=== PATIENT | female | born 1995 | race Caucasian/White ===

== ENCOUNTER 2022-09-04 07:11 | Emergency (ER) | payer BC ==
--- OUTSIDE RECORDS SUMMARY | 2022-09-04 07:53 | XMS REPORT | Continuity of Care Document ---
:1995 Author Organization [facility] t Address [address] [facility] [address] [place] [id number] Care Team Providers Name Role Phone Maurilio HANLEY, Buster Lenz Attending Clinician Payers Payer Name Policy Type Policy Number Effective Date Expiration Date S ource Problems Condition Condition Condition Status Onset Resolution Last Treating Co mments Source Name Details Category Date Date Treatment Clinician Date Previous Previous Disease Active Unive rs 717 ity of delivery delivery 00:00: [place] affecting affecting 00 Medi anival Bran ch Anemia of Anemia of Disease Active Uni vers mother in mother in 06 [place] , , [place] ante[place] antepartum 00 Me dical Branch Sterilizat Sterilizat Disease Active U nivers ion ion 5-11 ity of consult consult 00:00: [place] 00 Medical Branch Tobacco Tobacco Disease Active Univers smoking smoking 4-12 [place] of affecting affecting 00:[place] in second in second Bran ch trimester trimester Medication Medication Disease Active U nivers exposure exposure 4-12 ity of during during 00:00: [place] first first 00 Medical trimester trimester Bran ch of of Declines Declines Disease Active Unive rs 4-12 ity of (vaginal (vaginal 00:00: [place] 00 Medical after after Branch ) ) trial trial Previous Previous Disease Active Unive rs 4-12 ity of delivery delivery 00:00: [place] affecting affecting 00 Medi anival , , Br anch antepartum antepartum Status Status Disease Active Univers post post 7 [place] of induction induction 00:00[place] of labor of labor 00 Medica l Branch Disease Active Univers distress distress 08-20 ity of affecting affecting 00:00: Ruben llanos management management 00 Me dical of mother, of mother, Br anch delivered delivered Failed Failed Disease Active Univers induction induction 08-20 ity of of labor, of labor, 00:00: Ruben llanos delivered delivered 00 [facility] Branch Fetopelvic Fetopelvic Disease Active Overview : Univers disproport disproport 08-20 ICD10 it y of ion, ion, 00:00: Diagnosis [place] delivered delivered 00 Term [facility] [employer] Care Manager Branch Utility Threatened Threatened Disease Active U nivers premature premature 6-18 ity of labor, labor, 00:00: [place] antepartum antepartum 00 Me dical (644.03) (644.03) Branch Allergies, Adverse Reactions, Alerts Allergy Allergy Status Severity Reaction(s) Onset Inactive Treating Comm ents Source Name Type Date Date Clinician Tegaderm Propensi Active Itching Unive rs Dressing ty to 7 ity of adverse 00:00: [place] reaction 00 [facility] Penicill Propensi Active Anaphylaxis U nivers ins ty to 08-20 ity of adverse 00:00: [place] reaction 00 Medical [facility] Social History Social Habit Start Date Stop Date Quantity Comments Source History of tobacco Cigarette Smoker [facility] use [facility] Alcohol intake [facility] Sex Assigned At Universit y of [facility] [place] [facility] Cigarettes smoked 2018-08-27 2018-08-27 Univers ity of current (pack per 00:00:00 00:00:00 ) - Reported Branch Cigarette 2018-08-27 2018-08-27 University of pack-years 00:00:00 00:00:00 [facility] [place] [facility] Smoking Status Start Date Stop Date Source Current every day smoker 2018-08-27 00:00:00 Uni versity of [facility] [place] [facility] Medications Ordered Filled Start Stop Current Ordering Indication Dosage Frequency Signature Comments Components Source Medication Medication Date Date Medication? Clinician (SIG) Name Name topiramate Yes [id number] Take 100mg Univers 50 mg 09-27 two times ity of tablet 00:00: a day for [place] 00 5 days, Medical then take Branch 150 mg in the am and 100 mg in the evening for 5 days, then take 150 mg two times a day there after. ZOLMitripta Yes One tab at Univers n 5 mg 09-27 onset of ity of tablet 00:00: headache, [place] 00 may repeat Medical x one tab Branch in 4 hours if headache persist. No more than two tabs in a 24 hour period Butalbital- Yes [id number] Use one Univers Acetaminoph 8-09 every 6 ity o f en-Caff 00:00: hours as [place] (FIORICET) 00 needed for Med ical 50-300-40 head pain. Bran ch mg per capsule Butalbital- 2019- No [id number] Use one Univers Acetaminoph 6-18 08-09 every 6 ity of en-Caff 00:00: 00:00 hours as [place] (FIORICET) 00 :00 needed for Med ical 50-300-40 head pain. Bran ch mg per capsule topiramate 2019- No [id number] Use 2 in Univers 50 mg 5-03 08-09 am, 1 in ity of tablet 00:00: 00:00 the [place] 00 :00 evening Medical for the Branch headache. sumatriptan 2019- No [id number] 100mg Take 1 Univers 100 mg -04 26-09 tablet by ity of tablet 00:00: 00:00 mouth as [place] 00 :00 needed for Medical Migraine. Branch Within 24 hours, may repeat times one in 2 hours as needed. Yes 1{tbl} Take 1 Tab U nivers VIT 7-24 by mouth. ity of W-CA,FE,FA, 18:53: [place] <1 MG, 24 Medical ( Branch #2 ORAL) diphenhydrA Yes 25mg Take 25 mg Univers MINE 7-24 by mouth ity of (BENADRYL 18:53: every 4 [place] ALLERGY) 25 24 (four) Medica l mg tablet hours as Branch needed for Allergies. predniSONE 2017- Yes [id number] 10mg Take 1 Univers 10 mg 7-24 tablet by ity of tablet 00:00: mouth [place] 00 SEE-INSTRU Medical CTIONS. Branch naproxen Yes 500mg Take 1 Univer s 500 mg 7-18 tablet by ity of tablet 00:00: mouth 2 [place] 00 (two) Medical times Branch daily with meals as needed for Pain (scale 1-3) or Pain (scale 4-6). 2018- Yes 1{tbl} Take 1 Unive rs vitamin 7-18 tablet by ity of w/FA tablet 00:00: mouth [place] 00 daily. Medical Branch docusate Yes 240mg Take 1 Univer s calcium 240 7-18 capsule by it y of mg capsule 00:00: mouth once [place] 00 daily as Medical needed for Branch Constipati on. ferrous Yes 325mg Take 1 Univers sulfate 325 7-18 tablet by ity of mg (65 mg 00:00: mouth 2 [place] iron) 00 (two) Medical tablet times Branch daily. ferrous Yes [id number] 325mg Take 1 Un eusebio sulfate 7-06 tablet by ity of (IRON, 00:00: mouth 2 [place] FERROUS 00 (two) Medical SULFATE,) times Branch 325 mg (65 daily with mg iron) meals. tablet Immunizations Ordered Filled Immunization Date Status Comments [facility] e Immunization Name Name Tdap 2017-06-29 Completed [facility] 00:00:00 [facility] [place] [facility] Procedures This patient has no known procedures. Encounters Start End Encounter Admission Attending Care Care Encounter Source Date/Time Date/Time Type Type Clinicians Facility Department ID 2018-09-26 2018-09-26 Telephone MaurilioJEOVANNY [id number] [facility] 00:00:00 00:00:00 Buster Faulkner [id number] ity zoya Montoya [id number] dical nal 092 Branch Building Results This patient has no known results.
[2022-09-04] MEDS ORDERED: ONDANSETRON 4 MG/2 ML VIAL ONE (08:06)
[2022-09-04] MEDS ORDERED: NA CHLORIDE 0.9% 1,000 ML ONE (08:06)
--- NOTE | 2022-09-04 15:12 | RAD REPORT ---
EXAM DESCRIPTION: CT - Abdomen Pelvis Wo Contrast - 09/04/2022 1:41 pm CLINICAL HISTORY: Abdominal pain. ABD PAIN COMPARISON: No comparisons TECHNIQUE: CT imaging of the abdomen and pelvis was performed without contrast. Solid organ, bowel a nd vascular assessment is limited due to lack of IV and oral contrast. All CT scans are performed using dose optimization technique as appropriate and may include automated exposure control or mA/KV adjustment according to patient size. FINDINGS: The lower lung asif are clear. The liver, spleen, pancreas, adrenal glands and kidneys are within normal limits for a limited non-co ntrast examination. No bowel obstruction, free air, free fluid or abscess. The appendix is normal. The osseous structures are within normal limits. IMPRESSION: No acute intra-abdominal or pelvic findings. A limited non-contrast examination was performed as detailed.
[2022-09-04 15:29] LABS: Specific Gravity 1.009 (1.005-1.030); Urine Bacteria None Seen /HPF (<20); Urine Bilirubin NEGATIVE (Negative); Urine Blood Negative (Negative); Urine Clarity Turbid (Clear); Urine Color Light-Yellow (Yellow); Urine Glucose NEGATIVE (Negative); Urine Mucus 1+ /HPF (None Seen); Urine Protein NEGATIVE (Negative); Urine RBC <5 /HPF (None Seen); Urine Urobilinogen Normal (Normal); Urine pH 5.5 (5.0-7.0)
[2022-09-04 15:31] LABS: Specific Gravity 1.009 (1.005-1.030)
[2022-09-04 15:34] LABS: Absolute Lymphocytes (CBC) 2.3 K/uL (0.7-4.9); Hematocrit 40.2 % (36.0-45.0); MCV 93.5 fL (80-100); MPV 8.3 fL (7.6-11.3)
[2022-09-04 15:40] LABS: Albumin 4.2 g/dL (3.4-5.0); Bilirubin Total 0.7 mg/dL (0.2-1.0); Potassium 3.1 mEq/L (3.5-5.1); Protein, Total 7.5 g/dL (6.4-8.2)
--- NOTE | 2022-09-04 16:40 | ER ---
[facility] Age: 27 yrs Sex: Female : 1995 Arrival Date: 09/04/2022 Time: 07:11 Bed 14 Private MD: Diagnosis: Abdominal pain, unspecified;Nausea with vomiting, unspecified Presentation: 09/04 07:30 Chief complaint: Patient states: N/V, abdominal cramps for 7-10 days. No fever. ll1 Coronavirus screen: Vaccine status: Patient reports being unvaccinated. Client denies travel out of the [place] in the last 14 days. At this time, the client does not indicate any symptoms associated with coronavirus-19. Ebola Screen: Patient denies travel to an Ebola-affected area in the 21 days before illness onset. Initial Sepsis Screen: Does the patient meet any 2 criteria? No. Patient's initial sepsis screen is negative. Does the patient have a suspected source of infection? No. Patient's initial sepsis screen is negative. Risk Assessment: Do you want to hurt yourself or someone else? Patient reports no desire to harm self or others. Onset of symptoms was August 25, 2022. 07:30 Method Of Arrival: Ambulatory ll1 07:30 Acuity: GAURANG 3 ll1 Triage Assessment: 07:31 General: Appears uncomfortable, ill, Behavior is calm, cooperative, appropriate for ll1 age. Pain: Complains of pain in abdomen Quality of pain is described as aching, crampy. GI: Reports cramping, nausea, vomiting. 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 - Social history:: Smoking status: Patient reports the use of cigarette tobacco products, smokes one-half pack cigarettes per day. - Family history:: not pertinent. - Hospitalizations: : No recent hospitalization is reported. Screenin:25 [facility] ED Fall Risk Assessment (Adult) History of falling in the last 3 months, db including since admission No falls in past 3 months (0 pts) Score/Fall Risk Level 0 - 2 = Low Risk Oriented to surroundings. Abuse screen: Denies threats or abuse. Denies injuries from another. Nutritional screening: No deficits noted. Tuberculosis screening: No symptoms or risk factors identified. Assessment: 08:03 Reassessment: No changes from previously documented assessment. Patient and/or family ll1 updated on plan of care and expected duration. Pain level reassessed. Patient is alert, oriented x 3, equal unlabored respirations, skin warm/dry/pink. 10:00 Reassessment: Patient appears in no apparent distress at this time. No changes from db previously documented assessment. Patient is alert, oriented x 3, equal unlabored respirations, skin warm/dry/pink. 11:25 Reassessment: Patient appears in no apparent distress at this time. Patient and/or db family updated on plan of care and expected duration. Pain level reassessed. Patient is alert, oriented x 3, equal unlabored respirations, skin warm/dry/pink. Patient states feeling better. Patient states symptoms have improved. GI: Abdomen is flat. Vital Signs: 07:30 BP 125 / 95; Pulse 80; Resp 16; Temp 97.8; Pulse Ox 100% ; Pain 2/10; ll1 10:01 BP 117 / 72; Pulse 77; Resp 16; Pulse Ox 98% on R/A; db 11:34 BP 106 / 58; Pulse 61; Resp 16; Pulse Ox 97% on R/A; db 07:30 Pain Scale: Adult ll1 ED Course: 07:18 Patient arrived in ED. am2 07:21 Charanjit Merritt MD is Attending Physician. rn 07:27 Arm band placed on Patient placed in an exam room, on a stretcher. ll1 07:31 Triage completed. ll1 08:55 Lauren Cardoso, MALIHA is Primary Nurse. db 11:25 Bed in low position. Call light in reach. Side rails up X 1. Provided Education on: db DISCHARGE. 11:25 No provider procedures requiring assistance completed. IV discontinued, intact, db bleeding controlled, No redness/swelling at site. Administered Medications: 08:03 Drug: NS 0.9% IV 1000 ml Route: IV; Rate: 1 bolus; Site: right antecubital; 1 11:46 Follow up: Response: No adverse reaction; IV Status: Completed infusion; IV Intake: db 1000ml 08:03 Drug: Ondansetron IVP 4 mg Route: IVP; Site: right antecubital; ll1 11:20 Follow up: Response: No adverse reaction db Medication: 11:25 VIS not applicable for this client. db Intake: 11:46 IV: 1000ml; Total: 1000ml. db Outcome: 11:26 Discharge ordered by . rn 11:35 Discharged to home ambulatory. db 11:35 Condition: stable 11:35 Discharge instructions given to patient, Instructed on discharge instructions, follow up and referral plans. Prescriptions given X 1. 11:47 Patient left the ED. db Signatures: Charanjit Merritt MD MD rn Moreno, Amanda am2 Lewis, Lynsay RN RN 1 Lauren Cardoso RN RN db
--- NOTE | 2022-09-04 16:40 | EDPHYS ---
Physician Documentation [facility] Name: Alfred Steele Age: 27 yrs Sex: Female : 1995 Arrival Date: 09/04/2022 Time: 07:11 Bed 14 Private MD: ED Physician Charanjit Merritt HPI: 09/04 07:56 This 27 yrs old Female presents to ER via Ambulatory with complaints of rn Nausea/Vomiting. 07:56 The patient presents to the emergency department with nausea, vomiting. Onset: The rn symptoms/episode began/occurred 1 week(s) ago. Possible causes: unknown. The symptoms are aggravated by nothing. The symptoms are alleviated by nothing. Associated signs and symptoms: Pertinent positives: abdominal pain, nausea, vomiting, Pertinent negatives: diarrhea, GI bleeding, hematuria. Severity of symptoms: At their worst the symptoms were moderate in the emergency department the symptoms are unchanged. The patient has not experienced similar symptoms in the past. The patient has been recently seen by a physician:. Pt reports nausea/vomiting for 1 week. No fever. 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 + chronic abd pain, but no gross change. No congestion/sore throat/diarrhea. . 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 - Social history:: Smoking status: Patient reports the use of cigarette tobacco products, smokes one-half pack cigarettes per day. - Family history:: not pertinent. - Hospitalizations: : No recent hospitalization is reported. ROS: 07:56 Constitutional: Negative for fever, chills, and weight loss, Eyes: Negative for injury, rn pain, redness, and discharge, Neck: Negative for injury, pain, and swelling, Cardiovascular: Negative for chest pain, palpitations, and edema, Respiratory: Negative for shortness of breath, cough, wheezing, and pleuritic chest pain, Abdomen/GI: + abd pain and nausea/vomiting Back: Negative for injury and pain, MS/Extremity: Negative for injury and deformity, Skin: Negative for injury, rash, and discoloration, Neuro: + generalized weakness Exam: 07:56 Constitutional: This is a well developed, well nourished patient who is awake, alert, rn and in no acute distress. ENT: dry MM Cardiovascular: Regular rate and rhythm. No pulse deficits. Respiratory: No increased work of breathing, no retractions or nasal flaring. Abdomen/GI: soft, mild suprapubic and LLQ tenderness Skin: Warm, dry MS/ Extremity: Pulses equal, no cyanosis. Neuro: Awake and alert, GCS 15 Vital Signs: 07:30 BP 125 / 95; Pulse 80; Resp 16; Temp 97.8; Pulse Ox 100% ; Pain 2/10; ll1 10:01 BP 117 / 72; Pulse 77; Resp 16; Pulse Ox 98% on R/A; db 11:34 BP 106 / 58; Pulse 61; Resp 16; Pulse Ox 97% on R/A; db 07:30 Pain Scale: Adult ll1 MDM: 07:21 Patient medically screened. rn 11:24 Differential diagnosis: Nonspecific abd pain, gastritis, pancreatitis, appendicitis, rn diverticulitis, viral gastroenteritis, gastroenteritis. Differential diagnosis: endometriosis, UTI, flu, viral syndrome. Data reviewed: vital signs, nurses notes. Counseling: I had a detailed discussion with the patient and/or guardian regarding: the historical points, exam findings, and any diagnostic results supporting the discharge/admit diagnosis, lab results, radiology results, the need for outpatient follow up, to return to the emergency department if symptoms worsen or persist or if there are any questions or concerns that arise at home. Response to treatment: the patient's symptoms have markedly improved after treatment, and as a result, I will discharge patient. Special discussion: Based on the patient's Hx, exam, and Dx evaluation, there is no indication for emergent surgery or inpatient Tx. It is understood by the patient/guardian that if the Sx's persist or worsen they need to return immediately for re-evaluation. I discussed with the patient/guardian in detail that at this point there is no indication for admission to the hospital. It is understood, however, that if the symptoms persist or worsen the patient needs to return immediately for re-evaluation. Based on the history and exam findings, there is no indication for further emergent testing or inpatient evaluation. I discussed with the patient/guardian the need to see the primary care provider for further evaluation of the symptoms. ED course: No acute findings on blood/urine/CT abdomen. Contacted Dr. Glover, radiologist, for verbal result given computers still down, states no acute findings and no surgical findings. Will dc home with return precautions and prn nausea medication. . 09/04 07:43 Order name: IV Saline Lock; Complete Time: 07:44 rn 09/04 07:43 Order name: Labs collected and sent; Complete Time: :44 rn Administered Medications: 08:03 Drug: NS 0.9% IV 1000 ml Route: IV; Rate: 1 bolus; Site: right antecubital; ll1 11:46 Follow up: Response: No adverse reaction; IV Status: Completed infusion; IV Intake: db 1000ml 08:03 Drug: Ondansetron IVP 4 mg Route: IVP; Site: right antecubital; ll1 11:20 Follow up: Response: No adverse reaction db Disposition Summary: 09/04/22 11:26 Discharge Ordered Location: Home rn Problem: new rn Symptoms: have improved rn Condition: Stable rn Diagnosis - Abdominal pain, unspecified rn - Nausea with vomiting, unspecified rn Followup: rn - With: Private Physician - When: As needed - Reason: Recheck today's complaints, Re-evaluation by your physician Discharge Instructions: - Discharge Summary Sheet rn - Abdominal Pain, Adult rn - Nausea and Vomiting, Adult rn Forms: - Medication Reconciliation Form rn - Thank You Letter rn - 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
== END 2022-09-04 11:47 | disposition home or self-care (01) ==
LOC: ER 07:11
DX: R11.2 Nausea with vomiting, unspecified (principal); R10.9 Unspecified abdominal pain; F17.210 Nicotine dependence, cigarettes, uncomplicated; Z88.0 Allergy status to penicillin; Z91.013 Allergy to seafood; Z28.310 Unvaccinated for COVID-19
CPT/HCPCS: 96361; 85025; 36415; 81025; 81003; 83690; 80053; 87635; 87804 ×2; 74176; 96374; 99284; J2405; J7030

== ENCOUNTER 2023-06-26 16:00 | Emergency (ER) | payer BC ==
--- OUTSIDE RECORDS SUMMARY | 2023-06-26 16:03 | XMS REPORT | Continuity of Care Document ---
Author Name Unknown Address [address] [facility] [address] [place] [address] [facility] thconnect Address [address] [facility] [address] [place] [address] Care Team Providers Care Visitor Services Representative Name Role Phone Sung Garcia Attending Clinician Unavailable GC_GCBZW_Kaiona_S Attending Clinician Rosalva Prajapati Attending Clinician Buster Acuna MD Attending Clinician YULY_GCBZW_Suea_S Admitting Clinician Christine gautam KNOW, DOES_NOT Admitting Clinician Unavailable Payers Payer Name Policy Type Policy Number Effective Date Expirati on Date Source [place] [id number] 2022 00:00:00 2023 00:00:00 Problems Condition Name Condition Details Condition Category Status Onset Date Resolution Date Last Treatment Date Treating Clinician Comments Source Previous delivery affecting Previous delivery affecting Disease Active 09-04 00:00: 00 [facility] Anemia of mother in , antepartum Anemia of mother in , antepartum Disease Active -06 00:00: 00 [facility] Sterilizat ion consult Sterilizat ion consult Disease Active 5-11 00:00: 00 [facility] Tobacco smoking affecting in second trimester Tobacco smoking affecting in second trimester Disease Active 4-12 00:00: 00 [facility] Medication exposure during first trimester of Medication exposure during first trimester of Disease Active 05-31 00:00: 00 [facility] Declines (vaginal after ) trial Declines (vaginal after ) trial Disease Active 05-31 00:00: 00 [facility] Previous delivery affecting , antepartum Previous delivery affecting , antepartum Disease Active 05-31 00:00: 00 [facility] Status post induction of labor Status post induction of labor Disease Active 08-20 00:00: 00 [facility] distress affecting management of mother, delivered distress affecting management of mother, delivered Disease Active 08-20 00:00: 00 [facility] Failed induction of labor, delivered Failed induction of labor, delivered Disease Active 08-20 00:00: 00 [facility] Fetopelvic disproport ion, delivered Fetopelvic disproport ion, delivered Disease Active 08-20 00:00: 00 Overview: 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 [facility] Threatened premature labor, antepartum (644.03) Threatened premature labor, antepartum (644.03) Disease Active 08-06 00:00: 00 [facility] Allergies, Adverse Reactions, Alerts Allergy Name Allergy Type Status Severity Reaction(s) Onset Date Inactive Date Treating Clinician Comments Source shellfis h derived FA Active SV ANAPHYLAXIS 2022-02 00:00: 00 [facility] Penicill ins DA Active SV ANAPHYLAXIS 2022-02 00:00: 00 [facility] shellfis h derived FA Active SV ANAPHYLAXIS 2022-02 00:00: 00 [facility] Penicill ins DA Active SV ANAPHYLAXIS 2022-02 00:00: 00 [facility] Tegaderm Dressing Propensi ty to adverse reaction s Active Itching 09-11 00:00: 00 [facility] Penicill ins Propensi ty to adverse reaction s Active Anaphylaxis 08-20 00:00: 00 [facility] Social History Social Habit Start Date Stop Date Quantity Comments Source History of tobacco use Cigarette Smoker [facility] Alcohol intake [facility] Sex Assigned At [facility] Cigarettes smoked current (pack per day) - Reported 2018-08-27 00:00:00 2018-08-27 00:00:00 [facility] Cigarette pack-years 2018-08-27 00:00:00 2018-08-27 00:00:00 [facility] Smoking Status Start Date Stop Date Source Current every day smoker 2018-08-27 00:00:00 [facility] Medications Ordered Medication Name Filled Medication Name Start Date Stop Date Current Medication? Ordering Clinician Indication Dosage Frequency Signature (SIG) Comments Components Source topiramate 50 mg tablet 09-27 00:00: 00 Yes [id number] Take 100mg two times a day for 5 days, then take 150 mg in the am and 100 mg in the evening for 5 days, then take 150 mg two times a day there after. [facility] ZOLMitripta n 5 mg tablet 09-27 00:00: 00 Yes One tab at onset of headache, may repeat x one tab in 4 hours if headache persist. No more than two tabs in a 24 hour period [facility] Butalbital- Acetaminoph en-Caff (FIORICET) 50-300-40 mg per capsule 09-27 00:00: 00 Yes [id number] Use one every 6 hours as needed for head pain. [facility] Butalbital- Acetaminoph en-Caff (FIORICET) 50-300-40 mg per capsule 08-06 00:00: 00 09-27 00:00 :00 No [id number] Use one every 6 hours as needed for head pain. [facility] topiramate 50 mg tablet 06-21 00:00: 00 09-27 00:00 :00 No [id number] Use 2 in am, 1 in the evening for the headache. [facility] sumatriptan 100 mg tablet 06-21 00:00: 00 09-27 00:00 :00 No [id number] 100mg Take 1 tablet by mouth as needed for Migraine. Within 24 hours, may repeat times one in 2 hours as needed. [facility] VIT W-CA,FE,FA, <1 MG, ( #2 ORAL) 09-11 18:53: 24 Yes 1{tbl} Take 1 Tab by mouth. [facility] diphenhydrA MINE (BENADRYL ALLERGY) 25 mg tablet 09-11 18:53: 24 Yes 25mg Take 25 mg by mouth every 4 (four) hours as needed for Allergies. [facility] predniSONE 10 mg tablet 09-11 00:00: 00 Yes [id number] 10mg Take 1 tablet by mouth SEE-INSTRU CTIONS. [facility] naproxen 500 mg tablet 09-05 00:00: 00 Yes 500mg Take 1 tablet by mouth 2 (two) times daily with meals as needed for Pain (scale 1-3) or Pain (scale 4-6). [facility] vitamin w/FA tablet 09-05 00:00: 00 Yes 1{tbl} Take 1 tablet by mouth daily. [facility] docusate calcium 240 mg capsule 09-05 00:00: 00 Yes 240mg Take 1 capsule by mouth once daily as needed for Constipati on. [facility] ferrous sulfate 325 mg (65 mg iron) tablet 09-05 00:00: 00 Yes 325mg Take 1 tablet by mouth 2 (two) times daily. [facility] ferrous sulfate (IRON, FERROUS SULFATE,) 325 mg (65 mg iron) tablet 08-24 00:00: 00 Yes [id number] 325mg Take 1 tablet by mouth 2 (two) times daily with meals. [facility] Encounters Start Date/Time End Date/Time Encounter Type Admission Type Attending Clinicians Care Facility Care Department Encounter ID Source 2023-06-26 08:49:01 Outpatient Sung Garcia [facility] [id number] [facility] 2023-05-29 13:25:00 Outpatient Sung Garcia [facility] [id number] [facility] 2023-03-22 00:00:00 2023-03-22 00:00:00 Outpatient GC_GCBZW_Ka diyala_S PRIV PRIV [id number] [facility] 2023-02-22 00:00:00 2023-02-22 00:00:00 Outpatient GC_GCBZW_Ka diyala_S PRIV PRIV [id number] [facility] 2023-01-25 00:00:00 2023-01-25 00:00:00 Outpatient GC_GCBZW_Ka diyala_S PRIV PRIV [id number] [facility] 2023-01-04 00:00:00 2023-01-04 00:00:00 Outpatient GC_GCBZW_Ka diyala_S PRIV PRIV [id number] [facility] 2023-01-01 13:09:00 2023-01-01 13:09:00 Outpatient JOSE Estes Rosalva [facility] [id number] [address] [facility] 2022-12-28 00:00:00 2022-12-28 00:00:00 Outpatient GC_GCBZW_Ka diyala_S PRIV PRIV [id number] [facility] 2022-11-30 00:00:00 2022-11-30 00:00:00 Outpatient GC_GCBZW_Ka diyala_S PRIV PRIV [id number] [facility] 2022-11-30 00:00:00 2022-11-30 00:00:00 Outpatient GC_GCBZW_Ka diyala_S PRIV PRIV [id number] [facility] 2022-11-30 00:00:00 2022-11-30 00:00:00 Outpatient GC_GCBZW_Ka diyala_S PRIV PRIV [id number] [facility] 2022-11-30 00:00:00 2022-11-30 00:00:00 Outpatient GC_GCBZW_Ka diyala_S PRIV PRIV [id number] [facility] 2022-10-17 00:00:00 2022-10-17 00:00:00 Outpatient GC_GCBZW_Ka diyala_S PRIV PRIV [id number] [facility] 2022-10-17 00:00:00 2022-10-17 00:00:00 Outpatient GC_GCBZW_Ka diyala_S PRIV PRIV [id number] [facility] 2022-10-17 00:00:00 2022-10-17 00:00:00 Outpatient GC_GCBZW_Ka diyala_S PRIV PRIV [id number] [facility] 2022-10-17 00:00:00 2022-10-17 00:00:00 Outpatient GC_GCBZW_Ka diyala_S PRIV PRIV [id number] [facility] 2022-10-02 00:00:00 2022-10-02 00:00:00 Outpatient GC_GCBZW_Ka diyala_S PRIV PRIV [id number] [facility] 2022-10-02 00:00:00 2022-10-02 00:00:00 Outpatient GC_GCBZW_Ka diyala_S PRIV PRIV [id number] [facility] 2022-10-01 00:00:00 2022-10-01 00:00:00 Outpatient GC_GCBZW_Ka diyala_S PRIV PRIV [id number] [facility] 2018-09-26 00:00:00 2018-09-26 00:00:00 [facility]phone [facility] [id number] [facility] Results Test Description Test Time Test Comments Results Result Co mments Source HCG SERUM [id number] 15:51:00* Test Item Value Reference Range Interpretation Comme nts HCG SERUM QUAL (test code = HCGQL) SERUM NEGATIVE SCREEN NEGATIVE CBC W/AUTO [id number] 22:53:00* Test Item Value Reference Range Interpretation Comme nts WHITE BLOOD CELL (test code = WBC) 7.0 K/mm3 3.5-11.0 N RED BLOOD CELL (test code = RBC) 4.12 M/mm3 4.70-6.10 L HEMOGLOBIN (test code = HGB) 12.5 G/DL 10.4-14.9 N HEMATOCRIT (test code = HCT) 38.9 % 31.5-44.1 N MEAN CELL VOLUME (test code = MCV) 94.4 Fl 84.5-98.6 N MEAN CELL HGB (test code = MCH) 30.3 pg 27.0-34.2 N MEAN CELL HGB CONCETRATION (test code = MCHC) 32.1 G/DL 31.5-34.0 N RED CELL DISTRIBUTION WIDTH (test code = RDW) 15.3 SD 11.5-14.5 H PLATELET COUNT (test code = PLT) 218 K/mm3 150-450 N MEAN PLATELET VOLUME (test c ode = MPV) 9.70 fL 7.0-10.5 N NEUTROPHIL % (test code = NT%) 53.5 % 40-76 N IMMATURE GRANULOCYTE % (test code = IG%) 0.1 % 0.0-5.0 N LYMPHOCYTE % (test code = LY%) 36.1 % 20.5-51.1 N MONOCYTE % (test code = MO%) 8.6 % 1.7-9.3 N EOSINOPHIL % (test code = EO%) 1.3 % 0.0-6.0 N BASOPHIL % (test code = BA%) 0.4 % 0.0-2.0 N NUCLEATED RBC % (test code = NRBC%) 0.0 /100WBC% 0.0-1.0 N NEUTROPHIL # (test code = NT#) 3.7 K/mm3 1.8-7.6 N IMMATURE GRANULOCYTE # (test code = IG#) 0.01 x10 3/uL 0.00-0.03 N LYMPHOCYTE # (test code = LY#) 2.5 K/mm3 0.6-3.2 N MONOCYTE # (test code = MO#) 0.6 K/mm3 0.3-1.1 N EOSINOPHIL # (test code = EO#) 0.1 K/mm3 0.0-0.4 N BASOPHIL # (test code = BA#) 0.0 K/mm3 0.0-0.1 N NUCLEATED RBC # (test code = NRBC#) 0.0 K/mm3 0.0-0.1 N BASIC METABOLIC [id number] 14:09:00* Test Item Value Reference Range Interpretation Comme nts SODIUM (test code = NA) 140 mmol/L 134-147 N POTASSIUM (test code = K) 3.6 mmol/L 3.4-5.0 N CHLORIDE (test code = CL) 107 mmol/L 100-108 N CARBON DIOXIDE (test code = CO2) 27 mmol/L 21-32 N ANION GAP (test code = GAP) 6.0 GAP calc 4.0-15.0 N GLUCOSE (test code = GLU) 83 MG/DL 70-110 N BLOOD UREA NITROGEN (test code = BUN) 6 MG/DL 7-18 L GLOMERULAR FILTRATION RATE (test code = GFR) >=60 max estimate estGFR >60 The Glomerular Filtration Rate is a calculated parameterbased on serum Creatinine, patient age and sex. GFR valuesless than 60 mL/min/1.73 square meters are indicative ofChronic Kidney Disease. Values less than 15 mL/min/1.73square meters indicate Kidney failure. The calculation forGFR is based on the CKD-EPI (2020) calculation. This formulais race indifferent and is the recommended formula for GFRby the National Kidney Foundation for Adults.The GFR will not calculate if the sex is unknown or if thepatient's age is <18 years. CREATININE (test code = CREAT) 0.7 MG/DL 0.6-1.0 N CALCIUM (test code = CA) 8.9 MG/DL 8.5-10.1 N PROTHROMBIN [id number] 13:44:00* Test Item Value Reference Range Interpretation Comme nts PT PATIENT (test code = PTP) 11.1 SECONDS 9.3-12.9 N INTERNATIONAL NORMAL RATIO (test code = INR) 1.00 INR Unit 0.8-1.2 N TARGET INR BY INDICATION Indication INR1. Prophylaxis of venous thrombosis 2.0 - 3.0 (orthopedic surgery), Prophylaxis of venous thrombosis (other than high-risk surgery), Treatment of Deep Vein Thrombosis/Pulmonary Embolism, Prevention of systemic embolism - Tissue heart valves, Acute Myocardial Infarction (to prevent systemic embolism), Valvular heart disease, Acute Myocardial Infarction (to prevent systemic embolism), Valvular heart disease, Atrial Fibrillation, Bileaflet mechanical valve in aortic position.2. Mechanical prosthetic valves (high risk), 2.5 - 3.5 Presence of Lupus Anticoagulant or Antiphospholipid Antibodies, Prevention of systemic embolism - Acute Myocardial Infarction (to prevent recurrent infarct). Comment: PRE PROCEDURETHROMBOPLASTIN TIME [id number] 13:44:00* Test Item Value Reference Range Interpretation Comme nts THROMBOPLASTIN TIME PARTIAL (test code = PTT) 31.3 SECONDS 26-35 N Comment: PRE PROCEDUREURINALYSIS [id number] 13:24:00* Test Item Value Reference Range Interpretation Comme nts UA GLUCOSE DIPSTICK (test code = DGLUU) NEGATIVE mg/dL NEG UA BILIRUBIN DIPSTICK (test code = BILU) NEGATIVE mg/dL NEG UA KETONE DIPSTICK (test cod e = KETU) NEGATIVE mg/dL NEG UA SPECIFIC GRAVITY (test code = SGU) 1.010 SG 1.005-1.030 UA BLOOD DIPSTICK (test code = JENNIFER) NEGATIVE mg/DL NEG UA PH DIPSTICK (test code = JOSE CARLOS) 7.0 pH UNITS 5.0-7.0 UA PROTEIN DIPSTICK (test code = PROU) NEGATIVE mg/dL NEG UA UROBILINIOGEN DIPSTICK (test code = URO) 0.2 mg/dL <2.0 UA NITRITE DIPSTICK (test code = CISCO) NEGATIVE SCREEN NEG UA LEUKOCYTE ESTERASE DIPSTICK (test code = LEUU) TRACE Leuk/mcL NEGATIVE A Urine Specimen Type: Clean CatchUR HCG [id number] 13:24:00* Test Item Value Reference Range Interpretation Comme nts UR HCG QUAL (test code = HCGQLU) NEGATIVE NEGATIVE Urine Specimen Type: Clean Catch Notes Date/Time Note Provider Source 2023-01-01 21:42:00 [id number] 4-[address] [address] PATIENT NAME: ALCIDES TORRES ADMIT DATE: 01/01/23ACCOUNT NO: [id number] ROOM NO: AGE: 27 REPORT TYPE: OPERATIVE REPORT SEX: F ADMITTING PHYSICIAN: ATTENDING PHYSICIAN: Rosalva Estes MD OPERATION DATE: 01/01/2023 PREOPERATIVE DIAGNOSES: Menorrhagia, dysmenorrhea, deep dyspareunia. POSTOPERATIVE DIAGNOSES: Menorrhagia, dysmenorrhea, deep dyspareunia and bilateral tubo-ovarian adhesions, right distal hydrosalpinx and uterine adhesions to anterior abdominal wall. PROCEDURES PERFORMED:1. Diagnostic hysteroscopy.2. Diagnostic laparoscopy, bilateral tubal ovariolysis.3. Right distal partial salpingectomy.4. Removal of fundal uterine adhesions to the anterior abdominal wall on the right side. SURGEON: Rosalva Estes MD. AIRCRAFT FUELER: Tom. ANESTHESIA: General endotracheal. FINDINGS: Bilateral tubo-ovarian adhesions, right distal hydrosalpinx was notedand so it was excised. Bilateral ovaries were preserved. The left tubal adhesions were taken down; however, the left tube appeared to be densely puckered into the mesosalpinx. The right fundal uterine adhesions were removed from the anterior abdominal wall carefully without leaving any remnant of the myometrium on the abdominal wall. COMPLICATIONS: No complications. ESTIMATED BLOOD LOSS: 25 mL. SPECIMENS: Right distal tube that was hydrosalpinx. FLUIDS: 400 mL. URINE OUTPUT: 100 mL. APPROACH: Laparoscopic. WOUND CLASS: Clean. PATIENT NAME: ALCIDES TORRES DISPOSITION: Home. COUNTS: Correct. INDICATIONS: The patient is a 27-year-old patient with 2 prior C-sections, 2, para 2, status post tubal , presented with heavy periods, significant cramps and pain with intercourse. Discussed all the differential diagnoses including PID scar from any chronic inflammatory conditions like endometriosis or her prior scar adhesions and other pathology. Discussed about doing a diagnostic hysteroscopy, possible D and C if needed, butif the endometrium appeared to be unremarkable, just a diagnostic visualization,then laparoscopy with possible endometriosis excision. If any pathology was seen like adhesions, they would be taken down as they appeared to be contributing to her pain. The patient understood this. She was consented in the preoperative area. This was discussed again with the patient and her partner and she was taken to the OR. DESCRIPTION OF PROCEDURE: One gram of Ancef was given. SCDs were placed. She was placed in supine fashion on the operating table and general anesthesia was given. She was placed in dorsal lithotomy position using Howard stirrups. Abdomen, vulva, vagina, and perineum were prepped and draped in sterile fashion with ChloraPrep. One gram of Ancef was given preoperatively. Timeout was done. Arms were tucked by the side. Positioning was checked. Speculum was placed to expose the cervix. Anterior lip was grasped with 2 Allisclamps. Cervix dilated to 16-Swedish and diagnostic hysteroscope was passed through the cervical canal into the uterine cavity under direct visualization. The cavity appeared to be completely unremarkable without any intracavitary lesions or adhesions. Both tubal ostia were visualized. Scope was removed. There was no need for endometrial samplings. The diagnostic VCare was introduced into the uterus and fixed in place. A 1 cm infraumbilical curvilinear incision was made with a scalpel after injecting with local. Fascia was incised and peritoneum was entered bluntly. Sretractors were placed. Olvera was introduced and after adequate insufflation, site of entry was checked and was unremarkable. The patient was placed in Trendelenburg position and clearly the adhesions of the uterus to the anterior abdominal wall especially in the right lower quadrant were seen. Then, tubes were both pulled up to the anterior abdominal wall and lateral anterior abdominal wall and significant dense adhesions were present here. Then, ovarieswere also pulled up, adhesions to the posterior broad ligament and to the tube were seen. On the left side, the adhesions to the bowel. Then, on the right side, the tube and ovary were adhered to the anterior abdominal wall right next to the fundal adhesions of the uterus to the anterior abdominal wall likely at the scar site where there was a very thick adhesion. Two 5 ports were placed, one in the left lower quadrant, one in the left upper quadrant, both of these were 5 ports after direct injection with Marcaine at thefascia and skin ports were placed visually. Then, the pelvic cavity was surveyed and the anterior, posterior peritoneum and lateral interiano carefully noted with no evidence of any endometriosis was noted. Bilateral tubal ovariolysis, the tubal adhesions were taken down from the anterior abdominal wall, firstly on the left side systematically all the way PATIENT NAME: ALCIDES TORRES from the cornual end to the fimbriated end and released from the lateral wall aswell. Then, tubal adhesions on the right were taken down from the anterior abdominal wall to separate the tubes. The tube was divided and the distal tube appeared to have a hydrosalpinx and the proximal tube appeared to be adhered to the abdominal wall alongside the uterine adhesions, so this was all taken down. Then, uterine adhesion was taken down here by significantly cutting into the peritoneum between the posterior rectus sheath and the uterine wall. After creating this plane, the adhesions were taken down and these were taken down to the level of the bladder inferiorly. Once the entire uterus was , the proximal tube was as well. The ovarian adhesions from the right side to the anterior abdominal wall were also taken down systematically to release the ovary. Right salpingectomy distal partial: The distal right tube next to the ovary appeared to be significantly dilated, so this was taken down on the mesosalpinx and removed through the umbilical 10 port. The proximal tube appeared to be nondilated and was left in place. Thorough irrigation and suction were performed. No evidence of any bleeding. Pictures were taken. Trocars were removed after gas was desufflated. The umbilical trocar was removed. Instrument, needle and sponge counts were correctat the end of the case. Fascia at the umbilicus closed with 0 Vicryl sutures tagged and left at the beginning of the case tied to each other. Then, interrupted 4-0 Monocryl sutures for all incisions at the skin. The uterine manipulator and Bonner were removed. Instrument and sponge counts were correct at the end of case. The patient tolerated the procedure well, partner notified. She will see us back in 1 week and then in 3 months. In the future, if she haspain, definitely should consider bilateral salpingectomy as there were significant adhesions, but she can be controlled with hormones and bleeding managed either with . Dictated By: Rosalva Estes MD Date Dictated: 01/01/2023 21:42:30Date Transcribed: 01/01/2023 22:48:23YASMIN/SHAAN/Jasmyn #: [id number] ID: [id number] by Rosalva Estes MD On 01/25/2023 11:42:29 AM at 1142 PATIENT NAME: ALCIDES TORRES [id number]:48:00L.[id number] lable for patient [id number]:43:10 [facility] 2023-01-01 21:26:00 [id number]:26:00 [facility] NoteREPORT#:[id number] REPORT STATUS: SignedREPORT INITIALIZATION DATE:01/01/23 TIME:2125 PATIENT: ALCIDES TORRES UNIT #: [id number]#: [id number] ROOM/BED:: 94 AGE: 27 SEX: F ATTEND: Rosalva Estes MDADM AUTHOR: Rosalva Estes MDREPT SERVICE DT/TIME: 01/01/232125* ALL edits or amendments must be made on the electronic/computer document * Op/Inv Proc Note - BriefPre-procedure diagnosis:Menorhagia, Dysmenorrhea, Deep dyspareuniaPost-procedure diagnosis: same as pre procedure dx (same, bilaterla tubo-ovariana), bilateral tubo-ovarian adhesions, right distal hydrosalpinx, uterine adhesionsProcedures performed:Hysterscopy, Laparoscopy, bilateral tubo-ovariolysis, right distal salpingectomy(partial), removal of fundal uterine adhesions to anterior abdominal wall on therightPrimary Surgeon:Jhonssistant(s): mandyeAnesthesia: general anesthesiaFindings:bilateral dense tubo-ovarian adhesions, right distal hydrosalpinx, right fundal uterine adhesions to anterior abdominal wallComplications: noneEstimated blood loss in ml's: 25Specimens removed/altered: right distal tubeFluids:400Urine output:100Approach: laparoscopicWound class: cleanDisposition: plan to D/C homeCounts: Sponge count: correct Instrument count: correct Needle count: correct at 2130 RPT #: [id number] OF REPORT OPOperative [id number]:26:00L.[id number] ilable for patient [id number]:30:56 [facility]
[2023-06-26] MEDS ORDERED: DIPHENHYDRAMINE 50 MG/ML VIAL ONE (16:43)
[2023-06-26] MEDS ORDERED: NA CHLORIDE 0.9% 1,000 ML ONE (16:44)
[2023-06-26] MEDS ORDERED: FAMOTIDINE 20 MG/2 ML VIAL IV ONE (16:44)
[2023-06-26 17:21] LABS: Absolute Lymphocytes (CBC) 1.1 K/uL (0.7-4.9); Absolute Monocytes 0.6 K/uL (0.1-1.3); Absolute Neutrophil 6.3 K/uL (1.8-8.0); Basophils % 0.3 % (0-1.3); Eosinophils % 0.4 % (0-4.4); Hematocrit 38.1 % (36.0-45.0); Hemoglobin 12.7 g/dL (12.0-15.0); Lymphocytes % 13.6 % (15.3-44.8); MCH 30.2 pg (27.0-35.0); MCHC 33.5 g/dL (32.0-36.0); MCV 90.4 fL (80-100); MPV 8.5 fL (7.6-11.3); Monocytes % 7.1 % (3.3-12.3); Neutrophils % 78.6 % (41.7-73.7); Platelets 289 thou/uL (152-406); RBC Red Blood Cell Count 4.22 M/uL (3.86-4.86)
[2023-06-26 17:31] LABS: ALT/SGPT 17 U/L (13-56); Alkaline Phosphatase 75 U/L (45-117); Anion Gap 10.4 mEq/L (5.0-15.0); BUN Blood Urea Nitrogen 5 mg/dL (7-18); Bicarbonate 23 mEq/L (21-32); Bilirubin Total 0.6 mg/dL (0.2-1.0); Glomerular Filtration Rate 86 ml/min (=/>90); Glucose Level 124 mg/dL (74-106); Lipase 22 U/L (13-75); Potassium 3.4 mEq/L (3.5-5.1); Sodium Level 138 mEq/L (136-145)
[2023-06-26 17:49] LABS: AST/SGOT < 10 U/L (15-37)
--- NOTE | 2023-06-26 17:57 | RAD REPORT ---
[facility] 4[facility]41 pm CLINICAL HISTORY: CHEST PAIN COMPARISON: CHEST PA AND LAT 2 VIEW dated 11/20/2011; CHEST PA AND LAT 2 VIEW dated 06/26/2011; CHEST P A AND LAT 2 VIEW dated 11/26/2009; ABDOMEN ACUTE SERIES dated 11/15/2005 TECHNIQUE: Portable AP view of the chest. FINDINGS: The lungs are clear. No pneumothorax or effusion. The cardiomediastinal contours are unre markable. IMPRESSION: No acute cardiopulmonary process.
--- NOTE | 2023-06-26 18:39 | EDPHYS ---
Physician Documentation [facility] Name: Alfred Steele Age: 28 yrs Sex: Female : 1995 Arrival Date: 06/26/2023 Time: 16:00 Bed 12 Private MD: ED Physician Charanjit Merritt HPI: 06/25 16:14 This 28 yrs old Female presents to ER via Unassigned with complaints of ec2 Abdominal Pain, Vomiting, Fever. 16:14 Patient arrives today for evaluation of nausea vomiting as well as abdominal pain. ec2 Patient reports that she had an EGD yesterday because she has regular nausea and vomiting. Patient reports she been having increased vomiting since yesterday. Patient reports daily marijuana use. Patient reports no cough or cold symptoms, denies urinary complaints. Patient reports no fevers or chills. Patient reports previous laparoscopic evaluation for endometriosis as well. No abdominal surgeries otherwise.. 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 - Infectious Disease History:: Denies. - Social history:: Smoking status: Patient reports the use of cigarette tobacco products. ROS: 16:14 Constitutional: as per hpi ec2 Exam: 16:14 Constitutional: GEN: NAD Head: atraumatic Eyes: EOMI Ears: External ears are ec2 normal. CV: regular rate LUNGS: no respiratory distress ABD: non-distended SKIN: no evidence of rashes MSK: no evidence of trauma NEURO: moves all extremities equally Vital Signs: 16:20 BP 136 / 93; Pulse 84; Resp 16 S; Temp 97.5(TE); Pulse Ox 97% on R/A; Weight 49.9 kg as6 (R); Height 5 ft. 1 in. (R); Pain 10/10; 17:21 BP 134 / 93; Pulse 76; Resp 22; Pulse Ox 100% on R/A; Pain 10/10; iw 18:19 BP 114 / 79; Pulse 59; Resp 16; Pulse Ox 99% on R/A; tl4 16:20 Body Mass Index 20.78 (49.90 kg, 154.94 cm) as6 16:20 Pain Scale: Adult as6 17:21 Pain Scale: Adult iw MDM: 16:13 Patient medically screened. ec2 16:14 Data reviewed: vital signs. ED course: Patient arrives today for evaluation of nausea ec2 and vomiting. Examination remarkable for well-appearing nontoxic dividual is otherwise in no acute distress. Will obtain lab work, CT imaging, chest x-ray. Evaluating for post EGD complications including pneumomediastinum, evaluating for gastritis, intra-abdominal infection. Additionally considering cannabinoid hyperemesis.. 17:58 ED course: CBC reassuring, metabolic profile shows slight hypokalemia noted. Lipase ec2 within normal ranges. . 17:58 ED course: Chest x-ray shows no acute intrathoracic process. Will sign patient out ec2 pending CT imaging of the abdomen and pelvis and reassessment. . 18:37 ED course: Patient signed out to me by Dr. Campa, plan was to follow-up CT abdomen rn pelvis which has not been obtained yet. After signout patient told nurse that she needed to leave due to family reason and cannot stay. Patient understands risks of leaving prior to complete evaluation and testing. Patient states since given droperidol no longer nauseous or vomiting and feels much better. Patient states will return if anything changes. Refuses to stay for further testing or observation.. 18:38 Counseling: I had a detailed discussion with the patient and/or guardian regarding the rn historical points, exam findings, and any diagnostic results supporting the discharge/admit diagnosis, lab results, the need for outpatient follow up, to return to the emergency department if symptoms worsen or persist or if there are any questions or concerns that arise at home. Response to treatment: the patient's symptoms have resolved after treatment, the patient's condition has returned to base line, the patient is now symptom free, and as a result, I will discharge patient. 18:38 Refusal of service: The patient/guardian displays adequate decision making capability rn and despite a detailed discussion of alternatives, benefits, risks, and consequences refuses: CT Scan. 06/25 16:14 Order name: CBC with Diff; Complete Time: 17:58 ec2 06/25 16:14 Order name: CMP; Complete Time: 17:58 ec2 06/25 16:14 Order name: Lipase; Complete Time: 17:58 ec2 06/25 16:14 Order name: CXR XRAY; Complete Time: 17:58 ec2 06/25 16:14 Order name: IV Saline Lock; Complete Time: 17:13 ec2 06/25 16:14 Order name: Labs collected and sent; Complete Time: 17:13 ec2 Administered Medications: 17:13 Drug: NS 0.9% IV 1000 ml IV at 1 bolus Per protocol; 1000 mL bolus Route: IV; Rate: 1 iw bolus; Site: left antecubital; Delivery: Primary tubing; 18:37 Follow up: Response: No adverse reaction; IV Status: Completed infusion; IV Intake: tl4 1000ml 17:13 Drug: Droperidol IVP 2.5 mg IVP once Route: IVP; Infused Over: 2 mins; Site: left iw antecubital; 18:37 Follow up: Response: No adverse reaction; Nausea is decreased; Vomiting decreased tl4 17:13 Drug: diphenhydrAMINE IVP 25 mg IVP once Route: IVP; Site: left antecubital; iw 18:37 Follow up: Response: No adverse reaction tl4 17:14 Drug: Famotidine IVP 20 mg IVP once; dilute with 10 mL 0.9% NaCl; give over 2 minutes iw Route: IVP; Infused Over: 2 mins; Site: left antecubital; 18:37 Follow up: Response: No adverse reaction tl4 Disposition Summary: 06/26/23 18:38 Discharge Ordered Notes: Location: Home rn Condition: Stable rn Diagnosis - Cannabis abuse, uncomplicated rn - Nausea with vomiting, unspecified rn Followup: ec2 - With: Private Physician - When: - Reason: Re-evaluation by your physician Discharge Instructions: - Discharge Summary Sheet ec2 - Cannabinoid Hyperemesis Syndrome ec2 Forms: - Medication Reconciliation Form rn - Antibiotic rn community - Prescription Opioid Use rn - Patient Portal Instructions rn - Leadership Thank You Letter rn Signatures: Dispatcher [employer] Ruth Campbell RN RN iw Nieto, Roman, MD MD rn Slawson, Ashby, RN RN as6 Shahram Campa MD MD ec2 Logdahl, Grey JETT tl4 Corrections: (The following items were deleted from the chart) 16:15 16:15 CBC+H.LAB.BRZ ordered. EDMS EDMS 16:15 16:15 COMPREHENSIVE METABOLIC PANEL+C.LAB.BRZ ordered. EDMS EDMS 16:15 16:15 LIPASE+C.LAB.BRZ ordered. EDMS EDMS 16:15 16:15 Test, Urine+UC.LAB.BRZ ordered. EDMS EDMS 16:15 16:15 Urinalysis+U.LAB.BRZ ordered. EDMS EDMS 16:15 16:15 Abdomen Pelvis W Con+CT.RAD.BRZ ordered. EDMS EDMS 16:15 16:15 Chest Single View+RAD.RAD.BRZ ordered. EDMS EDMS
--- NOTE | 2023-06-26 18:39 | ER ---
Nurse's Notes [facility] Name: Alfred Steele Age: 28 yrs Sex: Female : 1995 Arrival Date: 06/26/2023 Time: 16:00 Bed 12 Private MD: Diagnosis: Cannabis abuse, uncomplicated;Nausea with vomiting, unspecified Presentation: 06/25 16:20 Chief complaint: Patient states: abdominal pain, n/v since last night after endoscope. as6 Coronavirus screen: At this time, the client does not indicate any symptoms associated with coronavirus-19. Ebola Screen: No symptoms or risks identified at this time. Initial Sepsis Screen: Does the patient meet any 2 criteria? No. Patient's initial sepsis screen is negative. Does the patient have a suspected source of infection? No. Patient's initial sepsis screen is negative. Risk Assessment: Do you want to hurt yourself or someone else? Patient reports no desire to harm self or others. Onset of symptoms was June 25, 2023. 16:20 Method Of Arrival: Ambulatory as6 16:20 Acuity: GAURANG 3 as6 Triage Assessment: 16:22 General: Appears uncomfortable, Behavior is cooperative, crying. Pain: Complains of as6 pain in abdomen. GI: Pt is actively vomiting bile. 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 - Infectious Disease History:: Denies. - Social history:: Smoking status: Patient reports the use of cigarette tobacco products. Screenin:11 [facility] ED Fall Risk Assessment (Adult) History of falling in the last 3 months, iw including since admission No falls in past 3 months (0 pts) Confusion or Disorientation No (0 pts) Intoxicated or Sedated No (0 pts) Impaired Gait No (0 pts) Mobility Assist Device Used No (0 pt) Altered Elimination No (0 pt) Score/Fall Risk Level 0 - 2 = Low Risk Oriented to surroundings, Maintained a safe environment, Educated pt \\T\\ family on fall prevention, incl call for assistance when getting out of bed, Assessed \\T\\ reinforced patient's understanding of fall precautions. Abuse screen: Denies threats or abuse. Denies injuries from another. Nutritional screening: No deficits noted. Tuberculosis screening: No symptoms or risk factors identified. Assessment: 17:09 General: Appears uncomfortable, Behavior is cooperative, restless. Pain: Complains of iw pain in abdomen. Neuro: Level of Consciousness is awake, alert, obeys commands, Oriented to person, place, time, situation, Server Service Assistant are equal bilaterally Moves all extremities. Full function Gait is steady, Speech is normal. Cardiovascular: Capillary refill < 3 seconds Patient's skin is warm and dry. Respiratory: Airway is patent Respiratory effort is even, unlabored, Respiratory pattern is regular, symmetrical, Breath sounds are clear bilaterally. GI: Bowel sounds present X 4 quads. Abd is soft X 4 quads Abdomen is tender to palpation X 4 quads. Reports upper abdominal pain, intolerance of fluids, intolerance of food, nausea, vomiting. : No signs and/or symptoms were reported regarding the genitourinary system. EENT: No signs and/or symptoms were reported regarding the EENT system. Derm: No signs and/or symptoms reported regarding the dermatologic system. Musculoskeletal: No signs and/or symptoms reported regarding the musculoskeletal system. 18:17 Reassessment: Patient and/or family updated on plan of care and expected duration. Pain tl4 level reassessed. Patient is alert, oriented x 3, equal unlabored respirations, skin warm/dry/pink. Pt resting comfortably, no active vomiting noted. Pt reminded of need for urine specimen. Pt denies any needs at this time. Will continue to monitor Patient states feeling better. 18:36 Reassessment: Pt states she is feeling better. Pt states "there's something going on at tl4 home with one of my kids". Pt wants to sign AMA. Dr. Merritt aware. He states he will discharge patient. Vital Signs: 16:20 BP 136 / 93; Pulse 84; Resp 16 S; Temp 97.5(TE); Pulse Ox 97% on R/A; Weight 49.9 kg as6 (R); Height 5 ft. 1 in. (R); Pain 10/10; 17:21 BP 134 / 93; Pulse 76; Resp 22; Pulse Ox 100% on R/A; Pain 10/10; iw 18:19 BP 114 / 79; Pulse 59; Resp 16; Pulse Ox 99% on R/A; tl4 16:20 Body Mass Index 20.78 (49.90 kg, 154.94 cm) as6 16:20 Pain Scale: Adult as6 17:21 Pain Scale: Adult iw ED Course: 16:02 Patient arrived in ED. mr 16:03 Shahram Campa MD is Attending Physician. ec2 16:17 Radiology exam delayed due to lab results not completed at this time. (BUN/Creatinine) nj IV insertion attempt and/or patient not having appropriate IV at this time. 16:17 Radiology exam delayed due to test not completed at this time. nj 16:22 Triage completed. as6 16:22 Arm band placed on. as6 16:42 Grey Duke, MALIHA is Primary Nurse. tl4 16:43 CXR XRAY In Process Unspecified. EDMS 17:12 Patient has correct armband on for positive identification. Placed in gown. Bed in low iw position. Call light in reach. Side rails up X 1. Provided Education on: ED process. Client placed on continuous cardiac and pulse oximetry monitoring. NIBP monitoring applied. Door closed. Noise minimized. Lights dimmed. Moved to private room. Warm blanket given. Pillow given. 17:12 No provider procedures requiring assistance completed. Initial lab(s) drawn, by me, iw sent to lab. Inserted saline lock: 22 gauge in left antecubital area, using aseptic technique. Blood collected. 17:13 CBC with Diff Sent. iw 17:13 CMP Sent. iw 17:13 Lipase Sent. iw 17:43 Radiology exam delayed due to lab results not completed at this time. (BUN/Creatinine) nj test not completed at this time. 18:16 Attending Physician role handed off by Shahram Campa MD rn 18:16 Charanjit Merritt MD is Attending Physician. rn 18:19 Warm blanket given. tl4 18:59 IV discontinued, intact, bleeding controlled, No redness/swelling at site. Pressure tl4 dressing applied. Administered Medications: 17:13 Drug: NS 0.9% IV 1000 ml IV at 1 bolus Per protocol; 1000 mL bolus Route: IV; Rate: 1 iw bolus; Site: left antecubital; Delivery: Primary tubing; 18:37 Follow up: Response: No adverse reaction; IV Status: Completed infusion; IV Intake: tl4 1000ml 17:13 Drug: Droperidol IVP 2.5 mg IVP once Route: IVP; Infused Over: 2 mins; Site: left iw antecubital; 18:37 Follow up: Response: No adverse reaction; Nausea is decreased; Vomiting decreased tl4 17:13 Drug: diphenhydrAMINE IVP 25 mg IVP once Route: IVP; Site: left antecubital; iw 18:37 Follow up: Response: No adverse reaction tl4 17:14 Drug: Famotidine IVP 20 mg IVP once; dilute with 10 mL 0.9% NaCl; give over 2 minutes iw Route: IVP; Infused Over: 2 mins; Site: left antecubital; 18:37 Follow up: Response: No adverse reaction tl4 Medication: 17:11 VIS not applicable for this client. iw Intake: 18:37 IV: 1000ml; Total: 1000ml. tl4 Outcome: 18:38 Discharge ordered by MD. rn 19:00 Discharged to home ambulatory, tl4 19:00 Condition: stable 19:00 Discharge instructions given to patient, Instructed on discharge instructions, follow up and referral plans. Demonstrated understanding of instructions, follow-up care, 19:00 Patient left the ED. tl4 Signatures: Dispatcher [employer] Mackenzie Jaramillo, Ruth Rojas, RN Charanjit Raya MD MD rn Jordan, Nathan nj Slawson, Ashby, RN RN as6 Shahram Campa MD MD ec2 Grey Duke RN RN tl4
[2023-06-26 19:21] VITALS: BP 114/79; TEMP 97.5; O2SAT 99
== END 2023-06-26 19:00 | disposition home or self-care (01) ==
LOC: ER 16:00
DX: F12.10 Cannabis abuse, uncomplicated (principal); Z72.0 Tobacco use; Z88.0 Allergy status to penicillin; Z91.013 Allergy to seafood
CPT/HCPCS: 85025; 36415; 83690; 80053; 71045; J1200; J7030

== ENCOUNTER 2023-06-28 01:49 | Emergency (ER) | payer BC ==
--- OUTSIDE RECORDS SUMMARY | 2023-06-28 01:51 | XMS REPORT | Continuity of Care Document ---
Author Name Unknown Address [address] [facility] [address] th[address] Address [address] [facility] [address] [place] [address] Care Team Providers Care Regional Office Coordinator Name Role Phone Sung Garcia Attending Clinician Unavailable GC_GCBZW_Kadiyala_S Attending Clinician Rosalva Prajapati Attending Clinician Buster Acuna MD Attending Clinician [phone] YULY_GCBZW_Suea_S Admitting Clinician Christine gautam KNOW, DOES_NOT Admitting Clinician Unavailable Payers Payer Name Policy Type Policy Number Effective Date Expirati on Date Source [place] [id number] 2022 00:00:00 2023 00:00:00 Problems Condition Name Condition Details Condition Category Status Onset Date Resolution Date Last Treatment Date Treating Clinician Comments Source Previous delivery affecting Previous delivery affecting Disease Active 09-04 00:00: 00 [facility] Anemia of mother in , antepartum Anemia of mother in , antepartum Disease Active 08-24 00:00: 00 [facility] Sterilizat ion consult Sterilizat ion consult Disease Active - 00:00: 00 [facility] Tobacco smoking affecting in second trimester Tobacco smoking affecting in second trimester Disease Active -12 00:00: 00 [facility] Medication exposure during first trimester of Medication exposure during first trimester of Disease Active 05-31 00:00: 00 [facility] Declines (vaginal after ) trial Declines (vaginal after ) trial Disease Active 05-31 00:00: 00 [facility] Previous delivery affecting , antepartum Previous delivery affecting , antepartum Disease Active 05-31 00:00: 00 [facility] Status post induction of labor Status post induction of labor Disease Active 08-20 00:00: 00 [facility] distress affecting management of mother, delivered distress affecting management of mother, delivered Disease Active 08-20 00:00: 00 [facility] Failed induction of labor, delivered Failed induction of labor, delivered Disease Active 08-20 00:00: 00 [facility] Fetopelvic disproport ion, delivered Fetopelvic disproport ion, delivered Disease Active 08-20 00:00: 00 Overview: ICD10 Diagnosis Term Special Education Coordinator Utility [facility] Threatened premature labor, antepartum (644.03) Threatened premature labor, antepartum (644.03) Disease Active 08-06 00:00: 00 [facility] Allergies, Adverse Reactions, Alerts Allergy Name Allergy Type Status Severity Reaction(s) Onset Date Inactive Date Treating Clinician Comments Source Penicill ins DA Active SV ANAPHYLAXIS 2022-02 00:00: 00 [facility] shellfis h derived FA Active SV ANAPHYLAXIS 2022-02 00:00: 00 [facility] shellfis h derived FA Active SV ANAPHYLAXIS 2022-02 00:00: 00 [facility] Penicill ins DA Active SV ANAPHYLAXIS 2022-02 00:00: 00 [facility] Tegaderm Dressing Propensi ty to adverse reaction s Active Itching 09-11 00:00: 00 [facility] Penicill ins Propensi ty to adverse reaction s Active Anaphylaxis 08-20 00:00: 00 [facility] Social History Social Habit Start Date Stop Date Quantity Comments Source History of tobacco use Cigarette Smoker [facility] Alcohol intake Unive [facility] Sex Assigned At [facility] Cigarettes smoked current (pack per day) - Reported 2018-08-27 00:00:00 2018-08-27 00:00:00 [facility] Cigarette pack-years 2018-08-27 00:00:00 2018-08-27 00:00:00 [facility] Smoking Status Start Date Stop Date Source Current every day smoker 2018-08-27 00:00:00 [facility] Medications Ordered Medication Name Filled Medication Name Start Date Stop Date Current Medication? Ordering Clinician Indication Dosage Frequency Signature (SIG) Comments Components Source topiramate 50 mg tablet 09-27 00:00: 00 Yes [id number] Take 100mg two times a day for 5 days, then take 150 mg in the am and 100 mg in the evening for 5 days, then take 150 mg two times a day there after. [facility] ZOLMitripta n 5 mg tablet 09-27 00:00: 00 Yes One tab at onset of headache, may repeat x one tab in 4 hours if headache persist. No more than two tabs in a 24 hour period [facility] Butalbital- Acetaminoph en-Caff (FIORICET) 50-300-40 mg per capsule 09-27 00:00: 00 Yes [id number] Use one every 6 hours as needed for head pain. [facility] Butalbital- Acetaminoph en-Caff (FIORICET) 50-300-40 mg per capsule 08-06 00:00: 00 09-27 00:00 :00 No [id number] Use one every 6 hours as needed for head pain. [facility] topiramate 50 mg tablet 06-21 00:00: 00 09-27 00:00 :00 No [id number] Use 2 in am, 1 in the evening for the headache. [facility] sumatriptan 100 mg tablet 03 00:00: 00 09-27 00:00 :00 No [id number] 100mg Take 1 tablet by mouth as needed for Migraine. Within 24 hours, may repeat times one in 2 hours as needed. [facility] VIT W-CA,FE,FA, <1 MG, ( #2 ORAL) 09-11 18:53: 24 Yes 1{tbl} Take 1 Tab by mouth. [facility] diphenhydrA MINE (BENADRYL ALLERGY) 25 mg tablet 09-11 18:53: 24 Yes 25mg Take 25 mg by mouth every 4 (four) hours as needed for Allergies. [facility] predniSONE 10 mg tablet 09-11 00:00: 00 Yes [id number] 10mg Take 1 tablet by mouth SEE-INSTRU CTIONS. [facility] naproxen 500 mg tablet 09-05 00:00: 00 Yes 500mg Take 1 tablet by mouth 2 (two) times daily with meals as needed for Pain (scale 1-3) or Pain (scale 4-6). [facility] vitamin w/FA tablet 09-05 00:00: 00 Yes 1{tbl} Take 1 tablet by mouth daily. [facility] docusate calcium 240 mg capsule 09-05 00:00: 00 Yes 240mg Take 1 capsule by mouth once daily as needed for Constipati on. [facility] ferrous sulfate 325 mg (65 mg iron) tablet 09-05 00:00: 00 Yes 325mg Take 1 tablet by mouth 2 (two) times daily. [facility] ferrous sulfate (IRON, FERROUS SULFATE,) 325 mg (65 mg iron) tablet 08-24 00:00: 00 Yes [id number] 325mg Take 1 tablet by mouth 2 (two) times daily with meals. [facility] Encounters Start Date/Time End Date/Time Encounter Type Admission Type Attending Clinicians Care Facility Care Department Encounter ID Source 2023-06-26 08:49:01 Outpatient Sung Garcia [facility] [id number] [facility] 2023-05-29 13:25:00 Outpatient Sung Garcia [facility] [id number] [facility] 2023-03-22 00:00:00 2023-03-22 00:00:00 Outpatient GC_GCBZW_Ka diyala_S PRIV PRIV [id number] [facility] 2023-02-22 00:00:00 2023-02-22 00:00:00 Outpatient GC_GCBZW_Ka diyala_S PRIV PRIV [id number] [facility] 2023-01-25 00:00:00 2023-01-25 00:00:00 Outpatient GC_GCBZW_Ka diyala_S PRIV PRIV [id number] [facility] 2023-01-04 00:00:00 2023-01-04 00:00:00 Outpatient GC_GCBZW_Ka diyala_S PRIV PRIV [id number] [facility] 2023-01-01 13:09:00 2023-01-01 13:09:00 Outpatient JOSE Krunalionghislaine Rosalva [facility] [id number] [facility] 2022-12-28 00:00:00 2022-12-28 00:00:00 Outpatient GC_GCBZW_Ka diyala_S PRIV PRIV [id number] [facility] 2022-11-30 00:00:00 2022-11-30 00:00:00 Outpatient GC_GCBZW_Ka diyala_S PRIV PRIV [id number] [facility] 2022-11-30 00:00:00 2022-11-30 00:00:00 Outpatient GC_GCBZW_Ka diyala_S PRIV PRIV [id number] [facility] 2022-11-30 00:00:00 2022-11-30 00:00:00 Outpatient GC_GCBZW_Ka diyala_S PRIV PRIV [id number] [facility] 2022-11-30 00:00:00 2022-11-30 00:00:00 Outpatient GC_GCBZW_Ka diyala_S PRIV PRIV [id number] [facility] 2022-10-17 00:00:00 2022-10-17 00:00:00 Outpatient GC_GCBZW_Ka diyala_S PRIV PRIV [id number] [facility] 2022-10-17 00:00:00 2022-10-17 00:00:00 Outpatient GC_GCBZW_Ka diyala_S PRIV PRIV [id number] [facility] 2022-10-17 00:00:00 2022-10-17 00:00:00 Outpatient GC_GCBZW_Ka diyala_S PRIV PRIV [id number] [facility] 2022-10-17 00:00:00 2022-10-17 00:00:00 Outpatient GC_GCBZW_Ka diyala_S PRIV PRIV [id number] [facility] 2022-10-02 00:00:00 2022-10-02 00:00:00 Outpatient GC_GCBZW_Ka diyala_S PRIV PRIV [id number] [facility] 2022-10-02 00:00:00 2022-10-02 00:00:00 Outpatient GC_GCBZW_Ka diyala_S PRIV PRIV [id number] [facility] 2022-10-01 00:00:00 2022-10-01 00:00:00 Outpatient GC_GCBZW_Ka diyala_S PRIV PRIV [id number] [facility] 2018-09-26 00:00:00 2018-09-26 00:00:00 Telephone Buster Thorpe [facility] [id number] [facility] Results Test Description Test Time Test Comments Results Result Co mments Source HCG SERUM [id number] 15:51:00* Test Item Value Reference Range Interpretation Comme nts HCG SERUM QUAL (test code = HCGQL) SERUM NEGATIVE SCREEN NEGATIVE CBC W/AUTO [id number] 22:53:00* Test Item Value Reference Range Interpretation [...] NRBC#) 0.0 K/mm3 0.0-0.1 N BASIC METABOLIC [id number] 14:09:00* Test Item Value Reference Range Interpretation [...] = CA) 8.9 MG/DL 8.5-10.1 N PROTHROMBIN [id number] 13:44:00* Test Item Value Reference Range Interpretation [...] prevent recurrent infarct). Comment: PRE PROCEDURETHROMBOPLASTIN TIME [id number] 13:44:00* Test Item Value Reference Range Interpretation Comme nts THROMBOPLASTIN TIME PARTIAL (test code = PTT) 31.3 SECONDS 26-35 N Comment: PRE PROCEDUREURINALYSIS [id number] 13:24:00* Test Item Value Reference Range Interpretation [...] A Urine Specimen Type: Clean CatchUR HCG [id number] 13:24:00* Test Item Value Reference Range Interpretation Comme nts UR HCG QUAL (test code = HCGQLU) NEGATIVE NEGATIVE Urine Specimen Type: Clean Catch Notes Date/Time Note Provider Source 2023-01-01 21:42:00 [id number]:95864 4-[address] [address] PATIENT NAME: ALCIDES TORRES ADMIT DATE: 01/01/23ACCOUNT NO: [id number] ROOM NO: AGE: 27 REPORT TYPE: OPERATIVE [...] the right side. SURGEON: Rosalva Estes MD. MULE DEVELOPER: Tom. ANESTHESIA: General endotracheal. FINDINGS: Bilateral tubo-ovarian [...] grasped with 2 Allisclamps. Cervix dilated to 16-Mozambican and diagnostic hysteroscope was passed through the [...] Dictated: 01/01/2023 21:42:30Date Transcribed: 01/01/2023 22:48:23YASMIN/SHAAN/Jasmyn #: [id number] ID: [id number] by Rosalva Estes MD On 01/25/2023 11:42:29 AM at 1142 PATIENT NAME: ALCIDES TORRES [id number]:48:[id number] lable for patient [id number]:43:10 [facility] 2023-01-01 21:26:00 [id number]:26:00 [facility] NoteREPORT#:[id number] REPORT STATUS: SignedREPORT INITIALIZATION DATE:01/01/23 TIME:2125 PATIENT: ALCIDES TORRES UNIT #: [id number]#: [id number] ROOM/BED:: 94 AGE: 27 SEX: F ATTEND: [...] adhesions to anterior abdominal wall on therightPrimary Surgeon:Junioristant(s): mikeAnesthesia: general anesthesiaFindings:bilateral dense tubo-ovarian adhesions, right distal hydrosalpinx, right fundal uterine adhesions to anterior abdominal wallComplications: noneEstimated blood loss in ml's: 25Specimens removed/altered: right distal tubeFluids:400Urine output:100Approach: laparoscopicWound class: cleanDisposition: plan to D/C homeCounts: Sponge count: correct Instrument count: correct Needle count: correct at 2130 RPT #: [id number] OF REPORT OPOperative [id number]:26:00L.[id number] ilable for patient [id number]:30:56 [facility]
[2023-06-28] MEDS ORDERED: ONDANSETRON 4 MG/2 ML VIAL ONE (02:05)
[2023-06-28] MEDS ORDERED: KETOROLAC 30 MG/ML INJ ONE (02:14)
[2023-06-28] MEDS ORDERED: METOCLOPRAMIDE 10 MG/2mL INJ ONE (02:14)
[2023-06-28] MEDS ORDERED: MORPHINE 4 MG/ML SYR ONE (02:14)
[2023-06-28] MEDS ORDERED: HALOPERIDOL LACT 5 MG/ML INJ ONE (02:14)
[2023-06-28] MEDS ORDERED: FAMOTIDINE 20 MG/2 ML VIAL IV ONE (02:14)
[2023-06-28] MEDS ORDERED: NA CHLORIDE 0.9% 1,000 ML ONE (02:15)
[2023-06-28 02:54] LABS: Absolute Lymphocytes (CBC) 3.2 K/uL (0.7-4.9); Absolute Monocytes 0.8 K/uL (0.1-1.3); Absolute Neutrophil 4.7 K/uL (1.8-8.0); Basophils % 0.3 % (0-1.3); Eosinophils % 0.1 % (0-4.4); Hematocrit 36.1 % (36.0-45.0); Hemoglobin 12.1 g/dL (12.0-15.0); Lymphocytes % 36.7 % (15.3-44.8); MCH 30.6 pg (27.0-35.0); MCHC 33.5 g/dL (32.0-36.0); MCV 91.2 fL (80-100); MPV 8.3 fL (7.6-11.3); Neutrophils % 53.9 % (41.7-73.7); Platelets 300 thou/uL (152-406); RBC Red Blood Cell Count 3.96 M/uL (3.86-4.86); Red Cell Distribution Width 18.5 % (12.1-15.2)
[2023-06-28 03:13] LABS: ALT/SGPT 16 U/L (13-56); Albumin 3.7 g/dL (3.4-5.0); Alkaline Phosphatase 66 U/L (45-117); Anion Gap 9.8 mEq/L (5.0-15.0); BUN Blood Urea Nitrogen 5 mg/dL (7-18); Bicarbonate 25 mEq/L (21-32); Bilirubin Total 0.6 mg/dL (0.2-1.0); C-Reactive Protein 3.66 mg/L (<3.00); Globulin 3.6 g/dL (2.3-3.5); Glomerular Filtration Rate 76 ml/min (=/>90); Glucose Level 84 mg/dL (74-106); Lipase 36 U/L (13-75); Potassium 2.8 mEq/L (3.5-5.1); Protein, Total 7.3 g/dL (6.4-8.2); Sodium Level 138 mEq/L (136-145)
[2023-06-28 03:14] LABS: AST/SGOT < 10 U/L (15-37)
[2023-06-28] MEDS ORDERED: POTASSIUM 25 MEQ EFFERV TAB ONE (04:28)
[2023-06-28] MEDS ORDERED: MAGNES/ALUMIN/SIMET 30ML UCUP ONE (04:30)
[2023-06-28] MEDS ORDERED: PANTOPRAZOLE 40MG TABLET PO ONE (04:31)
[2023-06-28] MEDS ORDERED: LIDOCAINE VISCOUS 2% 10ML ORAL SOLN ONE (04:31)
--- NOTE | 2023-06-28 06:12 | ER ---
Nurse's Notes [facility] [place] Name: Alfred Steele Age: 28 yrs Sex: Female : 1995 Arrival Date: 06/28/2023 Time: 01:49 Bed 6 Private MD: Diagnosis: Acute gastritis;Other specified noninfective gastroenteritis and colitis;Nausea with vomiting, unspecified Presentation: 06/27 02:00 Chief complaint: Patient states: I was seen yesterday. I think I have really bad jb4 gastritis. I had endoscopic surgery on Sunday to find out why I am vomiting so much. I have also been vomiting for the past 3 days. Coronavirus screen: At this time, the client does not indicate any symptoms associated with coronavirus-19. Ebola Screen: No symptoms or risks identified at this time. Initial Sepsis Screen: Does the patient meet any 2 criteria? No. Patient's initial sepsis screen is negative. Does the patient have a suspected source of infection? No. Patient's initial sepsis screen is negative. Risk Assessment: Do you want to hurt yourself or someone else? Patient reports no desire to harm self or others. Onset of symptoms was June 28, 2023. Transition of care: patient was not received from another setting of care. 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 - Infectious Disease History:: Denies. - Social history:: Smoking status: Patient denies any tobacco usage or history of. Patient/guardian denies using alcohol, street drugs. - Family history:: not pertinent. Screenin:56 [facility] ED Fall Risk Assessment (Adult) History of falling in the last 3 months, tm6 including since admission No falls in past 3 months (0 pts) Confusion or Disorientation No (0 pts) Intoxicated or Sedated No (0 pts) Impaired Gait No (0 pts) Mobility Assist Device Used No (0 pt) Altered Elimination No (0 pt) Score/Fall Risk Level 0 - 2 = Low Risk Oriented to surroundings, Maintained a safe environment. Abuse screen: Denies threats or abuse. Denies injuries from another. Nutritional screening: No deficits noted. Tuberculosis screening: No symptoms or risk factors identified. Assessment: 01:56 General: Appears distressed, Behavior is cooperative, crying. Pain: Complains of pain tm6 in epigastric area Pain does not radiate. Pain currently is 8 out of 10 on a pain scale. Quality of pain is described as stabbing, Pain began 2-3 days ago. Neuro: Level of Consciousness is awake, alert, obeys commands, Oriented to person, place, time, situation. Cardiovascular: No deficits noted. Patient's skin is warm and dry. Respiratory: Airway is patent Respiratory effort is even, unlabored, Respiratory pattern is regular, symmetrical. GI: Abdomen is flat, non-distended, Abdomen is tender to palpation in epigastric area Reports epigastric pain. : No signs and/or symptoms were reported regarding the genitourinary system. EENT: No signs and/or symptoms were reported regarding the EENT system. Derm: No signs and/or symptoms reported regarding the dermatologic system. Musculoskeletal: No signs and/or symptoms reported regarding the musculoskeletal system. 03:07 Reassessment: Patient appears in no apparent distress at this time. Patient and/or km8 family updated on plan of care and expected duration. Pain level reassessed. Patient is alert, oriented x 3, equal unlabored respirations, skin warm/dry/pink. Patient states feeling better. Patient states symptoms have improved. 04:00 Reassessment: pt at CT at this time. 8 Vital Signs: 02:00 BP 141 / 93; Pulse 67; Resp 18; Temp 98.2(O); Pulse Ox 99% on R/A; Weight 49.9 kg (R); jb4 Height 5 ft. 1 in. (R); Pain 10/10; 02:15 BP 138 / 90; Pulse 57; Resp 18; Pulse Ox 99% on R/A; km8 03:06 BP 133 / 84; Pulse 46; Resp 16; Pulse Ox 99% on 2 lpm NC; km8 03:30 BP 95 / 54; Pulse 47; Resp 16; Pulse Ox 98% on 2 lpm NC; km8 04:00 BP 101 / 70; Pulse 57; Resp 16; Pulse Ox 98% on R/A; km8 04:30 BP 102 / 64; Pulse 43; Resp 16; Pulse Ox 100% on R/A; km8 05:00 BP 108 / 63; Pulse 52; Resp 16; Pulse Ox 95% on R/A; km8 05:30 BP 99 / 72; Pulse 66; Resp 16; Pulse Ox 95% on R/A; km8 06:20 BP 102 / 74; Pulse 53; Resp 16; Temp 98.2; Pulse Ox 95% on R/A; km8 02:00 Body Mass Index 20.78 (49.90 kg, 154.94 cm) jb4 02:00 Pain Scale: Adult jb4 Liliana Coma Score: 05:02 Eye Response: spontaneous(4). Motor Response: obeys commands(6). Verbal Response: sp4 oriented(5). Total: 15. ED Course: 01:51 Patient arrived in ED. ra3 01:54 Nina Gómez, RN is Primary Nurse. tm6 01:56 Patient has correct armband on for positive identification. Placed in gown. Bed in low tm6 position. Call light in reach. Side rails up X 1. Provided Education on: use of call knapp. Client placed on continuous cardiac and pulse oximetry monitoring. NIBP monitoring applied. Pulse ox on. NIBP on. Door closed. Noise minimized. Warm blanket given. 01:56 O2 via room air. tm6 02:01 Irineo Patterson MD is Attending Physician. sp4 02:02 Triage completed. jb4 02:02 Arm band placed on right wrist. Patient placed in an exam room. jb4 02:10 CBC with Diff Sent. km8 02:10 CMP Sent. km8 02:10 Lipase Sent. km8 02:10 Inserted saline lock: 20 gauge in left antecubital area, using aseptic technique. Blood km8 collected. 02:28 No provider procedures requiring assistance completed. km8 04:00 CT Abd/Pelvis - IV Contrast Only In Process Unspecified. EDMS 04:[address] km8 04:[address]. km8 05:42 US Abdomen Limited In Process Unspecified. EDMS 06:11 Srinivas Herbert MD is Referral Physician. sp4 06:16 IV discontinued, intact, bleeding controlled, No redness/swelling at site. Pressure km8 dressing applied. Administered Medications: 02:10 Drug: Ondansetron IVP 4 mg IVP once; over 2 minutes Route: IVP; Site: left antecubital; km8 03:00 Follow up: Response: No adverse reaction; Nausea is decreased km8 02:10 Drug: morphine IVP or IV 4 mg IVP once over 4 mins Route: IVP; Infused Over: 4 mins; km8 Site: left antecubital; 03:00 Follow up: Response: No adverse reaction; Pain is decreased km8 02:10 Drug: Ketorolac IVP 30 mg IVP once Route: IVP; Site: left antecubital; km8 03:00 Follow up: Response: No adverse reaction; Pain is decreased km8 02:10 Drug: Famotidine IVP 20 mg IVP once; dilute with 10 mL 0.9% NaCl; give over 2 minutes km8 Route: IVP; Site: left antecubital; 03:00 Follow up: Response: No adverse reaction 8 02:15 Drug: NS 0.9% IV 1000 ml IV at 1 bolus Per protocol; 1000 mL bolus Route: IV; Rate: 1 km8 bolus; Site: left antecubital; 04:30 Follow up: IV Status: Completed infusion; IV Intake: 1000ml 8 02:15 Drug: metoCLOPramide IVP 10 mg IVP once; over 1 to 2 minutes Route: IVP; Site: left km8 antecubital; 03:00 Follow up: Response: No adverse reaction 8 02:20 Drug: Haloperidol IVP 2.5 mg/50 mL 2.5 mg IVP once; Place patient on a youth nutritional monitor km8 Route: IVP; Site: left antecubital; 03:00 Follow up: Response: No adverse reaction; Nausea is decreased 8 04:34 Drug: Potassium Chloride PO Liquid 40 mEq PO once Route: PO; km8 06:17 Follow up: Response: No adverse reaction 8 04:34 Drug: GI Cocktail without - (Maalox PO 30 ml, Lidocaine Mucous Membrane 2 % 15 km8 ml) PO once Route: PO; 06:17 Follow up: Response: No adverse reaction 8 04:34 Drug: Pantoprazole PO 40 mg PO once Route: PO; km8 06:17 Follow up: Response: No adverse reaction km8 Medication: 01:56 VIS not applicable for this client. tm6 Intake: 04:30 IV: 1000ml; Total: 1000ml. km8 Outcome: 06:12 Discharge ordered by . sp4 06:17 Discharged to home ambulatory, with significant other, km8 06:17 Condition: good 06:17 Discharge instructions given to patient, significant other, Instructed on discharge instructions, follow up and referral plans. medication usage, Demonstrated understanding of instructions, follow-up care, medications, Prescriptions given X 6 06:22 Patient left the ED. tm6 Signatures: Dispatcher [employer] EDMS Matoe Parry, RN RN jb4 Irineo Patterson MD MD sp4 Susan Terry RN RN km8 Nina Gómez RN RN tm6 Bárbara Rosen ra3 Corrections: (The following items were deleted from the chart) 04:29 04:25 Potassium Chloride PO Liquid 40 mEq PO km8 tm6 06:18 06:17 Discharge instructions given to patient, significant other, Instructed on km8 discharge instructions, follow up and referral plans. medication usage, Demonstrated understanding of instructions, follow-up care, medications, Prescriptions given X 4, km8 06:20 06:00 BP 102 / 74; Pulse 53bpm; Resp 16bpm; Pulse Ox 95% RA; km8 km8
--- NOTE | 2023-06-28 06:12 | EDPHYS ---
Physician Documentation [facility] Name: Alfred Steele Age: 28 yrs Sex: Female : 1995 Arrival Date: 06/28/2023 Time: 01:49 Bed 6 Private MD: ED Physician Irineo Patterson HPI: 06/27 02:01 This 28 yrs old Female presents to ER via Unassigned with complaints of Chest sp4 Pain, Nausea/Vomiting. 02:07 28-year-old female presents with acute onset abdominal pain nausea vomiting. Patient sp4 also reports chest pain, patient has had endoscopy on Sunday for evaluation of her persistent abdominal symptoms. Patient was also here on a 06/26/2023 for abdominal pain nausea. . 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 - Infectious Disease History:: Denies. - Social history:: Smoking status: Patient denies any tobacco usage or history of. Patient/guardian denies using alcohol, street drugs. - Family history:: not pertinent. ROS: 02:08 Constitutional: Negative for fever, chills, and weight loss, positive for abdominal sp4 pain positive for chest pain positive for nausea positive for vomiting Exam: 05:02 Constitutional: This is a well developed, well nourished patient who is awake, alert, sp4 and in no acute distress. Head/Face: Normocephalic, atraumatic. Eyes: Pupils equal round and reactive to light, extra-ocular motions intact. Lids and lashes normal. Conjunctiva and sclera are not injected. Cornea within normal limits. Periorbital areas with no swelling, redness, or edema. ENT: Nares patent. No nasal discharge, no septal abnormalities noted. Tympanic membranes are normal and external auditory canals are clear. Oropharynx with no redness, swelling, or masses, exudates, or evidence of obstruction, uvula midline. Mucous membranes moist. Neck: Trachea midline, no thyromegaly or masses palpated, and no cervical lymphadenopathy. Supple, full range of motion without nuchal rigidity, or vertebral point tenderness. Chest/axilla: Normal chest wall appearance and motion. Nontender with no deformity. No lesions are appreciated. Cardiovascular: Regular rate and rhythm with a normal S1 and S2. No gallops, murmurs, or rubs. Normal PMI, no JVD. No pulse deficits. Respiratory: Lungs have equal breath sounds bilaterally, clear to auscultation and percussion. No rales, rhonchi or wheezes noted. No increased work of breathing, no retractions or nasal flaring. Abdomen/GI: Soft, with normal bowel sounds. No distension or tympany. No guarding or rebound. No evidence of tenderness throughout. Back: No spinal tenderness. No costovertebral tenderness. Skin: Warm, dry with normal turgor. Normal color with no rashes, no lesions, and no evidence of cellulitis. MS/ Extremity: Pulses equal, no cyanosis. Neurovascular intact. Full, normal range of motion. Neuro: Awake and alert, GCS 15, oriented to person, place, time, and situation. Cranial nerves II-XII grossly intact. Motor strength 5/5 in all extremities. Sensory grossly intact. Psych: Awake, alert, with orientation to person, place and time. Behavior, mood, and affect are within normal limits 05:02 ECG was reviewed by the Attending Physician. There is EKG at 0 222 sinus bradycardia at the rate of 54 with short SC otherwise normal Vital Signs: 02:00 BP 141 / 93; Pulse 67; Resp 18; Temp 98.2(O); Pulse Ox 99% on R/A; Weight 49.9 kg (R); jb4 Height 5 ft. 1 in. (R); Pain 10/10; 02:15 BP 138 / 90; Pulse 57; Resp 18; Pulse Ox 99% on R/A; km8 03:06 BP 133 / 84; Pulse 46; Resp 16; Pulse Ox 99% on 2 lpm NC; km8 03:30 BP 95 / 54; Pulse 47; Resp 16; Pulse Ox 98% on 2 lpm NC; km8 04:00 BP 101 / 70; Pulse 57; Resp 16; Pulse Ox 98% on R/A; km8 04:30 BP 102 / 64; Pulse 43; Resp 16; Pulse Ox 100% on R/A; km8 05:00 BP 108 / 63; Pulse 52; Resp 16; Pulse Ox 95% on R/A; km8 05:30 BP 99 / 72; Pulse 66; Resp 16; Pulse Ox 95% on R/A; km8 06:20 BP 102 / 74; Pulse 53; Resp 16; Temp 98.2; Pulse Ox 95% on R/A; km8 02:00 Body Mass Index 20.78 (49.90 kg, 154.94 cm) jb4 02:00 Pain Scale: Adult jb4 Liliana Coma Score: 05:02 Eye Response: spontaneous(4). Motor Response: obeys commands(6). Verbal Response: sp4 oriented(5). Total: 15. MDM: 02:07 Patient medically screened. sp4 05:02 ED course: EXAM DESCRIPTION: Abdomen Pelvis W Contrast CLINICAL HISTORY: ABD PAIN sp4 COMPARISON: None Available. TECHNIQUE: CT of the abdomen and pelvis performed following IV administration of iodinated contrast. This exam was performed according to our departmental dose-optimization program, which includes automated exposure control, adjustment of the mA and/or kV according to patient size and/or use of iterative reconstruction technique. FINDINGS: Lung Bases: The visualized lung bases are clear. Bones: Mild endplate spondylosis. Abdomen: Liver: The liver has normal size and density. Gallbladder: Possible mild pericholecystic fluid. No calcified gallstones identified. Spleen, Pancreas, and Adrenal Glands: The spleen, pancreas, and adrenal glands are unremarkable. Kidneys: No hydronephrosis or obstructing calculus. Vasculature: The aorta and IVC have normal caliber and position. The portal vein is patent. The proximal visceral and renal arteries are patent. Stomach: The stomach and duodenum have normal course. Other: No free intraperitoneal air. Small amount of free fluid. Pelvis: Bladder: Urinary bladder is unremarkable. Bowel: No dilated loops of large or small bowel. Mild wall thickening of the proximal small bowel as well as the ascending, transverse, descending, and sigmoid colon. Appendix: Normal appendix. Pelvis:Uterus is not enlarged. 1.1 cm right ovarian corpus luteal cyst. No follow-up imaging for the structure recommended. IMPRESSION: 1. Mild wall thickening of the proximal small bowel as well as the ascending, transverse, descending, and sigmoid colon. These findings could be seen with nonspecific enterocolitis. 2. Possible mild pericholecystic fluid. No calcified gallstones identified. If there is concern for acute cholecystitis ultrasound could provide additional characterization. 3. Small amount of free fluid in the pelvis. Electronically signed by: Ulysses Botello DO 06/28/2023 04:36 AM. 06:10 ED course: EXAM DESCRIPTION: Abdomen Exam Limited CLINICAL HISTORY: pericholecystic sp4 fluid COMPARISON: 06/28/2023 TECHNIQUE: Real-time sonographic images of the gallbladder were obtained using a curved multihertz transducer. FINDINGS: Liver: The [place] liver has normal contour and echogenicity. The common bile duct measures 0.3 cm. Gallbladder: No gallstones identified. Gallbladder wall thickness of 0.2 cm. Sonographic Hernández's sign is negative. Trace pericholecystic fluid IMPRESSION: Trace pericholecystic fluid. No gallstones identified. This may be related to abnormality of adjacent structures. . 06:15 Differential diagnosis: acute pericarditis, anxiety, chest wall pain, cholecystitis, sp4 costochondritis, esophagitis, gastritis. HEART Score: History: Slightly Suspicious (0), ECG: Normal (0), Age: < or = 45 years (0), Risk Factors: No Risk Factors Known (0), Troponin: < or = 1 x Normal Limit (0), Total Score = 0. Data reviewed: vital signs, nurses notes, old medical records, lab test result(s), EKG, radiologic studies, CT scan, ultrasound. ED course: Patient has significantly improved after medications in ER. Stable for discharge home. Imaging today has revealed no sign of acute cholecystitis, there is also small bowel and colonic inflammation suggestive of enterocolitis. Patient was prescribed medications for symptomatic management and advised clear liquid diet for the next 24 hours.. 06/27 02:01 Order name: CBC with Diff; Complete Time: 04:24 sp4 06/27 02:01 Order name: CMP; Complete Time: 04:24 sp4 06/27 02:01 Order name: Lipase; Complete Time: 04:24 sp4 06/27 02:10 Order name: Test, Serum; Complete Time: 04:24 km8 06/27 02:58 Order name: C-Reactive Protein; Complete Time: 04:24 EDMS 06/27 02:07 Order name: CT Abd/Pelvis - IV Contrast Only sp4 06/27 05:01 Order name: US Abdomen Limited sp4 06/27 02:01 Order name: IV Saline Lock; Complete Time: 02:10 sp4 06/27 02:01 Order name: Labs collected and sent; Complete Time: 02:10 sp4 06/27 02:11 Order name: EKG - Nurse/Tech; Complete Time: 02:26 sp4 EC:02 Rate is 54 beats/min. Rhythm is regular, Sinus bradycardia. QRS [place] is Normal. SC sp4 interval is shortened. QRS interval is normal. QT interval is normal. No Q waves. T waves are Normal. No ST changes noted. Clinical impression: No evidence of ischemia. Interpreted by me. Reviewed by me. Administered Medications: 02:10 Drug: Ondansetron IVP 4 mg IVP once; over 2 minutes Route: IVP; Site: left antecubital; [facility] 03:00 Follow up: Response: No adverse reaction; Nausea is decreased 8 02:10 Drug: morphine IVP or IV 4 mg IVP once over 4 mins Route: IVP; Infused Over: 4 mins; 8 Site: left antecubital; 03:00 Follow up: Response: No adverse reaction; Pain is decreased 8 02:10 Drug: Ketorolac IVP 30 mg IVP once Route: IVP; Site: left antecubital; [facility] 03:00 Follow up: Response: No adverse reaction; Pain is decreased 8 02:10 Drug: Famotidine IVP 20 mg IVP once; dilute with 10 mL 0.9% NaCl; give over 2 minutes km8 Route: IVP; Site: left antecubital; 03:00 Follow up: Response: No adverse reaction [facility] 02:15 Drug: NS 0.9% IV 1000 ml IV at 1 bolus Per protocol; 1000 mL bolus Route: IV; Rate: 1 km8 bolus; Site: left antecubital; 04:30 Follow up: IV Status: Completed infusion; IV Intake: 1000ml 8 02:15 Drug: metoCLOPramide IVP 10 mg IVP once; over 1 to 2 minutes Route: IVP; Site: left 8 antecubital; 03:00 Follow up: Response: No adverse reaction 8 02:20 Drug: Haloperidol IVP 2.5 mg/50 mL 2.5 mg IVP once; Place patient on a panel monitor km8 Route: IVP; Site: left antecubital; 03:00 Follow up: Response: No adverse reaction; Nausea is decreased 04:34 Drug: Potassium Chloride PO Liquid 40 mEq PO once Route: PO; 06:17 Follow up: Response: No adverse reaction 04:34 Drug: GI Cocktail without - (Maalox PO 30 ml, Lidocaine Mucous Membrane 2 % 15 km8 ml) PO once Route: PO; 06:17 Follow up: Response: No adverse reaction 04:34 Drug: Pantoprazole PO 40 mg PO once Route: PO; 06:17 Follow up: Response: No adverse reaction km8 Disposition Summary: 06/28/23 06:12 Discharge Ordered Notes: Clear liquid diet only for 24 hours Location: Home sp4 Problem: new sp4 Symptoms: have improved sp4 Condition: Stable sp4 Diagnosis - Acute gastritis sp4 - Other specified noninfective gastroenteritis and colitis sp4 - Nausea with vomiting, unspecified sp4 Followup: sp4 - With: Srinivas Herbert MD - When: 7 - 10 days - Reason: Recheck today's complaints Discharge Instructions: - Discharge Summary Sheet sp4 - Gastritis, Adult, [id number] sp4 Forms: - Patient Portal Instructions sp4 Prescriptions: - Protonix 40 mg Oral tablet, delayed release (enteric coated) - take 1 tablet ORAL route once daily for 30 days; 30 tablet; Refills: 0, Product sp4 Selection Permitted - Carafate 1 gram Oral tablet - take 1 tablet ORAL route every 12 hours take on an empty stomach,; 100 tablet; sp4 Refills: 0, Product Selection Permitted - Tramadol 50 mg Oral tablet - take 1 tablet ORAL route every 8 hours PRN pain; 20 tablet; Refills: 0, Product sp4 Selection Permitted - Pepcid 20 mg Oral tablet - take 1 tablet ORAL route once daily for 30 days; 30 tablet; Refills: 0, Product sp4 Selection Permitted - dicyclomine 20 mg Oral tablet - take 1 tablet ORAL route every 8 hours PRN abdominal pain; 60 tablet; Refills: sp4 0, Product Selection Permitted - ondansetron 8 mg Oral Tablet,disintegrating - take 1 tablet ORAL route every 8 hours PRN nausea; 30 tablet; Refills: 0, sp4 Product Selection Permitted Signatures: Dispatcher MedHo Mateo Conrad RN RN jb4 Irineo Patterson MD MD sp4 Susan Terry, RN RN km8 Nina Gómez RN RN [id number] Corrections: (The following items were deleted from the chart) 02:58 02:02 Test, Urine+UC.LAB.BRZ ordered. EDMS EDMS :58 02:12 C-REACTIVE PROTEIN+C.LAB.BRZ ordered. EDMS EDMS
[2023-06-28 06:43] VITALS: BP 102/74; TEMP 98.2; O2SAT 95
--- NOTE | 2023-06-28 10:57 | RAD REPORT ---
EXAM DESCRIPTION: US - Abdomen Exam Limited - 06/28/2023 5:40 am CLINICAL HISTORY: Pericholecystic fluid COMPARISON: 06/28/2023 TECHNIQUE: Real-time sonographic images of the gallbladder were obtained using a curved multihertz t ransducer. FINDINGS: Liver: The [place] liver has normal contour and echogenicity. The common bile duct measures 0.3 cm. Gallbladder: No gallstones identified. Gallbladder wall thickness of 0.2 cm. Sonographic Hernández's sign is negative. Trace pericholecystic fluid IMPRESSION: Trace pericholecystic fluid. No gallstones identified. This may be related to abnormalit y of adjacent structures. Electronically signed by: Ulysses Botello DO 06/28/2023 05:55 AM CDT M Due to temporary technical issues with the PACS/Fluency reporting system, reports are being signed by the in house radiologist without review as a courtesy to ensure prompt reporting. The interpreting r adiologist is fully responsible for the content of the report.
--- NOTE | 2023-06-28 11:35 | RAD REPORT ---
EXAM DESCRIPTION: CT - Abdomen Pelvis W Contrast - 06/28/2023 6:35 am CLINICAL HISTORY: ABD PAIN COMPARISON: None Available. TECHNIQUE: CT of the abdomen and pelvis performed following IV administration of iodinated contras t. This exam was performed according to our departmental dose-optimization program, which includes au tomated exposure control, adjustment of the mA and/or kV according to patient size and/or use of iter ative reconstruction technique. FINDINGS: Lung Bases: The visualized lung bases are clear. Bones: Mild endplate spondylosis. Abdomen: Liver: The liver has normal size and density. Gallbladder: Possible mild pericholecystic fluid. No calcified gallstones identified. Spleen, Pancreas, and Adrenal Glands: The spleen, pancreas, and adrenal glands are unremarkable. Kidneys: No hydronephrosis or obstructing calculus. Vasculature: The aorta and IVC have normal caliber and position. The portal vein is patent. The pro ximal visceral and renal arteries are patent. Stomach: The stomach and duodenum have normal course. Other: No free intraperitoneal air. Small amount of free fluid. Pelvis: Bladder: Urinary bladder is unremarkable. Bowel: No dilated loops of large or small bowel. Mild wall thickening of the proximal small bowel a s well as the ascending, transverse, descending, and sigmoid colon. Appendix: Normal appendix. Pelvis: Uterus is not enlarged. 1.1 cm right ovarian corpus luteal cyst. No follow-up imaging for the structure recommended. IMPRESSION: 1. Mild wall thickening of the proximal small bowel as well as the ascending, transver se, descending, and sigmoid colon. These findings could be seen with nonspecific enterocolitis. 2. Possible mild pericholecystic fluid. No calcified gallstones identified. If there is concern for acute cholecystitis ultrasound could provide additional characterization. 3. Small amount of free fluid in the pelvis. Electronically signed by: Ulysses Botello DO 06/28/2023 04:36 AM CDT M Due to temporary technical issues with the PACS/Fluency reporting system, reports are being signed by the in house radiologist without review as a courtesy to ensure prompt reporting. The interpreting R adiologist is fully responsible for the content of the report.
--- NOTE | 2023-07-02 13:34 | EKG ---
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
== END 2023-06-28 06:22 | disposition home or self-care (01) ==
LOC: ER 01:49
DX: K29.00 Acute gastritis without bleeding (principal); K52.89 Other specified noninfective gastroenteritis and colitis; Z88.0 Allergy status to penicillin; Z91.013 Allergy to seafood
CPT/HCPCS: 96361; 85025; 36415; 84703; 83690; 80053; 86140; 74177; 76705; 96375; 96374; 99285; Q9967; J1630; J2765; J2405; J7030; 93005

== ENCOUNTER 2023-11-21 19:47 | Observation (INO) | payer BC ==
--- OUTSIDE RECORDS SUMMARY | 2023-11-21 19:50 | XMS REPORT | Continuity of Care Document ---
Author Name Unknown Address [address] [address] [place] [address] [facility] thconnect Address 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 Name Role Phone No , Pcp Primary Care Physician UnavailSung Torres Attending Clinician Unavailable CHON WATT Attending Clinician UnavailDOMINGA George Attending Clinician Unavailable CHRISTOPHER MART Attending Clinician Unavailable GC_GCBZW_uSea_S Attending Clinician UnavailRosalva Fortune Attending Clinician Unavaila Buster Mccloud MD Attending Clinician GC_GCBZW_Meera_S Admitting Clinician Unavailghislaine gautam KNOW, DOES_NOT Admitting Clinician Unavailable Payers Payer Name Policy Type Policy Number Effective Date Expirati on Date Source [place] OUT OF [place] [id number] 77 2022 00:00:00 [facility] 6 [id number] 2023 00:00:00 [facility] [place] [id number] 77 2022 00:00:00 2023 00:00:00 Problems Condition Name Condition Details Condition Category Status Onset Date Resolution Date Last Treatment Date Treating Clinician Comments Source Primary dysmenorrh ea Primary Dysmenorrh ea Problem Active 08-15 00:00: 00 [facility] Chronic pelvic pain of female Chronic Pelvic Pain of Female Problem Active 08-15 00:00: 00 [facility] Menorrhagi a Menorrhagi a Problem Active 08-15 00:00: 00 [facility] Previous delivery affecting Previous delivery affecting Disease Active 09-04 00:00: 00 [facility] Anemia of mother in , antepartum Anemia of mother in , antepartum Disease Active 08-24 00:00: 00 [facility] Sterilizat ion consult Sterilizat ion consult Disease Active 5 00:00: 00 [facility] Tobacco smoking affecting in second trimester Tobacco smoking affecting in second trimester Disease Active 05-31 00:00: 00 [facility] Medication exposure during first trimester of Medication exposure during first trimester of Disease Active 05-31 00:00: 00 [facility] Declines (vaginal after ) trial Declines (vaginal after ) trial Disease Active 05-31 00:00: 00 [facility] Previous delivery affecting , antepartum Previous delivery affecting , antepartum Disease Active 05-31 00:00: 00 [facility] Status post induction of labor Status post induction of labor Disease Active 08-20 00:00: 00 [facility] distress affecting management of mother, delivered distress affecting management of mother, delivered Disease Active 08-20 00:00: 00 [facility] Failed induction of labor, delivered Failed induction of labor, delivered Disease Active 08-20 00:00: 00 [facility] Fetopelvic disproport ion, delivered Fetopelvic disproport ion, delivered Disease Active 08-20 00:00: 00 Overview: ICD10 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 [facility] Threatened premature labor, antepartum (644.03) Threatened premature labor, antepartum (644.03) Disease Active 618 00:00: 00 [facility] [id number] PUD (peptic ulcer disease) Problem [facility] [id number] Mixed hyperlipid emia Problem [facility] [id number] Moderate episode of recurrent major depressive disorder Problem [facility] Allergies, Adverse Reactions, Alerts Allergy Name Allergy Type Status Severity Reaction(s) Onset Date Inactive Date Treating Clinician Comments Source Shellfis h-Derive d Products Allergy to substanc e Active Unknown 10-17 00:00: 00 [facility] Penicill ins DA Active SV ANAPHYLAXIS 2022-02 00:00: 00 [facility] shellfis h derived FA Active SV ANAPHYLAXIS 2022-02 00:00: 00 [facility] shellfis h derived FA Active SV ANAPHYLAXIS 2022-02 00:00: 00 [facility] Penicill ins DA Active SV ANAPHYLAXIS 2022-02 00:00: 00 [facility] Tegaderm Dressing Propensi ty to adverse reaction s Active Itching 09-11 00:00: 00 [facility] Penicill ins Propensi ty to adverse reaction s Active Anaphylaxis 08-20 00:00: 00 [facility] Penicill ins Allergy to substanc e Active Unknown 08-20 00:00: 00 [facility] PENICILL INS Allergy to substanc e Active Moderate severity Anaphylaxis [facility] SHELLFIS H DERIVED Allergy to substanc e Active Moderate severity Anaphylaxis [facility] Shellfis h (FN) Shellfis h (FN) Active Unknown [facility] [id number] Drug allergy Active Unknown [facility] Social History Social Habit Start Date Stop Date Quantity Comments Source Alcohol intake Unive [facility] History of tobacco use Cigarette Smoker [facility] Sexual orientation [facility] Alcoholic beverage intake 2023-10-19 00:00:00 2023-10-19 00:00:00 Ex-drinker (finding) [facility] History of Social function 2023-10-19 00:00:00 2023-10-19 00:00:00 [facility] Tobacco use and exposure 2023-10-18 00:00:00 2023-10-18 00:00:00 Smokeless tobacco non-user [facility] Cigarettes smoked current (pack per day) - Reported 2018-08-27 00:00:00 2018-08-27 00:00:00 [facility] Cigarette pack-years 2018-08-27 00:00:00 2018-08-27 00:00:00 [facility] Sex assigned at 1995 00:00:00 1995 00:00:00 [facility] Smoking Status Start Date Stop Date Source Heavy Tobacco Smoker [facility] Smokes tobacco daily 2023-10-18 00:00:00 [facility] Medications Ordered Medication Name Filled Medication Name Start Date Stop Date Current Medication? Ordering Clinician Indication Dosage Frequency Signature (SIG) Comments Components Source Rexulti 1 MG tablet 10-18 15:25: 42 Yes 1{tbl} QD Take 1 tablet by mouth 1 (one) time each day. [facility] sertraline (Zoloft) 100 MG tablet 10-18 15:25: 42 Yes 100mg QD Take 100 mg by mouth 1 (one) time each day. [facility] buPROPion XL (Wellbutrin XL) 150 MG 24 hr tablet 10-18 15:25: 42 Yes 150mg Take 150 mg by mouth every morning. [facility] gabapentin (Neurontin) 300 MG capsule 10-18 00:00: 00 11-18 04:59 :00 Yes [id number] 300mg Take 1 capsule (300 mg total) by mouth every night. [facility] Ondansetron HCl 4 MG Ondansetron HCl 4 MG 09-27 00:00: 00 No 1{table t} QD Ondansetro n HCl 4 MG topiramate 50 mg tablet 09-27 00:00: 00 Yes [id number] Take 100mg two times a day for 5 days, then take 150 mg in the am and 100 mg in the evening for 5 days, then take 150 mg two times a day there after. [facility] ZOLMitripta n 5 mg tablet 09-27 00:00: 00 Yes One tab at onset of headache, may repeat x one tab in 4 hours if headache persist. No more than two tabs in a 24 hour period [facility] Butalbital- Acetaminoph en-Caff (FIORICET) 50-300-40 mg per capsule 09-27 00:00: 00 Yes [id number] Use one every 6 hours as needed for head pain. [facility] Butalbital- Acetaminoph en-Caff (FIORICET) 50-300-40 mg per capsule 08-06 00:00: 00 09-27 00:00 :00 No [id number] Use one every 6 hours as needed for head pain. [facility] topiramate 50 mg tablet 06-21 00:00: 00 09-27 00:00 :00 No [id number] Use 2 in am, 1 in the evening for the headache. [facility] sumatriptan 100 mg tablet 06-21 00:00: 00 09-27 00:00 :00 No [id number] 100mg Take 1 tablet by mouth as needed for Migraine. Within 24 hours, may repeat times one in 2 hours as needed. [facility] VIT W-CA,FE,FA, <1 MG, ( #2 ORAL) 09-11 18:53: 24 Yes 1{tbl} Take 1 Tab by mouth. [facility] diphenhydrA MINE (BENADRYL ALLERGY) 25 mg tablet 09-11 18:53: 24 Yes 25mg Take 25 mg by mouth every 4 (four) hours as needed for Allergies. [facility] predniSONE 10 mg tablet 09-11 00:00: 00 Yes [id number] 10mg Take 1 tablet by mouth SEE-INSTRU CTIONS. [facility] naproxen 500 mg tablet 09-05 00:00: 00 Yes 500mg Take 1 tablet by mouth 2 (two) times daily with meals as needed for Pain (scale 1-3) or Pain (scale 4-6). [facility] vitamin w/FA tablet 09-05 00:00: 00 Yes 1{tbl} Take 1 tablet by mouth daily. [facility] docusate calcium 240 mg capsule 09-05 00:00: 00 Yes 240mg Take 1 capsule by mouth once daily as needed for Constipati on. [facility] ferrous sulfate 325 mg (65 mg iron) tablet 09-05 00:00: 00 Yes 325mg Take 1 tablet by mouth 2 (two) times daily. [facility] ferrous sulfate (IRON, FERROUS SULFATE,) 325 mg (65 mg iron) tablet 08-24 00:00: 00 Yes [id number] 325mg Take 1 tablet by mouth 2 (two) times daily with meals. [facility] Rexulti 0.5 MG Rexulti 0.5 MG No 1{table t} QD Rexulti 0.5 MG Pantoprazol e Sodium 40 MG Pantoprazol e Sodium 40 MG No 1{table t} QD Pantoprazo le Sodium 40 MG Wellbutrin Wellbutrin No Wellbutrin Sertraline HCl 50 MG Sertraline HCl 50 MG No 1{table t} QD Sertraline HCl 50 MG eszopiclone 3 mg tablet TAKE 1 TABLET BY MOUTH ONCE DAILY IMMEDIATLEY BEFORE BED eszopiclone 3 mg tablet TAKE 1 TABLET BY MOUTH ONCE DAILY IMMEDIATLEY BEFORE BED No eszopiclon e 3 mg tablet TAKE 1 TABLET BY MOUTH ONCE DAILY IMMEDIATLE Y BEFORE BED [facility] lorazepam 0.5 mg tablet TAKE 1 TABLET BY MOUTH ONCE DAILY NEEDED lorazepam 0.5 mg tablet TAKE 1 TABLET BY MOUTH ONCE DAILY NEEDED No lorazepam 0.5 mg tablet TAKE 1 TABLET BY MOUTH ONCE DAILY NEEDED [facility] Vital Signs Vital Name Observation Time Observation Value Comments S ource Systolic blood pressure 2023-10-19 20:26:00 96 mm[Hg] [facility] Diastolic blood pressure 2023-10-19 20:26:00 67 mm[Hg] [facility] Heart rate 2023-10-19 20:26:00 72 /min [facility] height 2023-10-19 20:26:00 154.9 cm [facility] weight 2023-10-19 20:26:00 [facility] 2023-10-19 20:26:00 21.35 kg/m2 [facility] height 2023-09-28 13:20:00 61 [in_i] Commo n [facility] weight 2023-09-28 13:20:00 109.8 [facility]av[facility] 2023-09-28 13:20:00 97.3 [degF] Com mon [facility] bmi 2023-09-28 13:20:00 20.74 kg/m2 Comm on [facility] oximetry 2023-09-28 13:20:00 97 % Commo n [facility] respiratory rate 2023-09-28 13:20:00 16 /min [facility] blood pressure systolic 2023-09-28 13:20:00 101 mm[Hg] [facility] blood pressure diastolic 2023-09-28 13:20:00 68 mm[Hg] [facility] BP Diastolic 2023-08-16 00:00:00 71 mm[Hg] [facility] BP Systolic 2023-08-16 00:00:00 102 mm[Hg] [facility] Height 2023-08-16 00:00:00 61 [in_i] [facility] Body Weight 2023-08-16 00:00:00 107 [lb_av] [facility] BMI (Body Mass Index) 2023-08-16 00:00:00 20.2 kg/m2 [facility] height 2023-06-28 14:40:00 61 [in_i] Commo n [facility] weight 2023-06-28 14:40:00 109.8 [lb_av] Co [facility] temperature 2023-06-28 14:40:00 97.3 [degF] Com [facility] bmi 2023-06-28 14:40:00 20.74 kg/m2 Comm on [facility] oximetry 2023-06-28 14:40:00 85 % [facility]mo [facility] blood pressure systolic 2023-06-28 14:40:00 99 mm[Hg] [facility] blood pressure diastolic 2023-06-28 14:40:00 62 mm[facility]Hg[facility] Procedures Procedure Date / Time Performed Performing Clinicia n Source Delivery 2017-09-04 00:00:00 [facility] Tubal Ligation 2017-09-04 00:00:00 [facility] Delivery 2014-08-20 00:00:00 [facility] Encounters Start Date/Time End Date/Time Encounter Type Admission Type Attending Clinicians Care Facility Care Department Encounter ID Source 2023-09-26 08:07:00 Outpatient Sung Garcia [facility] [id number] [facility] 2023-09-26 07:30:00 Inpatient [facility] [id number] [facility] 2023-09-17 11:40:00 Outpatient Sung Garcia [facility] [id number] [facility] 2023-06-26 08:49:01 Outpatient Sung Garcia [facility] [id number] [facility] 2023-05-29 13:25:00 Outpatient Sung Garcia [facility] [id number] [facility] 2023-12-07 15:45:00 2023-12-07 15:45:00 Outpatient DOMINGA STEVENS [facility] [id number] [facility] 2023-10-19 16:00:00 2023-10-19 16:00:00 Office Visit Dominga Stevens [facility] AND WOMENS [id number] [facility] 2023-10-18 14:00:00 2023-10-18 14:00:00 Outpatient CHRISTOPHER MART [facility] [id number] [facility] 2023-09-28 00:00:00 2023-09-28 00:00:00 (MAINE Davis d PT Women STLMLC STL[facility]C [id number] [facility] 2023-09-17 00:00:00 2023-09-17 00:00:00 OFFICE VISIT ESTAB PT LEVEL 3 STLMLC STLMLC [id number] [facility] 2023-08-16 00:00:00 2023-08-16 00:00:00 Chon Watt MD: [address], [address], [place] [address] , Ph. [phone] [facility] [id number] [facility] 2023-06-28 00:00:00 2023-06-28 00:00:00 OFFICE VISIT ESTAB PT LEVEL 4 [facility] [id number] [facility] 2023-03-22 00:00:00 2023-03-22 00:00:00 Outpatient GC_GCBZW_Ka diyala_S PRIV PRIV [id number] [facility] 2023-02-22 00:00:00 2023-02-22 00:00:00 Outpatient GC_GCBZW_Ka diyala_S PRIV PRIV [id number] [facility] 2023-01-25 00:00:00 2023-01-25 00:00:00 Outpatient GC_GCBZW_Ka diyala_S PRIV PRIV [id number] [facility] 2023-01-04 00:00:00 2023-01-04 00:00:00 Outpatient GC_GCBZW_Ka diyala_S PRIV PRIV [id number] [facility] 2023-01-01 13:09:00 2023-01-01 13:09:00 Outpatient Rosalva Christina [facility] [id number] [address] [place] [address] 2022-12-28 00:00:00 2022-12-28 00:00:00 Outpatient GC_GCBZW_Ka diyala_S PRIV PRIV [id number] [facility] 2022-11-30 00:00:00 2022-11-30 00:00:00 Outpatient GC_GCBZW_Ka diyala_S PRIV PRIV [id number] [facility] 2022-11-30 00:00:00 2022-11-30 00:00:00 Outpatient GC_GCBZW_Ka diyala_S PRIV PRIV [id number] [facility] 2022-11-30 00:00:00 2022-11-30 00:00:00 Outpatient GC_GCBZW_Ka diyala_S PRIV PRIV [id number] [facility] 2022-11-30 00:00:00 2022-11-30 00:00:00 Outpatient GC_GCBZW_Ka diyala_S PRIV PRIV [id number] [facility] 2022-10-17 00:00:00 2022-10-17 00:00:00 Outpatient GC_GCBZW_Ka diyala_S PRIV PRIV [id number] [facility] 2022-10-17 00:00:00 2022-10-17 00:00:00 Outpatient GC_GCBZW_Ka diyala_S PRIV PRIV [id number] [facility] 2022-10-17 00:00:00 2022-10-17 00:00:00 Outpatient GC_GCBZW_Ka diyala_S PRIV PRIV [id number] [facility] 2022-10-17 00:00:00 2022-10-17 00:00:00 Outpatient GC_GCBZW_Ka diyala_S PRIV PRIV [id number] [facility] 2022-10-02 00:00:00 2022-10-02 00:00:00 Outpatient GC_GCBZW_Ka diyala_S PRIV PRIV [id number] [facility] 2022-10-02 00:00:00 2022-10-02 00:00:00 Outpatient GC_GCBZW_Ka diyala_S [facility] [id number] [facility] 2022-10-01 00:00:00 2022-10-01 00:00:00 Outpatient GC_GCBZW_Ka diyala_S [facility] [id number] [facility] 2018-09-26 00:00:00 2018-09-26 00:00:00 Telephone Buster Thorpe [facility] [id number] [facility] Results Test Description Test Time Test Comments Results Result Co mments Source [facility] (dipstick) panel - [id number] 14:54:06* Test Item Value Reference Range Interpretation Comme [facility] Leukocytes (test code = Leukocytes) Negative Nitrite (test code = Nitrite) negative Urobilinogen (test code = Urobilinogen) .2 Protein (test code = Protein) Negative pH (test code = pH) 5.5 Blood (test code = Blood) Negative Specific [place] (test code = Specific [place]) 1.020 Ketone (test code = Ketone) Negative Bilirubin (test code = Bilirubin) Negative Glucose (test code = Glucose) Negative Appearance (test code = Appearance) Clear Color (test code = Color) Yellow [facility] 15:31:00* Test Item Value Reference Range Interpretation Comme nts SURGICAL (test code = SR) RUN DATE: 01/03/23 [facility] [place] [facility] PAGE 1 RUN TIME: 1532 Specimen Inquiry RUN USER: INTERFACE PATIENT: ALFRED TORRES LOC: TIA #: [id number] AGE/SX: 27/F ROOM: RE01/01/23REG DR: Rosalva Estes MD : 94 BED: DIS: STATUS: [facility] TLOC: SPEC #: [id number] RECD: 01/01/23 [facility] #: [id number] JOSSY: 01/01/[address] [facility] [address]: Rosalva Estes MD ENTERED: 01/01/23 SP TYPE: SURGICAL OT DR: ORDERED: [id number], ANATOMIC SPEC, SPECIMEN TRACK PROCEDURES: [id number] (01/03/23-1530) SPECIMEN TRACK (01/01/23) TISSUES: A. FALLOPIAN TUBE NOS - RIGHT FALLOPIAN TUBE FINAL DIAGNOSIS FALLOPIAN TUBE, RIGHT DISTAL PORTION, SALPINGECTOMY: - Fallopian tube with paratubal cysts. GROSS DESCRIPTION Right fallopian tube. Received is a fallopian tube segment with fimbriated end measuring3.5 x 1.2 x 1 cm. Cut sections reveal a hemorrhagic filled lumen. It is entirelysubmitted as A1-A3. Technical tissue processing and slide preparation performed at [facility] [address] , [place] [address] MICROSCOPIC DESCRIPTION Microscopic examination is performed and the findings are incorporated into the finaldiagnosis. Please see diagnosis for findings. - Signed SIGNATURE ON FILE Marj Stark 01/03/23 1531 END OF REPORT HCG SERUM [id number] 15:51:00* Test Item Value Reference Range Interpretation Comme nts HCG SERUM QUAL (test code = HCGQL) SERUM NEGATIVE SCREEN NEGATIVE CBC W/AUTO [id number] 22:53:00* Test Item Value Reference Range Interpretation [...] NRBC#) 0.0 K/mm3 0.0-0.1 N BASIC METABOLIC [id number] 14:09:00* Test Item Value Reference Range Interpretation [...] = CA) 8.9 MG/DL 8.5-10.1 N PROTHROMBIN [id number] 13:44:00* Test Item Value Reference Range Interpretation [...] prevent recurrent infarct). Comment: PRE PROCEDURETHROMBOPLASTIN TIME [id number] 13:44:00* Test Item Value Reference Range Interpretation Comme nts THROMBOPLASTIN TIME PARTIAL (test code = PTT) 31.3 SECONDS 26-35 N Comment: PRE PROCEDUREURINALYSIS [id number] 13:24:00* Test Item Value Reference Range Interpretation [...] A Urine Specimen Type: Clean CatchUR HCG [id number] 13:24:00* Test Item Value Reference Range Interpretation Comme nts UR HCG QUAL (test code = HCGQLU) NEGATIVE NEGATIVE Urine Specimen Type: Clean Catch Notes Date/Time Note Provider Source 2023-01-01 21:42:00 [id number] [facility] [address] [place] [address] PATIENT NAME: ALFRED TORRES ADMIT DATE: 01/01/23 ACCOUNT NO: [id number] ROOM NO: AGE: 27 REPORT TYPE: OPERATIVE REPORT SEX: F ADMITTING PHYSICIAN: ATTENDING PHYSICIAN: Rosalva Estes MD OPERATION DATE: 01/01/2023 PREOPERATIVE DIAGNOSES: Menorrhagia, dysmenorrhea, deep dyspareunia. POSTOPERATIVE DIAGNOSES: Menorrhagia, dysmenorrhea, deep dyspareunia and bilateral tubo-ovarian adhesions, right distal hydrosalpinx and uterine adhesions to anterior abdominal wall. PROCEDURES PERFORMED: 1. Diagnostic hysteroscopy. 2. Diagnostic laparoscopy, bilateral tubal ovariolysis. 3. Right distal partial salpingectomy. 4. Removal of fundal uterine adhesions to the anterior abdominal wall on the right side. SURGEON: Rosalva Estes MD. SHREDDING SPECIALIST: Becca. ANESTHESIA: General endotracheal. FINDINGS: Bilateral tubo-ovarian adhesions, right distal hydrosalpinx was noted and so it was excised. Bilateral ovaries were [...] APPROACH: Laparoscopic. WOUND CLASS: Clean. PATIENT NAME: ALFRED TORRES DISPOSITION: Home. COUNTS: Correct. INDICATIONS: The [...] hysteroscopy, possible D and C if needed, but if the endometrium appeared to be unremarkable, just a diagnostic visualization, then laparoscopy with possible endometriosis excision. If any [...] was placed in dorsal lithotomy position using Howadr stirrups. Abdomen, vulva, vagina, and perineum were prepped and draped in sterile fashion with ChloraPrep. One gram of Ancef was given preoperatively. Timeout was done. Arms were tucked by the side. Positioning was checked. Speculum was placed to expose the cervix. Anterior lip was grasped with 2 Allis clamps. Cervix dilated to 16-Yoruba and diagnostic hysteroscope was passed through the [...] was incised and peritoneum was entered bluntly. S retractors were placed. Olvera was introduced and after [...] significant dense adhesions were present here. Then, ovaries were also pulled up, adhesions to the posterior [...] ports after direct injection with Marcaine at the fascia and skin ports were placed visually. Then, the pelvic cavity was surveyed and the anterior, posterior peritoneum and lateral interiano carefully noted with no evidence of any endometriosis was noted. Bilateral tubal ovariolysis, the tubal adhesions were taken down from the anterior abdominal wall, firstly on the left side systematically all the way PATIENT NAME: ALFRED TORRES from the cornual end to the fimbriated end and released from the lateral wall as well. Then, tubal adhesions on the right were [...] removed. Instrument, needle and sponge counts were correct at the end of the case. Fascia at [...] 3 months. In the future, if she has pain, definitely should consider bilateral salpingectomy as there were significant adhesions, but she can be controlled with hormones and bleeding managed either with . Dictated By: Rosalva Estes MD Date Dictated: 01/01/2023 21:42:30 Date Transcribed: 01/01/2023 22:48:23 YASMIN/SHAAN/DARIA Receipt ID: [id number] Authenticated by Rosalva Estes MD On 01/25/2023 11:42:29 AM at 1142 PATIENT NAME: ALFRED TORRES [facility] 2023-01-01 21:26:00 [facility] ([facility] Brief Op Note REPORT#:[id number] REPORT STATUS: Signed REPORT INITIALIZATION DATE:01/01/23 TIME:2125 PATIENT: ALFRED TORRES UNIT #: [id number] ROOM/BED: : 94 AGE: 27 SEX: F ATTEND: Rosalva Estes MD ADM AUTHOR: Rosalva Estes MD REPT SERVICE DT/TIME: 01/01/232125 * ALL edits or amendments must be made on the electronic/computer document * Op/Inv Proc Note - Brief Pre-procedure diagnosis: Menorhagia, Dysmenorrhea, Deep dyspareunia Post-procedure diagnosis: same as pre procedure dx (same, bilaterla tubo-ovarian a), bilateral tubo-ovarian adhesions, right distal hydrosalpinx, uterine adhesions Procedures performed: Hysterscopy, Laparoscopy, bilateral tubo-ovariolysis, right distal salpingectomy (partial), removal of fundal uterine adhesions to anterior abdominal wall on the right Primary Surgeon: meera Spa Manager(s): becca Anesthesia: general anesthesia Findings: bilateral dense tubo-ovarian adhesions, right distal hydrosalpinx, right fundal uterine adhesions to anterior abdominal wall Complications: none Estimated blood loss in ml's: 25 Specimens removed/altered: right distal tube Fluids: 400 Urine output: 100 Approach: laparoscopic Wound class: clean Disposition: plan to D/C home Counts: Sponge count: correct Instrument count: correct Needle count: correct at 2130 RPT #: [id number] END OF REPORT [facility]
[2023-11-21] MEDS ORDERED: ONDANSETRON 4 MG/2 ML VIAL ONE (20:34)
[2023-11-21] MEDS ORDERED: NA CHLORIDE 0.9% 1,000 ML ONE ×2 (20:34→21:59)
[2023-11-21] MEDS ORDERED: FENTANYL CITR 100 MCG/2 ML ONE (20:49)
[2023-11-21 21:00] LABS: Absolute Basophils 0.1 K/uL (0-0.5); Absolute Lymphocytes (CBC) 0.5 K/uL (0.7-4.9); Absolute Monocytes 0.2 K/uL (0.1-1.3); Absolute Neutrophil 10.3 K/uL (1.8-8.0); Basophils % 0.5 % (0-1.3); Hemoglobin 12.1 g/dL (12.0-15.0); Lymphocytes % 4.2 % (15.3-44.8); MCH 30.9 pg (27.0-35.0); MCHC 33.6 g/dL (32.0-36.0); MCV 92.1 fL (80-100); MPV 8.5 fL (7.6-11.3); Neutrophils % 93.3 % (41.7-73.7); Platelets 225 thou/uL (152-406); RBC Red Blood Cell Count 3.91 M/uL (3.86-4.86); Red Cell Distribution Width 16.2 % (12.1-15.2)
[2023-11-21 21:03] LABS: Blood Morphology Comment NOT SEEN (NOT SEEN); Platelet Estimate ADEQ; White Blood Cell Scan OK (OK)
[2023-11-21 21:21] LABS: AST/SGOT 11 U/L (15-37); Albumin/Globulin Ratio 1.1 (1.1-1.8); Alkaline Phosphatase 67 U/L (45-117); Anion Gap 11.6 mEq/L (5.0-15.0); BUN Blood Urea Nitrogen 10 mg/dL (7-18); Bicarbonate 18 mEq/L (21-32); Bilirubin Total 0.6 mg/dL (0.2-1.0); Globulin 3.6 g/dL (2.3-3.5); Glomerular Filtration Rate 90 ml/min (=/>90); Glucose Level 146 mg/dL (74-106); Lipase 18 U/L (13-75); Potassium 3.6 mEq/L (3.5-5.1); Protein, Total 7.6 g/dL (6.4-8.2); Sodium Level 138 mEq/L (136-145)
[2023-11-21 21:22] LABS: ALT/SGPT < 14 U/L (13-56)
[2023-11-21 22:35] LABS: Barbiturates NEGATIVE (NEGATIVE); Benzodiazepines NEGATIVE (NEGATIVE); Cocaine NEGATIVE (NEGATIVE); METHAMPHETAM NEGATIVE (NEGATIVE); Methadone NEGATIVE (NEGATIVE); Opiates NEGATIVE (NEGATIVE); Phencyclidine NEGATIVE (NEGATIVE); THC Cannibis POSITIVE (NEGATIVE)
[2023-11-21 22:47] LABS: Specific Gravity 1.029 (1.005-1.030); Sqamous Epithelial <5 /HPF (None Seen); Urine Bacteria None Seen /HPF (<20); Urine Bilirubin NEGATIVE (Negative); Urine Blood Negative (Negative); Urine Clarity Clear (Clear); Urine Color Light-Yellow (Yellow); Urine Culture Reflex Order NOT NEEDED; Urine Glucose NEGATIVE (Negative); Urine Ketones 2+ (Negative); Urine Microscopic Reflex YN ORDER UMIC; Urine Nitrite NEGATIVE (Negative); Urine Protein 1+ (Negative); Urine RBC <5 /HPF (None Seen); Urine Urobilinogen Normal (Normal); Urine WBC <5 /HPF (<5)
[2023-11-21 22:53] LABS: Specific Gravity 1.029 (1.005-1.030)
[2023-11-21] MEDS ORDERED: droPERidol 5 MG/2 ML VIAL ONE (23:17)
--- NOTE | 2023-11-22 00:45 | EDPHYS ---
Physician Documentation [facility] Name: Alfred Steele Age: 28 yrs Sex: Female : 1995 Arrival Date: 11/21/2023 Time: 19:47 Bed 17 Private MD: ED Physician Landen Mejia HPI: 11/20 23:41 This 28 yrs old Female presents to ER via Ambulatory with complaints of Vomiting. sb4 23:41 The patient presents to the emergency department with nausea, vomiting, diarrhea, sb4 abdominal pain. Onset: The symptoms/episode began/occurred this morning. Possible causes: unknown, flare up of bowel problem, gastritis, peptic ulcer disease. The symptoms are aggravated by nothing. The symptoms are alleviated by nothing. Associated signs and symptoms: The patient has no apparent associated signs or symptoms. The patient has not recently seen a physician. 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 - Infectious Disease History:: Denies. - Social history:: Smoking status: Patient reports the use of cigarette tobacco products, smokes one pack cigarettes per day. Patient/guardian denies using alcohol. ROS: 23:41 Constitutional: Negative for fever, chills, and weight loss, sb4 23:41 Abdomen/GI: Positive for abdominal pain, nausea, vomiting, and diarrhea, 23:41 All other systems are negative, Exam: 23:41 Head/Face: Normocephalic, atraumatic. Eyes: Extra-ocular motions intact. Periorbital sb4 areas with no swelling, redness, or edema. Cardiovascular: Regular rate and rhythm with a normal S1 and S2. Respiratory: Lungs have equal breath sounds bilaterally, clear to auscultation and percussion. No rales, rhonchi or wheezes noted. No increased work of breathing, no retractions or nasal flaring. Skin: Warm, dry with normal turgor. Normal color with no rashes, no lesions, and no evidence of cellulitis. 23:41 Constitutional: The patient appears alert, awake, obviously ill, pale, vomiting 23:41 Abdomen/GI: Inspection: abdomen appears normal, Bowel sounds: normal, Palpation: soft, mild abdominal tenderness, in all quadrants, Vital Signs: 19:54 Weight 52.16 kg; Height 5 ft. 1 in. ; Pain 9/10; tm6 19:56 BP 133 / 92; Pulse 61; Resp 18; Temp 95.8(TE); Pulse Ox 100% on R/A; MAP 104 mmHg; tm6 20:46 BP 134 / 84; Pulse 58; Resp 19; Temp 96.9(TE); Pulse Ox 100% ; Pain 8/10; mt4 23:21 BP 128 / 55; Pulse 65; Resp 20; Pulse Ox 100% on R/A; mt4 11/21 01:12 BP 115 / 68; Pulse 59; Resp 16; Pulse Ox 99% ; mt4 01:12 BP 107 / 77; Pulse 69; Resp 19; Temp 97.1(TE); Pulse Ox 99% on R/A; mt4 02:44 BP 111 / 71; Pulse 66; Resp 16; Temp 97.5(TE); Pulse Ox 100% on R/A; mt4 03:59 BP 109 / 68; Pulse 56; Resp 14; Temp 97.6(TE); Pulse Ox 99% on R/A; mt4 11/20 19:54 Body Mass Index 21.73 (52.16 kg, 154.94 cm) tm6 11/20 19:54 Pain Scale: Adult tm6 20:46 Pain Scale: Adult mt4 [place] Coma Score: 11/20 20:46 Eye Response: spontaneous(4). Motor Response: obeys commands(6). Verbal Response: mt4 oriented(5). Total: 15. 11/21 02:48 Eye Response: spontaneous(4). Motor Response: obeys commands(6). Verbal Response: mt4 oriented(5). Total: 15. MDM: 11/20 20:00 Patient medically screened. sb4 11/21 00:43 Data reviewed: vital signs, nurses notes, lab test result(s), radiologic studies, and sb4 as a result, I will admit patient. Consideration of Admission/Observation Patient was admitted/placed on observation. Counseling: I had a detailed discussion with the patient and/or guardian regarding the historical points, exam findings, and any diagnostic results supporting the discharge/admit diagnosis, lab results, radiology results, the need for further work-up and treatment in the hospital. 00:45 Management of patient was discussed with the following: Radiologist at [facility] sb4 partners-states that the artificial intelligence system commented on a possible pulmonary embolism in the base of the lungs. Radiologist herself states that she did not appreciate this finding. I did confirm with patient that she is not experiencing any chest pain, shortness of breath, hemoptysis. 11/20 20:04 Order name: CBC with Diff; Complete Time: 21:04 sb4 11/20 20:04 Order name: CMP; Complete Time: 21:22 sb4 11/20 20:04 Order name: Lipase; Complete Time: 21:22 sb4 11/20 20:04 Order name: Test, Urine; Complete Time: 22:53 sb4 11/20 20:04 Order name: Urinalysis w/ reflexes; Complete Time: 22:49 sb4 11/20 21:04 Order name: CBC Smear Scan; Complete Time: 21:04 EDMS 11/20 21:23 Order name: UDS; Complete Time: 22:36 sb4 11/21 03:33 Order name: Urinalysis w/ reflexes EDMS 11/21 03:33 Order name: CBC with Automated Diff EDMS 11/21 03:33 Order name: CBC with Automated Diff EDMS 11/21 03:33 Order name: Comprehensive Metabolic Panel EDMS 11/21 03:33 Order name: Comprehensive Metabolic Panel EDWY 11/20 22:37 Order name: CT Abd/Pelvis - IV Contrast Only sb4 11/20 20:04 Order name: IV Saline Lock; Complete Time: 20:45 sb4 11/20 20:04 Order name: Labs collected and sent; Complete Time: 22:56 sb4 Administered Medications: 11/20 20:45 Drug: NS 0.9% IV 1000 ml IV at 1 bolus Per protocol; 1000 mL bolus Route: IV; Rate: 1 mt4 bolus; Site: left antecubital; 21:57 Follow up: IV Status: Completed infusion; IV Intake: 1000ml mt4 21:57 Follow up: Response: No adverse reaction mt4 20:45 Drug: Ondansetron IVP 4 mg IVP once; over 2 minutes Route: IVP; Site: left antecubital; mt4 21:58 Follow up: Response: No adverse reaction mt4 20:55 Drug: fentaNYL (PF) IVP 25 mcg IVP once Route: IVP; Site: left antecubital; mt4 11/21 00:59 Follow up: Response: No adverse reaction mt4 11/20 22:06 Drug: NS 0.9% IV 1000 ml IV at 1 bolus Per protocol; 1000 mL bolus Route: IV; Rate: 1 mt4 bolus; Site: left antecubital; 11/21 00:58 Follow up: Response: No adverse reaction; IV Status: Completed infusion; IV Intake: mt4 1000ml 11/20 23:18 Drug: Droperidol IVP 2.5 mg IVP once Route: IVP; Site: left antecubital; mt4 11/21 00:58 Follow up: Response: No adverse reaction mt4 01:16 Drug: Rocephin IV 1 grams IV at calculated rate once; Given slow IV push per pharmacy mt4 instructions Route: IV; Rate: calculated rate; Site: left antecubital; 02:03 Follow up: Response: No adverse reaction mt4 01:17 Drug: metroNIDAZOLE IVPB 500 mg 100 ml IVPB at 200 ml/hr once over 30 mins Volume: 100 mt4 ml; Route: IVPB; Rate: 200 ml/hr; Infused Over: 30 mins; Site: left antecubital; 02:04 Follow up: Response: No adverse reaction; IV Status: Completed infusion mt4 01:17 Drug: NS 0.9% IV 1000 ml IV at 125 ml/hr continuous Route: IV; Rate: 125 ml/hr; Site: [facility] left antecubital; 02:04 Follow up: Response: No adverse reaction; IV Status: Infusion continued mt4 Disposition Summary: 11/22/23 00:44 Hospitalization Ordered Notes: Hospitalization Status: Observation sb4 Provider: Manuel Hernández Location: Telemetry/[facility] (observation) sb4 Condition: Fair sb4 Problem: new sb4 Symptoms: are unchanged sb4 Bed/Room Type: Standard sb4 Room Assignment: 230(11/22/23 03:35) kl Diagnosis - Colitis sb4 - Dehydration sb4 - Nausea with vomiting, unspecified sb4 Forms: - Medication Reconciliation Form sb4 - SBAR form sb4 - Leadership Thank You Letter sb4 Signatures: Dispatcher [employer] EDLaura Lechuga RN RN Natali Lyn PA-C PA-C sb4 Masterson, Tawney RN RN tm6 Rodolfo Renee RN RN mt4 Corrections: (The following items were deleted from the chart) 11/20 21:23 21:23 URINE DRUG SCREEN+[id number].[email or web address].BRZ ordered. [facility] 11/21 03:35 00:44 sbDisha foy
--- NOTE | 2023-11-22 00:45 | ER ---
Nurse's Notes [facility] Name: Alfred Steele Age: 28 yrs Sex: Female : 1995 Arrival Date: 11/21/2023 Time: 19:47 Bed 17 Private MD: Diagnosis: Colitis;Dehydration;Nausea with vomiting, unspecified Presentation: 11/20 19:54 Chief complaint: Patient states: nausea and vomiting started this morning, with tm6 diarrhea, no fever. Coronavirus screen: Client denies travel out of the [place] in the last 14 days. Ebola Screen: Patient negative for fever greater than or equal to 101.5 degrees Fahrenheit, and additional compatible Ebola Virus Disease symptoms Patient denies exposure to infectious person. Patient denies travel to an Ebola-affected area in the 21 days before illness onset. No symptoms or risks identified at this time. Risk Assessment: Do you want to hurt yourself or someone else? Patient reports no desire to harm self or others. Onset of symptoms was November 21, 2023. 19:54 Method Of Arrival: Ambulatory 6 19:54 Acuity: GAURANG 3 tm6 19:58 Initial Sepsis Screen: Does the patient meet any 2 criteria? No. Patient's initial tm6 sepsis screen is negative. Does the patient have a suspected source of infection? No. Patient's initial sepsis screen is negative. Triage Assessment: 19:54 General: Appears distressed, Behavior is cooperative. Pain: Complains of pain in tm6 abdomen Pain currently is 9 out of 10 on a pain scale. Pain began this morning. EENT: No signs and/or symptoms were reported regarding the EENT system. Neuro: Level of Consciousness is awake, alert, obeys commands, Oriented to person, place, time, situation. Cardiovascular: Patient's skin is warm and dry. Respiratory: Airway is patent Respiratory effort is even, unlabored, Respiratory pattern is regular, symmetrical. GI: Abdomen is flat, non-distended, Reports lower abdominal pain, upper abdominal pain, diarrhea, nausea, Pain is 9 out of 10 on a pain scale. vomiting. : No signs and/or symptoms were reported regarding the genitourinary system. Derm: No signs and/or symptoms reported regarding the dermatologic system. Musculoskeletal: No signs and/or symptoms reported regarding the musculoskeletal system. 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 - Infectious Disease History:: Denies. - Social history:: Smoking status: Patient reports the use of cigarette tobacco products, smokes one pack cigarettes per day. Patient/guardian denies using alcohol. Screenin:46 [facility] ED Fall Risk Assessment (Adult) History of falling in the last 3 months, mt4 including since admission No falls in past 3 months (0 pts) Confusion or Disorientation No (0 pts) Intoxicated or Sedated No (0 pts) Impaired Gait No (0 pts) Mobility Assist Device Used Yes (1 pt) Altered Elimination No (0 pt) Score/Fall Risk Level 0 - 2 = Low Risk. Abuse screen: Denies injuries from another. Nutritional screening: No deficits noted. Tuberculosis screening: No symptoms or risk factors identified. Exposure risk/Travel Screening: None identified. Assessment: 20:46 General: Appears uncomfortable, Behavior is agitated, restless. Pain: Complains of pain mt4 in abdomen Quality of pain is described as aching, crampy. Neuro: Level of Consciousness is awake, alert, obeys commands, Oriented to Talent Scout are equal bilaterally Moves all extremities. Gait is steady, Speech is normal. Cardiovascular: Capillary refill < 3 seconds. Respiratory: Airway is patent Respiratory effort is even, unlabored, Respiratory pattern is regular. GI: Pt is actively vomiting clear fluid, Bowel sounds present X 4 quads. Abdomen is tender to palpation Reports lower abdominal pain, vomiting, since this morning. : No signs and/or symptoms were reported regarding the genitourinary system. Derm: Skin is intact, Skin is dry, Skin is pale, Skin temperature is warm. Musculoskeletal: Capillary refill < 3 seconds, Range of motion: intact in all extremities. 11/21 00:00 Reassessment: Patient is alert, oriented x 3, equal unlabored respirations, skin mt4 warm/dry/pink. 00:00 General: Appears in no apparent distress. Behavior is cooperative. Pain: Complains of mt4 pain in abdomen. Neuro: Level of Consciousness is awake, alert, obeys commands, Oriented to person, place, time, situation, Talent Scout are equal bilaterally Moves all extremities. Gait is steady, Speech is normal, Facial symmetry appears normal. 02:48 Neuro:. Cardiovascular: Capillary refill < 3 seconds. Respiratory: Airway is patent. mt4 GI: Pt is actively vomiting clear fluid, Bowel sounds present X 4 quads. Abdomen is tender to palpation Reports vomiting. : No signs and/or symptoms were reported regarding the genitourinary system. Vital Signs: 11/20 19:54 Weight 52.16 kg; Height 5 ft. 1 in. ; Pain 9/10; tm6 19:56 BP 133 / 92; Pulse 61; Resp 18; Temp 95.8(TE); Pulse Ox 100% on R/A; MAP 104 mmHg; tm6 20:46 BP 134 / 84; Pulse 58; Resp 19; Temp 96.9(TE); Pulse Ox 100% ; Pain 8/10; mt4 23:21 BP 128 / 55; Pulse 65; Resp 20; Pulse Ox 100% on R/A; mt4 11/21 01:12 BP 115 / 68; Pulse 59; Resp 16; Pulse Ox 99% ; mt4 01:12 BP 107 / 77; Pulse 69; Resp 19; Temp 97.1(TE); Pulse Ox 99% on R/A; mt4 02:44 BP 111 / 71; Pulse 66; Resp 16; Temp 97.5(TE); Pulse Ox 100% on R/A; mt4 03:59 BP 109 / 68; Pulse 56; Resp 14; Temp 97.6(TE); Pulse Ox 99% on R/A; mt4 11/20 19:54 Body Mass Index 21.73 (52.16 kg, 154.94 cm) tm6 11/20 19:54 Pain Scale: Adult tm6 20:46 Pain Scale: Adult mt4 [place] Coma Score: 11/20 20:46 Eye Response: spontaneous(4). Motor Response: obeys commands(6). Verbal Response: mt4 oriented(5). Total: 15. 11/21 02:48 Eye Response: spontaneous(4). Motor Response: obeys commands(6). Verbal Response: mt4 oriented(5). Total: 15. ED Course: 11/20 19:48 Patient arrived in ED. mr 19:54 Triage completed. tm6 19:54 Arm band placed on left wrist. tm6 20:00 Natali Carballo PA-C is PHCP. sb4 20:00 Landen Mejia MD is Attending Physician. sb4 20:31 Rodolfo Renee, RN is Primary Nurse. mt4 20:46 Appears restless. mt4 20:46 Patient has correct armband on for positive identification. Bed in low position. Call mt4 light in reach. Side rails up X 1. Adult w/ patient. Provided Education on: labs and medication . Client placed on continuous cardiac and pulse oximetry monitoring. NIBP monitoring applied. Pulse ox on. Door closed. Lights dimmed. Warm blanket given. Pillow given. Verbal reassurance given. Assisted to bathroom. 20:46 No provider procedures requiring assistance completed. Inserted saline lock:. Patient mt4 maintains SpO2 saturation greater than 95% on room air. 22:07 Inserted saline lock: 22 gauge in left antecubital area, using aseptic technique. Blood mt4 collected. Flushed with 10 mL NS. 23:10 CT Abd/Pelvis - IV Contrast Only In Process Unspecified. EDMS 11/21 00:43 Manuel Hernández MD is Hospitalizing Provider. sb4 02:48 Patient has correct armband on for positive identification. Bed in low position. Call mt4 light in reach. Side rails up X 1. Client placed on continuous cardiac and pulse oximetry monitoring. NIBP monitoring applied. Pulse ox on. Door closed. Noise minimized. Lights dimmed. Warm blanket given. Pillow given. Verbal reassurance given. 02:48 Patient maintains SpO2 saturation greater than 95% on room air. mt4 04:41 Patient admitted, IV remains in place. mt4 Administered Medications: 11/20 20:45 Drug: NS 0.9% IV 1000 ml IV at 1 bolus Per protocol; 1000 mL bolus Route: IV; Rate: 1 mt4 bolus; Site: left antecubital; 21:57 Follow up: IV Status: Completed infusion; IV Intake: 1000ml mt4 21:57 Follow up: Response: No adverse reaction mt4 20:45 Drug: Ondansetron IVP 4 mg IVP once; over 2 minutes Route: IVP; Site: left antecubital; mt4 21:58 Follow up: Response: No adverse reaction mt4 20:55 Drug: fentaNYL (PF) IVP 25 mcg IVP once Route: IVP; Site: left antecubital; mt4 11/21 00:59 Follow up: Response: No adverse reaction mt4 11/20 22:06 Drug: NS 0.9% IV 1000 ml IV at 1 bolus Per protocol; 1000 mL bolus Route: IV; Rate: 1 mt4 bolus; Site: left antecubital; 11/21 00:58 Follow up: Response: No adverse reaction; IV Status: Completed infusion; IV Intake: mt4 1000ml 11/20 23:18 Drug: Droperidol IVP 2.5 mg IVP once Route: IVP; Site: left antecubital; mt4 11/21 00:58 Follow up: Response: No adverse reaction mt4 01:16 Drug: Rocephin IV 1 grams IV at calculated rate once; Given slow IV push per pharmacy mt4 instructions Route: IV; Rate: calculated rate; Site: left antecubital; 02:03 Follow up: Response: No adverse reaction mt4 01:17 Drug: metroNIDAZOLE IVPB 500 mg 100 ml IVPB at 200 ml/hr once over 30 mins Volume: 100 mt4 ml; Route: IVPB; Rate: 200 ml/hr; Infused Over: 30 mins; Site: left antecubital; 02:04 Follow up: Response: No adverse reaction; IV Status: Completed infusion mt4 01:17 Drug: NS 0.9% IV 1000 ml IV at 125 ml/hr continuous Route: IV; Rate: 125 ml/hr; Site: al4 left antecubital; 02:04 Follow up: Response: No adverse reaction; IV Status: Infusion continued mt4 Medication: 11/20 20:46 VIS not applicable for this client. mt4 Intake: 21:57 IV: 1000ml; Total: 1000ml. mt4 11/21 00:58 IV: 1000ml; Total: 2000ml. mt4 Outcome: 00:44 Decision to Hospitalize by Provider. sb4 04:40 Admitted to Med/surg accompanied by nurse, via stretcher, room 230, mt4 04:40 Condition: stable 04:40 Instructed on the need for admit, Demonstrated understanding of 04:42 Patient left the ED. mt4 Signatures: Dispatcher [employer] EDMS Mackenzie Couch, Reg Reg Natali Sneed, PASpenser PASpenser pratt4 Nina Gómez RN RN tm6 Rodolfo Renee RN RN mt4 Corrections: (The following items were deleted from the chart) 02:48 11/20 20:46 Neuro: Level of Consciousness is awake, alert, obeys commands, Oriented to mt4 Talent Scout are equal bilaterally Moves all extremities. Gait is steady, Speech is normal, Facial droop on right, mt4
--- NOTE | 2023-11-22 00:51 | RAD REPORT ---
EXAM: CT abdomen and pelvis with IV contrast CLINICAL DATA: 28 years Female ABD PAIN, nausea and vomiting TECHNICAL DATA: Axial CT imaging of the abdomen and pelvis was performed following the administration of intravenous contrast.. Oral contrast was not administered. Sagittal and coronal reconstructed images were then performed. The CT study is performed according to ALARA (as low as reasonably achievable) or A RAJAN/IMAGE GENTLY, with automatic adjustment of mA and/or kV according to patient size. Performed on: 11/21/2023 at 11:16 PM. Comparison: CT abdomen and pelvis report from 06/28/2023. The images were not available for review. FINDINGS: Lung bases: The lung bases are clear. The heart is normal in size. Liver: The liver is normal in size and configuration. No focal hepatic abnormalities are identified. Liver attenuation is within normal limits. The portal veins are patent. Spleen: The spleen is normal in size, configuration and attenuation. Gallbladder and bile duct: The gallbladder is well distended and unremarkable. There is no biliary ductal dilatation. Pancreas: The pancreas is grossly normal in size and configuration. Adrenal Glands: The adrenal glands are normal in size and configuration. Kidneys: The kidneys are normal in size and configuration. There is no evidence of hydronephrosis. Th ere is no evidence of nephrolithiasis. No definite solid or cystic renal mass lesions are identified. Stomach: The stomach is grossly normal. There is no definite hiatal hernia. Bowel: The bowel gas pattern is non specific and non obstructive. There is mild colonic wall thickeni ng involving the transverse and descending portions of the colon which can be seen with colitis. Appendix: There is no CT evidence of acute appendicitis. Free air: There is no evidence of free air. Free fluid: There is no evidence of free fluid. Vasculature: The aorta is normal in caliber and contour. The inferior vena cava is grossly unremarkab le. Lymphadenopathy: No pathologic lymphadenopathy is identified. Bladder: The bladder is partially distended and smooth in contour. Reproductive: The uterus is grossly within normal limits. Bones: No acute osseous abnormalities are identified. There are small Schmorl's nodes present along t he anterior superior endplates of multiple thoracolumbar vertebrae. A limbus vertebra is present along the anterior superior endplate of L4. Soft tissues: No acute soft tissue abnormalities are identified. There is a small fat-containing vent ral umbilical hernia. IMPRESSION: 1. Mild colonic wall thickening involving the transverse and descending portions of the colon which can be seen with colitis. 2. Otherwise, unremarkable CT scan of the abdomen and pelvis. 3. Please note, the RadAi system detected the presence of pulmonary emboli on the lower images obtain ed through the chest. However, close review of these images fails to confirm definite pulmonary emboli in the lower lobe pulmonary arteries. These findings were discussed with LORI Dubose. The patient denies any chest related symptoms. These findings were discussed with LORI Dubose on 11/22/2023 at 12: 30 AM central time. Electronically signed by: Stephanie Bustos DO 11/22/2023 12:37 AM CDT RP Due to temporary technical issues with the PACS/[employer] reporting system, reports are being iliana d by the in-house radiologist without review as a courtesy to ensure prompt reporting the interpreting radiologist is fully responsible for the content of the report. Transcribed Date/Time: 11/22/2023 12:50 AM
[2023-11-22] MEDS ORDERED: CEFTRIAXONE 1000 MG/VIAL ONE (01:01)
[2023-11-22] MEDS ORDERED: NA CHLORIDE 0.9% 50 ML ONE (01:01)
[2023-11-22] MEDS ORDERED: NA CHLORIDE 0.9% 1,000 ML ONE (01:02)
[2023-11-22] MEDS ORDERED: METRONIDAZOLE 500mg IVPB 500 MG/100 ML BAG IV ONE (01:02)
[2023-11-22] MEDS ORDERED: ONDANSETRON 4 MG/2 ML VIAL IV PRN (03:28)
[2023-11-22] MEDS ORDERED: ACETAMINOPHEN 325 MG TABLET PO PRN (03:28)
--- NOTE | 2023-11-22 03:28 | P.HP ---
Certification for Inpatient Patient admitted to: Inpatient With expected LOS: >2 Midnights Practitioner: I am a practitioner with admitting privileges, knowledge of patient current condition, hospital course, and medical plan of care. Services: Services provided to patient in accordance with Admission requirements found in Title 42 Section 412.3 of the Code of Federal Regulations Patient History Date of Service: 11/22/23 Reason for admission: Colitis History of Present Illness: 28 yrs old Female with past medical history of gastric ulcers presents to ER with complaints of nausea and vomiting and diarrhea associated with abdominal pain which has been going on since this morning . She has a history of peptic ulcer disease . Started having abdominal pain diffuse cramping type intermittent, 4 out of 10 in severity at the time of interview. Associated with nausea and vomiting and diarrhea. Denies any blood in the stool. No fever or chills. No sick contacts. No similar previous history. Denies any history of ulcerative colitis or Crohn's disease. Denies any chest pain or shortness of breath. No recent travel. Patient was assessed in the ER and was admitted for colitis Allergies Penicillins Allergy (Unverified 02/08/17 04:52) Unknown Home medications list reviewed: Yes - Past Medical/Surgical History Past Medical History: Reviewed- Non-Contributory -: PUD Past Surgical History: Reviewed- Non-Contributory - Family History Family History: Reviewed- Non-Contributory - Social History Smoking Status: Former smoker Review of Systems 10-point ROS is otherwise unremarkable Physical Examination - Vital Signs Temperature: 97.2 F Blood Pressure: 122/70 Pulse: 82 Respirations: 18 Pulse Ox (%): 94 - Physical Exam General: Alert, Oriented x3, Mild distress HEENT: Atraumatic, Normocephalic Neck: Supple, 2+ carotid pulse no bruit Respiratory: Clear to auscultation bilaterally, Normal air movement Cardiovascular: Regular rate/rhythm, Normal S1 S2 Capillary refill: <2 Seconds Gastrointestinal: Soft and benign, Non-distended, W/out hepatosplenomegaly Musculoskeletal: No clubbing, No swelling Integumentary: No rashes, No breakdown Neurological: Normal speech, Normal strength at 5/5 x4 extr, Cranial nerves 3-12 intact Lymphatics: No axilla or inguinal lymphadenopathy - Studies Laboratory Data (last 24 hrs) 11/21/23 11/21/23 20:37 20:37 WBC 11.10 H Hgb 12.1 Hct 36.0 Plt Count 225 Sodium 138 Potassium 3.6 BUN 10 Creatinine 0.89 Glucose 146 H Total Bilirubin 0.6 AST 11 L ALT < 14 Alkaline Phosphatase 67 Lipase 18 Assessment and Plan - Plan Colitis Started on IV antibiotic Pain control Monitor closely on telemetry IV hydration Zofran as needed GI consult CT findings noted consistent with colitis Elevated D-dimer Electrolytes monitor and replace accordingly Started on PPI GI/DVT prophylaxis Advanced directive full code Discharge Plan: Home Plan to discharge in: 48 Hours - Advance Directives Does patient have a Living Will: No Does patient have a Durable POA for Healthcare: No - Code Status/Comfort Care Code Status: Full Code Time Spent Managing Pts Care (In Minutes): 48
[2023-11-22] MEDS ORDERED: HYDROCODONE/APAP 5/325 MG TAB PO PRN (03:31)
[2023-11-22] MEDS ORDERED: MORPHINE 2 MG/ML SYR IV PRN (03:31)
[2023-11-22] MEDS: NA CHLORIDE 0.9% 1,000 ML IV SCH (04:00)
[2023-11-22] MEDS ORDERED: Levofloxacin500mg IV 500 MG/100 ML BAG IV SCH (04:00)
[2023-11-22 05:11] VITALS: BMI 21.7
[2023-11-22] MEDS: Levofloxacin 750mg IV 750 MG/150 ML BAG IV SCH (09:06)
[2023-11-22] MEDS: ENOXAPARIN 40 MG/0.4 ML SQ SCH (09:06)
[2023-11-22] MEDS: PANTOPRAZOLE 40 MG INJ IVP SCH (09:06)
[2023-11-22] MEDS: SODIUM CHLORIDE 0.9% 10ML INJ IV PRN (09:06)
[2023-11-22] MEDS: METRONIDAZOLE 500mg IVPB 500 MG/100 ML BAG IV SCH (09:07)
[2023-11-22] MEDS: SUCRALFATE 1GM/10ML UCUP PO SCH (09:07)
--- NOTE | 2023-11-22 09:14 | P.DS ---
Admission Date: 11/22/23 Discharge Date: 11/22/23 Disposition: ROUTINE DISCHARGE Discharge Condition: GOOD Reason for Admission: Colitis Brief History of Present Illness: Diagnosis Colitis Elevated D-dimer 2/2 colitis Metabolic acidosis-resolved Substand abuse: marijuana HPI 11/22/2023 28 yrs old Female with past medical history of gastric ulcers presents to ER with complaints of nausea and vomiting and diarrhea associated with abdominal pain which has been going on since this morning . She has a history of peptic ulcer disease . Started having abdominal pain diffuse cramping type intermittent, 4 out of 10 in severity at the time of interview. Associated with nausea and vomiting and diarrhea. Denies any blood in the stool. No fever or chills. No sick contacts. No similar previous history. Denies any history of ulcerative colitis or Crohn's disease. Denies any chest pain or shortness of breath. No recent travel. Patient was assessed in the ER and was admitted for colitis. Hospital Course: Alfred Steele is a pleasant 28 year old female with a past medical history significant for gastric ulcers who was admitted to the [facility] on 11/22/23 for Colitis. Alfred presents with abdominal pain with nausea/vomiting/diarrhea. CT abd/pelvis "showing mild colonic wall thickening involving transverse and descending portions of the colon which can be seen with colitis." While in the ED she tolerated fentanyl, Zofran, inapsine, IV Rocephin, IV Flagyl. On examination by hospitalist service she was no longer symptomatic and resting comfortably. She has a history of gastric ulcers and toxicology showing THC. Education provided to stop marijuana use allowing healing to the digestive system. She was found to have metabolic acidosis with CO2 at 18, BMP rechecked which showed resolution. Potassium 3.3 on redraw was repleted. Elevated D dimer 2/2 colitis, she denies SOB and chest pain. She remained afebrile, tolerating PO diet, and is hemodynamically stable for discharge. On 11/22/23, Alfred was seen on morning rounds and deemed medically stable for discharge. Alfred was discharged with instructions to schedule follow-up appointments with PCP and Dr. Herbert. Alfred was provided prescriptions for Flagyl, Carafate, Levaquin, Protonix, Zofran, potassium. Physical Exam General: Sleeping, awakens easily, Alert, and Oriented x3 HEENT: Atraumatic, Normocephalic Neck: Supple, 2+ carotid pulse no bruit Respiratory: Clear to auscultation bilaterally, Normal air movement, on RA Cardiovascular: NSR, Normal S1 S2, no murmur noted Capillary refill: <2 Seconds Gastrointestinal: Soft and benign on palpation, ND/NT, active bowel sounds Musculoskeletal: No clubbing, No swelling Integumentary: No rashes, No breakdown Neurological: Normal speech, Normal strength at 5/5 x4 extr, Cranial nerves 3-12 intact Lymphatics: No axilla or inguinal lymphadenopathy Vital Signs/Physical Exam: Temp Pulse Resp BP Pulse Ox 99.3 F 62 16 108/60 98 11/22/23 08:00 11/22/23 08:00 11/22/23 08:00 11/22/23 08:00 11/22/23 08:00 Laboratory Data at Discharge: WBC 11.10 thou/uL (4.3-10.9) H 11/21/23 20:37 Hgb 12.1 g/dL (12.0-15.0) 11/21/23 20:37 Hct 36.0 % (36.0-45.0) 11/21/23 20:37 Plt Count 225 thou/uL (152-406) 11/21/23 20:37 Sodium 138 mEq/L (136-145) 11/21/23 20:37 Potassium 3.6 mEq/L (3.5-5.1) 11/21/23 20:37 BUN 10 mg/dL (7-18) 11/21/23 20:37 Creatinine 0.89 mg/dL (0.55-1.02) 11/21/23 20:37 Glucose 146 mg/dL (74-106) H 11/21/23 20:37 Total Bilirubin 0.6 mg/dL (0.2-1.0) 11/21/23 20:37 AST 11 U/L (15-37) L 11/21/23 20:37 ALT < 14 U/L (13-56) 11/21/23 20:37 Alkaline Phosphatase 67 U/L (45-117) 11/21/23 20:37 Lipase 18 U/L (13-75) 11/21/23 20:37 Home Medications: Gabapentin 300 mg PO 11/22/23 LORazepam [Lorazepam] 0.5 mg PO 11/22/23 Levofloxacin [Levaquin] 500 mg PO DAILY 7 Days #7 tab 11/22/23 Ondansetron [Zofran] 4 mg PO Q6H PRN 5 Days #20 tab 11/22/23 Pantoprazole Sodium [Protonix] 20 mg PO DAILY 30 Days #30 tab 11/22/23 Potassium Chloride [K-Dur] 10 meq PO DAILY 5 Days #5 tab 11/22/23 Sucralfate [Carafate*] 10 ml PO QID 7 Days #280 ml 11/22/23 buPROPion HCL [Wellbutrin Xl] 150 mg PO 11/22/23 metroNIDAZOLE [Flagyl] 375 mg PO BID 7 Days #14 cap 11/22/23 New Medications: Sucralfate [Carafate*] 10 ml PO QID 7 Days #280 ml metroNIDAZOLE [Flagyl] 375 mg PO BID 7 Days #14 cap Potassium Chloride [K-Dur] 10 meq PO DAILY 5 Days #5 tab Levofloxacin [Levaquin] 500 mg PO DAILY 7 Days #7 tab Pantoprazole Sodium [Protonix] 20 mg PO DAILY 30 Days #30 tab Ondansetron [Zofran] 4 mg PO Q6H PRN 5 Days #20 tab PRN Reason: Nausea / Vomiting Physician Discharge Instructions: 1. Please call and schedule a follow-up appointment with your PCP in 3-5 days - Please follow-up with your PCP for medication refills/adjustments 2. Please call and schedule a follow-up appointment with Dr. Herbert in 3-5 days 3. Continue Soft bland diet 4. No activity restrictions 5. Stop marijuana use, this causes gastric issues 6. Return to the ED if symptoms worsen New medications Protonix 40 mg p.o. daily Carafate 10 mL 4 times a day x 7 days Zofran 4 mg p.o. every 6 hours as needed for nausea x 5 days Levofloxacin 500 mg p.o. daily x 7 days Flagyl 375 mg p.o. twice daily x 7 days Diet: soft GI Followup: Srinivas Herbert MD [Primary Care Provider] -
[2023-11-22 10:23] LABS: Anion Gap 8.3 mEq/L (5.0-15.0); Potassium 3.3 mEq/L (3.5-5.1)
[2023-11-23 08:18] VITALS: BP 109/68; TEMP 97.6; O2SAT 99
== END 2023-11-22 12:32 | disposition home or self-care (01) ==
LOC: ER 19:47 → INTOOBSV 11-22 03:28 → 2ND 11-22 03:28
PROVIDERS: ADMIT Family Medicine; ATTEND Internal Medicine
DX: K52.9 Noninfective gastroenteritis and colitis, unspecified (principal); R79.1 Abnormal coagulation profile; F12.90 Cannabis use, unspecified, uncomplicated; Z88.0 Allergy status to penicillin; Z87.891 Personal history of nicotine dependence; Z71.89 Other specified counseling
CPT/HCPCS: 36415; 74177; 80048; 80053; 80307; 81001; 81025; 83690; 85025; 85379; 96361; 96365; 96375; 99285; A4216; G0378; J0696; J1650; J1790; J2405; J2470; J3010; J7030; Q9967

== ENCOUNTER 2023-11-22 23:05 | Emergency (ER) | payer BC ==
--- OUTSIDE RECORDS SUMMARY | 2023-11-22 23:08 | XMS REPORT | Continuity of Care Document ---
Author Name Unknown Address [address] [facility] [address] [place] [address] [facility] thconnect Address [address] [address] [place] [address] Care Team Providers Care Brazer Induction Name Role Phone No , Pcp Primary Care Physician UnavailSung Torres Attending Clinician Unavailable CHON WATT Attending Clinician UnavailDOMINGA George Attending Clinician Unavailable CHRISTOPHER MART Attending Clinician Unavailable GC_GCBZW_Suea_S Attending Clinician UnavailRosalva Fortune Attending Clinician Unavaila Buster Mccloud MD Attending Clinician GC_GCBZW_Meera_S Admitting Clinician Unavailghislaine gautam KNOW, DOES_NOT Admitting Clinician Unavailable Payers Payer Name Policy Type Policy Number Effective Date Expirati on Date Source [place] OUT OF [place] [id number] 2022 00:00:00 [facility] 6 [id number] 2023 00:00:00 [facility] [place] [id number] 2022 00:00:00 2023 00:00:00 Problems Condition Name Condition Details Condition Category Status Onset Date Resolution Date Last Treatment Date Treating Clinician Comments Source Primary dysmenorrh ea Primary Dysmenorrh ea Problem Active 08-15 00:00: 00 [facility] Chronic pelvic pain of female Chronic Pelvic Pain of Female Problem Active 08-15 00:00: 00 [facility] Menorrhagi a Menorrhagi a Problem Active 08-15 00:00: 00 [facility] Previous delivery affecting Previous delivery affecting Disease Active 09-04 00:00: 00 [facility] Anemia of mother in , antepartum Anemia of mother in , antepartum Disease Active 08-24 00:00: 00 [facility] Sterilizat ion consult Sterilizat ion consult Disease Active 5 00:00: 00 [facility] Tobacco smoking affecting in second trimester Tobacco smoking affecting in second trimester Disease Active 05-31 00:00: 00 [facility] Medication exposure during first trimester of Medication exposure during first trimester of Disease Active 05-31 00:00: 00 [facility] Declines (vaginal after ) trial Declines (vaginal after ) trial Disease Active 05-31 00:00: 00 [facility] Previous delivery affecting , antepartum Previous delivery affecting , antepartum Disease Active 05-31 00:00: 00 [facility] Status post induction of labor Status post induction of labor Disease Active 08-20 00:00: 00 [facility] distress affecting management of mother, delivered distress affecting management of mother, delivered Disease Active 08-20 00:00: 00 [facility] Failed induction of labor, delivered Failed induction of labor, delivered Disease Active 08-20 00:00: 00 [facility] Fetopelvic disproport ion, delivered Fetopelvic disproport ion, delivered Disease Active 08-20 00:00: 00 Overview: ICD10 Diagnosis 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 Utility [facility] Threatened premature labor, antepartum (644.03) Threatened premature labor, antepartum (644.03) Disease Active 618 00:00: 00 [facility] [id number] PUD (peptic ulcer disease) Problem [facility] [id number] Mixed hyperlipid emia Problem [facility] [id number] Moderate episode of recurrent major depressive disorder Problem [facility] Allergies, Adverse Reactions, Alerts Allergy Name Allergy Type Status Severity Reaction(s) Onset Date Inactive Date Treating Clinician Comments Source Shellfis h-Derive d Products Allergy to substanc e Active Unknown 10-17 00:00: 00 [facility] Penicill ins DA Active SV ANAPHYLAXIS [...] reaction s Active Itching 09-11 00:00: 00 [facility] Penicill ins Propensi ty to adverse reaction s Active Anaphylaxis 08-20 00:00: 00 [facility] Penicill ins Allergy to substanc e Active Unknown 08-20 00:00: 00 [facility] PENICILL INS Allergy to substanc e Active Moderate severity Anaphylaxis [facility] SHELLFIS H DERIVED Allergy to substanc e Active Moderate severity Anaphylaxis [facility] Shellfis h (FN) Shellfis h (FN) Active Unknown [facility] [id number] Drug allergy Active Unknown [facility] Social History Social Habit Start Date Stop Date Quantity Comments Source Alcohol intake [facility] History of tobacco use Cigarette Smoker [facility] Sexual orientation [facility] Alcoholic beverage intake 2023-10-19 00:00:00 2023-10-19 00:00:00 Ex-drinker (finding) [facility] History of Social function 2023-10-19 00:00:00 2023-10-19 00:00:00 [facility] Tobacco use and exposure 2023-10-18 00:00:00 2023-10-18 00:00:00 Smokeless tobacco non-user [facility] Cigarettes smoked current (pack per day) - Reported 2018-08-27 00:00:00 2018-08-27 00:00:00 [facility] Cigarette pack-years 2018-08-27 00:00:00 2018-08-27 00:00:00 [facility] Sex assigned at 1995 00:00:00 1995 00:00:00 [facility] Smoking Status Start Date Stop Date Source Heavy Tobacco Smoker [facility] Smokes tobacco daily 2023-10-18 00:00:00 [facility] Medications Ordered Medication Name Filled Medication Name Start Date Stop Date Current Medication? Ordering Clinician Indication Dosage Frequency Signature (SIG) Comments Components Source Rexulti 1 MG tablet 10-18 15:25: 42 Yes 1{tbl} QD Take 1 tablet by mouth 1 (one) time each day. [facility] sertraline (Zoloft) 100 MG tablet 10-18 15:25: 42 Yes 100mg QD Take 100 mg by mouth 1 (one) time each day. [facility] buPROPion XL (Wellbutrin XL) 150 MG 24 hr tablet 10-18 15:25: 42 Yes 150mg Take 150 mg by mouth every morning. [facility] gabapentin (Neurontin) 300 MG capsule 10-18 00:00: 00 11-18 04:59 :00 Yes [id number] 300mg Take 1 capsule (300 mg total) by mouth every night. [facility] Ondansetron HCl 4 MG Ondansetron HCl 4 MG 09-27 00:00: 00 No 1{table t} QD Ondansetro n HCl 4 MG topiramate 50 mg tablet 09-27 00:00: 00 Yes [id number] Take 100mg two times a day for 5 days, then take 150 mg in the am and 100 mg in the evening for 5 days, then take 150 mg two times a day there after. [facility] ZOLMitripta n 5 mg tablet 09-27 00:00: 00 Yes One tab at onset of headache, may repeat x one tab in 4 hours if headache persist. No more than two tabs in a 24 hour period [facility] Butalbital- Acetaminoph en-Caff (FIORICET) 50-300-40 mg per capsule 09-27 00:00: 00 Yes [id number] Use one every 6 hours as needed for head pain. [facility] Butalbital- Acetaminoph en-Caff (FIORICET) 50-300-40 mg per capsule 08-06 00:00: 00 09-27 00:00 :00 No [id number] Use one every 6 hours as needed for head pain. [facility] topiramate 50 mg tablet 06-21 00:00: 00 09-27 00:00 :00 No [id number] Use 2 in am, 1 in the evening for the headache. [facility] sumatriptan 100 mg tablet 06-21 00:00: 00 09-27 00:00 :00 No [id number] 100mg Take 1 tablet by mouth as needed for Migraine. Within 24 hours, may repeat times one in 2 hours as needed. [facility] VIT W-CA,FE,FA, <1 MG, ( #2 ORAL) 09-11 18:53: 24 Yes 1{tbl} Take 1 Tab by mouth. [facility] diphenhydrA MINE (BENADRYL ALLERGY) 25 mg tablet 09-11 18:53: 24 Yes 25mg Take 25 mg by mouth every 4 (four) hours as needed for Allergies. [facility] predniSONE 10 mg tablet 09-11 00:00: 00 Yes [id number] 10mg Take 1 tablet by mouth SEE-INSTRU CTIONS. [facility] naproxen 500 mg tablet 09-05 00:00: 00 Yes 500mg Take 1 tablet by mouth 2 (two) times daily with meals as needed for Pain (scale 1-3) or Pain (scale 4-6). [facility] vitamin w/FA tablet 09-05 00:00: 00 Yes 1{tbl} Take 1 tablet by mouth daily. [facility] docusate calcium 240 mg capsule 09-05 00:00: 00 Yes 240mg Take 1 capsule by mouth once daily as needed for Constipati on. [facility] ferrous sulfate 325 mg (65 mg iron) tablet 09-05 00:00: 00 Yes 325mg Take 1 tablet by mouth 2 (two) times daily. [facility] ferrous sulfate (IRON, FERROUS SULFATE,) 325 mg (65 mg iron) tablet 08-24 00:00: 00 Yes [id number] 325mg Take 1 tablet by mouth 2 (two) times daily with meals. [facility] eszopiclone 3 mg tablet TAKE 1 TABLET BY MOUTH ONCE DAILY IMMEDIATLEY BEFORE BED eszopiclone 3 mg tablet TAKE 1 TABLET BY MOUTH ONCE DAILY IMMEDIATLEY BEFORE BED No eszopiclon e 3 mg tablet TAKE 1 TABLET BY MOUTH ONCE DAILY IMMEDIATLE Y BEFORE BED [facility] lorazepam 0.5 mg tablet TAKE 1 TABLET BY MOUTH ONCE DAILY NEEDED lorazepam 0.5 mg tablet TAKE 1 TABLET BY MOUTH ONCE DAILY NEEDED No lorazepam 0.5 mg tablet TAKE 1 TABLET BY MOUTH ONCE DAILY NEEDED [facility] Rexulti 0.5 MG Rexulti 0.5 MG No 1{table t} QD Rexulti 0.5 MG Pantoprazol e Sodium 40 MG Pantoprazol e Sodium 40 MG No 1{table t} QD Pantoprazo le Sodium 40 MG Wellbutrin Wellbutrin No Wellbutrin Sertraline HCl 50 MG Sertraline HCl 50 MG No 1{table t} QD Sertraline HCl 50 MG Vital Signs Vital Name Observation Time Observation Value Comments S ource Systolic blood pressure 2023-10-19 20:26:00 96 mm[Hg] [facility] Diastolic blood pressure 2023-10-19 20:26:00 67 mm[Hg] [facility] Heart rate 2023-10-19 20:26:00 72 /min [facility] height 2023-10-19 20:26:00 154.9 cm [facility] weight 2023-10-19 20[facility]26:00 [facility] 2023-10-19 20:26:00 21.35 kg/m2 [facility] respiratory rate 2023-09-28 13:20:00 16 /min [facility] blood pressure systolic 2023-09-28 13:20:00 101 mm[Hg] [facility] blood pressure diastolic 2023-09-28 13:20:00 68 mm[Hg] [facility] height 2023-09-28 13:20:00 61 [in_i] Commo n [facility] weight 2023-09-28 13:20:00 109.8 [lb_av] Co mmon [facility] temperature 2023-09-28 13:20:00 97.3 [degF] Com [facility] bmi 2023-09-28 13:20:00 20.74 kg/m2 Comm on [facility] oximetry 2023-09-28 13:20:00 97 % Commo n [facility] BP Diastolic 2023-08-16 00:00:00 71 mm[Hg] [facility] BP Systolic 2023-08-16 00:00:00 102 mm[Hg] [facility] Height 2023-08-16 00:00:00 61 [in_i] [facility] Body Weight 2023-08-16 00:00:00 107 [lb_av] [facility] BMI (Body Mass Index) 2023-08-16 00:00:00 20.2 kg/m2 [facility] height 2023-06-28 14:40:00 61 [in_i] Commo n [facility] weight 2023-06-28 14:40:00 109.8 [lb_av] Co on [facility] temperature 2023-06-28 14:40:00 97.3 [degF] Com [facility] bmi 2023-06-28 14:40:00 20.74 kg/m2 Comm on [facility] oximetry 2023-06-28 14:40:00 85 % Com[facility] blood pressure systolic 2023-06-28 14:40:00 99 mm[Hg] [facility] blood pressure diastolic 2023-06-28 14:40:00 62 mm[Hg] [facility] Procedures Procedure Date / Time Performed Performing Clinicia n Source Delivery 2017-09-04 00:00:00 [facility] Tubal Ligation 2017-09-04 00:00:00 [facility] Delivery 2014-08-20 00:00:00 [facility] Encounters Start Date/Time End Date/Time Encounter Type Admission Type Attending Clinicians Care Facility Care Department Encounter ID Source 2023-09-26 08:07:00 Outpatient Sung Garcia [facility] [id number] [facility] 2023-09-26 07:30:00 Inpatient CHON MUHAMMAD [facility] [id number] [facility] 2023-09-17 11:40:00 Outpatient Sung Garcia [facility] [id number] [facility] 2023-06-26 08:49:01 Outpatient Sung Garcia [facility] [id number] [facility] 2023-05-29 13:25:00 Outpatient Sung Garcia [facility] [id number] [facility] 2023-12-07 15:45:00 2023-12-07 15:45:00 Outpatient [facility] [id number] [facility] 2023-10-19 16:00:00 2023-10-19 16:00:00 Office Visit Dominga Stevens [facility] [address] AND WOMENS [id number] [facility] 2023-10-18 14:00:00 2023-10-18 14:00:00 Outpatient MO[facility] [id number] [facility] 2023-09-28 00:00:00 2023-09-28 00:00:00 (MAINE yo PT Women STLMLC STLMLC [id number] [facility] 2023-09-17 00:00:00 2023-09-17 00:00:00 OFFICE VISIT ESTAB PT LEVEL 3 STLMLC STLMLC [id number] [facility] 2023-08-16 00:00:00 2023-08-16 00:00:00 Chon Watt MD: [address], [address], [place] [address] , Ph. [phone] G [facility] [id number] [facility] 2023-06-28 00:00:00 2023-06-28 00:00:00 OFFICE V[facility]IT [facility]AB [facility] [id number] 2023-03-22 00:00:00 2023-03-22 00:00:00 Outpatient GC_GCBZW_Ka diyala_S PRIV PRIV [id number] [facility] 2023-02-22 00:00:00 2023-02-22 00:00:00 Outpatient GC_GCBZW_Ka diyala_S PRIV PRIV [id number] [facility] 2023-01-25 00:00:00 2023-01-25 00:00:00 Outpatient GC_GCBZW_Ka diyala_S PRIV PRIV [id number] [facility] 2023-01-04 00:00:00 2023-01-04 00:00:00 Outpatient GC_GCBZW_Ka diyala_S PRIV PRIV [id number] [facility] 2023-01-01 13:09:00 2023-01-01 13:09:00 Outpatient Rosalva Christina [facility] [id number] [address] [place] [address] 2022-12-28 00:00:00 2022-12-28 00:00:00 Outpatient GC_GCBZW_Ka diyala_S PRIV PRIV [id number] [facility] 2022-11-30 00:00:00 2022-11-30 00:00:00 Outpatient GC_GCBZW_Ka diyala_S PRIV PRIV [id number] [facility] 2022-11-30 00:00:00 2022-11-30 00:00:00 Outpatient GC_GCBZW_Ka diyala_S PRIV PRIV [id number] [facility] 2022-11-30 00:00:00 2022-11-30 00:00:00 Outpatient GC_GCBZW_Ka diyala_S PRIV PRIV [id number] [facility] 2022-11-30 00:00:00 2022-11-30 00:00:00 Outpatient GC_GCBZW_Ka diyala_S PRIV PRIV [id number] [facility] 2022-10-17 00:00:00 2022-10-17 00:00:00 Outpatient GC_GCBZW_Ka diyala_S PRIV PRIV [id number] [facility] 2022-10-17 00:00:00 2022-10-17 00:00:00 Outpatient GC_GCBZW_Ka diyala_S PRIV PRIV [id number] [facility] 2022-10-17 00:00:00 2022-10-17 00:00:00 Outpatient GC_GCBZW_Ka diyala_S PRIV PRIV [id number] [facility] 2022-10-17 00:00:00 2022-10-17 00:00:00 Outpatient GC_GCBZW_Ka diyala_S PRIV PRIV [id number] [facility] 2022-10-02 00:00:00 2022-10-02 00:00:00 Outpatient GC_GCBZW_Ka diyala_S PRIV PRIV [id number] [facility] 2022-10-02 00:00:00 2022-10-02 00:00:00 Outpatient GC_GCBZW_Ka diyala_S [facility] [id number] [facility] 2022-10-01 00:00:00 2022-10-01 00:00:00 Outpatient GC_GCBZW_Ka diyala_S [facility] [id number] [facility] 2018-09-26 00:00:00 2018-09-26 00:00:00 Telephone Buster Thorpe [facility] [id number] [facility] Results Test Description Test Time Test Comments Results Result Co mments Source [facility] (dipstick) panel - [id number] 14:54:06* Test Item Value Reference Range Interpretation Comme [facility] Leukocytes (test code = Leukocytes) Negative Nitrite (test code = Nitrite) negative Urobilinogen (test code = Urobilinogen) .2 Protein (test code = Protein) Negative pH (test code = pH) 5.5 Blood (test code = Blood) Negative Specific [place] (test code = Specific [place]) 1.020 Ketone (test code = Ketone) Negative Bilirubin (test code = Bilirubin) Negative Glucose (test code = Glucose) Negative Appearance (test code = Appearance) Clear Color (test code = Color) Yellow [facility] 15:31:00* Test Item Value Reference Range Interpretation Comme nts SURGICAL (test code = SR) RUN DATE: 01/03/23 NATHAN Stephens [facility] PAGE 1 RUN TIME: 1532 Specimen Inquiry RUN USER: INTERFACE PATIENT: ALFRED TORRES LOC: TIA #: [id number] AGE/SX: 27/F ROOM: RE01/01/23REG DR: Rosalva Estes MD : 94 BED: DIS: STATUS: [facility] TLOC: SPEC #: [id number] RECD: 01/01/23 STATUS: [facility] #: [id number] JOSSY: 01/01/[address] [facility] [address]: Rosalva Estes MD ENTERED: 01/01/23 SP TYPE: SURGICAL OT DR: ORDERED: [id number], ANATOMIC SPEC, SPECIMEN TRACK PROCEDURES: [id number] (01/03/23-1530) SPECIMEN TRACK (01/01/23) TISSUES: A. FALLOPIAN [...] tissue processing and slide preparation performed at [facility] [address] [address] , [place] [address] MICROSCOPIC DESCRIPTION Microscopic examination is performed and the findings are incorporated into the finaldiagnosis. Please see diagnosis for findings. - Signed SIGNATURE ON FILE Marj Stark 01/03/23 1531 END OF REPORT HCG SERUM [id number] 15:51:00* Test Item Value Reference Range Interpretation Comme nts HCG SERUM QUAL (test code = HCGQL) SERUM NEGATIVE SCREEN NEGATIVE CBC W/AUTO [id number] 22:53:00* Test Item Value Reference Range Interpretation [...] NRBC#) 0.0 K/mm3 0.0-0.1 N BASIC METABOLIC [id number] 14:09:00* Test Item Value Reference Range Interpretation [...] = CA) 8.9 MG/DL 8.5-10.1 N PROTHROMBIN [id number] 13:44:00* Test Item Value Reference Range Interpretation [...] prevent recurrent infarct). Comment: PRE PROCEDURETHROMBOPLASTIN TIME [id number] 13:44:00* Test Item Value Reference Range Interpretation Comme nts THROMBOPLASTIN TIME PARTIAL (test code = PTT) 31.3 SECONDS 26-35 N Comment: PRE PROCEDUREURINALYSIS [id number] 13:24:00* Test Item Value Reference Range Interpretation [...] A Urine Specimen Type: Clean CatchUR HCG [id number] 13:24:00* Test Item Value Reference Range Interpretation Comme nts UR HCG QUAL (test code = HCGQLU) NEGATIVE NEGATIVE Urine Specimen Type: Clean Catch Notes Date/Time Note Provider Source 2023-01-01 21:42:00 [id number] [facility] [address] [place] [address] PATIENT NAME: ALFRED TORRES ADMIT DATE: 01/01/23 ACCOUNT NO: [id number] ROOM NO: AGE: 27 REPORT TYPE: OPERATIVE [...] the right side. SURGEON: Rosalva Estes MD. ESTATE PLANNING PARALEGAL: Becca. ANESTHESIA: General endotracheal. FINDINGS: Bilateral tubo-ovarian [...] with 2 Allis clamps. Cervix dilated to 16-Solomon Islander and diagnostic hysteroscope was passed through the [...] Date Transcribed: 01/01/2023 22:48:23 YASMIN/SHAAN/DARIA Receipt ID: [id number] Authenticated by Rosalva Estes MD On 01/25/2023 11:42:29 AM at 1142 PATIENT NAME: ALFRED TORRES [facility] 2023-01-01 21:26:00 [facility] ([facility]) Brief Op Note REPORT#:[id number] REPORT STATUS: Signed REPORT INITIALIZATION DATE:01/01/23 TIME:2125 PATIENT: ALFRED TORRES UNIT #: [id number] ROOM/BED: : 94 AGE: 27 SEX: F [...] wall on the right Primary Surgeon: meera Production Sanitizer(s): becca Anesthesia: general anesthesia Findings: bilateral dense tubo-ovarian adhesions, right distal hydrosalpinx, right fundal uterine adhesions to anterior abdominal wall Complications: none Estimated blood loss in ml's: 25 Specimens removed/altered: right distal tube Fluids: 400 Urine output: 100 Approach: laparoscopic Wound class: clean Disposition: plan to D/C home Counts: Sponge count: correct Instrument count: correct Needle count: correct at 2130 RPT #: [id number] [facility]
[2023-11-23] MEDS ORDERED: droPERidol 5 MG/2 ML VIAL ONE (00:10)
[2023-11-23] MEDS ORDERED: NA CHLORIDE 0.9% 2,000 ML ONE (00:11)
[2023-11-23] MEDS ORDERED: METOCLOPRAMIDE 10 MG/2mL INJ ONE (00:11)
[2023-11-23 00:29] LABS: Absolute Lymphocytes (CBC) 1.2 K/uL (0.7-4.9); Absolute Monocytes 0.7 K/uL (0.1-1.3); Absolute Neutrophil 6.2 K/uL (1.8-8.0); Basophils % 0.3 % (0-1.3); Hematocrit 35.6 % (36.0-45.0); Hemoglobin 12.1 g/dL (12.0-15.0); Lymphocytes % 15.2 % (15.3-44.8); MCH 31.1 pg (27.0-35.0); MCV 91.5 fL (80-100); MPV 8.5 fL (7.6-11.3); Monocytes % 8.4 % (3.3-12.3); Neutrophils % 76.1 % (41.7-73.7); Nucleated Red Blood Cells % 0.1 % (0-0); Platelets 217 thou/uL (152-406); RBC Red Blood Cell Count 3.89 M/uL (3.86-4.86); Red Cell Distribution Width 16.5 % (12.1-15.2)
[2023-11-23] MEDS ORDERED: KETOROLAC 30 MG/ML INJ ONE (00:30)
[2023-11-23] MEDS ORDERED: MORPHINE 4 MG/ML SYR ONE (00:30)
[2023-11-23] MEDS ORDERED: DICYCLOMINE HCL 20 MG/2 ML AMP IM ONE (00:30)
[2023-11-23] MEDS ORDERED: LORazepam 2 MG/ML VIAL ONE (00:30)
[2023-11-23] MEDS ORDERED: FAMOTIDINE 20 MG/2 ML VIAL IV ONE (00:31)
[2023-11-23 00:41] LABS: ALT/SGPT 15 U/L (13-56); AST/SGOT 11 U/L (15-37); Albumin 3.9 g/dL (3.4-5.0); Albumin/Globulin Ratio 1.1 (1.1-1.8); Alkaline Phosphatase 60 U/L (45-117); Anion Gap 9.1 mEq/L (5.0-15.0); BUN Blood Urea Nitrogen 5 mg/dL (7-18); Bicarbonate 23 mEq/L (21-32); Bilirubin Total 0.6 mg/dL (0.2-1.0); Globulin 3.4 g/dL (2.3-3.5); Glomerular Filtration Rate 86 ml/min (=/>90); Glucose Level 102 mg/dL (74-106); Lipase 34 U/L (13-75); Potassium 3.1 mEq/L (3.5-5.1); Protein, Total 7.3 g/dL (6.4-8.2); Sodium Level 139 mEq/L (136-145)
[2023-11-23 00:42] LABS: C-Reactive Protein < 2.90 mg/L (<3.00)
--- NOTE | 2023-11-23 03:50 | EDPHYS ---
Physician Documentation [facility] Name: Alfred Steele Age: 28 yrs Sex: Female : 1995 Arrival Date: 11/22/2023 Time: 23:05 Bed 15 Private MD: ED Physician Irineo Patterson HPI: 11/21 23:21 This 28 yrs old Female presents to ER via Ambulatory with complaints of sp4 Nausea/Vomiting. 11/22 02:57 28-year-old female with a history of recent admission for colitis on 11/22/2023 presents sp4 with worsening abdominal ache nausea, vomiting and persistent vomiting. Patient was discharged on 11/22/2023 with prescriptions for gabapentin, lorazepam, levofloxacin, ondansetron, Protonix, potassium, sucralfate, bupropion, metronidazole., With new medications being Protonix 40 p.o. daily, Carafate 10 mL 4 times a day, Zofran 4 mg every 6 hours, levofloxacin 500 daily Flagyl 375 p.o. twice daily. . 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 - Infectious Disease History:: Denies. - Social history:: Smoking status: Patient reports the use of cigarette tobacco products, smokes 0.25 packs per day. - Family history:: not pertinent. ROS: 11/22 02:57 Constitutional: Negative for fever, chills, and weight loss, positive nausea and sp4 vomiting. Positive abdominal pain All other systems are negative, Exam: 02:57 Constitutional: This is a well developed, well nourished patient who is awake, alert, sp4 and in no acute distress. Head/Face: Normocephalic, atraumatic. Eyes: Pupils equal round and reactive to light, extra-ocular motions intact. Lids and lashes normal. Conjunctiva and sclera are not injected. Cornea within normal limits. Periorbital areas with no swelling, redness, or edema. ENT: Nares patent. No nasal discharge, no septal abnormalities noted. Tympanic membranes are normal and external auditory canals are clear. Oropharynx with no redness, swelling, or masses, exudates, or evidence of obstruction, uvula midline. Mucous membranes moist. Neck: Trachea midline, no thyromegaly or masses palpated, and no cervical lymphadenopathy. Supple, full range of motion without nuchal rigidity, or vertebral point tenderness. Chest/axilla: Normal chest wall appearance and motion. Nontender with no deformity. No lesions are appreciated. Cardiovascular: Regular rate and rhythm with a normal S1 and S2. No gallops, murmurs, or rubs. Normal PMI, no JVD. No pulse deficits. Respiratory: Lungs have equal breath sounds bilaterally, clear to auscultation and percussion. No rales, rhonchi or wheezes noted. No increased work of breathing, no retractions or nasal flaring. Abdomen/GI: Soft, with normal bowel sounds. No distension or tympany. No guarding or rebound. No evidence of tenderness throughout. Back: No spinal tenderness. No costovertebral tenderness. Skin: Warm, dry with normal turgor. Normal color with no rashes, no lesions, and no evidence of cellulitis. MS/ Extremity: Pulses equal, no cyanosis. Neurovascular intact. Full, normal range of motion. Neuro: Awake and alert, GCS 15, oriented to person, place, time, and situation. Cranial nerves II-XII grossly intact. Motor strength 5/5 in all extremities. Sensory grossly intact. Psych: Awake, alert, with orientation to person, place and time. Behavior, mood, and affect are within normal limits Vital Signs: 11/21 23:19 BP 130 / 79; Pulse 65; Resp 18; Temp 97.3; Pulse Ox 99% on R/A; Weight 52.16 kg; Height cm10 5 ft. 1 in. ; Pain 10/29; 11/22 00:30 BP 116 / 89; Pulse 58; Resp 16; Pulse Ox 97% ; cp4 01:30 BP 109 / 64; Pulse 53; Resp 16; Pulse Ox 97% ; cp4 02:30 BP 95 / 57; Pulse 47; Resp 16; Pulse Ox 99% ; cp4 03:30 BP 94 / 51; Pulse 49; Resp 16; Pulse Ox 97% ; cp4 11/21 23:19 Body Mass Index 21.73 (52.16 kg, 154.94 cm) cm10 11/21 23:19 Pain Scale: Adult cm10 Liliana Coma Score: 02:57 Eye Response: spontaneous(4). Motor Response: obeys commands(6). Verbal Response: sp4 oriented(5). Total: 15. MDM: 11/21 23:23 Patient medically screened. sp4 11/22 00:10 ED course: CT yesterday - IMPRESSION: 1. Mild colonic wall thickening involving the sp4 transverse and descending portions of the colon which can be seen with colitis. 2. Otherwise, unremarkable CT scan of the abdomen and pelvis. 3. Please note, the RadAi system detected the presence of pulmonary emboli on the lower images obtained through the chest. However, close review of these images fails to confirm definite pulmonary emboli in the lower lobe pulmonary arteries. These findings were discussed with LORI Dubose. The patient denies any chest related symptoms. These findings were discussed with LORI Dubose on 11/22/2023 at 12: 30 AM central time. Electronically signed by: Stephanie Bustos DO 11/22/2023 12:37 AM CDT RP - [id number] Due to temporary technical issues with the PACS/FanLib reporting system, reports are being signed by the in-house radiologist without review as a courtesy to ensure prompt reporting the interpreting radiologist is fully responsible for the content of the report. Transcribed Date/Time: 11/22/2023 12:50 AM. 22:52 Differential diagnosis: Nonspecific abd pain, gastritis, pancreatitis, viral sp4 gastroenteritis, gastroenteritis. Data reviewed: vital signs, nurses notes, old medical records, lab test result(s), radiologic studies, CT scan. Consideration of Admission/Observation Escalation of care including admission/observation considered. ED course: Much improved after management in the emergency room. Stable for discharge home with clear liquid diet. 11/21 22:23 Order name: CBC with Diff; Complete Time: 00:41 sp4 11/21 23:23 Order name: CMP; Complete Time: 02:54 sp4 11/21 23:23 Order name: Lipase; Complete Time: 02:54 sp4 11/21 23:23 Order name: Test, Serum; Complete Time: 02:54 sp4 11/22 00:27 Order name: C-Reactive Protein; Complete Time: 02:54 EDMS 11/21 23:23 Order name: IV Saline Lock; Complete Time: 00:16 sp4 11/21 23:23 Order name: Labs collected and sent; Complete Time: 00:16 sp4 11/22 02:57 Order name: PO challenge; Complete Time: 03:11 sp4 Administered Medications: 00:15 Drug: metoCLOPramide IVP 10 mg IVP once; over 1 to 2 minutes Route: IVP; Site: right cp4 antecubital; 00:36 Follow up: Response: No adverse reaction cp4 00:16 Drug: Droperidol IVP 1.25 mg IVP once Route: IVP; Site: right antecubital; cp4 00:36 Follow up: Response: No adverse reaction cp4 00:16 Drug: NS 0.9% IV 1000 ml IV at 1 bolus Per protocol; 1000 mL bolus Route: IV; Rate: 1 cp4 bolus; Site: right antecubital; 01:25 Follow up: Response: No adverse reaction; IV Status: Infusion continued cp4 00:35 Drug: Ketorolac IVP 30 mg IVP once Route: IVP; Site: right antecubital; cp4 00:45 Follow up: Response: No adverse reaction cp4 00:35 Drug: Famotidine IVP 20 mg IVP once; dilute with 10 mL 0.9% NaCl; give over 2 minutes cp4 Route: IVP; Site: right antecubital; 00:45 Follow up: Response: No adverse reaction cp4 00:35 Drug: Ativan IVP 1 mg IVP once Route: IVP; Site: right antecubital; cp4 00:45 Follow up: Response: No adverse reaction cp4 00:36 Drug: morphine IVP or IV 4 mg IVP once over 4 mins Route: IVP; Infused Over: 4 mins; cp4 Site: right antecubital; 00:45 Follow up: Response: No adverse reaction; Pain is decreased cp4 01:25 Drug: NS 0.9% IV 1000 ml IV at 125 ml/hr continuous Route: IV; Rate: 125 ml/hr; Site: cp4 right antecubital; 04:07 Follow up: Response: No adverse reaction; IV Status: Completed infusion cp4 03:54 Not Given (Patient Refused): [id number] mg IM once cp4 Disposition Summary: 11/23/23 03:49 Discharge Ordered Notes: Bed rest for 2 days
Clear liquid diet for 24 hours Location: Home sp4 Problem: new sp4 Symptoms: have improved sp4 Condition: Stable sp4 Diagnosis - Acute gastroenteritis, nausea with vomiting, acute colitis sp4 Followup: sp4 - With: Private Physician - When: 7 - 10 days - Reason: Recheck today's complaints Discharge Instructions: - Discharge Summary Sheet sp4 - Clear Liquid Diet, Adult, [id number] sp4 Forms: - Patient Portal Instructions sp4 Prescriptions: - Reglan 10 mg Oral tablet - take 1 tablet ORAL route every 6 hours PRN intractable vomiting; 30 tablet; sp4 Refills: 0, Product Selection Permitted - promethazine 25 mg Oral tablet - take 1 tablet ORAL route every 6 hours As needed PRN nausea and vomiting; 30 sp4 tablet; Refills: 0, Product Selection Permitted - dicyclomine 20 mg Oral tablet - take 2 tablets ORAL route 3 times per day PRN abdominal cramps; 30 tablet; sp4 Refills: 0, Product Selection Permitted Signatures: Dispatcher [employer] EDMS Irineo Patterson MD MD sp4 Chitra West RN RN cm10 Dyan Alarcon cp4 Corrections: (The following items were deleted from the chart) 11/21 23:23 23:23 CBC+H.LAB.BRZ ordered. EDMS EDMS 23:23 23:23 COMPREHENSIVE METABOLIC PANEL+C.LAB.BRZ ordered. EDMS EDMS 23:23 23:23 LIPASE+C.LAB.BRZ ordered. EDMS EDMS 23:23 23:23 TEST, SERUM+SC.LAB.BRZ ordered. EDMS EDMS 11/22 00:27 00:19 C-REACTIVE PROTEIN+C.LAB.BRZ ordered. EDMS EDMS
--- NOTE | 2023-11-23 03:50 | ER ---
Nurse's Notes [facility] Name: Alfred Steele Age: 28 yrs Sex: Female : 1995 Arrival Date: 11/22/2023 Time: 23:05 Bed 15 Private MD: Diagnosis: Acute gastroenteritis, nausea with vomiting, acute colitis Presentation: 11/21 23:19 Chief complaint: Patient states: Discharged from the hospital today due to having cm10 colitis. Pt states that she has been vomiting since she drank something when she got home. Pt noted to be vomiting in triage. Coronavirus screen: Client denies travel out of the [place] in the last 14 days. Ebola Screen: Patient denies travel to an Ebola-affected area in the 21 days before illness onset. No symptoms or risks identified at this time. Initial Sepsis Screen: Does the patient meet any 2 criteria? No. Patient's initial sepsis screen is negative. Does the patient have a suspected source of infection? No. Patient's initial sepsis screen is negative. Risk Assessment: Do you want to hurt yourself or someone else? Patient reports no desire to harm self or others. Onset of symptoms was November 22, 2023. 23:19 Method Of Arrival: Ambulatory cm10 23:19 Acuity: GAURANG 3 cm10 Triage Assessment: 23:21 General: Appears in no apparent distress. uncomfortable, Behavior is calm, cooperative. cm10 Neuro: No deficits noted. Level of Consciousness is awake, alert, obeys commands, Oriented to person, place, time, situation, Appropriate for age. GI: Reports lower abdominal pain, upper abdominal pain, nausea, vomiting. 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 - Infectious Disease History:: Denies. - Social history:: Smoking status: Patient reports the use of cigarette tobacco products, smokes 0.25 packs per day. - Family history:: not pertinent. Screenin/04 00:00 [facility] ED Fall Risk Assessment (Adult) History of falling in the last 3 months, cp4 including since admission No falls in past 3 months (0 pts) Confusion or Disorientation No (0 pts) Intoxicated or Sedated No (0 pts) Impaired Gait No (0 pts) Mobility Assist Device Used No (0 pt) Altered Elimination No (0 pt) Score/Fall Risk Level 0 - 2 = Low Risk Oriented to surroundings, Maintained a safe environment, Assessed \T\ reinforced patient's understanding of fall precautions, Hourly rounding (assess needs \T\ fall precautionary measures) done. Abuse screen: Denies threats or abuse. Nutritional screening: No deficits noted. Tuberculosis screening: No symptoms or risk factors identified. Assessment: 00:00 General: Appears ill, Behavior is calm, cooperative, appropriate for age. Pain: cp4 Complains of pain in abdomen. Neuro: Level of Consciousness is awake, alert, obeys commands, Oriented to person, place, time, situation. 00:00 Cardiovascular: Patient's skin is warm and dry. Respiratory: Airway is patent cp4 Respiratory effort is even, unlabored. GI: Abdomen is flat, non-distended, Pt is actively vomiting clear fluid, Bowel sounds present X 4 quads. Abd is soft and non tender X 4 quads. Reports nausea, vomiting. : No signs and/or symptoms were reported regarding the genitourinary system. EENT: No signs and/or symptoms were reported regarding the EENT system. Derm: No signs and/or symptoms reported regarding the dermatologic system. Musculoskeletal: No signs and/or symptoms reported regarding the musculoskeletal system. Vital Signs: 11/21 23:19 BP 130 / 79; Pulse 65; Resp 18; Temp 97.3; Pulse Ox 99% on R/A; Weight 52.16 kg; Height cm10 5 ft. 1 in. ; Pain 10/29; 11/22 00:30 BP 116 / 89; Pulse 58; Resp 16; Pulse Ox 97% ; cp4 01:30 BP 109 / 64; Pulse 53; Resp 16; Pulse Ox 97% ; cp4 02:30 BP 95 / 57; Pulse 47; Resp 16; Pulse Ox 99% ; cp4 03:30 BP 94 / 51; Pulse 49; Resp 16; Pulse Ox 97% ; cp4 11/21 23:19 Body Mass Index 21.73 (52.16 kg, 154.94 cm) cm10 11/21 23:19 Pain Scale: Adult cm10 Liliana Coma Score: 02:57 Eye Response: spontaneous(4). Motor Response: obeys commands(6). Verbal Response: sp4 oriented(5). Total: 15. ED Course: 11/21 23:06 Patient arrived in ED. gm2 23:20 Triage completed. cm10 23:21 Irineo Patterson MD is Attending Physician. sp4 23:21 Arm band placed on right wrist. Patient placed in waiting room. cm10 23:57 Dyan Alarcon is Primary Nurse. cp4 11/22 00:00 Placed in gown. Bed in low position. Call light in reach. Side rails up X2. Provided cp4 Education on: vomiting. 00:00 No provider procedures requiring assistance completed. Initial lab(s) drawn, by me, cp4 sent to lab. Inserted saline lock: 22 gauge in right antecubital area, using aseptic technique. Blood collected. Flushed with 10 mL NS. 04:06 intact, bleeding controlled, No redness/swelling at site. Pressure dressing applied. cp4 Administered Medications: 00:15 Drug: metoCLOPramide IVP 10 mg IVP once; over 1 to 2 minutes Route: IVP; Site: right cp4 antecubital; 00:36 Follow up: Response: No adverse reaction cp4 00:16 Drug: Droperidol IVP 1.25 mg IVP once Route: IVP; Site: right antecubital; cp4 00:36 Follow up: Response: No adverse reaction cp4 00:16 Drug: NS 0.9% IV 1000 ml IV at 1 bolus Per protocol; 1000 mL bolus Route: IV; Rate: 1 cp4 bolus; Site: right antecubital; 01:25 Follow up: Response: No adverse reaction; IV Status: Infusion continued cp4 00:35 Drug: Ketorolac IVP 30 mg IVP once Route: IVP; Site: right antecubital; cp4 00:45 Follow up: Response: No adverse reaction cp4 00:35 Drug: Famotidine IVP 20 mg IVP once; dilute with 10 mL 0.9% NaCl; give over 2 minutes cp4 Route: IVP; Site: right antecubital; 00:45 Follow up: Response: No adverse reaction cp4 00:35 Drug: Ativan IVP 1 mg IVP once Route: IVP; Site: right antecubital; cp4 00:45 Follow up: Response: No adverse reaction cp4 00:36 Drug: morphine IVP or IV 4 mg IVP once over 4 mins Route: IVP; Infused Over: 4 mins; cp4 Site: right antecubital; 00:45 Follow up: Response: No adverse reaction; Pain is decreased cp4 01:25 Drug: NS 0.9% IV 1000 ml IV at 125 ml/hr continuous Route: IV; Rate: 125 ml/hr; Site: cp4 right antecubital; 04:07 Follow up: Response: No adverse reaction; IV Status: Completed infusion cp4 03:54 Not Given (Patient Refused): [id number] mg IM once cp4 Medication: 00:00 VIS not applicable for this client. cp4 Outcome: 03:49 Discharge ordered by . sp4 04:06 Discharged to home ambulatory, cp4 04:06 Condition: stable 04:06 Discharge instructions given to patient, Instructed on discharge instructions, follow up and referral plans. medication usage, Demonstrated understanding of instructions, follow-up care, medications, Prescriptions given X 3, 04:06 Patient left the ED. cp4 Signatures: Irineo Patterson MD MD sp4 Chitra West RN RN cm10 Dyan Alarcon cp4 April Hodge 2
[2023-11-23 12:18] VITALS: TEMP 97.3
[2023-11-23 12:23] VITALS: BP 94/51; O2SAT 97
== END 2023-11-23 04:06 | disposition home or self-care (01) ==
LOC: ER 23:05
DX: K52.9 Noninfective gastroenteritis and colitis, unspecified (principal); F17.210 Nicotine dependence, cigarettes, uncomplicated
CPT/HCPCS: 96361; 85025; 36415; 84703; 83690; 80053; 86140; 96375; 96374; 99284; J2765; J1790; J7030; J0500

== ENCOUNTER 2024-01-16 13:50 | Emergency (ER) | payer BC ==
--- OUTSIDE RECORDS SUMMARY | 2024-01-16 13:56 | XMS REPORT | Continuity of Care Document ---
Author Name Unknown Address [address] [facility] [address] [place] [address] [facility] thconnect Address [address] [facility] 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 Name Role Phone No , Pcp Primary Care Physician UnavailSung Torres Attending Clinician Unavailable LUZ WATT Attending Clinician UnavailDOMINGA George Attending Clinician Unavailable TEA MONZON Attending Clinician Unavailable Nigel HANLEY, Keisha Attending Clinicia n Halima Lizarraga DO Attending Clinician + Sheila Akbar MD Attending Clinician [phone] Krish Terrell MD Attending Clinician [phone] Tea Monzon MD Attending Clinician [phone] CHRISTOPHER MART Attending Clinician Unavailable [email or web address]_S Attending Clinician UnavailRosalva Fortune Attending Clinician UnavailBuster Doss MD Attending Clinician [phone] SHEILA AKBAR Admitting Clinician Unavailable Sheila Akbar MD Admitting Clinician [phone] [email or web address] Admitting Clinician Unavaila ble KNOW, DOES_NOT Admitting Clinician Unavailable Payers Payer Name Policy Type Policy Number Effective Date Expirati on Date Source Blue Cross Blue [employer] of [place] 6 [id number] 2023 00:00:00 [facility] [place] OUT OF [place] [id number] 2022 00:00:00 BCBS [place] [id number] 2022 00:00:00 [place] [id number] 2022 00:00:00 2023 00:00:00 Problems Condition Name Condition Details Condition Category Status Onset Date Resolution Date Last Treatment Date Treating Clinician Comments Source PUD (peptic ulcer disease) PUD (peptic ulcer disease) Disease Active 2023-02 0- 00:00: 00 Nehal Isabel History of peptic ulcer disease History of peptic ulcer disease Disease Recurre nce 2023-02 0 00:00: 00 Nehal Clarke Epic Intractabl e abdominal pain Intractabl e abdominal pain Disease Active 2023-02 0- 00:00: 00 Nehal Clarke Epic Intractabl e nausea and vomiting Intractabl e nausea and vomiting Disease Active 2023-02 0 00:00: 00 Nehal Isabel Colitis Colitis Disease Active 2023-02 0 00:00: 00 Nehal Isabel Hypokalemi a Hypokalemi a Disease Active 2023-02 0 00:00: 00 Neahl Isabel Primary dysmenorrh ea Primary Dysmenorrh ea Problem Active 08-15 00:00: 00 [facility] Chronic pelvic pain of female Chronic Pelvic Pain of Female Problem Active 08-15 00:00: 00 [facility] Menorrhagi a Menorrhagi a Problem Active 08-15 00:00: 00 [facility] Previous delivery affecting Previous delivery affecting Disease Active 09-04 00:00: [address] [facility] Anemia of mother in , antepartum Anemia of mother in , antepartum Disease Active 08-24 00:00: 00 [facility] Sterilizat ion consult Sterilizat ion consult Disease Active 5-11 00:00: 00 [facility] Tobacco smoking affecting in second trimester Tobacco smoking affecting in second trimester Disease Active 412 00:00: 00 [facility] Medication exposure during first trimester of Medication exposure during first trimester of Disease Active 05-31 00:00: 00 [facility] Declines (vaginal after ) trial Declines (vaginal after ) trial Disease Active 05-31 00:00: 00 [facility] Previous delivery affecting , antepartum Previous delivery affecting , antepartum Disease Active 05-31 00:00: 00 [facility] Status post induction of labor Status post induction of labor Disease Active 08-20 00:00: 00 [facility] distress affecting management of mother, delivered distress affecting management of mother, delivered Disease Active 08-20 00:00: 00 [facility] Failed induction of labor, delivered Failed induction of labor, delivered Disease Active 08-20 00:00: 00 [facility] Fetopelvic disproport ion, delivered Fetopelvic disproport ion, delivered Disease Active 08-20 00:00: 00 Overview: ICD10 Diagnosis Term Foster W[employer] Utility [facility] Threatened premature labor, antepartum (644.03) Threatened premature labor, antepartum (644.03) Disease Active 18 00:00: 00 [facility] [id number] Mixed hyperlipid emia Problem [facility] [id number] Moderate episode of recurrent major depressive disorder Problem [facility] Allergies, Adverse Reactions, Alerts Allergy Name Allergy Type Status Severity Reaction(s) Onset Date Inactive Date Treating Clinician Comments Source Shellfis h-Derive d Products Drug Allergy Active Anaphylaxis 2023-02 0- 00:00: 00 Nehal Clarke Epic Penicill ins Propensi ty to adverse reaction s Active Anaphylaxis 2023-02 0-05 00:00: 00 Nehal Clarke [facility] Shellfis h-Derive d Products Allergy to substanc e Active Unknown 8 00:00: 00 [facility] Penicill ins DA Active SV ANAPHYLAXIS 2022-02 00:00: 00 [facility] shellfis h derived FA Active SV ANAPHYLAXIS 2022-02 00:00: 00 [facility] shellfis h derived FA Active SV ANAPHYLAXIS 2022-02 00:00: 00 [facility] Penicill ins DA Active SV ANAPHYLAXIS 2022-02 00:00: 00 [facility] Tegaderm Dressing Propensi ty to adverse reaction s Active Itching 09-11 00:00: 00 [facility] Penicill ins Propensi ty to adverse reaction s Active Anaphylaxis 08-20 00:00: 00 [facility] Penicill ins Allergy to substanc e Active Unknown 08-20 00:00: 00 [facility] Shellfis h (FN) Shellfis h (FN) Active Unknown [facility] [id number] Drug allergy Active Unknown [facility] PENICILL INS Allergy to substanc e Active Moderate severity Anaphylaxis [facility] SHELLFIS H DERIVED Allergy to substanc e Active Moderate severity Anaphylaxis [facility] Social History Social Habit Start Date Stop Date Quantity Comments Source History of tobacco use Cigarette Smoker [facility] Alcohol intake [facility] Sexual orientation [facility] ASSERTION Not Nehal Clarke [facility] Gender identity Eric richar Vince [facility] History of Tobacco Use Current Smoker [facility] History of Social function 2023-11-26 00:00:00 2023-11-26 00:00:00 [facility] Tobacco use and exposure 2023-11-24 00:00:00 2023-11-24 00:00:00 Smokeless tobacco non-user [facility] Alcoholic beverage intake 2023-10-19 00:00:00 2023-10-19 00:00:00 Ex-drinker (finding) [facility] Cigarettes smoked current (pack per day) - Reported 2018-08-27 00:00:00 2018-08-27 00:00:00 [facility] Cigarette pack-years 2018-08-27 00:00:00 2018-08-27 00:00:00 [facility] Sex assigned at 1995 00:00:00 1995 00:00:00 [facility] Smoking Status Start Date Stop Date Source Heavy Tobacco Smoker [facility] Never smoked tobacco Nehal Isabel Smokes tobacco daily 2023-10-18 00:00:00 [facility] Medications Ordered Medication Name Filled Medication Name Start Date Stop Date Current Medication? Ordering Clinician Indication Dosage Frequency Signature (SIG) Comments Components Source LORazepam (Ativan) 0.5 MG tablet LORazepam (Ativan) 0.5 MG tablet 2023-02 14:43: 10 Yes .5mg Q8H Take 0.5 mg by mouth every 8 hours if needed. Nehal Isabel buPROPion HCl (WELLBUTRIN PO) buPROPion HCl (WELLBUTRIN PO) 2023-02 14:43: 10 Yes 50mg QD Take 50 mg by mouth 1 time each day. Nehal Isabel Rexulti 1 MG tablet tablet Rexulti 1 MG tablet tablet 2023-02 14:43: 10 Yes 1{tbl} QD Take 1 tablet by mouth 1 time each day. Nehal Isabel ondansetron (Zofran) tablet 4 mg ondansetron (Zofran) tablet 4 mg 2023-02 12:19: 24 12-01 12:18 :24 No [id number] 4mg Q.5D Deborah Isabel sucralfate (Carafate) suspension 1 g sucralfate (Carafate) suspension 1 g 2023-02 10:30: 00 Yes 1g Q.5D 1 g, Oral, 2 times daily, First dose on Sun11/27/23 at 1030 Nehal Isabel pantoprazol e (ProtoNix) 40 MG EC tablet pantoprazol e (ProtoNix) 40 MG EC tablet 2023-02 00:00: 00 12-26 23:59 :00 No 40mg Take 1 tablet by mouth in the morning. Take before meals. Do not crush, chew, or split. Nehal Isabel metroNIDAZO LE (Flagyl) 500 MG tablet metroNIDAZO LE (Flagyl) 500 MG tablet 2023-02 008 00:00: 00 11-30 23:59 :00 No 500mg [id number] 3D Take 1 tablet by mouth in the morning and 1 tablet at noon and 1 tablet in the evening. Do all this for 4 days. Nehal Isabel ciprofloxac in (Cipro) 500 MG tablet ciprofloxac in (Cipro) 500 MG tablet 2023-02 008 00:00: 00 11-30 23:59 :00 No 500mg Q.5D Take 1 tablet by mouth in the morning and 1 tablet in the evening. Do all this for 4 days. Nehal Isabel pantoprazol e (ProtoNix) EC tablet 40 mg pantoprazol e (ProtoNix) EC tablet 40 mg 2023-02 0 16:30: 00 Yes 40mg 40 mg, Oral, 2 times daily before meals, First dose (after last modificati on) on 11/26/23 at 1630, Do not crush, chew, or split. Nehal Isabel senna-docus ate (Lilliam-Colac e) 8.6-50 mg per tablet 1 tablet senna-docus ate (Lilliam-Colac e) 8.6-50 mg per tablet 1 tablet 2023-02 0 21:00: 00 Yes 1{tbl} Nehal Isabel enoxaparin (Lovenox) syringe 40 mg enoxaparin (Lovenox) syringe 40 mg 2023-02 0 16:30: 00 Yes 40mg QD 40 mg, Subcutaneo us, Daily, First dose on Sun11/25/23 at 1630 Nehal Isabel promethazin e (Phenergan) 12.5 mg in dextrose 5 % 50 mL IVPB promethazin e (Phenergan) 12.5 mg in dextrose 5 % 50 mL IVPB 2023-02 006 16:29: 33 11-29 16:28 :33 No 12.5mg Q6H 12.5 mg, Intravenou s, at 100 mL/hr, Administer over 30 Minutes, Every 6 hours PRN, nausea, vomiting, Starting on 11/25/23 at 1629, For 5 days Nehal Isabel ciprofloxac in (Cipro) IVPB 400 mg ciprofloxac in (Cipro) IVPB 400 mg 2023-02 0 15:00: 00 12-01 14:59 :00 No 400mg Q12H 400 mg, Intravenou s, Administer over 60 Minutes, Every 12 hours, First dose on Sun11/25/23 at 1500, For 7 days, premix bag, Suspected Indication (Select all that apply): Urinary Tract Infection, Intra-abdo antonio Infection Nehal Isabel potassium chloride CR (Klor-Con M20) ER tablet 40 mEq potassium chloride CR (Klor-Con M20) ER tablet 40 mEq 2023-02 0 12:45: 00 11-24 13:14 :00 No 40meq 40 mEq, Oral, Once, On Sun11/25/23 at 1245, For 1 dose, For patients able to take medication s orally or via feeding tube >/= 14 [place], may dissolve each 20 mEq tablet in 4 oz of water. Allow about 2 minutes for the tablets to disintegra te. Stir before giving to prepare slurry and administer . Please exclude patient's with feeding tube less than 14 [place]i (Dobhoff, J-tube, etc) and pediatric and patients Do not crush or chew. Nehal Isabel metroNIDAZO LE (Flagyl) IVPB 500 mg metroNIDAZO LE (Flagyl) IVPB 500 mg 2023-02 10:00: 00 12-01 09:59 :00 No 500mg Q8H 500 mg, Intravenou s, Administer over 30 Minutes, Every 8 hours, First dose on Sun11/25/23 at 1000, For 7 days, premix bag, Suspected Indication (Select all that apply): Intra-abdo antonio Infection Nehal Isabel polyethylen e glycol (PEG) 3350 (Miralax) packet 17 g polyethylen e glycol (PEG) 3350 (Miralax) packet 17 g 2023-02 0 09:00: 00 Yes 17g QD Nehal Isabel sodium chloride (PF) 0.9 % injection 10 mL sodium chloride (PF) 0.9 % injection 10 mL 2023-02 0-06 06:45: 00 Yes 10mL Q12H 10 mL, Intravenou s, Every 12 hours, First dose on 11/25/23 at 0645, Administer at least once every 12 hours Nehal Clarke Epic ondansetron (Zofran) injection 4 mg ondansetron (Zofran) injection 4 mg 2023-02 0-06 06:43: 07 Yes 4mg Q8H 4 mg, Intravenou s, Every 8 hours PRN, vomiting, nausea, Starting on 11/25/23 at 0643 Nehal Clarke Epic calcium gluconate in NaCl 100mL IVPB 2 g calcium gluconate in NaCl 100mL IVPB 2 g 2023-02 0-06 06:43: 07 Yes 2g Nehal Isabel magnesium oxide (Mag-Ox) tablet 800 mg magnesium oxide (Mag-Ox) tablet 800 mg 2023-02 0-06 06:43: 07 Yes 800mg Nehal Clarke Epic magnesium sulfate IVPB 4 g magnesium sulfate IVPB 4 g 2023-02 0-06 06:43: 07 Yes 4g Nehal Clarke Epic magnesium sulfate IVPB 2 g magnesium sulfate IVPB 2 g 2023-02 0-06 06:43: 07 Yes 2g Nehal Clarke Epic magnesium sulfate in D5W IVPB 1 g magnesium sulfate in D5W IVPB 1 g 2023-02 0-06 06:43: 07 Yes 1g Nehal Clarke Epic potassium chloride IVPB 10 mEq potassium chloride IVPB 10 mEq 2023-02 0-06 06:43: 07 Yes 10meq Nehal Clarke Epic Potassium chloride solution 20 mEq Potassium chloride solution 20 mEq 2023-02 0-06 06:43: 07 Yes 20meq Nehal Clarke Epic potassium chloride CR (Klor-Con M20) ER tablet 40 mEq potassium chloride CR (Klor-Con M20) ER tablet 40 mEq 2023-02 0-06 06:43: 07 Yes 40meq Nehal Clarke Epic potassium chloride CR (Klor-Con M20) ER tablet 20 mEq potassium chloride CR (Klor-Con M20) ER tablet 20 mEq 2023-02 0-06 06:43: 07 Yes 20meq Nehal Clarke Epic traZODone (Desyrel) tablet 50 mg traZODone (Desyrel) tablet 50 mg 2023-02 0-06 06:43: 07 Yes 50mg QD 50 mg, Oral, Nightly PRN, sleep, Starting on 11/25/23 at 0643 Nehal Isabel diphenhydrA MINE (BENADryl) tablet 12.5 mg diphenhydrA MINE (BENADryl) tablet 12.5 mg 2023-02 006 06:43: 07 Yes 12.5mg Q6H [place] pedro Clarke Epic bisacodyl (Dulcolax) suppository 10 mg bisacodyl (Dulcolax) suppository 10 mg 2023-02 006 06:43: 07 Yes 10mg Q24H Nehal Clarke Epic glucagon injection 1 mg glucagon injection 1 mg 2023-02 0-06 06:43: 07 Yes 1mg Nehal Clarke Epic dextrose 50 % solution 25 g dextrose 50 % solution 25 g 2023-02 006 06:43: 07 Yes 25g Nehal pedro Clarke Epic dextrose 50 % solution 12.5 g dextrose 50 % solution 12.5 g 2023-02 006 06:43: 07 Yes 12.5g Nehal Clarke Epic naloxone (Narcan) injection 0.04 mg naloxone (Narcan) injection 0.04 mg 2023-02 006 06:43: 07 Yes .04mg Nehal Isabel acetaminoph en (Tylenol) tablet 650 mg acetaminoph en (Tylenol) tablet 650 mg 2023-02 006 06:43: 07 Yes 650mg Q6H Nehal Clarke Epic sodium chloride (PF) 0.9 % injection 10 mL sodium chloride (PF) 0.9 % injection 10 mL 2023-02 006 06:43: 07 Yes 10mL Nehal Clarke Epic morphine injection 4 mg morphine injection 4 mg 2023-02 0-06 06:43: 07 11-29 06:42 :07 No 4mg Q4H 4 mg, Intravenou s, Every 4 hours PRN, severe pain (7-10), and NOT responding to oral therapy or unable to tolerate PO., Starting on Sun11/25/23 at 0643, For 5 days Nehal Isabel oxyCODONE (Roxicodone ) immediate release tablet 10 mg oxyCODONE (Roxicodone ) immediate release tablet 10 mg 2023-02 0-06 06:43: 07 11-29 06:42 :07 No 10mg Q4H 10 mg, Oral, Every 4 hours PRN, severe pain (7-10), Starting on Sun11/25/23 at 0643, For 5 days Nehal Isabel traMADol (Ultram) tablet 50 mg traMADol (Ultram) tablet 50 mg 2023-02 0-06 06:43: 07 11-29 06:42 :07 No 50mg Q6H Nehal Isabel pantoprazol e (ProtoNix) EC tablet 40 mg pantoprazol e (ProtoNix) EC tablet 40 mg 2023-02 0-06 04:00: 00 11-25 13:13 :06 No 40mg QD 40 mg, Oral, Daily, First dose on Sun11/25/23 at 0400, Do not crush, chew, or split. Nehal Isabel lactated Ringer's infusion lactated Ringer's infusion 2023-02 0-06 03:30: 00 11-26 07:32 :58 No 100mL/h 100 mL/hr, Intravenou s, Continuous , Starting on Sun11/25/23 at 0330 Nehal Isabel sodium chloride 0.9 % infusion 1,000 mL sodium chloride 0.9 % infusion 1,000 mL 2023-02 0-06 01:35: 00 11-24 02:09 :00 No 1000mL 1,000 mL, Intravenou s, at 75 mL/hr, Once, On Sun11/25/23 at 0135, For 1 dose Nehal Isabel ciprofloxac in (Cipro) IVPB 400 mg ciprofloxac in (Cipro) IVPB 400 mg 2023-02 0-06 01:35: 00 11-24 03:48 :00 No 400mg 400 mg, Intravenou s, Administer over 60 Minutes, Once, On Sun11/25/23 at 0135, For 1 dose, premix bag, Suspected Indication (Select all that apply): Intra-abdo antonio Infection Jess[place] pedro Clarke Epic metroNIDAZO LE (Flagyl) IVPB 500 mg metroNIDAZO LE (Flagyl) IVPB 500 mg 2023-02 0-06 01:35: 00 11-24 02:38 :00 No 500mg 500 mg, Intravenou s, Administer over 30 Minutes, Once, On 11/25/23 at 0135, For 1 dose, premix bag, Suspected Indication (Select all that apply): Intra-abdo antonio Infection Nehal Clarke Epic morphine injection 4 mg morphine injection 4 mg 2023-02 0 00:55: 00 11-24 01:19 :00 No 4mg 4 mg, Intravenou s, Once, On 11/25/23 at 0055, For 1 dose Nehal Clarke Epic metoclopram alfredo (Reglan) injection 10 mg metoclopram alfredo (Reglan) injection 10 mg 2023-02 0 00:55: 00 11-24 01:20 :00 No 10mg 10 mg, Intravenou s, Once, On 11/25/23 at 0055, For 1 dose Nehal Clarke Epic iohexol (OMNIPaque) 350 MG/ML injection 65 mL iohexol (OMNIPaque) 350 MG/ML injection 65 mL 2023-02 0 00:50: 03 11-24 00:50 :00 No 65mL 65 mL, Intravenou s, Once in imaging, Starting on 11/25/23 at 0050, For 1 dose Nehal Clarke Epic Potassium chloride solution 20 mEq Potassium chloride solution 20 mEq 2023-02 005 22:35: 00 11-23 23:48 :00 No 20meq 20 mEq, Oral, Once, On 11/24/23 at 2235, For 1 dose, Mix with 4 oz (120ml) of water prior to administra tion Nehal Clarke Epic famotidine (PF) (Pepcid) injection 40 mg famotidine (PF) (Pepcid) injection 40 mg 2023-02 0-05 20:50: 00 11-23 21:11 :00 No 40mg 40 mg, Intravenou s, Administer over 2 Minutes, Once, On 11/24/23 at 2049, For 1 dose, Administer over at least 2 minutes Nehal Clarke Epic morphine injection 4 mg morphine injection 4 mg 2023-02 20:50: 00 11-23 21:09 :00 No 4mg 4 mg, Intravenou s, Once, On 11/24/23 at 2049, For 1 dose Nehal Clarke Epic ondansetron (Zofran) injection 4 mg ondansetron (Zofran) injection 4 mg 2023-02 20:50: 00 11-23 21:08 :00 No 4mg 4 mg, Intravenou s, Once, On 11/24/23 at 2049, For 1 dose, Administer IVP. Nehal Clarke Epic sodium chloride 0.9 % bolus 1,000 mL sodium chloride 0.9 % bolus 1,000 mL 2023-02 20:50: 00 11-23 23:27 :01 No 1000mL 1,000 mL, Intravenou s, at 1,000 mL/hr, Administer over 1 Hours, Once, On 11/24/23 at 2049, For 1 dose Nehal Clarke Epic sodium chloride (PF) 0.9 % injection 10 mL sodium chloride (PF) 0.9 % injection 10 mL 2023-02 20:45: 40 Yes 10mL [Order 1 Start] Name: Insert peripheral IV Signed Summary: Once, On Sun11/24/23 at 2045, For 1 occurrence [Order 1 End] [Order 2 Start] Name: Saline lock IV Signed Summary: Once, On 11/24/23 at 2045, For 1 occurrence [Order 2 End] [Order 3 Start] Name: sodium chloride (PF) 0.9 % injection 10 mL Signed Summary: 10 mL, Intravenou s, As needed, line care, Starting on Sun11/24/23 at 2044 [Order 3 End] Nehal Clarke Epic Rexulti 1 MG tablet 10-18 15:25: 42 Yes 1{tbl} QD Take 1 tablet by mouth 1 (one) time each day. [facility] sertraline (Zoloft) 100 MG tablet 10-18 15:25: 42 Yes 100mg QD Take 100 mg by mouth 1 (one) time each day. [facility] buPROPion XL (Wellbutrin XL) 150 MG 24 hr tablet 10-18 15:25: 42 Yes 150mg Take 150 mg by mouth every morning. [facility] gabapentin (Neurontin) 300 MG capsule 10-18 00:00: 00 11-18 04:59 :00 Yes [id number] 300mg Take 1 capsule (300 mg total) by mouth every night. [facility] Ondansetron HCl 4 MG Ondansetron HCl 4 MG 09-27 00:00: 00 No 1{table t} QD Ondansetro n HCl 4 MG eszopiclone (Lunesta) 2 MG tablet eszopiclone (Lunesta) 2 MG tablet 04-17 00:00: 00 Yes 2mg Take 2 mg by mouth at bedtime. Nehal Clarke [facility] topiramate 50 mg tablet 09-27 00:00: 00 Yes [id number] Take 100mg two times a day for 5 days, then take 150 mg in the am and 100 mg in the evening for 5 days, then take 150 mg two times a day there after. [facility] ZOLMitripta n 5 mg tablet 09-27 00:00: 00 Yes One tab at onset of headache, may repeat x one tab in 4 hours if headache persist. No more than two tabs in a 24 hour period [facility] Butalbital- Acetaminoph en-Caff (FIORICET) 50-300-40 mg per capsule 09-27 00:00: 00 Yes [id number] Use one every 6 hours as needed for head pain. [facility] Butalbital- Acetaminoph en-Caff (FIORICET) 50-300-40 mg per capsule 18 00:00: 00 09-27 00:00 :00 No [id number] Use one every 6 hours as needed for head pain. [facility] topiramate 50 mg tablet 5-03 00:00: 00 09-27 00:00 :00 No [id number] Use 2 in am, 1 in the evening for the headache. [facility] sumatriptan 100 mg tablet 06-21 00:00: 00 09-27 00:00 :00 No [id number] 100mg Take 1 tablet by mouth as needed for Migraine. Within 24 hours, may repeat times one in 2 hours as needed. [facility] VIT W-CA,FE,FA, <1 MG, ( #2 ORAL) 09-11 18:53: 24 Yes 1{tbl} Take 1 Tab by mouth. [facility] diphenhydrA MINE (BENADRYL ALLERGY) 25 mg tablet 09-11 18:53: 24 Yes 25mg Take 25 mg by mouth every 4 (four) hours as needed for Allergies. [facility] predniSONE 10 mg tablet 09-11 00:00: 00 Yes [id number] 10mg Take 1 tablet by mouth SEE-INSTRU CTIONS. [facility] naproxen 500 mg tablet 09-05 00:00: 00 Yes 500mg Take 1 tablet by mouth 2 (two) times daily with meals as needed for Pain (scale 1-3) or Pain (scale 4-6). [facility] vitamin w/FA tablet 09-05 00:00: 00 Yes 1{tbl} Take 1 tablet by mouth daily. [facility] docusate calcium 240 mg capsule 09-05 00:00: 00 Yes 240mg Take 1 capsule by mouth once daily as needed for Constipati on. [facility] ferrous sulfate 325 mg (65 mg iron) tablet 09-05 00:00: 00 Yes 325mg Take 1 tablet by mouth 2 (two) times daily. [facility] ferrous sulfate (IRON, FERROUS SULFATE,) 325 mg (65 mg iron) tablet 08-24 00:00: 00 Yes [id number] 325mg Take 1 tablet by mouth 2 (two) times daily with meals. [facility] Rexulti 0.5 MG Rexulti 0.5 MG No [...] MOUTH ONCE DAILY IMMEDIATLE Y BEFORE BED [facility] Vital Signs Vital Name Observation Time Observation Value Comments S ailyn Heart rate 2023-11-27 12:20:42 55 /min [facility] Res[facility] rate 2023-11-27 12:20:42 18 /min [facility] Oxygen saturation in Arterial blood by Pulse oximetry 2023-11-27 12:20:42 98 /min [facility] Systolic blood pressure 2023-11-27 12:20:34 99 mm[Hg] [facility] Diastolic blood pressure 2023-11-27 12:20:34 60 mm[Hg] [facility] Body temperature 2023-11-27 12:19:33 36.72 [place] [facility] Body height 2023-11-26 13:35:00 154.9 cm [facility] Body weight 2023-11-26 13:35:00 50.803 kg [facility] BMI 2023-11-26 13:35:00 21.16 kg/m2 [facility] Heart rate 2023-11-27 12:20:42 55 /min [facility] Respiratory rate 2023-11-27 12:20:42 18 /min [facility] Oxygen saturation in Arterial blood by Pulse oximetry 2023-11-27 12:20:42 98 /min [facility] Systolic blood pressure 2023-11-27 12:20:34 99 mm[Hg] [facility] Diastolic blood pressure 2023-11-27 12:20:34 60 mm[Hg] [facility] Body temperature 2023-11-27 12:19:33 36.72 [place] [facility] Body height 2023-11-26 13:35:00 154.9 cm [facility] Body weight 2023-11-26 13:35:00 50.803 kg [facility] BMI 2023-11-26 13:35:00 21.16 kg/m2 [facility] Systolic blood pressure 2023-10-19 20:26:00 96 mm[Hg] [facility] Diastolic blood pressure 2023-10-19 20:26:00 67 mm[Hg] [facility] Heart rate 2023-10-19 20:26:00 72 /min [facility] Body height 2023-10-19 20:26:00 [facility]9 [facility] 2023-10-19 20:26:00 [facility]256 [facility] BMI 2023-10-19 20:26:00 21.35 kg/m2 [facility] height 2023-09-28 13:20:00 61 [in_i] [facility] weight 2023-09-28 13:20:00 109.8 [lb_av] [facility] temperature 2023-09-28 13:20:00 97.3 [degF] [facility] bmi 2023-09-28 13:20:00 20.74 kg/m2 [facility] oximetry 2023-09-28 13:20:00 97 % [facility] respiratory rate 2023-09-28 13:20:00 16 /min [facility] blood pressure systolic 2023-09-28 13:20:00 101 mm[Hg] [facility] blood pressure diastolic 2023-09-28 13:20:00 68 mm[Hg] [facility] BP Diastolic 2023-08-16 00:00:00 71 mm[Hg] [facility] BP Systolic 2023-08-16 00:00:00 102 mm[Hg] [facility] Height 2023-08-16 00:00:00 61 [in_i] [facility] Body Weight 2023-08-16 00:00:00 107 [lb_av] [facility] BMI (Body Mass Index) 2023-08-16 00:00:00 20.2 kg/m2 [facility] height 2023-06-28 14:40:00 61 [in_i] [facility] weight 2023-06-28 14:40:00 109.8 [lb_av] [facility] temperature 2023-06-28 14:40:00 97.3 [degF] [facility] bmi 2023-06-28 14:40:00 20.74 kg/m2 [facility] oximetry 2023-06-28 14:40:00 85 % [facility] blood pressure systolic 2023-06-28 14:40:00 99 mm[Hg] [facility] blood pressure diastolic 2023-06-28 14:40:00 62 mm[Hg] [facility] Procedures Procedure Date / Time Performed Performing Clinician Source POC GLUCOSE UNSOLICITED RESULTS 2023-11-27 06:09:00 Tea Monzon [facility] POC GLUCOSE UNSOLICITED RESULTS 2023-11-26 19:46:00 Tea Monzon [facility] C DIFFICILE DNA WITH REFLEX TO TOXIN IF INDICATED 2023-11-26 18:22:00 Joanne [facility] ENTERIC PATHOGENS WITH CULTURE IF INDICATED 2023-11-26 18:22:00 Tea Monzon [facility] POC GLUCOSE UNSOLICITED RESULTS 2023-11-26 17:12:00 Tea Monzon [facility] EGD 2023-11-26 16:42:00 Clara Barnett [facility] POC GLUCOSE UNSOLICITED RESULTS 2023-11-26 06:29:00 Joanne Tea [facility] BASIC METABOLIC PANEL 2023-11-26 03:22:00 Sotero Akbar ma [facility] MAGNESIUM LEVEL 2023-11-26 03:22:00 Tea Monzon rial [facility] PHOSPHORUS LEVEL 2023-11-26 03:22:00 Tea Monzon Mem orial [facility] COMPLETE BLOOD COUNT W/DIFF AND PLATELET 2023-11-26 03:22:00 Achebe, Sheila [facility] CALCIUM LEVEL IONIZED WHOLE BLOOD 2023-11-26 03:22:00 Joanne, Tea [facility] COMPLETE BLOOD COUNT 2023-11-26 03:22:00 Achebe, Ifeom a [facility] AUTOMATED DIFFERENTIAL 2023-11-26 03:22:00 Achebe, Luisa arabella [facility] Fecal Leukocytes 2023-11-26 00:00:00 Eric rial [facility] POC GLUCOSE UNSOLICITED RESULTS 2023-11-25 17:29:00 Joanne, Tea [facility] POC GLUCOSE UNSOLICITED RESULTS 2023-11-25 11:22:00 Joanne, [facility] POC GLUCOSE UNSOLICITED RESULTS 2023-11-25 07:26:00 Joanne Tea [facility] ECG 12-LEAD 2023-11-25 03:51:13 Achebe, Sheila Memori [facility] UA WITH CULTURE IF INDICATED 2023-11-25 00:47:00 Maryse Ashley [facility] CT ABDOMEN PELVIS W IV CONTRAST 2023-11-25 00:46:11 Maryse Ashley [facility] ECG 12 lead 2023-11-25 00:00:00 [facility] BASIC METABOLIC PANEL 2023-11-24 21:02:00 Elissa Ashley [facility] HEPATIC FUNCTION PANEL 2023-11-24 21:02:00 Haley Ashley [facility] LIPASE LEVEL 2023-11-24 21:02:00 Maryse Ashley [facility] HCG TOTAL (QUANTITATIVE) 2023-11-24 21:02:00 Maryse Ashley [facility] COMPLETE BLOOD COUNT W/DIFF AND PLATELET 2023-11-24 21:02:00 Maryse Ashley [facility] COMPLETE BLOOD COUNT 2023-11-24 21:02:00 James Ashley [facility] AUTOMATED DIFFERENTIAL 2023-11-24 21:02:00 Haley Ashley [facility] Delivery 2017-09-04 00:00:00 [facility] Tubal Ligation 2017-09-04 [facility] Delivery 2014-08-20 00:00:00 [facility] POCT Glucose [facility] Tissue Examination [facility] Encounters Start Date/Time End Date/Time Encounter Type Admission Type Attending [facility] Care Department Encounter ID Source 2024-01-04 10:37:01 Outpatient Sung Garcia [facility] [id number] [facility] 2023-09-26 08:07:00 Outpatient Sung Garcia [facility] [id number] [facility] 2023-09-26 07:30:00 Inpatient LUZ MUHAMMAD [facility] [id number] [facility] 2023-09-17 11:40:00 Outpatient Sung Garcia [facility] [id number] [facility] 2023-06-26 08:49:01 Outpatient Sung Garcia [facility] [id number] [facility] 2023-05-29 13:25:00 Outpatient Sung Garcia [facility] [id number] [facility] 2023-12-12 00:00:00 2023-12-12 00:00:00 (TEL) [facility] [id number] [facility] 2023-12-07 15:45:00 2023-12-07 15:45:00 Outpatient DOMINGA STEVENS [facility] [id number] [facility] 2023-11-24 20:26:00 2023-11-27 14:26:00 Emergency Urgent TEA MONZON [facility] General Medicine [id number] [facility] 2023-11-24 20:26:00 2023-11-27 14:26:00 Emergency Adam aguilera, Keisha Lizarraga, Halima Akbar, Sheila Terrell, Krish Srinivas Joanne, [facility] [id number] Nehal vasquez [facility] 2023-10-19 16:00:00 2023-10-19 16:00:00 Office Visit Dominga Stevens [facility] [id number] [facility] 2023-10-18 14:00:00 2023-10-18 14:00:00 Outpatient BRITTNY CHRISTOPHER [facility] [id number] [facility] 2023-09-28 00:00:00 2023-09-28 00:00:00 (ESTPT) Susan yo PT Women STLMLC STLMLC [id number] [facility] 2023-09-17 00:00:00 2023-09-17 00:00:00 OFFICE VISIT ESTAB PT LEVEL 3 STLMLC STLMLC [id number] [facility] 2023-08-16 00:00:00 2023-08-16 00:00:00 Luz Watt MD: [address] [place] [address], [address], [place] [address] , Ph. [phone] [facility] [id number] [facility] 2023-06-28 00:00:00 2023-06-28 00:00:00 OFFICE VISIT ESTAB PT LEVEL 4 STLMLC STLMLC [id number] [facility] 2023-03-22 00:00:00 2023-03-22 00:00:00 Outpatient GC_GCBZW_Ka diyala_S PRIV PRIV [id number] [facility] 2023-02-22 00:00:00 2023-02-22 00:00:00 Outpatient GC_GCBZW_Ka diyala_S PRIV PRIV [id number] [facility] 2023-01-25 00:00:00 2023-01-25 00:00:00 Outpatient GC_GCBZW_Ka diyala_S PRIV PRIV [id number] [facility] 2023-01-04 00:00:00 2023-01-04 00:00:00 Outpatient GC_GCBZW_Ka diyala_S PRIV PRIV [id number] [facility] 2023-01-01 13:09:00 2023-01-01 13:09:00 Outpatient Rosalva Christina [facility] [id number] [facility] 2022-12-28 00:00:00 2022-12-28 00:00:00 Outpatient GC_GCBZW_Ka diyala_S PRIV PRIV [id number] [facility] 2022-11-30 00:00:00 2022-11-30 00:00:00 Outpatient GC_GCBZW_Ka diyala_S PRIV PRIV [id number] [facility] 2022-11-30 00:00:00 2022-11-30 00:00:00 Outpatient GC_GCBZW_Ka diyala_S PRIV PRIV [id number] [facility] 2022-11-30 00:00:00 2022-11-30 00:00:00 Outpatient GC_GCBZW_Ka diyala_S PRIV PRIV [id number] [facility] 2022-11-30 00:00:00 2022-11-30 00:00:00 Outpatient GC_GCBZW_Ka diyala_S PRIV PRIV [id number] [facility] 2022-10-17 00:00:00 2022-10-17 00:00:00 Outpatient GC_GCBZW_Ka diyala_S PRIV PRIV [id number] [facility] 2022-10-17 00:00:00 2022-10-17 00:00:00 Outpatient GC_GCBZW_Ka diyala_S PRIV PRIV [id number] [facility] 2022-10-17 00:00:00 2022-10-17 00:00:00 Outpatient GC_GCBZW_Ka diyala_S PRIV PRIV [id number] [facility] 2022-10-17 00:00:00 2022-10-17 00:00:00 Outpatient GC_GCBZW_Ka diyala_S PRIV PRIV [id number] [facility] 2022-10-02 00:00:00 2022-10-02 00:00:00 Outpatient GC_GCBZW_Ka diyala_S PRIV PRIV [id number] [facility] 2022-10-02 00:00:00 2022-10-02 00:00:00 Outpatient GC_GCBZW_Ka diyala_S PRIV PRIV [id number] [facility] 2022-10-01 00:00:00 2022-10-01 00:00:00 Outpatient GC_GCBZW_Ka diyala_S PRIV PRIV [id number] [facility] 2018-09-26 00:00:00 2018-09-26 00:00:00 Telephone MaurilioBuster [facility] [id number] [facility] Results Test Description Test Time Test Comments Results Result Co mments Source [facility]2024-10-07 20:02:31* Test Item Value Reference Range Interpretation Comme nts POC Glu (test code = 7201394029) 81 mg/dL 70-99 POC Glu Comment 1 (test code = 2117073115) Notified RN/MD POC Performing Location (hood t code = 8153419461) [facility] [id number] 17:15:05* Test Item Value Reference Range Interpretation Comme nts POC Glu (test code = 8703858947) 79 mg/dL 70-99 POC Performing Location (hood t code = 0377764977) [facility]2024-10-07 06:40:28* Test Item Value Reference Range Interpretation Comme nts POC Glu (test code = 2034085179) 74 mg/dL 70-99 POC Performing Location (hood t code = 3131084126) [facility] [id number] 17:36:07* Test Item Value Reference Range Interpretation Comme nts POC Glu (test code = 7844849543) 93 mg/dL 70-99 POC Glu Comment 1 (test code = 7289285827) Notified RN/MD POC Performing Location (hood t code = 2116361415) [facility] [id number] 16:26:29* Test Item Value Reference Range Interpretation Comme nts Ventricular Rate (test code = 0192138902) BPM Atrial Rate (test code = 8697004998) BPM [place] Interval (test code = 9407088506) 108 ms QRS Duration (test code = 3644558847) 90 ms QT/QTc (test code = 2790510639) 498 ms QTc Calculation (test code = 4106451443) 454 ms P-Valatie (test code = 6347989139) degrees R-Valatie (test code = 9537688687) degrees T-Valatie (test code = 8391173426) degrees GEORGI (test code = GEORGI) PXN (test code = PXN) [facility] [id number] 11:38:14* Test Item Value Reference Range Interpretation Comme nts POC Glu (test code = 5509738152) 85 mg/dL 70-99 POC Performing Location (hood t code = 1117247300) [facility] [id number] 07:36:31* Test Item Value Reference Range Interpretation Comme nts POC Glu (test code = 1934682118) 86 mg/dL 70-99 POC Performing Location (hood t code = 0590853118) [facility], [id number] 14:54:19* Test Item Value Reference Range Interpretation Comme nts Test (test code = Test) negative [facility] GroupUrinalysis macro (dipstick) panel - [id number] 14:54:06* Test Item Value Reference Range Interpretation Comme nts Leukocytes (test code = Leukocytes) Negative Nitrite (test code = Nitrite) negative Urobilinogen (test code = Urobilinogen) .2 Protein (test code = Protein) Negative pH (test code = pH) 5.5 Blood (test code = Blood) Negative Specific Bruce (test code = Specific Bruce) 1.020 Ketone (test code = Ketone) Negative Bilirubin (test code = Bilirubin) Negative Glucose (test code = Glucose) Negative Appearance (test code = Appearance) Clear Color (test code = Color) [facility]* Test Item Value Reference Range Interpretation Comme nts SURGICAL (test code = SR) RUN DATE: 01/03/23 [facility] PAGE 1 RUN TIME: 1532 Specimen Inquiry RUN USER: INTERFACE PATIENT: VASILIYRAHALCIDES LOC: TIA U #: [id number] AGE/SX: 27/F ROOM: RE01/01/23REG DR: Rosalva Estes MD : 94 BED: DIS: STATUS: LOUISA DSOUZA TLOC: SPEC #: [id number] RECD: 01/01/23 STATUS: NICOLÁS LIZAMA #: [id number] JOSSY: 01/01/23 [facility] DR: Rosalva Estes MD ENTERED: 01/01/23 SP TYPE: SURGICAL OTHR DR: ORDERED: [id number], ANATOMIC SPEC, SPECIMEN TRACK PROCEDURES: [id number] (01/03/23) SPECIMEN TRACK (01/01/23) TISSUES: A. FALLOPIAN TUBE [...] tissue processing and slide preparation performed at [facility] [address] [place] [address] MICROSCOPIC DESCRIPTION Microscopic examination is performed and the findings are incorporated into the finaldiagnosis. Please see diagnosis for findings. - Signed SIGNATURE ON FILE Marj Stark 01/03/231530 END OF REPORT HCG SERUM [id number] 15:51:00* Test Item Value Reference Range Interpretation Comme nts HCG SERUM QUAL (test code = HCGQL) SERUM NEGATIVE SCREEN NEGATIVE CBC W/AUTO [id number] 22:53:00* Test Item Value Reference Range Interpretation [...] NRBC#) 0.0 K/mm3 0.0-0.1 N BASIC METABOLIC [id number] 14:09:00* Test Item Value Reference Range Interpretation [...] = CA) 8.9 MG/DL 8.5-10.1 N PROTHROMBIN [id number] 13:44:00* Test Item Value Reference Range Interpretation [...] prevent recurrent infarct). Comment: PRE PROCEDURETHROMBOPLASTIN TIME [id number] 13:44:00* Test Item Value Reference Range Interpretation Comme nts THROMBOPLASTIN TIME PARTIAL (test code = PTT) 31.3 SECONDS 26-35 N Comment: PRE PROCEDUREURINALYSIS [id number] 13:24:00* Test Item Value Reference Range Interpretation [...] A Urine Specimen Type: Clean CatchUR HCG [id number] 13:24:00* Test Item Value Reference Range Interpretation Comme nts UR HCG QUAL (test code = HCGQLU) NEGATIVE NEGATIVE Urine Specimen Type: Clean Catch Consult Notes Date/Time Note Provider Source 2023-11-26 12:52:38 Associated Order(s): IP CONSULT TO GASTROENTEROLOGY Gastroenterology Consult Chief Complaint: abdominal pain Referring Physician: Dr. Tea Monzon Reason for Consult: intractable nausea and vomiting ARIELLA Torres is 28 y.o. female who presents to the hospital with abdominal pain for the past several days. Patient also reports nausea/vomiting and diarrhea. Patient states she's been having diarrhea for the past 2 years. She denies any overt G bleeding. CT abdomen/pelvis was done upon arrival to the hospital and revealed slightly patulous colon with air-fluid level which could represent diarrheal illness and/or colonic ileus. Of note, patient was seen by Dr. Herbert in [place]. She reports having an upper endoscopy done earlier this year with findings of ulcers. She denies any prior colonoscopies. GI has been consulted for further evaluation and management. Review of Systems Review of Systems Gastrointestinal: Positive for abdominal pain, diarrhea, nausea and vomiting. All other systems reviewed and are negative. Past Medical History Past Medical History: Diagnosis Date Anxiety Depression Peptic ulceration Surgical History History reviewed. No pertinent surgical history. Social History reports that she has never smoked. She has never used smokeless tobacco. She reports that she does not use drugs. No history on file for alcohol use. Family History Family History: Family history unknown: Yes Allergies Allergies Allergen Reactions Penicillins Anaphylaxis Shellfish-Derived Products Anaphylaxis Medications ciprofloxacin, 400 mg, Intravenous, q12h enoxaparin, 40 mg, Subcutaneous, Daily metroNIDAZOLE, 500 mg, Intravenous, q8h pantoprazole, 40 mg, Oral, Daily polyethylene glycol (PEG) 3350, 17 g, Oral, Daily senna-docusate, 1 tablet, Oral, Nightly sodium chloride, 10 mL, Intravenous, q12h PRN medications: acetaminophen, bisacodyl, calcium gluconate, calcium gluconate, dextrose, dextrose, diphenhydrAMINE, glucagon, magnesium oxide, magnesium sulfate, magnesium sulfate, magnesium sulfate, morphine, naloxone, ondansetron, oxyCODONE, potassium & sodium phosphates, potassium chloride, potassium chloride, potassium chloride, Potassium chloride, potassium phosphate, potassium phosphate, promethazine, [COMPLETED] Insert peripheral IV AND [COMPLETED] Saline lock IV AND sodium chloride, sodium chloride, sodium phosphates 15 mmol in sodium chloride 0.9 % 250 mL IVPB, sodium phosphates 30 mmol in sodium chloride 0.9 % 250 mL IVPB, traMADol, traZODone Objective Physical Exam BP 119/72 | Pulse 50 | Temp 36.6 ?C (97.9 ?F) | Resp 18 | Ht 1.549 m (5' 1") | Wt 51 kg (112 lb 7 oz) | SpO2 99% | BMI 21.24 kg/m? Physical Exam: Vitals reviewed. Constitutional: General: She is not in acute distress. Appearance: Normal appearance. HENT: Head: Normocephalic and atraumatic. Right Ear: External ear normal. Left Ear: External ear normal. Nose: Nose normal. Mouth/Throat: Mouth: Mucous membranes are moist. Pharynx: Oropharynx is clear. Eyes: Extraocular Movements: Extraocular movements intact. Conjunctiva/sclera: Conjunctivae normal. Pupils: Pupils are equal, round, and reactive to light. Cardiovascular: Rate and Rhythm: Normal rate and regular rhythm. Pulmonary: Effort: Pulmonary effort is normal. Breath sounds: Normal breath sounds. Abdominal: General: Abdomen is flat. Bowel sounds are normal. Palpations: Abdomen is soft. Musculoskeletal: General: Normal range of motion. Cervical back: Normal range of motion and neck supple. Skin: General: Skin is warm and dry. Neurological: General: No focal deficit present. Mental Status: She is alert and oriented to person, place, and time. Mental status is at baseline. Psychiatric: Mood and Affect: Mood normal. Behavior: Behavior normal. Intake/Output Summary (Last 24 hours) at 11/26/2023 1256 Last data filed at 11/26/2023 0618 Gross per 24 hour Intake 2517.67 ml Output -- Net 2517.67 ml Labs/Radiology Pertinent Labs : Labs in chart were reviewed. Lab Results Component Value Date WBC 4.84 11/26/2023 Hgb 10.6 (L) 11/26/2023 Hct 32.3 (L) 11/26/2023 Plt Count 168 (L) 11/26/2023 Lab Results Component Value Date Sodium Lvl 143 11/26/2023 Potassium Lvl 3.9 11/26/2023 Chloride Lvl 110 (H) 11/26/2023 CO2 Lvl 25.3 11/26/2023 BUN <7 (L) 11/26/2023 Creatinine Lvl 0.77 11/26/2023 Glucose Lvl 77 11/26/2023 POC Glu 74 11/26/2023 CT abdomen pelvis w IV contrast 11/25/2023 Narrative PROCEDURE INFORMATION: Exam: CT Abdomen And Pelvis With Contrast Exam date and time: 11/25/2023 12:37 AM Age: 28 years old Clinical indication: Lower abdominal pain TECHNIQUE: Imaging protocol: Computed tomography of the abdomen and pelvis with contrast. Radiation optimization: All CT scans at this facility use at least one of these dose optimization techniques: automated exposure control; mA and/or kV adjustment per patient size (includes targeted exams where dose is matched to clinical indication); or iterative reconstruction. Contrast material: IOHEXOL 350 MG/ML IV SOLN; Contrast volume: 65 ml; Contrast route: IV; COMPARISON: No relevant prior studies available. FINDINGS: Liver: Contours appear normal. Gallbladder and biliary ducts: No radiodense gallstones. No pericholecystic fluid. No detected ductal dilatation. Pancreas: No surrounding inflammation. Spleen: Normal size and contour. Adrenal glands: No detected lesions. Kidneys and ureters: Kidneys normal in size and contour. No renal stones. Visualized portions of bilateral collecting systems demonstrate no hydronephrosis. No detected ureteral stones. Stomach and bowel: Stomach and small bowel demonstrate no obstructive or inflammatory pattern. Slightly patulous colon with air-fluid levels. Appendix: No inflammatory changes. Intraperitoneal space: Mild amount of free fluid in the pelvic cul-de-sac, nonspecific but within normal physiologic limits. No detected organized fluid collection. No free air. Vasculature: No detected aneurysmal dilatation of the aorta. Lymph nodes: No pathologically enlarged lymph nodes detected. Urinary bladder: Decompressed, limited in assessment. Reproductive: Uterus and bilateral ovaries appear grossly normal in size and contour. Tampon in the vagina. Bones/joints: No detected acute or aggressive bone abnormality. Soft tissues: No focal asymmetric soft tissue swelling. Impression 1. Slightly patulous colon with air-fluid levels which could represent diarrheal illness and/or colonic ileus. 2. Mild amount of free fluid in the pelvic cul-de-sac, nonspecific but within normal physiologic limits. ELECTRONICALLY SIGNED BY COLIN CHAN MD ON 11/25/2023 AT 01:24. Assessment and Plan Patient Active Problem List Diagnosis Intractable abdominal pain Intractable nausea and vomiting Colitis Hypokalemia History of peptic ulcer disease Assessment Intractable nausea and vomiting Chronic diarrhea Possible colitis History of PUD Plan EGD has been scheduled for today with Dr. Borden. Risks, benefits and complications have been discussed with patient. Patient understands and agrees to proceed with procedure. Continue NPO PPI BID Antiemetics, analgesia prn per primary team Avoid NSAIDS Continue abx Cdiff and stool panel pending Will continue to monitor patient closely and plan further care based on progress and results. Thank you for kindly for the consultation! It is our pleasure to participate in the care of Alcides Torres. GI ATTENDING NOTE: Patient seen and examined with the physician dyer assistant, and confirmed the essential components of history, physical examination, diagnosis and treatment plan. I agree with the patient's care and plan as documented by the physician dyer assistant. Gastroenterology Physician Lindsay Clarke History and Physical Notes Date/Time Note Provider Source 2023-11-24 19:32:00 History Of Present Illness 28-year-old female with history of peptic ulcer disease presenting with complaints of lower abdominal pain/cramps since 11/20. She reports associated nausea, vomiting and diarrhea. She was admitted at [facility] on 11/21, diagnosed with colitis and started on Levaquin/Flagyl. She continued to have pain and went back to [place] ER where she was given analgesics and antiemetics and sent home. Patient reports persistent pain, vomiting and inability to tolerate p.o. despite these medications prompting presentation today. She denies any fevers, chills, chest pain, shortness of breath, hematemesis, melena or hematochezia. Labs remarkable for hypokalemia of 2.6. CT today remarkable for slightly patulous colon with air-fluid level which could represent diarrheal illness and/or colonic ileus. Past Medical History She has a past medical history of Peptic ulceration. Surgical History She has no past surgical history on file. Family History Family History: Family history unknown: Yes Social History She reports that she has never smoked. She has never used smokeless tobacco. She reports that she does not use drugs. No history on file for alcohol use. Allergies Penicillins Medications (Not in a hospital admission) Review of Systems Complete 14 point review of systems obtained and negative other than what is mentioned in HPI. Physical Exam: General: Patient is no acute distress Head: Normocephalic and atraumatic Eyes: PERRLA, EOMI, no icterus Mouth: MMM, no erythema or exudate Neck: Supple, no JVD Heart: Normal rate and regular rhythm, no R/G/M Lungs: Clear to auscultation, no W/R/R Abdomen - soft / generalized ttp in lower abdomen/ND, + BS Ext - no C/C/E Neuro: Cranial nerves grossly intact. No focal deficit. Last Recorded Vitals Blood pressure 123/76, pulse 65, temperature 37.2 ?C (99 ?F), resp. rate 20, height 1.549 m (5' 1"), weight 51 kg (112 lb 7 oz), SpO2 96%. Relevant Results Labs: Labs Reviewed BASIC METABOLIC PANEL - Abnormal Result Value Glucose Lvl 88 BUN <7 (*) Creatinine Lvl 0.90 Sodium Lvl 141 Potassium Lvl 2.6 (*) Chloride Lvl 106 CO2 Lvl 23.7 Anion Gap 13.9 Calcium Lvl 9.4 eGFR 89 HEPATIC FUNCTION PANEL - Abnormal Protein 7.3 Albumin Lvl 4.6 Bilirubin Total 0.93 Bilirubin Direct 0.3 Bilirubin Indirect 0.6 Alkaline Phosphatase 66 AST 17 ALT 11 Globulin, Calc 2.7 Albumin/Globulin Ratio 1.70 (*) UA WITH CULTURE IF INDICATED - Abnormal UA Color Yellow UA Turbidity Clear UA Spec Grav 1.004 UA pH 7.0 UA Protein Negative UA Glucose Negative UA Ketones Trace (*) UA Bilirubin Negative UA Blood Moderate (*) UA Urobilinogen <=1.0 UA Nitrite Negative UA Leuk Esterase Trace (*) UA Ascorbic Acid Negative UA Sq Epi Few UA WBC 1 UA RBC (Num) 2 UA Bacteria Occasional UA Mucus Few AUTOMATED DIFFERENTIAL - Abnormal Segs % 59.3 Lymphs % 28.1 Monos % 11.6 (*) Eos % 0.3 Basos % 0.5 Immature Grans % 0.2 Segs # 3.92 Lymphs # 1.86 Monos # 0.77 Eos # 0.02 Basos # 0.03 Imm Grans # 0.01 LIPASE LEVEL - Normal Lipase Lvl 41 HCG TOTAL (QUANTITATIVE) - Normal hCG Total <4.0 COMPLETE BLOOD COUNT - Normal WBC 6.61 RBC 4.33 NRBC % 0.0 Hgb 13.0 Hct 39.0 MCV 90.1 MCH 30.0 MCHC 33.3 RDW - SD 47.5 Plt Count 221 MPV 10.1 COMPLETE BLOOD COUNT W/DIFF AND PLATELET Narrative: The following orders were created for panel order CBC and differential. Procedure Abnormality Status --------- ------ Complete Blood Count[[id number]] Normal Final result Automated Differential[[id number]] Abnormal Final result Please view results for these tests on the individual orders. Imaging: CT abdomen pelvis w IV contrast Final Result 1. Slightly patulous colon with air-fluid levels which could represent diarrheal illness and/or colonic ileus. 2. Mild amount of free fluid in the pelvic cul-de-sac, nonspecific but within normal physiologic limits. ELECTRONICALLY SIGNED BY COLIN CHAN MD ON 11/25/2023 AT 01:24. Assessment & Plan Intractable nausea and vomiting Antiemetics as needed IV fluids Colitis Continue IV Cipro/Flagyl IV fluids Analgesics and antiemetics as needed N.p.o., advance diet as tolerated Intractable abdominal pain Analgesics as needed Hypokalemia Likely due to nausea/vomiting Potassium replacement as needed History of peptic ulcer disease Pantoprazole Avoid NSAIDs Current Diet: NPO Diet NPO except: Sips with meds T [facility] Notes Date/Time Note Provider Source Referral ID Status Reason Start Date Expiration Date V isits Requested Visits Authorized [id number] Pending Review 11/27/2023 05/25/2024 1 1 [id number] 14:43:15* [id number] 14:43:15* Audit- C Score Answer Date of Assessment Author 0 11/25/2023 4:29 AM CDT Umm Wheeler RN * Intimate Partner Violence Question Answer Date of Assessment Author Within the last year, have y ou been humiliated or emotionally abused in other ways by your partner or ex-partner? No 11/25/2023 7:54 AM CDT Umm Wheeler RN Within the last year, have y ou been afraid of your partner or ex-partner? No 11/25/2023 7:54 AM CDT Umm Wheeler RN Within the last year, have y ou been raped or forced to have any kind of sexual activity by your partner or ex-partner? No 11/25/2023 7:54 AM CDT Umm Wheeler RN Within the last year, have y ou been kicked, hit, slapped, or otherwise physically hurt by your partner or ex-partner? No 11/25/2023 7:54 AM CDT Umm Wheeler RN * * Calculated C-SSRS Risk Score (Lifetime/Recent) Answer Date of Assessment Author No Risk Indicated 11/25/2023 4:30 AM CDT Umm Wheeler RN * Cobb Suicide Severity Rating Scale (Screener/Recent Self-Report) Question Answer Date of Assessment Author 1. Wish to be (Past 1 Month) No 11/24/2023 11:21 PM CDT Keanu Brizuela RN 2. Non-Specific Active Suicidal Thoughts (Past 1 Month) No 11/25/2023 4:30 AM BIGGT Umm Wheeler RN 6. Suicidal Behavior (Lifetime) No 11/25/2023 4:30 AM CDT Umm Wheeler RN [id number] 14:43:15* Tea Monzon MD - 11/26/2023 3:29 PM CDT Subjective Patient is still complaining of nausea, intolerance to p.o. Objective Last Recorded Vitals Blood pressure 119/72, pulse 50, temperature 36.6 ?C (97.9 ?F), resp. rate 18, height 1.549 m (5' 1"), weight 51 kg (112 lb 7 oz), SpO2 99%. Physical Exam:Gen: A&OX3, NAD Eyes: No Jaundice, EOMI CARD: RRR, No M/G/R Pulm: CTAB, no crackles or wheezing GI: ND/NT, +BS, no organomegaly Ext: No edema or redness Neuro: CN grossly intact, no focal signs MSK: No joint swelling Skin: No skin rash noted Assessment & PlanIntractable nausea and vomiting Patient has history of gastric ulcers, antiemetics not improving patient's nausea and p.o. intolerance, discussed with GI who is planning for EGD today. Colitis Continue IV Cipro/Flagyl IV fluids Analgesics and antiemetics as needed Intractable abdominal pain Analgesics as needed Hypokalemia Likely due to nausea/vomiting Potassium replacement as needed History of peptic ulcer disease Pantoprazole Avoid NSAIDs ProphylaxisLovenox DispositionObservation pending EGD today, further management, and overall clinical improvement * Tea Monzon MD - 11/25/2023 4:03 PM CDT Subjective Patient still complains of nausea and vomiting, unable to tolerate p.o. Patient was sleeping and information was provided by her at the bedside. Objective Last Recorded Vitals Blood pressure 109/64, pulse (!) 49, temperature 36.6 ?C (97.8 ?F), resp. rate 16, height 1.549 m (5' 1"), weight 51 kg (112 lb 7 oz), SpO2 96%. Physical Exam: Could not examine patient as patient was sleeping Relevant Results Assessment & Plan Intractable nausea and vomiting Antiemetics as needed IV fluids Colitis Continue IV Cipro/Flagyl IV fluids Analgesics and antiemetics as needed N.p.o., advance diet as tolerated Intractable abdominal pain Analgesics as needed Hypokalemia Likely due to nausea/vomiting Potassium replacement as needed History of peptic ulcer disease Pantoprazole Avoid NSAIDs VTE Prophylaxis Lovenox Disposition Observation Reason for continued hospitalization: Unable to tolerate p.o., still symptomatic * Caroline Jon LCSW - 11/25/2023 1:15 PM CDT DAYNA met with the Pt and her spouse bedside. The Pt currently is residing at [address] [place] [address]. No DME in the home and no barriers to discharge. Admit Location: [facility] Expected Discharge Date: 11/26/2023 Discharge Plan: * Emily Zambrano RN - 11/25/2023 12:39 PM CDT [employer] informed Dr. Tea Monzon of patient previous lab of potassium 2.6 and 20 Meq given. Requested recheck of lab, stated he would recheck with morning labs. [id number] 14:43:15Pending Results Scheduled Orders Name Type Priority Associated Diagnoses Order Schedule POCT Glucose Point of Care Testing - Docked Device Routine Every 15 minutes as needed until discontinued starting 11/25/2023, 1 completed ECG 12 lead ECG Routine Once for 1 Occurrences starting 11/25/2023 until 11/25/2023 ECG 12 lead ECG Routine Once for 1 Occurrences starting 11/25/2023 until 11/25/2023 Fecal Leukocytes Microbiology Routine Once ( Lab) for 1 Occurrences starting 11/26/2023 until 11/26/2023 Tissue Examination Pathology and Cytology Routine Intractable nausea and vomiting Intractable abdominal pain Ileus (CMS/HCC) (HCC) Hypokalemia Dehydration Abdominal pain, unspecified abdominal location Release Upon Ordering for 1 Occurrences starting 11/26/2023, 1 completed Health Maintenance Due Date Last Done Comments Varicella Vaccines (1 of 2 - 13+ 2-dose series) 2007 Hepatitis B Vaccines (1 of 3 - 19+ 3-dose series) 2013 Pap Smear 2015 Influenza Vaccine (#1) 2023 DTaP/Tdap/Td Vaccines (2 - T d or Tdap) 06/30/2027 06/29/2017 HIB Vaccines Aged Out No longer eligi ble based on patient's age to complete this topic HPV Vaccines Aged Out No longer eligi ble based on patient's age to complete this topic Hepatitis A Vaccines Aged Out No long er eligible based on patient's age to complete this topic IPV Vaccines Aged Out No longer eligi ble based on patient's age to complete this topic Meningococcal Vaccine Aged Out No minh elan eligible based on patient's age to complete this topic Pneumococcal Vaccine: Pediat rics (0 to 5 Years) and At-Risk Patients (6 to 64 Years) Aged Out No longer eligible b ased on patient's age to complete this topic Rotavirus Vaccines Aged Out No longer eligible based on patient's age to complete this topic [id number] 14:43:15 [facility] AustinDvbzalm0315-01-29 14:43:15 Diagnosis Intractable nausea and vomit ing - Primary Intractable nausea and vomit ing Intractable abdominal pain Ileus (CMS/HCC) (HCC) Paralytic ileus Hypokalemia Hypopotassemia Dehydration Abdominal pain, unspecified abdominal location Colitis Other and unspecified noninfectious gastroenteritis and colitis Intractable abdominal pain Colitis Other and unspecified noninfectious gastroenteritis and colitis Hypokalemia Hypopotassemia History of peptic ulcer disease Personal history of peptic ulcer disease PUD (peptic ulcer disease) Peptic ulcer, unspecified site, unspecified as acute or chronic, without mention of hemorrhage, perforation, or obstruction [place] [id number] 14:43:15 [facility] [id number] 14:16:17 Discharge instructions, new prescriptions / home medication review, regular soft diet, and follow up appointment with Dr Michi LORA within 2 weeks discussed and explained to patient, stated understanding. No other concerns voiced. [facility] [id number] 13:31:20 Images from the original note were not included. [id number] Ciprofloxacin Brand Name(s): Cipro? Oral Suspension, Cipro? Tablets, Cipro? XR Extended-release Tablets, Proquin? XR Extended-release Tablets; also available generically IMPORTANT WARNING: Taking ciprofloxacin increases the risk that you will develop tendinitis (swelling of a fibrous tissue that connects a bone to a muscle) or have a tendon rupture (tearing of a fibrous tissue that connects a bone to a muscle) during your treatment or for up to several months afterward. These problems may affect tendons in your shoulder, your hand, the back of your ankle, or in other parts of your body. Tendinitis or tendon rupture may happen to people of any age, but the risk is highest in people over 60 years of age. Tell your doctor if you have or have ever had a kidney, heart, or lung transplant; kidney disease; a joint or tendon disorder such as rheumatoid arthritis (a condition in which the body attacks its own joints, causing pain, swelling, and loss of function); or if you participate in regular physical activity. Tell your doctor and pharmacist if you are taking oral or injectable steroids such as dexamethasone, methylprednisolone (Medrol), or prednisone (Lucas). If you experience any of the following symptoms of tendinitis, stop taking ciprofloxacin, rest, and call your doctor immediately: pain, swelling, tenderness, stiffness, or difficulty in moving a muscle. If you experience any of the following symptoms of tendon rupture, stop taking ciprofloxacin and get emergency medical treatment: hearing or feeling a snap or pop in a tendon area, bruising after an injury to a tendon area, or inability to move or to bear weight on an affected area. Taking ciprofloxacin may cause changes in sensation and nerve damage that may not go away even after you stop taking ciprofloxacin. This damage may occur soon after you begin taking ciprofloxacin. Tell your doctor if you have ever had peripheral neuropathy (a type of nerve damage that causes tingling, numbness, and pain in the hands and feet). If you experience any of the following symptoms, stop taking ciprofloxacin and call your doctor immediately: numbness, tingling, pain, burning, or weakness in the arms or legs; or a change in your ability to feel light touch, vibrations, pain, heat, or cold. Taking ciprofloxacin may affect your brain or nervous system and cause serious side effects. This can occur after the first dose of ciprofloxacin. Tell your doctor if you have or have ever had seizures, epilepsy, cerebral arteriosclerosis (narrowing of blood vessels in or near the brain that can lead to stroke or ministroke), stroke, changed brain structure, or kidney disease. If you experience any of the following symptoms, stop taking ciprofloxacin and call your doctor immediately: seizures; tremors; dizziness; lightheadedness; headaches that won't go away (with or without blurred vision); difficulty falling asleep or staying asleep; nightmares; not trusting others or feeling that others want to hurt you; hallucinations (seeing things or hearing voices that do not exist); thoughts or actions towards hurting or killing yourself; feeling restless, anxious, nervous, depressed, memory changes, or confused, or other changes in your mood or behavior. Taking ciprofloxacin may worsen muscle weakness in people with myasthenia gravis (a disorder of the nervous system that causes muscle weakness) and cause severe difficulty breathing or . Tell your doctor if you have myasthenia gravis. Your doctor may tell you not to take ciprofloxacin. If you have myasthenia gravis and your doctor tells you that you should take ciprofloxacin, call your doctor immediately if you experience muscle weakness or difficulty breathing during your treatment. Talk to your doctor about the risks of taking ciprofloxacin. Your doctor or pharmacist will give you the photoengraving proofer's patient information sheet (Medication Guide) when you begin treatment with ciprofloxacin. Read the information carefully and ask your doctor or pharmacist if you have any questions. You can also visit the Food and Drug Administration (FDA) website (https://www.fda.gov/Drugs) or the photoengraving proofer's website to obtain the Medication Guide. WHY is this medicine prescribed? Ciprofloxacin is used to treat or prevent certain infections caused by bacteria such as pneumonia; gonorrhea (a sexually transmitted disease); typhoid fever (a serious infection that is common in developing countries); infectious diarrhea (infections that cause severe diarrhea); and infections of the skin, bone, joint, abdomen (stomach area), and prostate (male reproductive gland), Ciprofloxacin is also used to treat or prevent plague (a serious infection that may be spread on purpose as part of a bioterror attack) and inhalation anthrax (a serious infection that may be spread by anthrax germs in the air on purpose as part of a bioterror attack). Ciprofloxacin may also be used to treat bronchitis, sinus infections, or urinary tract infections but should not be used for bronchitis and sinus infections, or certain types of urinary tract infections if there are other treatment options. Ciprofloxacin extended-release (long-acting) tablets are used to treat kidney and urinary tract infections; however, some types of urinary tract infections should only be treated with ciprofloxacin extended release tablets if no other treatment options are available. Ciprofloxacin is in a class of antibiotics called fluoroquinolones. It works by killing bacteria that cause infections. Antibiotics such as ciprofloxacin will not work for colds, flu, or other viral infections. Using antibiotics when they are not needed increases your risk of getting an infection later that resists antibiotic treatment. HOW should this medicine be used? Ciprofloxacin comes as a tablet, a suspension (liquid), and an extended-release tablet to take by mouth with or without food. The tablets and suspension are usually taken twice a day, and the extended-release tablets are usually taken once a day. When used to treat gonorrhea, the tablets and suspension may be given as a single dose. Take ciprofloxacin at around the same time(s) every day. The length of your treatment depends on the type of infection you have. Your doctor will tell you how long to take ciprofloxacin. Follow the directions on your prescription label carefully, and ask your doctor or pharmacist to explain any part you do not understand. Take ciprofloxacin exactly as directed. Do not take more or less of it or take it more often than prescribed by your doctor. One type of ciprofloxacin cannot be substituted for another. Be sure that you receive only the type of ciprofloxacin that was prescribed by your doctor. Ask your pharmacist if you have any questions about the type of ciprofloxacin you were given. Do not take ciprofloxacin with dairy products or calcium-fortified juices alone. However, you may take ciprofloxacin with a meal that includes these foods or drinks. Swallow the tablets whole; do not crush, or chew them. If you doctor tells you to to split the 250-mg or 500-mg tablet, it may be broken in half along the scored line. Swallow the extended-release tablets whole; do not split, crush, or chew them. If you cannot swallow tablets or extended-release tablets whole, tell your doctor. If you are taking the suspension, shake the bottle very well for 15 seconds before each use to mix the medication evenly. Swallow the correct dose without chewing the granules in the suspension. Close the bottle completely after each use. Do not give the suspension to a patient through a feeding tube. You should begin feeling better during the first few days of your treatment with ciprofloxacin. If your symptoms do not improve or if they get worse, call your doctor. If you are being treated for a urinary tract infection, call your doctor if you develop fever or back pain during or after your treatment. These symptoms may be signs that your infection is worsening. Take ciprofloxacin until you finish the prescription, even if you feel better. Do not stop taking ciprofloxacin without talking to your doctor unless you experience certain serious side effects listed in the IMPORTANT WARNING and SIDE EFFECTS sections If you stop taking ciprofloxacin too soon or if you skip doses, your infection may not be completely treated and the bacteria may become resistant to antibiotics. Are there OTHER USES for this medicine? In the event of biological warfare, ciprofloxacin may be used to treat and prevent dangerous illnesses that are deliberately spread such as tularemia and anthrax of the skin or mouth. Ciprofloxacin is also sometimes used to treat cat scratch disease (an infection that may develop after a person is bitten or scratched by a cat), Legionnaires' disease (type of lung infection), chancroid (genital sores caused by bacteria), granuloma inguinale (donovanosis; a sexually transmitted disease), and infections of the outer ear that spread to the bones of the face. Ciprofloxacin may also be used to help treat tuberculosis and Crohn's disease (condition in which the immune system attacks the lining of the digestive tract causing pain, diarrhea, weight loss, and fever). Ciprofloxacin is also sometimes used to prevent traveler's diarrhea in certain patients and to prevent infections in patients who have fever and are at high risk for infection because they have very few white blood cells, people who are having certain types of surgery, and those people in close contact with someone who is sick with meningitis. Talk to your doctor about the risks of using this medication for your condition. This medication may be prescribed for other uses; ask your doctor or pharmacist for more information. What SPECIAL PRECAUTIONS should I follow? Before taking ciprofloxacin, ? tell your doctor and pharmacist if you are allergic or have had a severe reaction to ciprofloxacin. any other quinolone or fluoroquinolone antibiotic such as delafloxacin (Baxdela), gemifloxacin (Factive), levofloxacin (Levaquin), moxifloxacin (Avelox), and ofloxacin; any other medications, or if you are allergic to any of the ingredients in ciprofloxacin tablets or suspension. Ask your doctor or pharmacist for a list of the ingredients. ? tell your doctor if you are taking tizanidine (Zanaflex). Your doctor will probably tell you not to take ciprofloxacin while you are taking this medication. ? tell your doctor and pharmacist what other prescription and nonprescription medications, vitamins, nutritional supplements, and herbal products you are taking or plan to take. Be sure to mention the medications listed in the IMPORTANT WARNING section and any of the following: anticoagulants ('blood thinners') such as warfarin (Coumadin, Jantoven); certain antidepressants; antipsychotics (medications to treat mental illness) such as clozapine (Clozaril, Fazaclo, Versacloz) and olanzapine (Zyprexa, in Symbax); azithromycin (Zithromax, Zmax); caffeine or medications that contain caffeine (Excedrin, NoDoz, Vivarin, others); clarithromycin (Biaxin, in Prevpac); cyclosporine (Gengraf, Neoral, Sandimmune); diuretics ('water pills'); duloxetine (Cymbalta); erythromycin (E.E.S., Eryc, Eryped, others); insulin or other medications to treat diabetes such as chlorpropamide, glimepiride (Amaryl, in Duetact), glipizide (Glucotrol), glyburide (DiaBeta), tolazamide, and tolbutamide; certain medications for irregular heartbeat such as amiodarone (Nexterone, Pacerone), disopyramide (Norpace), procainamide, quinidine (in Nuedexta), and sotalol (Betapace, Betapace AF, Sorine, Sotylize); methotrexate (Otrexup, Rasuvo, Trexall); certain nonsteroidal anti-inflammatory drugs (NSAIDs) such as ibuprofen (Advil, Motrin, others) and naproxen (Aleve, Naprosyn, others); pentoxifylline (Pentoxil); phenytoin (Dilantin, Phenytek); probenecid (Probalan, in Col-Probenecid); ropinirole (Requip); sildenafil (Revatio, Viagra); theophylline (Elixophyllin, Chris-24, Uniphyl, others); tizanidine (Zanaflex); or zolpidem (Ambien, Edluar, Intermezzo, Zolpimist). Your doctor may need to change the doses of your medications or monitor you carefully for side effects. Many other medications may also interact with ciprofloxacin, so be sure to tell your doctor about all the medications you are taking, even those that do not appear on this list. ? if you are taking antacids containing calcium, aluminum hydroxide or magnesium hydroxide (Maalox, Mylanta, Tums, others); or certain medications such as didanosine (Videx) solution; calcium, iron, or zinc supplements; phosphate binders such as sevelamer (Renagel, Renvela) or lanthanum carbonate (Fosrenol); or sucralfate (Carafate), take ciprofloxacin at least 2 hours before or 6 hours after you take these medications. ? tell your doctor if you or anyone in your family has or has ever had a prolonged QT interval (a rare heart problem that may cause irregular heartbeat, fainting, or sudden ). Also, tell your doctor if you have or have ever had an irregular or slow heartbeat, heart failure (condition in which the heart is unable to pump enough blood to the other parts of the body), a heart attack, an aortic aneurysm (swelling of the large artery that carries blood from the heart to the body), high blood pressure, peripheral vascular disease (poor circulation in the blood vessels), Marfan syndrome (a genetic condition that can affect the heart, eyes, blood vessels and bones), Letty-Danlos syndrome (a genetic condition that can affect skin, joints, or blood vessels), or have a low level of potassium or magnesium in your blood. Also tell your doctor if you have or have ever had diabetes or problems with low blood sugar or liver disease. ? tell your doctor if you are or plan to become . If you become while taking ciprofloxacin, call your doctor. ? tell your doctor if you are . You should not breastfeed while you are taking ciprofloxacin and for at least 2 days after your final dose. ? do not drive a car, operate machinery or participate in activities requiring alertness or coordination until you know how this medication affects you. ? plan to avoid unnecessary or prolonged exposure to sunlight or ultraviolet light (tanning beds and sunlamps) and to wear protective clothing, sunglasses, and sunscreen. Ciprofloxacin may make your skin sensitive to sunlight or ultraviolet light. If your skin becomes reddened, swollen, or blistered, like a bad sunburn, call your doctor. What SPECIAL DIETARY instructions should I follow? Do not drink or eat a lot of caffeine-containing products such as coffee, tea, energy drinks, cola, or chocolate. Ciprofloxacin may increase nervousness, sleeplessness, heart pounding, and anxiety caused by caffeine. Make sure you drink plenty of water or other fluids every day while you are taking ciprofloxacin. What should I do IF I FORGET to take a dose? If you miss a dose of ciprofloxacin tablets or suspension and it is 6 hours or more before the next dose, take the missed dose as soon as you remember it and then take the next dose at the scheduled time. However, if you miss a dose of ciprofloxacin tablets or suspension and it is less than 6 hours before the next dose, skip the missed dose and continue your regular dosing schedule. If you miss a dose of the extended-release tablet and it is 8 hours or more before the next dose, take the dose as soon as you remember it and then take the next dose at the scheduled time. However, if you miss a dose of ciprofloxacin extended-release tablets and it is less than 8 hours before the next dose, skip the missed dose and continue your regular dosing schedule. Do not take a double dose to make up for a missed one. Do not take more than two doses of the tablets or suspension or more than one dose of the extended-release tablets in one day. What SIDE EFFECTS can this medicine cause? Ciprofloxacin may cause side effects. Tell your doctor if any of these symptoms are severe or do not go away: ? nausea ? vomiting ? stomach pain ? heartburn ? diarrhea ? vaginal itching and/or discharge ? pale skin ? unusual tiredness ? sleepiness ? If you experience any of the following symptoms, or those listed in the IMPORTANT WARNING section, stop taking ciprofloxacin and call your doctor immediately or get emergency medical help: ? severe diarrhea (watery or bloody stools) that may occur with or without fever and stomach cramps (may occur up to 2 months or more after your treatment) ? rash ? hives ? itching ? peeling or blistering of the skin ? fever ? swelling of the eyes, face, mouth, lips, tongue, throat, hands, feet, ankles or lower legs ? hoarseness or throat tightness ? difficulty breathing or swallowing ? ongoing or worsening cough ? yellowing of the skin or eyes; pale skin; dark urine; or light colored stool ? extreme thirst or hunger; pale skin; feeling shaky or trembling; fast or fluttering heartbeat; sweating; frequent urination; trembling; blurred vision; or unusual anxiety ? fainting or loss of consciousness ? decreased urination ? sudden pain in the chest, stomach, or back Ciprofloxacin may cause problems with bones, joints, and tissues around joints in children. Ciprofloxacin should not normally be given to children younger than 18 years of age unless they have certain serious infections that cannot be treated with other antibiotics or they have been exposed to plague or anthrax in the air. If your doctor prescribes ciprofloxacin for your child, be sure to tell the doctor if your child has or has ever had joint-related problems. Call your doctor if your child develops joint problems such as pain or swelling while taking ciprofloxacin or after treatment with ciprofloxacin. Talk to your doctor about the risks of taking ciprofloxacin or giving ciprofloxacin to your child. Ciprofloxacin may cause other side effects. Call your doctor if you have any unusual problems while taking this medication. If you experience a serious side effect, you or your doctor may send a report to the Food and Drug Administration's (FDA) MedWatch Adverse Event Reporting program online (https://www.fda.gov/Safety/MedWatch) or by phone ( ). What should I know about STORAGE and DISPOSAL of this medication? Keep this medication in the container it came in, tightly closed, and out of reach of children. Store the tablets and extended-release tablets at room temperature and away from excess heat and moisture (not in the bathroom). Store the suspension in the refrigerator or at room temperature, closed tightly, for up to 14 days. Do not freeze ciprofloxacin suspension. Discard any suspension that is left over after 14 days. It is important to keep all medication out of sight and reach of children as many containers (such as weekly pill minders and those for eye drops, creams, patches, and inhalers) are not child-resistant and young children can open them easily. To protect young children from poisoning, always lock safety caps and immediately place the medication in a safe location - one that is up and away and out of their sight and reach. https://www.[employer].org Unneeded medications should be disposed of in special ways to ensure that pets, children, and other people cannot consume them. However, you should not flush this medication down the toilet. Instead, the best way to dispose of your medication is through a medicine take-back program. Talk to your pharmacist or contact your local garbage/recycling department to learn about take-back programs in your community. See the FDA's Safe Disposal of Medicines website (https://goo.gl/c4Rm4p) for more information if you do not have access to a take-back program. What should I do in case of OVERDOSE? In case of overdose, call the poison control helpline at . Information is also available online at https://www.poisonhelp.org/help. If the victim has collapsed, had a seizure, has trouble breathing, or can't be awakened, immediately call emergency services at 911. What OTHER INFORMATION should I know? Keep all appointments with your doctor and the laboratory. Your doctor may order certain lab tests to check your body's response to ciprofloxacin. If you have diabetes, your doctor may ask you to check your blood sugar more often while taking ciprofloxacin. Do not let anyone else take your medication. Your prescription is probably not refillable. If you still have symptoms of infection after you finish taking ciprofloxacin, call your doctor. It is important for you to keep a written list of all of the prescription and nonprescription (wlxg-iqg-gzswmcn) medicines you are taking, as well as any products such as vitamins, minerals, or other dietary supplements. You should bring this list with you each time you visit a doctor or if you are admitted to a hospital. It is also important information to carry with you in case of emergencies. This report on medications is for your information only, and is not considered individual patient advice. Because of the changing nature of drug information, please consult your physician or pharmacist about specific clinical use. The [employer] represents that the information provided hereunder was formulated with a reasonable standard of care, and in conformity with professional standards in the field. [employer] makes no representations or warranties, express or implied, including, but not limited to, any implied warranty of merchantability and/or fitness for a particular purpose, with respect to such information and specifically disclaims all such warranties. Users are advised that decisions regarding drug therapy are complex medical decisions requiring the independent, informed decision of an appropriate health farm or ranch animal caretaker, and the information is provided for informational purposes only. The entire monograph for a drug should be reviewed for a thorough understanding of the drug's actions, uses and side effects. The [employer] does not endorse or recommend the use of any drug. The information is not a substitute for medical care. AHFS? Patient Medication Information?. ? Copyright, 2023. [employer]?, [address], [address], [place], [place]. All Rights Reserved. Duplication for commercial use must be authorized by [facility]. Selected Revisions: February 02, 2021. AHFS? Patient Medication Information?. ? Copyright, 2023 Lindsay [id number] 13:30:41 Images from the original note were not included. [id number] Pantoprazole Brand Name(s): Protonix?; also available generically WHY is this medicine prescribed? Pantoprazole is used to treat damage from gastroesophageal reflux disease (GERD), a condition in which backward flow of acid from the stomach causes heartburn and possible injury of the esophagus (the tube between the throat and stomach) in adults and children 5 years of age and older. Pantoprazole is used to allow the esophagus to heal and prevent further damage to the esophagus in adults with GERD. It is also used to treat conditions where the stomach produces too much acid, such as Traci-Devlin syndrome in adults. Pantoprazole is in a class of medications called proton-pump inhibitors. It works by decreasing the amount of acid made in the stomach. HOW should this medicine be used? Pantoprazole comes as a delayed-release (releases the medication in the intestine to prevent break-down of the medication by stomach acids) tablet and as delayed-release granules to take by mouth. The packets of delayed-release granules must be mixed with applesauce or apple juice and taken by mouth or given through a feeding tube. For the treatment and maintenance of GERD, pantoprazole is usually taken once a day. For the treatment of conditions where the stomach produces too much acid, pantoprazole is usually taken twice a day. The delayed-release tablets are usually taken with or without food, and the granules are usually taken 30 minutes before a meal. Take pantoprazole at around the same time(s) every day. Follow the directions on your prescription label carefully, and ask your doctor or pharmacist to explain any part you do not understand. Take pantoprazole exactly as directed. Do not take more or less of it or take it more often or for a longer period of time than prescribed by your doctor. Swallow the tablets whole; do not split, chew, or crush them. If your doctor has prescribed the 40 mg tablet and it is too big for you to swallow, ask your doctor to prescribe two of the 20 mg tablets instead. To take the granules, open the packet and either sprinkle the granules onto one teaspoonful of applesauce or into a cup containing one teaspoonful of apple juice. Do not mix the granules with water, other liquids, or other foods. Use all of the granules in the packet; do not divide the granules into smaller doses. If you sprinkle the granules into apple juice, stir the mixture for 5 seconds. Swallow the mixture of applesauce or apple juice and medication right away (within 10 minutes) without chewing or crushing the granules. If you sprinkled the granules on applesauce, take several sips of water to wash the granules down to your stomach. If you sprinkled the granules into apple juice, rinse the cup once or twice with apple juice and drink the apple juice right away to be sure you swallow any leftover granules. Pantoprazole granules mixed with apple juice may be given through a feeding tube. If you have a feeding tube, ask your doctor how you should take pantoprazole. Continue to take pantoprazole even if you feel well. Do not stop taking pantoprazole without talking to your doctor. If your condition does not improve or gets worse, call your doctor. Ask your pharmacist or doctor for a copy of the photoengraving proofer's information for the patient. Are there OTHER USES for this medicine? This medication may be prescribed for other uses; ask your doctor or pharmacist for more information. What SPECIAL PRECAUTIONS should I follow? Before taking pantoprazole, ? tell your doctor and pharmacist if you are allergic to pantoprazole, dexlansoprazole (Dexilant), esomeprazole (Nexium, in Vimovo), lansoprazole (Prevacid), omeprazole (Prilosec, in Talicia, in Zegerid), rabeprazole (AcipHex), any other medications, or any of the ingredients in pantoprazole tablets or granules. Ask your pharmacist for a list of the ingredients. ? Some medications should not be taken with pantoprazole. Other medications may cause dosing changes or extra monitoring when taken with pantoprazole. Make sure you have discussed any medications you are currently taking or plan to take before starting pantoprazole with your doctor and pharmacist. Before starting, stopping, or changing any medications while taking pantoprazole, please get the advice of your doctor or pharmacist. ? The following nonprescription or herbal products may interact with pantoprazole: iron supplements. Be sure to let your doctor and pharmacist know that you are taking these medications before you start taking pantoprazole. Do not start any of these medications while taking pantoprazole without discussing with your healthcare provider. ? tell your doctor if you have or have ever had a low level of magnesium, calcium, or potassium in your blood; hypoparathyroidism (condition in which the body does not produce enough parathyroid hormone [PTH; a natural substance needed to control the amount of calcium in the blood]); low levels of vitamin B12 in your body; osteoporosis (a condition in which the bones become thin and weak and break easily); or an autoimmune disease (condition in which the body attacks its own organs causing swelling and loss of function) such as systemic lupus erythematosus. ? tell your doctor if you are , plan to become , or are . If you become while taking pantoprazole, call your doctor. ? talk to your doctor about the risks and benefits of taking pantoprazole if you are 70 years of age or older. Do not take this medication for a longer period of time than recommended by your doctor. What SPECIAL DIETARY instructions should I follow? Unless your doctor tells you otherwise, continue your normal diet. What should I do IF I FORGET to take a dose? Take the missed dose as soon as you remember it. However, if it is almost time for your next dose, skip the missed dose and continue your regular dosing schedule. Do not take a double dose to make up for a missed dose. What SIDE EFFECTS can this medicine cause? ? Pantoprazole may cause side effects. Tell your doctor if any of these symptoms are severe or do not go away: ? headache ? nausea ? vomiting ? gas ? joint pain ? diarrhea ? dizziness ? in men, difficulty achieving or maintaining an erection ? Some side effects may be serious. If you experience any of the following symptoms, call your doctor immediately, or get emergency medical help: ? blistering, peeling, or bleeding skin; sores on the lips, nose, mouth, or genitals; swollen glands; shortness of breath; fever; or flu-like symptoms ? rash hives; itching; swelling of the eyes, face, lips, mouth, throat, or tongue; difficulty breathing or swallowing; or hoarseness ? irregular, fast, or pounding heartbeat muscle spasms; uncontrollable shaking of a part of the body; excessive tiredness; lightheadedness; dizziness; or seizures ? severe diarrhea with watery stools, stomach pain, or fever that does not go away ? new or worsening joint pain; rash on cheeks or arms that is sensitive to sunlight ? increased or decreased urination, blood in urine, fatigue, nausea, loss of appetite, fever, rash, or joint pain Pantoprazole may cause other side effects. Call your doctor if you have any unusual problems while taking this medication. People who take proton pump inhibitors such as pantoprazole may be more likely to fracture their wrists, hips, or spine than people who do not take one of these medications. People who take proton pump inhibitors may also develop fundic gland polyps (a type of growth on the stomach lining). These risks are highest in people who take high doses of one of these medications or take them for one year or longer. Talk to your doctor about the risks of taking pantoprazole. If you experience a serious side effect, you or your doctor may send a report to the Food and Drug Administration's (FDA) MedWatch Adverse Event Reporting program online (https://www.fda.gov/Safety/MedWatch) or by phone ( ). What should I know about STORAGE and DISPOSAL of this medication? Keep this medication in the container it came in, tightly closed, and out of reach of children. Store it at room temperature and away from excess heat and moisture (not in the bathroom). It is important to keep all medication out of sight and reach of children as many containers (such as weekly pill minders and those for eye drops, creams, patches, and inhalers) are not child-resistant and young children can open them easily. To protect young children from poisoning, always lock safety caps and immediately place the medication in a safe location - one that is up and away and out of their sight and reach. https://www.[employer].org Unneeded medications should be disposed of in special ways to ensure that pets, children, and other people cannot consume them. However, you should not flush this medication down the toilet. Instead, the best way to dispose of your medication is through a medicine take-back program. Talk to your pharmacist or contact your local garbage/recycling department to learn about take-back programs in your community. See the FDA's Safe Disposal of Medicines website (https://goo.gl/c4Rm4p) for more information if you do not have access to a take-back program. What should I do in case of OVERDOSE? In case of overdose, call the poison control helpline at . Information is also available online at https://www.poisonhelp.org/help. If the victim has collapsed, had a seizure, has trouble breathing, or can't be awakened, immediately call emergency services at 187. What OTHER INFORMATION should I know? Keep all appointments with your doctor and the laboratory. Your doctor may order certain laboratory tests before and during your treatmen. Before having any laboratory test, tell your doctor and the laboratory personnel that you are taking pantoprazole. Do not let anyone else take your medication. Ask your pharmacist any questions you have about refilling your prescription. It is important for you to keep a written list of all of the prescription and nonprescription (vlsy-jqg-auvecgr) medicines you are taking, as well as any products such as vitamins, minerals, or other dietary supplements. You should bring this list with you each time you visit a doctor or if you are admitted to a hospital. It is also important information to carry with you in case of emergencies. This report on medications is for your information only, and is not considered individual patient advice. Because of the changing nature of drug information, please consult your physician or pharmacist about specific clinical use. The [employer] represents that the information provided hereunder was formulated with a reasonable standard of care, and in conformity with professional standards in the field. [employer] makes no representations or warranties, express or implied, including, but not limited to, any implied warranty of merchantability and/or fitness for a particular purpose, with respect to such information and specifically disclaims all such warranties. Users are advised that decisions regarding drug therapy are complex medical decisions requiring the independent, informed decision of an appropriate health farm or ranch animal caretaker, and the information is provided for informational purposes only. The entire monograph for a drug should be reviewed for a thorough understanding of the drug's actions, uses and side effects. The [employer] does not endorse or recommend the use of any drug. The information is not a substitute for medical care. AHFS? Patient Medication Information?. ? Copyright, 2023. [employer]?, [address], [address], [place], [place]. All Rights Reserved. Duplication for commercial use must be authorized by [facility]. Selected Revisions: January 03, 2023. AHFS? Patient Medication Information?. ? Copyright, 2023 Lindsay [id number] 13:26:34 Images from the original note were not included. [id number] Metronidazole Brand Name(s): Flagyl?, Flagyl? 375, Likmez; also available generically IMPORTANT WARNING: Metronidazole can cause cancer in laboratory animals. Talk to your doctor about the risks and benefits of taking this medication. WHY is this medicine prescribed? Metronidazole is used to treat infections of the reproductive system, gastrointestinal (GI) tract, skin, heart, bone, joint, lung, blood, nervous system, and other areas of the body. It is also used to treat certain sexually transmitted diseases (STDs). Metronidazole is also used to treat bacterial vaginosis (an infection caused by too much of certain types of harmful bacteria in the vagina) in women. Metronidazole is in a class of medications called nitroimidazole antimicrobials. It works by stopping the growth of bacteria. Antibiotics will not work for colds, flu, or other viral infections. Using antibiotics when they are not needed increases your risk of getting an infection later that resists antibiotic treatment. HOW should this medicine be used? Metronidazole comes as a tablet, a capsule, and suspension (liquid) to take by mouth. Metronidazole tablets and suspension are usually taken as a one-time dose (or divided into two doses on 1 day) or two to four times daily for up to 10 days or longer. Metronidazole capsules are usually taken two to four times daily for up to 10 days or longer. Follow the directions on your prescription label carefully, and ask your doctor or pharmacist to explain any part you do not understand. Take metronidazole exactly as directed. Do not take more or less of it or take it more often than prescribed by your doctor. Shake the oral suspension well before each use to mix the medication evenly. Use a dosing spoon, oral syringe, or measuring cup to measure the correct amount of medication. You may not receive the correct amount of medication if you use a household spoon to measure your dose. Swallow the extended-release tablets whole; do not split, chew, or crush them. Continue to take this medication even if you feel well. Do not stop taking it without talking to your doctor. If you stop taking this medication too soon or skip doses, your infection may not be completely treated and the bacteria may become resistant to antibiotics. Ask your pharmacist or doctor for a copy of the photoengraving proofer's information for the patient. Are there OTHER USES for this medicine? This medication may be prescribed for other uses; ask your doctor or pharmacist for more information. What SPECIAL PRECAUTIONS should I follow? Before taking metronidazole, tell your doctor if you or your child has Cockayne syndrome (an inherited condition that causes sensitivity to light, premature aging, failure to gain weight and grow, and delayed development). Your doctor will probably tell you that you or your child should not take metronidazole. ? tell your doctor and pharmacist if you are allergic to metronidazole, benznidazole, fexinidazole, secnidazole (Solosec), tinidazole (Tindamax), any other medications, or any of the ingredients in metronidazole preparations. Ask your pharmacist for a list of the ingredients. ? tell your doctor or pharmacist if you are taking the following medication or have stopped taking it within the past two weeks: disulfiram. ? tell your doctor and pharmacist what prescription, nonprescription medications, vitamins, nutritional supplements, and herbal products you are taking or plan to take. Your doctor may need to change the doses of your medications or monitor you carefully for side effects. ? The following nonprescription or herbal products may interact with metronidazole: cimetidine (Tagamet HB). Be sure to let your doctor and pharmacist know that you are taking this medication before you start taking metronidazole. Do not start this medication while taking metronidazole without discussing with your healthcare provider. ? tell your doctor if you have or have ever had Crohn's disease, blood problems, or kidney or liver disease. Also, tell your doctor if you have a yeast infection or a medical condition that affects your brain. ? tell your doctor if you are or plan to become . If you become while taking metronidazole, call your doctor. Women who are generally should not take metronidazole during the first trimester (first 3 months) of . ? tell your doctor if you are or plan to breastfeed. If you take metronidazole while you are , your baby may receive some metronidazole in breast milk. If you are , your doctor may tell you to pump and discard your milk while you are taking metronidazole and for 48 hours after your final dose. Talk to your doctor about the best way to feed your baby while you are taking metronidazole. ? do not drink alcoholic beverages or take products with alcohol or propylene glycol while taking this medication and for at least 3 days after your final dose. Alcohol and propylene glycol may cause nausea, vomiting, stomach cramps, headache, sweating, and flushing (redness of the face) when taken with metronidazole. What should I do IF I FORGET to take a dose? Take the missed dose as soon as you remember it. However, if it is almost time for the next dose, skip the missed dose and continue your regular dosing schedule. Do not take a double dose to make up for a missed one. What SIDE EFFECTS can this medicine cause? Metronidazole may cause side effects. Tell your doctor if any of these symptoms are severe or do not go away: ? vomiting ? nausea ? diarrhea ? constipation ? upset stomach ? stomach cramps ? loss of appetite ? headache ? dry mouth ? sharp, unpleasant metallic taste ? furry tongue; mouth or tongue irritation ? Some side effects can be serious. If you experience any of the following symptoms, call your doctor immediately: ? numbness, pain, burning, or tingling in your hands or feet ? seizures ? rash ? itching ? hives ? peeling or blistering skin ? flushing ? stuffy nose, fever, sore throat, or other signs of infection ? dizziness ? difficulty speaking ? problems with coordination ? confusion Metronidazole may cause other side effects. Call your doctor if you have any unusual problems while taking this medication. If you experience a serious side effect, you or your doctor may send a report to the Food and Drug Administration's (FDA) MedWatch Adverse Event Reporting program online (https://www.fda.gov/Safety/MedWatch) or by phone ( ). What should I know about STORAGE and DISPOSAL of this medication? Keep this medication in the container it came in, tightly closed, and out of reach of children. Store it at room temperature and away from light, excess heat and moisture (not in the bathroom). It is important to keep all medication out of sight and reach of children as many containers (such as weekly pill minders and those for eye drops, creams, patches, and inhalers) are not child-resistant and young children can open them easily. To protect young children from poisoning, always lock safety caps and immediately place the medication in a safe location - one that is up and away and out of their sight and reach. https://www.[employer].org Unneeded medications should be disposed of in special ways to ensure that pets, children, and other people cannot consume them. However, you should not flush this medication down the toilet. Instead, the best way to dispose of your medication is through a medicine take-back program. Talk to your pharmacist or contact your local garbage/recycling department to learn about take-back programs in your community. See the FDA's Safe Disposal of Medicines website (https://goo.gl/c4Rm4p) for more information if you do not have access to a take-back program. What should I do in case of OVERDOSE? In case of overdose, call the poison control helpline at . Information is also available online at https://www.poisonhelp.org/help. If the victim has collapsed, had a seizure, has trouble breathing, or can't be awakened, immediately call emergency services at 911. Symptoms of overdose may include the following: ? nausea ? vomiting ? loss of muscle coordination ? numbness, pain, burning, or tingling in your hands or feet ? seizures What OTHER INFORMATION should I know? Keep all appointments with your doctor and the laboratory. Your doctor will order certain lab tests to check your response to metronidazole. Before having any laboratory test, tell your doctor and the laboratory personnel that you are taking metronidazole. Do not let anyone else take your medication. Your prescription is probably not refillable. If you still have symptoms of infection after you finish the metronidazole, call your doctor. It is important for you to keep a written list of all of the prescription and nonprescription (xpwz-euq-bacuifz) medicines you are taking, as well as any products such as vitamins, minerals, or other dietary supplements. You should bring this list with you each time you visit a doctor or if you are admitted to a hospital. It is also important information to carry with you in case of emergencies. This report on medications is for your information only, and is not considered individual patient advice. Because of the changing nature of drug information, please consult your physician or pharmacist about specific clinical use. The [employer] represents that the information provided hereunder was formulated with a reasonable standard of care, and in conformity with professional standards in the field. [employer] makes no representations or warranties, express or implied, including, but not limited to, any implied warranty of merchantability and/or fitness for a particular purpose, with respect to such information and specifically disclaims all such warranties. Users are advised that decisions regarding drug therapy are complex medical decisions requiring the independent, informed decision of an appropriate health farm or ranch animal caretaker, and the information is provided for informational purposes only. The entire monograph for a drug should be reviewed for a thorough understanding of the drug's actions, uses and side effects. The [employer] does not endorse or recommend the use of any drug. The information is not a substitute for medical care. AHFS? Patient Medication Information?. ? Copyright, 2023. [employer]?, [address], [address], [place], [place]. All Rights Reserved. Duplication for commercial use must be authorized by [facility]. Selected Revisions: February 02, 2023. AHFS? Patient Medication Information?. ? Copyright, 2023 [facility] [id number] 13:26:07 Images from the original note were not included. [id number] Ciprofloxacin Ophthalmic Brand Name(s): Ciloxan?; also available generically WHY is this medicine prescribed? Ciprofloxacin ophthalmic solution is used to treat bacterial infections of the eye including conjunctivitis (pinkeye; infection of the membrane that covers the outside of the eyeball and the inside of the eyelid) and corneal ulcers (infection and loss of tissue in the clear front part of the eye). Ciprofloxacin ophthalmic ointment is used to treat conjunctivitis. Ciprofloxacin is in a class of antibiotics called fluoroquinolones. It works by killing the bacteria that cause infection. HOW should this medicine be used? Ophthalmic ciprofloxacin comes as a solution (liquid) and an ointment to apply to the eyes. Ciprofloxacin ophthalmic solution is usually used often, between once every 15 minutes to once every 4 hours while awake for 7 to 14 days or longer. Ciprofloxacin ophthalmic ointment is usually applied 3 times a day for 2 days and then twice a day for 5 days. Use ophthalmic ciprofloxacin at around the same times every day. Follow the directions on your prescription label carefully, and ask your doctor or pharmacist to explain any part you do not understand. Use ophthalmic ciprofloxacin exactly as directed. Do not use more or less of it or use it more often than prescribed by your doctor. You should expect your symptoms to improve during your treatment. Call your doctor if your symptoms do not go away or get worse, or if you develop other problems with your eyes during your treatment. Use ophthalmic ciprofloxacin until you finish the prescription, even if you feel better. If you stop using ophthalmic ciprofloxacin too soon, your infection may not be completely cured and the bacteria may become resistant to antibiotics. To instill the eye drops, follow these steps: ? Wash your hands thoroughly with soap and water. ? Check the dropper tip to make sure that it is not chipped or cracked. ? Avoid touching the dropper tip against your eye or anything else; eye drops and droppers must be kept clean. ? While tilting your head back, pull down the lower lid of your eye with your index finger to form a pocket. ? Hold the dropper (tip down) with the other hand, as close to the eye as possible without touching it. ? Brace the remaining fingers of that hand against your face. ? While looking up, gently squeeze the dropper so that a single drop falls into the pocket made by the lower eyelid. Remove your index finger from the lower eyelid. ? Close your eye for 2 to 3 minutes and tip your head down as though looking at the floor. Try not to blink or squeeze your eyelids. ? Place a finger on the tear duct and apply gentle pressure. ? Wipe any excess liquid from your face with a tissue. ? If you are to use more than one drop in the same eye, wait at least 5 minutes before instilling the next drop. ? Replace and tighten the cap on the dropper bottle. Do not wipe or rinse the dropper tip. ? Wash your hands to remove any medication. To apply the eye ointment, follow these instructions: ? Wash your hands thoroughly with soap and water. ? Avoid touching the tip of the tube against your eye or anything else; the tube tip must be kept clean. ? Holding the tube between your thumb and forefinger, place it as near to your eyelid as possible without touching it. ? Brace the remaining fingers of that hand against your face. ? Tilt your head backward slightly. ? With your index finger, pull the lower eyelid down to form a pocket. ? Squeeze a 1/2-inch (1.25-centimeter) ribbon of ointment into the pocket made by the lower eyelid. Remove your index finger from the lower eyelid. ? Blink your eye slowly; then gently close your eye for 1 to 2 minutes. ? With a tissue, wipe any excess ointment from the eyelids and lashes. With another clean tissue, wipe the tip of the tube clean. ? Replace and tighten the cap right away. ? Wash your hands to remove any medication. Are there OTHER USES for this medicine? This medication may be prescribed for other uses; ask your doctor or pharmacist for more information. What SPECIAL PRECAUTIONS should I follow? Before using ophthalmic ciprofloxacin, ? tell your doctor and pharmacist if you are allergic to ciprofloxacin (Cipro, Ciloxan), other quinolone antibiotics such as cinoxacin (Cinobac) (not available in the [place]), enoxacin (Penetrex) (not available in the [place]), gatifloxacin (Tequin, Zymar), levofloxacin (Levaquin, Quixin, Iquix), lomefloxacin (Maxaquin), moxifloxacin (Avelox, Vigamox), nalidixic acid (NegGram) (not available in the [place]), norfloxacin (Noroxin), ofloxacin (Floxin, Ocuflox), and sparfloxacin (Zagam), any other medications, or benzalkonium chloride. ? tell your doctor and pharmacist what prescription and nonprescription medications, vitamins, nutritional supplements, and herbal products you are taking. Be sure to mention any of the following: anticoagulants ('blood thinners') such as warfarin (Coumadin), cyclosporine (Neoral, Sandimmune), and theophylline (Chris-Dur). Your doctor may need to change the doses of your medications or monitor you carefully for side effects. ? tell your doctor if you have or have ever had any medical condition. ? tell your doctor if you are , plan to become , or are breast-feeding. If you become while using ophthalmic ciprofloxacin, call your doctor. ? you should know that your vision may be blurred during your treatment with ciprofloxacin ophthalmic ointment. Avoid rubbing your eyes even if your vision is blurred. Do not drive a car or operate machinery if you are unable to see clearly. ? tell your doctor if you wear contact lenses. You should not wear contact lenses while you have symptoms of bacterial conjunctivitis or while you are applying eye drops or ointment. ? you should know that bacterial conjunctivitis spreads easily. Wash your hands often, especially after you touch your eyes. When your infection goes away, you should wash or replace any eye makeup, contact lenses, or other objects that touched your infected eye(s). What SPECIAL DIETARY instructions should I follow? Talk to your doctor about drinking coffee or other beverages containing caffeine while you are taking this medication. What should I do IF I FORGET to take a dose? Place the missed dose in your eye(s) as soon as you remember it. However, if it is almost time for the next dose, skip the missed dose and continue your regular dosing schedule. Do not use a double dose to make up for a missed one. What SIDE EFFECTS can this medicine cause? Ophthalmic ciprofloxacin may cause side effects. Tell your doctor if any of these symptoms are severe or do not go away: ? burning, red, itchy, crusty, or irritated eyes ? eye pain ? feeling that something is in your eye ? unpleasant taste ? Some side effects can be serious. If you experience any of the following symptoms, call your doctor immediately: ? rash ? hives ? itching ? tingling ? swelling of the face, throat, tongue, lips, eyes, hands, feet, ankles, or lower legs ? difficulty breathing or swallowing ? hoarseness Ophthalmic ciprofloxacin may cause other side effects. Call your doctor if you have any unusual problems while taking this medication. If you experience a serious side effect, you or your doctor may send a report to the Food and Drug Administration's (FDA) MedWatch Adverse Event Reporting program online (https://www.fda.gov/Safety/MedWatch) or by phone ( ). What should I know about STORAGE and DISPOSAL of this medication? Keep this medication in the container it came in, tightly closed, and out of reach of children. Store it at room temperature and away from excess heat and moisture (not in the bathroom). It is important to keep all medication out of sight and reach of children as many containers (such as weekly pill minders and those for eye drops, creams, patches, and inhalers) are not child-resistant and young children can open them easily. To protect young children from poisoning, always lock safety caps and immediately place the medication in a safe location - one that is up and away and out of their sight and reach. https://www.[employer].org Unneeded medications should be disposed of in special ways to ensure that pets, children, and other people cannot consume them. However, you should not flush this medication down the toilet. Instead, the best way to dispose of your medication is through a medicine take-back program. Talk to your pharmacist or contact your local garbage/recycling department to learn about take-back programs in your community. See the FDA's Safe Disposal of Medicines website (https://goo.gl/c4Rm4p) for more information if you do not have access to a take-back program. What should I do in case of OVERDOSE? If you instill too many drops of the ophthalmic solution in your eye, wash your eye with plenty of warm tap water. What OTHER INFORMATION should I know? Keep all appointments with your doctor Do not let anyone else use your medication. Your prescription is probably not refillable. If you still have symptoms of infection after you finish the ciprofloxacin ophthalmic solution or ointment, call your doctor. It is important for you to keep a written list of all of the prescription and nonprescription (toqe-qkb-ycbjxem) medicines you are taking, as well as any products such as vitamins, minerals, or other dietary supplements. You should bring this list with you each time you visit a doctor or if you are admitted to a hospital. It is also important information to carry with you in case of emergencies. This report on medications is for your information only, and is not considered individual patient advice. Because of the changing nature of drug information, please consult your physician or pharmacist about specific clinical use. The [employer] represents that the information provided hereunder was formulated with a reasonable standard of care, and in conformity with professional standards in the field. [employer] makes no representations or warranties, express or implied, including, but not limited to, any implied warranty of merchantability and/or fitness for a particular purpose, with respect to such information and specifically disclaims all such warranties. Users are advised that decisions regarding drug therapy are complex medical decisions requiring the independent, informed decision of an appropriate health farm or ranch animal caretaker, and the information is provided for informational purposes only. The entire monograph for a drug should be reviewed for a thorough understanding of the drug's actions, uses and side effects. The [employer] does not endorse or recommend the use of any drug. The information is not a substitute for medical care. AHFS? Patient Medication Information?. ? Copyright, 2023. [employer]?, [address], [address], [place], [place]. All Rights Reserved. Duplication for commercial use must be authorized by [facility]. Selected Revisions: April 05, 2017. AHFS? Patient Medication Information?. ? Copyright, 2023 [facility]2024-10-08 13:25:00 Images from the original note were not included. Hydrocodone and Acetaminophen - Video Understand how Hydrocodone and Acetaminophen work to help you manage pain. Also, understand the possible side effects to be aware of and how to properly use and store these medications. To view the video go to this web address: https://bit.ly/8KQy8Mr Or, scan this QR code with your smart phone ? [facility] Lindsay [id number] 13:24:52 Images from the original note were not included. 74155 Upper GI Endoscopy with Biopsy Upper GI endoscopy is a test that looks inside your upper GI (gastrointestinal) tract. This includes your food pipe (esophagus) and stomach. And it includes the first part of your small intestine (duodenum). The test is also known as EGD (esophagogastroduodenoscopy). It's done using a tool called an endoscope. This is a long, thin, flexible tube. It has a tiny camera at one end. The test helps find problems such as ulcers, infection, or growths. It can check for celiac disease, gastritis, and esophagitis. During the test, tissue samples (biopsies) may be taken. These are studied for problems. With the aid of an endoscope, the doctor can view the inside of the upper GI tract and also take small tissue samples. Getting ready for your procedure Follow any instructions from your healthcare provider. Tell your provider about any medicines you are taking. This includes prescription and txag-xnq-tfszpdf medicines, vitamins, herbs, and other supplements. You may need to stop taking some or all of these before the test. Follow any directions you?re given for not eating or drinking before the test. The day of the procedure The procedure takes about 20 minutes. You'll go home the same day. Before the procedure begins: You may be given medicine to help you relax or sleep (sedation). This is given through an IV (intravenous) line placed in a vein in your arm or hand. Your throat may be numbed with a spray or liquid. You'll be given a small plastic guard to protect your teeth. You'll be given oxygen to breathe through small prongs (cannula) that fit just inside your nose. You'll be connected to a machine to watch your heartbeat. During the procedure: ? You lie on your left side. The endoscope is placed in your mouth, and it moves down your throat. ? Air is used to expand your GI tract. This helps the lining be seen more clearly. You may feel pressure or mild pain from the air. ? The scope sends pictures of your GI tract to a computer screen. The esophagus, stomach, and duodenum are viewed. ? Problems may be seen and treated. These include bleeding, redness or swelling (inflammation), or growths. Using tools passed through the endoscope, small samples of tissue (biopsy) can be taken. In some cases, small growths can be removed. Other treatments may be done such as stretching (dilating) a narrowed area. ? The endoscope is then removed. After the procedure: The healthcare provider will talk with you later about the results. You?ll rest and be monitored until you can go home. Have an adult family member or friend drive you. Relax for the rest of the day. If you had a biopsy, the results will be ready in about 7 days. Recovering at home You?ll likely feel drowsy after the test. A mild sore throat, mild gas, and bloating are normal. Once you're home, follow any instructions you've been given. If you had sedation, don't drive, run machinery, or make major decisions until the next day. When to call your healthcare provider Call your healthcare provider if you have any of these: ? Fever of 100.4?F (38?C) or higher, or as advised by your provider ? Shaking chills ? Chest pain ? Dark-colored stools ? Severe belly (abdominal) pain that doesn't go away when passing gas ? Sore throat that doesn?t go away ? Trouble swallowing ? Vomiting, especially with blood ? Any other signs or symptoms indicated by your healthcare provider Follow-up care If you had a biopsy, the results will be ready in about 7 days. Your healthcare provider will talk with you about any more testing or treatment that may be needed. Risks and possible complications ? Sore throat or hoarseness ? Bloating ? Nausea ? Allergic reaction to the sedative or numbing medicine ? Bleeding during or after the procedure ? Too much bleeding from the biopsy site (if a biopsy is done) ? A hole or tear (perforation) in the lining of the digestive tract ? Inhaling food or fluid into the lungs (aspiration) ? Irregular heartbeat or cardiac arrest in someone with heart or lung disease Last Reviewed Date: 2021 00:00:00 ? [id number] [employer]. All rights reserved. This information is not intended as a substitute for professional medical care. Always follow your healthcare professional's instructions. Lindsay [id number] 13:24:32 Images from the original note were not included. 93190 Dehydration The human body is comprised largely of water. If you lose more fluids than you take in, you can become dehydrated. This means there is not enough fluid in your body for it to function right. Mild dehydration can cause thirst, fatigue, weakness, confusion, and muscle cramps. In severe cases, it can lead to kidney damage, brain damage, and even . That's why getting treatment right away is crucial. Risk factors Anyone can become dehydrated. But babies, children, and older adults are at the greatest risk. Older adults who must stay in one place are at especially high risk. They are unable to get up to get something to drink. It can be a bigger problem if they can't communicate. You are most likely to lose fluids with severe vomiting, diarrhea, or a fever. Exercising or working hard?especially in hot weather?can also cause extra fluid loss. Using certain medicines such as water pills (diuretics) that make you pee more can also raise your risk. The risk can be higher in the hot summer months. What to do Drinking liquids is the best way to prevent dehydration. Water is best. But juice or frozen pops can also help. For adults, don't drink liquids that contain caffeine or alcohol to rehydrate. These drinks will cause you to pee more. This raises your risk for more fluid loss. Your healthcare provider may suggest drinking electrolyte solutions. These put back electrolytes that may be lost along with the fluid. When to go to the emergency room (ER) Go to an ER right away for these symptoms: Adults ? Very dark urine and little or no urine output ? Dizziness, weakness, confusion, or fainting Children ? Sunken eyes ? For babies, sunken soft spot (fontanelle) on the head ? Little or no urine output. For babies, no wet diaper in 8 hours. ? Very dark urine ? Skin that doesn't bounce back quickly when pinched ? Crying without tears ? Lethargy, decreased activity, or increased sleepiness What to expect in the ER Your blood pressure, temperature, and heart rate will be checked. You may have blood or urine tests done. The main treatment for dehydration is fluids. You may be given these to drink. Or you may get them through a vein in your arm. You also may be treated for diarrhea, vomiting, or a high fever. Last Reviewed Date: 2021 00:00:00 ? [id number] [employer]. All rights reserved. This information is not intended as a substitute for professional medical care. Always follow your healthcare professional's instructions. [id number] 13:24:24 Images from the original note were not included. [id number] Duodenitis The duodenum is the first part of the small intestine. It's just past the stomach. Duodenitis is inflammation of the lining of the duodenum. The information below explains more about this health problem. Causes of duodenitis The most common cause of duodenitis is infection by H. pylori (Helicobacter pylori) bacteria. You can also get this health problem if you: ? Take nonsteroidal anti-inflammatory drugs (NSAIDs), such as aspirin and ibuprofen, for a long time ? Have celiac disease, an allergy to gluten ? Have Crohn's disease ? Drink alcohol ? Smoke Symptoms of duodenitis The condition may cause no symptoms. If symptoms do happen, you may have: ? Burning, cramping, or hunger-like pain in your stomach ? Gas or a bloated feeling ? Lack of appetite ? Upset stomach (nausea) and vomiting ? A full feeling soon after starting a meal ? Tar-colored or dark stools ? Fatigue and a low blood count if ulcers are bleeding Diagnosing duodenitis If your healthcare provider thinks you have duodenitis, you may have these tests to make sure: ? Upper endoscopy with biopsy. During this test, a thin, flexible tube with a light and camera on the end (endoscope) is used. Your healthcare provider moves the scope down your throat to the stomach and into the duodenum. The scope sends images of the duodenum to a video screen. Small samples (biopsy) of the lining of the duodenum may be taken. These samples will be sent to a lab for testing for H. pylori. ? Blood, stool, gastric biopsy, or breath test. These tests can check for H. pylori or other germs. Samples of blood or stool are taken and tested in a lab. Blood tests can also check for celiac disease. For a breath test, you swallow a harmless compound. If H. pylori bacteria are in your body, extra carbon dioxide gas can then be found in your breath. ? Upper gastrointestinal (GI) series (in rare cases). This test can give more information about the digestive tract. It takes X-rays of the upper GI tract from the mouth to the small intestine. Treating duodenitis If you have duodenitis, one or more of these treatments may help: ? Taking antibiotic medicines to kill H. pylori ? Taking medicines to reduce the amount of acid the stomach makes ? Not taking NSAIDs such as aspirin and ibuprofen. But if you take aspirin for a health problem, such as heart disease or stroke, don't stop until you check with your healthcare provider. If you take NSAIDs for arthritis or pain, check with your provider about other pain medicine options. ? Adopting a gluten-free diet if celiac disease is the cause ? Not drinking alcohol ? Stopping smoking Your healthcare provider can tell you more about what treatments are needed. Recovery and follow-up With treatment, most cases of duodenitis go away. In rare cases, it can be an ongoing (chronic) problem or progress into a duodenal ulcer. If your symptoms don't get better or they go away and come back, tell your healthcare provider. In such cases, checkups and treatments are needed to handle the health problem. When to call the healthcare provider Call your healthcare provider or seek medical care right away if you have any of these: ? Fever of 100.4? F ( 38.0?C) or higher, or as advised by your healthcare provider ? Chills ? Nausea or vomiting (vomit may be bloody or look like coffee grounds) ? Dark, tarry, or bloody stools ? Sudden or severe stomach pain ? Pain that doesn't get better with treatment ? Rapid weight loss Last Reviewed Date: 2023 00:00:00 ? [id number] [employer]. All rights reserved. This information is not intended as a substitute for professional medical care. Always follow your healthcare professional's instructions. [facility]2024-10-08 10:36:05 The patient is Moderately Stable - Low risk of patient condition declining or worsening The patient's goals for the shift include pain and nausea control and able to sleep The clinical goals for the shift include pain and nausea control Over the shift, the patient did not make progress toward the following goals. Barriers to progression include none. Recommendations to address these barriers include none. [facility]2024-10-08 05:40:36 The patient is alert and oriented x4, resting quietly on bed with ongoing IV fluids of LR at 100 ml/hr via piv on left AC. The patient's goals for the shift include pain and nausea control and able to sleep. The clinical goals for the shift include pain and nausea control. Plan of care ongoing. Patient was able to sleep well at night after taking trazodone. Patient received x1 of Oxycodone and x1 of IV Zofran overnight. [facility] [id number] 13:49:58 The patient is Moderately Unstable - Medium risk of patient condition declining or worsening The patient's goals for the shift include pain control; Patient's currently in procedure for EGD - Pending final re-evaluation post-EGD. The clinical goals for the shift include nausea and pain control. Over the shift, the patient did not make progress toward the following goals. Barriers to progression include ineffective pain control. Recommendations to address these barriers include frequent re-evaluation of pain medication effectiveness. [facility] Internal [facility]2024-10-07 05:04:57 The patient is alert and oriented x4, on bed with visitor at bedside. Plan of care discussed with patient and verbalized understanding. Call knapp within patient's reach and instructed to call for assistance when needed. The patient's goals for the shift include pain control The clinical goals for the shift include nauea and pain control Plan of care ongoing. Patient received x1 of Morphine and x1 of oxycodone, x1 of phenergan overnight for nausea and pain control. [facility]2024-10-06 17:08:54 [employer] informed MD patient has not voimited today and request upgraded diet from NPO. New order received for Clear Liquid Diet. Patient spouse at bedside instructed how to order for patient. [facility]2024-10-06 16:54:14 Patient c/o nausea, zofran not due at this time. [employer] requested breakthrough nausea medication, orders received. [facility]2024-10-06 12:01:35 The patient is Moderately Stable - Low risk of patient condition declining or worsening The patient's goals for the shift include pain control The clinical goals for the shift include Pain control [facility]2023-11-13 21:42:[id number] [address] PATIENT NAME: ALCIDES TORRES ADMIT DATE: 01/01/23 ACCOUNT NO: [id number] ROOM NO: AGE: 27 REPORT TYPE: OPERATIVE [...] the right side. SURGEON: Rosalva Estes MD. HEMATOLOGY SPECIALIST: Becca. ANESTHESIA: General endotracheal. FINDINGS: Bilateral [...] with 2 Allis clamps. Cervix dilated to 16-Ku[place]i and diagnostic hysteroscope was passed through the [...] Date Transcribed: 01/01/2023 22:48:23 YASMIN/SHAAN/DARIA Receipt ID: [id number] Authenticated by Rosalva Estes MD On 01/25/2023 11:42:29 AM at 1142 PATIENT NAME: ALCIDES TORRES 21:26:00 [facility] ([facility]) Brief Op Note REPORT#:[id number] REPORT STATUS: Signed REPORT INITIALIZATION DATE:01/01/23 TIME:2125 PATIENT: ALCIDES TORRES UNIT #: [id number] ROOM/BED: : 94 AGE: 27 SEX: F [...] wall on the right Primary Surgeon: meera Video Conference Specialist(s): becca Anesthesia: general anesthesia Findings: bilateral dense tubo-ovarian adhesions, right distal hydrosalpinx, right fundal uterine adhesions to anterior abdominal wall Complications: none Estimated blood loss in ml's: 25 Specimens removed/altered: right distal tube Fluids: 400 Urine output: 100 Approach: laparoscopic Wound class: clean Disposition: plan to D/C home Counts: Sponge count: correct Instrument count: correct Needle count: correct at [address] [facility] #: [id number] END OF REPORT [facility]
[2024-01-16] MEDS ORDERED: ONDANSETRON 4 MG/2 ML VIAL ONE (14:12)
[2024-01-16] MEDS ORDERED: FAMOTIDINE 20 MG/2 ML VIAL IV ONE (14:12)
[2024-01-16] MEDS ORDERED: NA CHLORIDE 0.9% 1,000 ML ONE (14:13)
[2024-01-16 14:22] LABS: Absolute Lymphocytes (CBC) 0.8 K/uL (0.7-4.9); Absolute Monocytes 1.3 K/uL (0.1-1.3); Absolute Neutrophil 14.4 K/uL (1.8-8.0); Basophils % 0.1 % (0-1.3); Hematocrit 38.5 % (36.0-45.0); Hemoglobin 12.6 g/dL (12.0-15.0); Lymphocytes % 4.8 % (15.3-44.8); MCH 29.5 pg (27.0-35.0); MCHC 32.8 g/dL (32.0-36.0); MPV 8.2 fL (7.6-11.3); Neutrophils % 87.1 % (41.7-73.7); Platelets 333 thou/uL (152-406); RBC Red Blood Cell Count 4.28 M/uL (3.86-4.86); Red Cell Distribution Width 16.6 % (12.1-15.2)
[2024-01-16 14:39] LABS: Albumin 4.2 g/dL (3.4-5.0); Albumin/Globulin Ratio 1.1 (1.1-1.8); Bilirubin Total 0.9 mg/dL (0.2-1.0); Globulin 3.7 g/dL (2.3-3.5); Protein, Total 7.9 g/dL (6.4-8.2)
[2024-01-16] MEDS ORDERED: KETOROLAC 30 MG/ML INJ ONE (14:39)
[2024-01-16] MEDS ORDERED: PROMETHAZINE INJ 25 MG/ML AMP ONE (14:39)
[2024-01-16] MEDS ORDERED: POTASSIUM CL SA 10 MEQ TAB PO ONE (14:52)
--- NOTE | 2024-01-16 15:12 | RAD REPORT ---
EXAMINATION: CT ABDOMEN AND PELVIS WITH CONTRAST CLINICAL INDICATION: ABD PAIN TECHNIQUE: CT abdomen and pelvis was performed, after the administration of IV contrast, as per [facility] protocol. Axial, sagittal and coronal reconstructions were obtained. One or more of the following dose reduction techniques were used: Automated exposure control, adjustment of the mA and k V according to patient size, and iterative reconstruction. Unless otherwise specified, incidental findings do not require dedicated imaging follow-up. COMPARISON: 11/21/2023 FINDINGS: LOWER CHEST: The visualized lung bases are clear. LIVER: Normal in size and contour. No focal lesion. Grossly unremarkable gallbladder. SPLEEN: Normal size. No focal lesion. PANCREAS: No mass, ductal dilation, or hood-pancreatic fluid. ADRENALS: Normal; no mass. KIDNEYS: Normal size and contour. No hydronephrosis. GASTROINTESTINAL TRACT: No evidence of free air, significant intra-abdominal free fluid, bowel obstru ction or abscess. Colonic wall thickening is equivocal and similar to prior study. Lack of distention of the colon limits assessment. APPENDIX: Normal appendix. LYMPH NODES: No lymphadenopathy. MUSCULOSKELETAL: No acute or suspicious osseous abnormality. ADDITIONAL FINDINGS: None. IMPRESSION: Equivocal colonic wall thickening is seen, similar to prior study. A nonspecific colitis is possible however the colon is not distended and not fully assessed. Follow-up colonoscopy would be suggested.
[2024-01-16] MEDS ORDERED: METOCLOPRAMIDE 10 MG/2mL INJ ONE (15:44)
[2024-01-16] MEDS ORDERED: DIPHENHYDRAMINE 50 MG/ML VIAL ONE (15:44)
--- NOTE | 2024-01-16 16:34 | EDPHYS ---
Physician Documentation [facility] Name: Alfred Steele Age: 28 yrs Sex: Female : 1995 Arrival Date: 01/16/2024 Time: 13:50 Bed 13 Private MD: ED Physician Landen Mejia HPI: 01/15 14:03 This 28 yrs old Female presents to ER via Ambulatory with complaints of Chest Pain, kb Vomiting. 14:03 Pt is a 28 year old female who presents for nausea, vomiting, diarrhea and abd pain kb that started this morning. States she has had similar symptoms in the past but a cause was not found. Denies fever. Reports she smokes marijuana daily. Historical: - Allergies: 13:59 PENICILLINS; ll1 13:59 SHELLFISH; ll1 13:59 PENICILLINS; hb 13:59 SHELLFISH; hb - PMHx: 13:59 Anxiety; gastric ulcers; ll1 13:59 Anxiety; gastric ulcers; hb - PSHx: 13:59 breast; abdominal surgery; section; ll1 13:59 abdominal surgery; breast; section; hb - Immunization history:: Adult Immunizations up to date. - Infectious Disease History:: Denies. - Social history:: Smoking status: Patient denies any tobacco usage or history of. ROS: 14:03 Constitutional: As per HPI kb Exam: 14:03 Constitutional: This is a well developed, well nourished patient who is awake, alert, kb and in no acute distress. Head/Face: Normocephalic, atraumatic. ENT: Moist Mucous membranes Cardiovascular: Regular rate Respiratory: Respirations even and unlabored. No increased work of breathing. Talking in full sentences Skin: Warm, dry with normal turgor. Normal color. MS/ Extremity: Pulses equal, no cyanosis. Neurovascular intact. Full, normal range of motion. Neuro: Awake and alert, GCS 15, oriented to person, place, time, and situation. 14:03 Abdomen/GI: Inspection: abdomen appears normal, Bowel sounds: normal, Palpation: soft, in all quadrants, moderate abdominal tenderness, in the right upper quadrant and right lower quadrant, Vital Signs: 13:59 BP 143 / 90; Pulse 69; Resp 16; Temp 97.8; Pulse Ox 100% on R/A; Weight 68.04 kg; hb Height 5 ft. 1 in. ; Pain 8/10; 15:01 BP 132 / 74; Pulse 77; Resp 17; Pulse Ox 98% on R/A; rs5 16:33 BP 137 / 80; Pulse 74; Resp 17; Pulse Ox 99% on R/A; rs5 13:59 Body Mass Index 28.34 (68.04 kg, 154.94 cm) hb 13:59 Pain Scale: Adult hb MDM: 13:52 Medical Screening Exam initiated kb 14:03 Data reviewed: vital signs, nurses notes. kb 16:32 Differential diagnosis: dehydration, appendicitis, pancreatitis, abnormal electrolytes, kb cannabinoid hyperemesis. Historians other than the Patient: Spouse/Significant Other: . Counseling: I had a detailed discussion with the patient and/or guardian regarding the historical points, exam findings, and any diagnostic results supporting the discharge/admit diagnosis, lab results, radiology results, the need for outpatient follow up, a family practitioner, to return to the emergency department if symptoms worsen or persist or if there are any questions or concerns that arise at home. ED course: Symptoms improved after treatment. 01/15 14:00 Order name: CBC with Diff; Complete Time: 14:25 kb 01/15 14:00 Order name: CMP; Complete Time: 14:45 kb 01/15 14:00 Order name: Lipase; Complete Time: 14:45 kb 01/15 14:03 Order name: CT Abd/Pelvis - IV Contrast Only; Complete Time: 15:14 kb 01/15 14:00 Order name: IV Saline Lock; Complete Time: 14:29 kb 01/15 14:00 Order name: Labs collected and sent; Complete Time: 14:29 kb Administered Medications: 14:10 Drug: Famotidine IVP 20 mg IVP once; dilute with 10 mL 0.9% NaCl; give over 2 minutes rs5 Route: IVP; Site: right antecubital; 14:10 Drug: Ondansetron IVP 4 mg IVP once; over 2 minutes Route: IVP; Site: right antecubital;rs5 14:10 Drug: NS 0.9% IV 1000 ml IV at 1 bolus Per protocol; to be given as a bolus over 60 rs5 minutes Route: IV; Rate: 1 bolus; Site: right antecubital; 14:38 Not Given (on backorderr): droperidol1.25 mg IVP once kb 14:43 Drug: Promethazine IVP 12.5 mg IVP once Route: IVP; Site: right antecubital; rs5 15:01 Follow up: Response: No adverse reaction rs5 14:43 Drug: Ketorolac IVP 15 mg IVP once Route: IVP; Site: right antecubital; rs5 15:01 Follow up: Response: No adverse reaction; Pain is decreased rs5 15:00 Drug: Potassium Chloride PO 40 mEq PO once Route: PO; rs5 16:01 Follow up: Response: No adverse reaction rs5 15:20 Drug: diphenhydrAMINE IVP 12.5 mg IVP once Route: IVP; Site: right antecubital; rs5 16:20 Follow up: Response: No adverse reaction rs5 15:20 Drug: metoCLOPramide IVP 10 mg IVP once; over 1 to 2 minutes Route: IVP; Site: right rs5 antecubital; 15:40 Follow up: Response: No adverse reaction; Nausea is decreased rs5 Disposition Summary: 01/16/24 16:33 Discharge Ordered Notes: Location: Home kb Condition: Stable kb Diagnosis - Nausea with vomiting, unspecified kb - Diarrhea, unspecified kb Followup: kb - With: Emergency Department - When: As needed - Reason: Worsening of condition Followup: kb - With: Private Physician - When: 2 - 3 days - Reason: Recheck today's complaints, Continuance of care, Re-evaluation by your physician Discharge Instructions: - Discharge Summary Sheet kb - Nausea and Vomiting, Adult, [id number] kb - Diarrhea, Adult, [id number] kb Forms: - Medication Reconciliation Form kb - Antibiotic Education kb - Prescription Opioid Use kb - Patient Portal Instructions kb - Leadership Thank You Letter kb Prescriptions: - Zofran 4 mg Oral tablet - take 1 tablet ORAL route every 6 hours As needed; 12 tablet; Refills: 0, kb Product Selection Permitted - dicyclomine 20 mg Oral tablet - take 1 tablet ORAL route 4 times per day As needed; 20 tablet; Refills: 0, kb Product Selection Permitted Signatures: Dispatcher [employer] Danielle Chavez FNP-C FNP-Any Larkin RN RN My Tovar RN RN ll1 Underwood, Edgardo, RN RN rs5
--- NOTE | 2024-01-16 16:34 | ER ---
Nurse's Notes [facility] Name: Alfred Steele Age: 28 yrs Sex: Female : 1995 Arrival Date: 01/16/2024 Time: 13:50 Bed 13 Private MD: Diagnosis: Nausea with vomiting, unspecified;Diarrhea, unspecified Presentation: 01/15 13:59 Chief complaint: Abdominal pain and N/V since this morning. Coronavirus screen: At this hb time, the client does not indicate any symptoms associated with coronavirus-19. Ebola Screen: No symptoms or risks identified at this time. Initial Sepsis Screen: Does the patient meet any 2 criteria? No. Patient's initial sepsis screen is negative. Does the patient have a suspected source of infection? No. Patient's initial sepsis screen is negative. Risk Assessment: Do you want to hurt yourself or someone else? Patient reports no desire to harm self or others. Onset of symptoms was January 16, 2024. 13:59 Method Of Arrival: Ambulatory hb 13:59 Acuity: GAURANG 3 hb Historical: - Allergies: 13:59 PENICILLINS; ll1 13:59 SHELLFISH; ll1 13:59 PENICILLINS; hb 13:59 SHELLFISH; hb - PMHx: 13:59 Anxiety; gastric ulcers; ll1 13:59 Anxiety; gastric ulcers; hb - PSHx: 13:59 breast; abdominal surgery; section; ll1 13:59 abdominal surgery; breast; section; hb - Immunization history:: Adult Immunizations up to date. - Infectious Disease History:: Denies. - Social history:: Smoking status: Patient denies any tobacco usage or history of. Screenin:05 [facility] ED Fall Risk Assessment (Adult) History of falling in the last 3 months, rs5 including since admission No falls in past 3 months (0 pts) Confusion or Disorientation No (0 pts) Intoxicated or Sedated No (0 pts) Impaired Gait No (0 pts) Mobility Assist Device Used No (0 pt) Altered Elimination No (0 pt) Score/Fall Risk Level 0 - 2 = Low Risk Oriented to surroundings, Maintained a safe environment. Abuse screen: Denies threats or abuse. Nutritional screening: No deficits noted. Tuberculosis screening: No symptoms or risk factors identified. Assessment: 14:00 General: Appears distressed, uncomfortable, Behavior is cooperative, anxious. Pain: rs5 Complains of pain in abdomen Pain does not radiate. Pain currently is 8 out of 10 on a pain scale. Quality of pain is described as aching, Pain began 1 day ago. 14:00 Neuro: Level of Consciousness is awake, alert, obeys commands, Oriented to person, rs5 place, time, situation. Cardiovascular: Patient's skin is warm and dry. Respiratory: Airway is patent Respiratory effort is even, unlabored, Respiratory pattern is regular, symmetrical. 14:01 GI: Abdomen is round non-distended, Abd is soft and non tender X 4 quads. Reports rs5 nausea. : No signs and/or symptoms were reported regarding the genitourinary system. EENT: No signs and/or symptoms were reported regarding the EENT system. Derm: Skin is intact, Skin is pink, warm \T\ dry. 14:01 Musculoskeletal: Range of motion: intact in all extremities. rs5 14:32 Reassessment: Patient and/or family updated on plan of care and expected duration. Pain rs5 level reassessed. Patient is alert, oriented x 3, equal unlabored respirations, skin warm/dry/pink. 15:41 Reassessment: Patient and/or family updated on plan of care and expected duration. Pain rs5 level reassessed. Patient is alert, oriented x 3, equal unlabored respirations, skin warm/dry/pink. 16:50 Reassessment: Patient and/or family updated on plan of care and expected duration. Pain rs5 level reassessed. Patient is alert, oriented x 3, equal unlabored respirations, skin warm/dry/pink. Vital Signs: 13:59 BP 143 / 90; Pulse 69; Resp 16; Temp 97.8; Pulse Ox 100% on R/A; Weight 68.04 kg; hb Height 5 ft. 1 in. ; Pain 8/10; 15:01 BP 132 / 74; Pulse 77; Resp 17; Pulse Ox 98% on R/A; rs5 16:33 BP 137 / 80; Pulse 74; Resp 17; Pulse Ox 99% on R/A; rs5 13:59 Body Mass Index 28.34 (68.04 kg, 154.94 cm) hb 13:59 Pain Scale: Adult hb ED Course: 13:52 Patient arrived in ED. mg5 13:52 Danielle Matamoros FNP-C [facility]. kb 13:52 Landen Mejia MD is Attending Physician. kb 13:59 Triage completed. hb 13:59 Arm band placed on Patient placed in an exam room, on a stretcher. ll1 14:01 Edgardo Underwood, RN is Primary Nurse. rs5 14:04 Radiology exam delayed due to IV insertion attempt and/or patient not having nj appropriate IV at this time. 14:04 Radiology exam delayed due to lab results not completed at this time. (BUN/Creatinine) nj test not completed at this time. 14:10 Patient has correct armband on for positive identification. Placed in gown. Bed in low rs5 position. Call light in reach. Side rails up X2. 14:10 No provider procedures requiring assistance completed. rs5 14:10 Inserted saline lock: 20 gauge in right antecubital area, using aseptic technique. rs5 Patient maintains SpO2 saturation greater than 95% on room air. 15:06 CT Abd/Pelvis - IV Contrast Only In Process Unspecified. EDMS 16:55 IV discontinued, intact, bleeding controlled, No redness/swelling at site. Pressure rs5 dressing applied. Administered Medications: 14:10 Drug: Famotidine IVP 20 mg IVP once; dilute with 10 mL 0.9% NaCl; give over 2 minutes rs5 Route: IVP; Site: right antecubital; 14:10 Drug: Ondansetron IVP 4 mg IVP once; over 2 minutes Route: IVP; Site: right antecubital;rs5 14:10 Drug: NS 0.9% IV 1000 ml IV at 1 bolus Per protocol; to be given as a bolus over 60 rs5 minutes Route: IV; Rate: 1 bolus; Site: right antecubital; 14:38 Not Given (on backorderr): droperidol1.25 mg IVP once kb 14:43 Drug: Promethazine IVP 12.5 mg IVP once Route: IVP; Site: right antecubital; rs5 15:01 Follow up: Response: No adverse reaction rs5 14:43 Drug: Ketorolac IVP 15 mg IVP once Route: IVP; Site: right antecubital; rs5 15:01 Follow up: Response: No adverse reaction; Pain is decreased rs5 15:00 Drug: Potassium Chloride PO 40 mEq PO once Route: PO; rs5 16:01 Follow up: Response: No adverse reaction rs5 15:20 Drug: diphenhydrAMINE IVP 12.5 mg IVP once Route: IVP; Site: right antecubital; rs5 16:20 Follow up: Response: No adverse reaction rs5 15:20 Drug: metoCLOPramide IVP 10 mg IVP once; over 1 to 2 minutes Route: IVP; Site: right rs5 antecubital; 15:40 Follow up: Response: No adverse reaction; Nausea is decreased rs5 Medication: 14:10 VIS not applicable for this client. rs5 Outcome: 16:33 Discharge ordered by MD. echeverria 16:55 Discharged to home ambulatory, rs5 16:55 Condition: stable rs5 16:55 Discharge instructions given to patient, family, Instructed on discharge instructions, follow up and referral plans. medication usage, Demonstrated understanding of instructions, follow-up care, medications, Prescriptions given X 2, 16:59 Patient left the ED. rs5 Signatures: Dispatcher [employer] EDMS Danielle Matamoros, PAINTING DEPARTMENT SUPERVISOR-C PAINTING DEPARTMENT SUPERVISOR-Ckb Any Garza RN RN Jaren Hirsch Lynsay, RN RN ll1 Edgardo Underwood RN RN rs5 Katerina Crisostomo mg5 Corrections: (The following items were deleted from the chart) 14:31 14:00 Pain: Complains of pain in abdomen rs5 rs5 19:34 16:10 BP 137 / 80; Pulse 74bpm; Resp 17bpm; Pulse Ox 99% RA; rs5 rs5 19:36 15:20 Response: No adverse reaction rs5 rs5
[2024-01-16 19:24] VITALS: BP 143/90; TEMP 97.8; O2SAT 100
--- NOTE | 2024-01-21 10:23 | EKG ---
Test Date: 2024-01-16 Test Time: 14:15:53 Paint Stockman: AM MEASUREMENT RESULTS: Intervals: Rate: 67 NC: 120 QRSD: 86 QT: 482 QTc: 509 Jal: P: 61 NC: 120 QRS: 83 T: 65 INTERPRETIVE STATEMENTS: Sinus rhythm with marked sinus arrhythmia Prolonged QT Abnormal ECG Compared to ECG 06/28/2023 02:22:37 Prolonged QT interval now present Sinus bradycardia no longer present Short NC interval no longer present Electronically Signed On 01-21-24 10:22:17 [employer]LL[employer] SEW[employer] by Gregg Hanks
== END 2024-01-16 16:59 | disposition home or self-care (01) ==
LOC: ER 13:50
DX: R11.2 Nausea with vomiting, unspecified (principal); R19.7 Diarrhea, unspecified
CPT/HCPCS: 85025; 36415; 83690; 80053; 74177; 96375; 96374; 99284; Q9967; J2550; J2765; J1200; J2405; J7030; 93005

== ENCOUNTER 2024-02-11 19:07 | Emergency (ER) | payer BC ==
--- OUTSIDE RECORDS SUMMARY | 2024-02-11 19:10 | XMS REPORT | Continuity of Care Document ---
Author Name Unknown Address [address] [facility] [address] [place] [address] [facility] thconnect Address [address] [facility] [address] [place] [address] Care Team Providers Care Event Representative Name Role Phone No , Pcp Primary Care Physician UnavailSung Torres Attending Clinician Unavailable CHON WATT Attending Clinician UnavailDOMINGA George Attending Clinician Unavailable Keisha Manning MD Attending Clinicia n Halima Lizarraga DO Attending Clinician + Danita Akbar MD Attending Clinician [phone] Krish Terrell MD Attending Clinician [phone] Eldon Monzon MD Attending Clinician ELDON MONZON Attending Clinician Unavailable CHRISTOPHER MART Attending Clinician Unavailable [email or web address]_Nolan Attending Clinician UnavailRosalva Fortune Attending Clinician UnavailBuster Doss MD Attending Clinician [phone] Achebe MD, Danita Admitting Clinician DANITA AKBAR Admitting Clinician Unavailable [email or web address]_S Admitting Clinician Unavaila ble KNOW, DOES_NOT Admitting Clinician Unavailable Payers Payer Name Policy Type Policy Number Effective Date Expirati on Date Source Blue Cross Blue Shield of [place] 6 [id number] 2023 00:00:00 [facility] [place] OUT OF [place] [id number] 2022 00:00:00 BCBS COMM [id number] 2022 00:00:00 [place] [id number] 2022 00:00:00 2023 00:00:00 Problems Condition Name Condition Details Condition Category Status Onset Date Resolution Date Last Treatment Date Treating Clinician Comments Source PUD (peptic ulcer disease) PUD (peptic ulcer disease) Disease Active 2023-02 0 00:00: 00 Nehal Isabel History of peptic ulcer disease History of peptic ulcer disease Disease Recurre nce 2023-02 0- 00:00: 00 Nehal Isabel Intractabl e abdominal pain Intractabl e abdominal pain Disease Active 2023-02 0- 00:00: 00 Nehal Isabel Intractabl e nausea and vomiting Intractabl e nausea and vomiting Disease Active 2023-02 0 00:00: 00 Nehal Isabel Colitis Colitis Disease Active 2023-02 0 00:00: 00 Nehal Isabel Hypokalemi a Hypokalemi a Disease Active 2023-02 0- 00:00: 00 Nehal Isabel Primary dysmenorrh ea Primary Dysmenorrh ea Problem Active 08-15 00:00: 00 [facility] Chronic pelvic pain of female Chronic Pelvic Pain of Female Problem Active 08-15 00:00: 00 [facility] Menorrhagi a Menorrhagi a Problem Active 08-15 00:00: 00 [facility] Previous delivery affecting Previous delivery affecting Disease Active 2018-0 7-17 00:00: 00 [facility] Anemia of mother in , antepartum Anemia of mother in , antepartum Disease Active 706 00:00: 00 [facility] Sterilizat ion consult Sterilizat ion consult Disease Active 5-11 00:00: 00 [facility] Tobacco smoking affecting in second trimester Tobacco smoking affecting in second trimester Disease Active 05-31 00:00: 00 [facility] Medication exposure during first trimester of Medication exposure during first trimester of Disease Active 12 00:00: 00 [facility] Declines (vaginal after ) trial Declines (vaginal after ) trial Disease Active 05-31 00:00: 00 [facility] Previous delivery affecting , antepartum Previous delivery affecting , antepartum Disease Active 05-31 00:00: 00 [facility] Status post induction of labor Status post induction of labor Disease Active 08-20 00:00: 00 [facility] distress affecting management of mother, delivered distress affecting management of mother, delivered Disease Active 08-20 00:00: 00 [facility] Failed induction of labor, delivered Failed induction of labor, delivered Disease Active 08-20 00:00: 00 [facility] Fetopelvic disproport ion, delivered Fetopelvic disproport ion, delivered Disease Active 08-20 00:00: 00 Overview: ICD10 Diagnosis 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 [facility] Threatened premature labor, antepartum (644.03) Threatened premature labor, antepartum (644.03) Disease Active 18 00:00: 00 [facility] [id number] Mixed hyperlipid emia Problem [facility] [id number] Moderate episode of recurrent major depressive disorder Problem [facility] Allergies, Adverse Reactions, Alerts Allergy Name Allergy Type Status Severity Reaction(s) Onset Date Inactive Date Treating Clinician Comments Source Shellfis h-Derive d Products Drug Allergy Active Anaphylaxis 2023-02 0-06 00:00: 00 Nehal Clarke Epic Penicill ins Propensi ty to adverse reaction s Active Anaphylaxis 2023-02 0-05 00:00: 00 Jessicaoria pedro Ethel Epic Shellfis h-Derive d Products Allergy to substanc e Active Unknown 8 00:00: 00 [facility] Penicill ins DA Active SV ANAPHYLAXIS 2022-02 00:00: 00 [facility] shellfis h derived FA Active SV ANAPHYLAXIS 2022-02 00:00: 00 [facility] shellfis h derived FA Active SV ANAPHYLAXIS 2022-02 00:00: 00 [facility] Penicill ins DA Active SV ANAPHYLAXIS 2022-02 00:00: 00 [facility] Tegaderm Dressing Propensi ty to adverse reaction s Active Itching 09-11 00:00: 00 [facility] Penicill ins Propensi ty to adverse reaction s Active Anaphylaxis 08-20 00:00: 00 [facility] Penicill ins Allergy to substanc e Active Unknown 08-20 00:00: 00 [facility] PENICILL INS Allergy to substanc e Active Moderate severity Anaphylaxis [facility] Shellfis h (FN) Shellfis h (FN) Active Unknown [facility] SHELLFIS H DERIVED Allergy to substanc e Active Moderate severity Anaphylaxis [facility] [id number] Drug allergy Active Unknown [facility] Social History Social Habit Start Date Stop Date Quantity Comments Source Alcohol intake [facility] Sexual orientation M emorial Vince Epic ASSERTION Not Nehal Clarke [facility] Gender identity Eric richar Clarke [facility] History of tobacco use Cigarette Smoker [facility] History of Social function 2023-11-26 00:00:00 2023-11-26 00:00:00 [facility] Tobacco use and exposure 2023-11-24 00:00:00 2023-11-24 00:00:00 Smokeless tobacco non-user [facility] Alcoholic beverage intake 2023-10-19 00:00:00 2023-10-19 00:00:00 Ex-drinker (finding) [facility] Cigarettes smoked current (pack per day) - Reported 2018-08-27 00:00:00 2018-08-27 00:00:00 [facility] Cigarette pack-years 2018-08-27 00:00:00 2018-08-27 00:00:00 [facility] Sex assigned at 1995 00:00:00 1995 00:00:00 [facility] Smoking Status Start Date Stop Date Source Heavy Tobacco Smoker [facility] Never smoked tobacco Nehal Isabel Smokes tobacco daily 2023-10-18 00:00:00 [facility] Medications Ordered Medication Name Filled [...] 2023-02 12:19: 24 12-01 12:18 :24 No [id number] 4mg Q.5D Deborah Isabel sucralfate (Carafate) suspension [...] 00:00: 00 11-30 23:59 :00 No 500mg [id number] 3D Take 1 tablet by mouth in [...] e (ProtoNix) EC tablet 40 mg 2023-02 007 16:30: 00 Yes 40mg 40 mg, Oral, [...] dextrose 5 % 50 mL IVPB 2023-02 0 16:29: 33 11-29 16:28 :33 No 12.5mg Q6H 12.5 mg, Intravenou s, at 100 mL/hr, Administer over 30 Minutes, Every 6 hours PRN, nausea, vomiting, Starting on Sun11/25/23 at 1629, For 5 days Nehal Isabel ciprofloxac in (Cipro) IVPB 400 mg ciprofloxac in (Cipro) IVPB 400 mg 2023-02 0- 15:00: 00 12-01 14:59 :00 No 400mg [...] orally or via feeding tube >/= 14 Mosoth[place], may dissolve each 20 mEq tablet in 4 oz of water. Allow about 2 minutes for the tablets to disintegra te. Stir before giving to prepare slurry and administer . Please exclude patient's with feeding tube less than 14 [place]otho (Dobhoff, J-tube, etc) and pediatric and patients Do not crush or chew. Nehal Isabel metroNIDAZO LE (Flagyl) IVPB 500 mg metroNIDAZO LE (Flagyl) IVPB 500 mg 2023-02 0 10:00: 00 12-01 09:59 :00 No 500mg [...] 2023-02 0-06 06:43: 07 Yes 800mg Nehal Isabel magnesium sulfate IVPB 4 g magnesium sulfate IVPB 4 g 2023-02 0-06 06:43: 07 Yes 4g Nehal Clarke Epic magnesium sulfate IVPB 2 g magnesium sulfate IVPB 2 g 2023-02 0-06 06:43: 07 Yes 2g Nehal Isabel magnesium sulfate in D5W IVPB 1 g [...] mEq 2023-02 0-06 06:43: 07 Yes 20meq Memshaunna pedro Clarke Epic traZODone (Desyrel) tablet 50 mg traZODone (Desyrel) tablet 50 mg 2023-02 0-06 06:43: 07 Yes 50mg QD 50 mg, Oral, Nightly PRN, sleep, Starting on 11/25/23 at 0643 Memshaunna pedro Clarke Epic diphenhydrA MINE (BENADryl) tablet 12.5 mg diphenhydrA MINE (BENADryl) tablet 12.5 mg 2023-02 0-06 06:43: 07 Yes 12.5mg Q6H Memshaunna pedro Clarke Epic bisacodyl (Dulcolax) suppository 10 mg bisacodyl (Dulcolax) suppository 10 mg 2023-02 0-06 06:43: 07 Yes 10mg Q24H Memshaunna Clarke Epic glucagon injection 1 mg glucagon injection 1 mg 2023-02 0-06 06:43: 07 Yes 1mg Nehal Clarke Epic dextrose 50 % solution 25 g dextrose 50 % solution 25 g 2023-02 0-06 06:43: 07 Yes 25g Memshaunna pedro Clarke Epic dextrose 50 % solution 12.5 g dextrose 50 % solution 12.5 g 2023-02 0-06 06:43: 07 Yes 12.5g Nehal Clarke Epic naloxone (Narcan) injection 0.04 mg naloxone (Narcan) injection 0.04 mg 2023-02 0-06 06:43: 07 Yes .04mg Nehal Clarke Epic acetaminoph en (Tylenol) tablet 650 mg acetaminoph en (Tylenol) tablet 650 mg 2023-02 0-06 06:43: 07 Yes 650mg Q6H Memshaunna pedro Clarke Epic sodium chloride (PF) 0.9 % [...] apply): Intra-abdo antonio Infection Nehal Clarke Epic metroNIDAZO LE (Flagyl) IVPB 500 [...] (OMNIPaque) 350 MG/ML injection 65 mL 2023-02 006 00:50: 03 11-24 00:50 :00 No 65mL [...] famotidine (PF) (Pepcid) injection 40 mg 2023-02 005 20:50: 00 11-23 21:11 :00 No 40mg 40 mg, Intravenou s, Administer over 2 Minutes, Once, On 11/24/23 at 2049, For 1 dose, Administer over at least 2 minutes Nehal Clarke Epic morphine injection 4 mg morphine injection 4 mg 2023-02 20:50: 00 11-23 21:09 :00 No 4mg 4 mg, Intravenou s, Once, On Sun11/24/23 at 2049, For 1 dose Nehal Clarke [...] Saline lock IV Signed Summary: Once, On Sun11/24/23 at 2045, For 1 occurrence [Order 2 End] [Order 3 Start] Name: sodium chloride (PF) 0.9 % injection 10 mL Signed Summary: 10 mL, Intravenou s, As needed, line care, Starting on 11/24/23 at 2044 [Order 3 End] Nehal Clarke Epic Rexulti 1 MG tablet 10-18 15:25: 42 Yes 1{tbl} QD Take 1 tablet by mouth 1 (one) time each day. [facility] sertraline (Zoloft) 100 MG tablet 10-18 15:25: 42 Yes 100mg QD Take 100 mg by mouth 1 (one) time each day. [facility] buPROPion XL (Wellbutrin XL) 150 MG 24 hr tablet 10-18 15:25: 42 Yes 150mg Take 150 mg by mouth every morning. [facility] gabapentin (Neurontin) 300 MG capsule 10-18 00:00: 00 11-18 04:59 :00 No [id number] 300mg Take 1 capsule (300 mg total) by mouth every night. [facility] Ondansetron HCl 4 MG Ondansetron HCl 4 MG 09-27 00:00: 00 No 1{table t} QD Ondansetro n HCl 4 MG eszopiclone (Lunesta) 2 MG tablet eszopiclone (Lunesta) 2 MG tablet 04-17 00:00: 00 Yes 2mg Take 2 mg by mouth at bedtime. Nehal Clarke [facility] topiramate 50 mg tablet 09-27 00:00: 00 Yes [id number] Take 100mg two times a day for 5 days, then take 150 mg in the am and 100 mg in the evening for 5 days, then take 150 mg two times a day there after. [facility] ZOLMitripta n 5 mg tablet 09-27 00:00: 00 Yes One tab at onset of headache, may repeat x one tab in 4 hours if headache persist. No more than two tabs in a 24 hour period [facility] Butalbital- Acetaminoph en-Caff (FIORICET) 50-300-40 mg per capsule 09-27 00:00: 00 Yes [id number] Use one every 6 hours as needed for head pain. [facility] Butalbital- Acetaminoph en-Caff (FIORICET) 50-300-40 mg per capsule 18 00:00: 00 09-27 00:00 :00 No [id number] Use one every 6 hours as needed for head pain. [facility] topiramate 50 mg tablet 03 00:00: 09-27 00:00 :00 No [id number] Use 2 in am, 1 in the evening for the headache. [facility] sumatriptan 100 mg tablet 06-21 00:00: 00 09-27 00:00 :00 No [id number] 100mg Take 1 tablet by mouth as needed for Migraine. Within 24 hours, may repeat times one in 2 hours as needed. [facility] VIT W-CA,FE,FA, <1 MG, ( #2 ORAL) 09-11 18:53: 24 Yes 1{tbl} Take 1 Tab by mouth. [facility] diphenhydrA MINE (BENADRYL ALLERGY) 25 mg tablet 09-11 18:53: 24 Yes 25mg Take 25 mg by mouth every 4 (four) hours as needed for Allergies. [facility] predniSONE 10 mg tablet 09-11 00:00: 00 Yes [id number] 10mg Take 1 tablet by mouth SEE-INSTRU CTIONS. [facility] naproxen 500 mg tablet 09-05 00:00: 00 Yes 500mg Take 1 tablet by mouth 2 (two) times daily with meals as needed for Pain (scale 1-3) or Pain (scale 4-6). [facility] vitamin w/FA tablet 09-05 00:00: 00 Yes 1{tbl} Take 1 tablet by mouth daily. [facility] docusate calcium 240 mg capsule 09-05 00:00: 00 Yes 240mg Take 1 capsule by mouth once daily as needed for Constipati on. [facility] ferrous sulfate 325 mg (65 mg iron) tablet 09-05 00:00: 00 Yes 325mg Take 1 tablet by mouth 2 (two) times daily. [facility] ferrous sulfate (IRON, FERROUS SULFATE,) 325 mg (65 mg iron) tablet 08-24 00:00: 00 Yes [id number] 325mg Take 1 tablet by mouth 2 (two) times daily with meals. [facility] eszopiclone 3 mg tablet TAKE 1 TABLET BY MOUTH ONCE DAILY IMMEDIATLEY BEFORE BED eszopiclone 3 mg tablet TAKE 1 TABLET BY MOUTH ONCE DAILY IMMEDIATLEY BEFORE BED No eszopiclon e 3 mg tablet TAKE 1 TABLET BY MOUTH ONCE DAILY IMMEDIATLE Y BEFORE BED [facility] Rexulti 0.5 MG Rexulti 0.5 MG No 1{table t} QD Rexulti 0.5 MG Pantoprazol e Sodium 40 MG Pantoprazol e Sodium 40 MG No 1{table t} QD Pantoprazo le Sodium 40 MG Wellbutrin Wellbutrin No Wellbutrin Sertraline HCl 50 MG Sertraline HCl 50 MG No 1{table t} QD Sertraline HCl 50 MG Vital Signs Vital Name Observation Time Observation Value Comments S ource Heart rate 2023-11-27 12:20:42 [facility] 2023-11-27 12:20:42 18 /min [facility] Oxygen saturation in Arterial blood by Pulse oximetry 2023-11-27 12:20:42 98 /min [facility] Systolic blood pressure 2023-11-27 12:20:34 99 mm[Hg] [facility] Diastolic blood pressure 2023-11-27 12:20:34 60 mm[Hg] [facility] Body temperature 2023-11-27 12:19:33 36.72 Nuvia [facility] Body height 2023-11-26 13:35:00 154.9 cm [facility] Body weight 2023-11-26 13:35:00 50.803 kg [facility] BMI 2023-11-26 13:35:00 21.16 kg/m2 [facility] Heart rate 2023-11-27 12:20:42 55 /min [facility] Respiratory rate 2023-11-27 12:20:42 18 /min [facility] Oxygen saturation in Arterial blood by Pulse oximetry 2023-11-27 12:20:42 98 /min [facility] Systolic blood pressure 2023-11-27 12:20:34 99 mm[Hg] [facility] Diastolic blood pressure 2023-11-27 12:20:34 60 mm[Hg] [facility] Body temperature 2023-11-27 12:19:33 36.72 Nuvai [facility] Body height 2023-11-26 13:35:00 154.9 cm [facility] Body weight 2023-11-26 13:35:00 50.803 kg [facility] BMI 2023-11-26 13:35:00 21.16 kg/m2 [facility] Systolic blood pressure 2023-10-19 20:26:00 96 mm[Hg] [facility] Diastolic blood pressure 2023-10-19 20:26:00 67 mm[Hg] [facility] Heart rate 2023-10-19 20:26:00 72 /min [facility] height 2023-10-19 20:26:00 154.9 [facility] Body weight 2023-10-19 20:26:00 [facility].256 [facility] BMI 2023-10-19 20:26:00 21.35 kg[facility]m2 [facility] temperature 2023-09-28 13:20:00 97.3 [degF] [facility] bmi 2023-09-28 13:20:00 20.74 kg/m2 [facility] oximetry 2023-09-28 13:20:00 97 % [facility] respiratory rate 2023-09-28 13:20:00 16 /min [facility] blood pressure systolic 2023-09-28 13:20:00 101 mm[Hg] [facility] blood pressure diastolic 2023-09-28 13:20:00 68 mm[Hg] [facility] height 2023-09-28 13:20:00 61 [in_i] [facility] weight 2023-09-28 13:20:00 109.8 [lb_av] [facility] BP Diastolic 2023-08-16 00:00:00 71 mm[Hg] [facility] BP Systolic 2023-08-16 00:00:00 102 mm[Hg] [facility] Height 2023-08-16 00:00:00 61 [in_i] [facility] Body Weight 2023-08-16 00:00:00 107 [lb_av] [facility] BMI (Body Mass Index) 2023-08-16 00:00:00 20.2 kg/m2 [facility] height 2023-06-28 14:40:00 61 [in_i] [facility] weight 2023-06-28 14:40:00 109.8 [lb_av] [facility] temperature 2023-06-28 14:40:00 97.3 [degF] [facility] bmi 2023-06-28 14:40:00 20.74 kg/m2 [facility] oximetry 2023-06-28 14:40:00 85 % [facility] blood pressure systolic 2023-06-28 14:40:00 99 mm[Hg] [facility] blood pressure diastolic 2023-06-28 14:40:00 62 mm[Hg] [facility] Procedures Procedure Date / Time Performed Performing Clinician Source POC GLUCOSE UNSOLICITED RESULTS 2023-11-27 06:09:00 Eldon Monzon [facility] POC GLUCOSE UNSOLICITED RESULTS 2023-11-26 19:46:00 Eldon Monzon [facility] C DIFFICILE DNA WITH REFLEX TO TOXIN IF INDICATED 2023-11-26 18:22:00 Eldon Monzon [facility] ENTERIC PATHOGENS WITH CULTURE IF INDICATED 2023-11-26 18:22:00 Eldon Monzon [facility] POC GLUCOSE UNSOLICITED RESULTS 2023-11-26 17:12:00 Eldon Monzon [facility] EGD 2023-11-26 16:42:00 Clara Barnett [facility] POC GLUCOSE UNSOLICITED RESULTS 2023-11-26 06:29:00 Elodn Monzon [facility] BASIC METABOLIC PANEL 2023-11-26 03:22:00 Sotero Akbar ma [facility] MAGNESIUM LEVEL 2023-11-26 03:22:00 Eldon Monzon [facility] PHOSPHORUS LEVEL 2023-11-26 03:22:00 Joanne, Eldon [facility] orial [facility] COMPLETE BLOOD COUNT W/DIFF AND PLATELET 2023-11-26 03:22:00 Achebe, Danita [facility] CALCIUM LEVEL IONIZED WHOLE BLOOD 2023-11-26 03:22:00 Joanne, Eldon [facility] COMPLETE BLOOD COUNT 2023-11-26 03:22:00 Achebe, Ifeom a [facility] AUTOMATED DIFFERENTIAL 2023-11-26 03:22:00 Achebe, Luisa arabella [facility] Fecal Leukocytes 2023-11-26 00:00:00 Eric rial [facility] POC GLUCOSE UNSOLICITED RESULTS 2023-11-25 17:29:00 Joanne, Eldon [facility] POC GLUCOSE UNSOLICITED RESULTS 2023-11-25 11:22:00 Joanne, Eldon [facility] POC GLUCOSE UNSOLICITED RESULTS 2023-11-25 07:26:00 Joanne Eldon [facility] ECG 12-LEAD 2023-11-25 03:51:13 Achebe, Danita Memori al [facility] UA WITH CULTURE IF INDICATED 2023-11-25 [...] [facility] Delivery 2017-09-04 00:00:00 [facility] Tubal Ligation 2017-09-04 00:00:00 [facility] Delivery 2014-08-20 00:00:00 [facility] POCT Glucose [facility] Tissue Examination [facility] Encounters Start Date/Time End Date/Time Encounter Type Admission Type Attending [facility] Care Facility Care Department Encounter ID Source 2024-01-04 10:37:01 [facility] [id number] [facility] 2023-09-26 08:07:00 Outpatient Sung Garcia [facility] [id number] [facility] 2023-09-26 07:30:00 Inpatient CHON MUHAMMAD [facility] [id number] [facility] 2023-09-17 11:40:00 Outpatient Sung Garcia [facility] [id number] [facility] 2023-06-26 08:49:01 Outpatient Sung Garcia [facility] [id number] [facility] 2023-05-29 13:25:00 Outpatient Sung Garcia [facility] [id number] [facility] 2024-01-22 00:00:00 2024-01-22 00:00:00 (TEL) [facility] [id number] [facility] 2023-12-12 00:00:00 2023-12-12 00:00:00 (TEL) [facility] [id number] [facility] 2023-12-07 15:45:00 2023-12-07 15:45:00 Outpatient DOMINGA STEVENS [facility] [id number] [facility] 2023-11-24 20:26:00 2023-11-27 14:26:00 Emergency Adam aguilera, Keisha Lizarraga, Halima Akbar, Krish Ca, [facility] [id number] Nehal vasquez [facility] 2023-11-24 20:26:00 2023-11-27 14:26:00 Emergency Urgent ELDON MONZON [facility] General Medicine [id number] [facility] 2023-10-19 16:00:00 2023-10-19 16:00:00 Office Visit Dominga Stevens [facility] AND WOMENS [id number] [facility] 2023-10-18 14:00:00 2023-10-18 14:00:00 Outpatient CHRISTOPHER MART [facility] [id number] [facility] 2023-09-28 00:00:00 2023-09-28 00:00:00 (ESTPTWM) Jessicae d PT Women [facility] [id number] [facility] 2023-09-17 00:00:00 2023-09-17 00:00:00 OFFICE VISIT ESTAB PT LEVEL 3 [facility] [id number] [facility] 2023-08-16 00:00:00 2023-08-16 00:00:00 Chon Watt MD: [address] [place] [address], [address], [place] [address] , Ph. [phone] [facility] [id number] 2023-06-28 00:00:00 2023-06-28 00:00:00 OFFICE VISIT ESTAB PT LEVEL 4 [facility] [id number] [facility] 2023-03-22 00:00:00 2023-03-22 00:00:00 Outpatient GC_GCBZW_Ka aakash_S PRIV PRIV [id number] [facility] 2023-02-22 00:00:00 2023-02-22 00:00:00 Outpatient GC_GCBZW_Ka diyala_S PRIV PRIV [id number] [facility] 2023-01-25 00:00:00 2023-01-25 00:00:00 Outpatient GC_GCBZW_Ka diyala_S PRIV PRIV [id number] [facility] 2023-01-04 00:00:00 2023-01-04 00:00:00 Outpatient GC_GCBZW_Ka diyala_S PRIV PRIV [id number] [facility] 2023-01-01 13:09:00 2023-01-01 13:09:00 Outpatient JOSE KrunalskylerRosalva amos [facility] [id number] [facility] 2022-12-28 00:00:00 2022-12-28 00:00:00 Outpatient GC_GCBZW_Ka diyala_S PRIV PRIV [id number] [facility] 2022-11-30 00:00:00 2022-11-30 00:00:00 Outpatient GC_GCBZW_Ka diyala_S PRIV PRIV [id number] [facility] 2022-11-30 00:00:00 2022-11-30 00:00:00 Outpatient GC_GCBZW_Ka diyala_S PRIV PRIV [id number] [facility] 2022-11-30 00:00:00 2022-11-30 00:00:00 Outpatient GC_GCBZW_Ka diyala_S PRIV PRIV [id number] [facility] 2022-11-30 00:00:00 2022-11-30 00:00:00 Outpatient GC_GCBZW_Ka diyala_S PRIV PRIV [id number] [facility] 2022-10-17 00:00:00 2022-10-17 00:00:00 Outpatient GC_GCBZW_Ka diyala_S PRIV PRIV [id number] [facility] 2022-10-17 00:00:00 2022-10-17 00:00:00 Outpatient GC_GCBZW_Ka diyala_S PRIV PRIV [id number] [facility] 2022-10-17 00:00:00 2022-10-17 00:00:00 Outpatient GC_GCBZW_Ka diyala_S PRIV PRIV [id number] [facility] 2022-10-17 00:00:00 2022-10-17 00:00:00 Outpatient GC_GCBZW_Ka diyala_S PRIV PRIV [id number] [facility] 2022-10-02 00:00:00 2022-10-02 00:00:00 Outpatient GC_GCBZW_Ka diyala_S PRIV PRIV [id number] [facility] 2022-10-02 00:00:00 2022-10-02 00:00:00 Outpatient GC_GCBZW_Ka diyala_S PRIV PRIV [id number] [facility] 2022-10-01 00:00:00 2022-10-01 00:00:00 Outpatient GC_GCBZW_Ka diyala_S PRIV PRIV [id number] [facility] 2018-09-26 00:00:00 2018-09-26 00:00:00 Telephone Buster Thorep [facility] [id number] [facility] Results Test Description Test Time Test Comments Results Result Co mments Source [facility] [id number] 20:02:31* Test Item Value Reference Range Interpretation Comme nts POC Glu (test code = 8234348134) 81 mg/dL 70-99 POC Glu Comment 1 (test code = 7084579486) Notified RN/MD POC Performing Location (hood t code = 6351734538) CDU [facility] [id number] 17:15:05* Test Item Value Reference Range Interpretation Comme nts POC Glu (test code = 8172568074) 79 mg/dL 70-99 POC Performing Location (hood t code = 2227727816) [facility] [id number] 06:40:28* Test Item Value Reference Range Interpretation Comme nts POC Glu (test code = 4705090662) 74 mg/dL 70-99 POC Performing Location (hood t code = 7120768699) [facility] [id number] 17:36:07* Test Item Value Reference Range Interpretation Comme nts POC Glu (test code = 0390858157) 93 mg/dL 70-99 POC Glu Comment 1 (test code = 6940811444) Notified RN/MD POC Performing Location (hood t code = 6243620163) [facility] 12 [id number] 16:26:29* Test Item Value Reference Range Interpretation Comme nts Ventricular Rate (test code = 4009110203) BPM Atrial Rate (test code = 6636357980) BPM [place] Interval (test code = 5011280772) 108 ms QRS Duration (test code = 0991102759) 90 ms QT/QTc (test code = 5177051179) 498 ms QTc Calculation (test code = 8609651138) 454 ms P-Mil[place] (test code = 6605936319) degrees R-[place] (test code = 9543756164) degrees T-[place] (test code = 6127448181) degrees GEORGI (test code = GEORGI) PXN (test code = PXN) [facility] [id number] 11:38:14* Test Item Value Reference Range Interpretation Comme nts POC Glu (test code = 6529433525) 85 mg/dL 70-99 POC Performing Location (hood t code = 5060747187) [facility] [id number] 07:36:31* Test Item Value Reference Range Interpretation Comme nts POC Glu (test code = 6411683606) 86 mg/dL 70-99 POC Performing Location (hood t code = 8623323726) [facility] [id number] 14:54:19* Test Item Value Reference Range Interpretation Comme nts Test (test code = Test) negative [facility]dipstick) panel - [id number] 14:54:06* Test Item Value Reference Range Interpretation Comme nts Leukocytes (test code = Leukocytes) Negative Nitrite (test code = Nitrite) negative Urobilinogen (test code = Urobilinogen) .2 Protein (test code = Protein) Negative pH (test code = pH) 5.5 Blood (test code = Blood) Negative Specific [place] (test code = Specific [place]) 1.020 Ketone (test code = Ketone) Negative Bilirubin (test code = Bilirubin) Negative Glucose (test code = Glucose) Negative Appearance (test code = Appearance) Clear Color (test code = Color) [facility]* Test Item Value Reference Range Interpretation Comme nts SURGICAL (test code = SR) RUN DATE: 01/03/23 [facility] PAGE 1 RUN TIME: 1532 Specimen Inquiry RUN USER: INTERFACE PATIENT: ALFRED TORRES LOC: TIA U #: [id number] AGE/SX: 27/F ROOM: RE01/01/23REG DR: Rosalva Estes MD : 94 BED: DIS: STATUS: DEP SD TLOC: SPEC #: [id number] RECD: 01/01/23 STATUS: NICOLÁS LIZAMA #: [id number] JOSSY: 01/01/[address]: Rosalva Estes MD ENTERED: 01/01/23 SP TYPE: SURGICAL OTHR DR: ORDERED: [id number], ANATOMIC SPEC, SPECIMEN TRACK PROCEDURES: [id number] (01/03/23) SPECIMEN TRACK (01/01/23) TISSUES: A. FALLOPIAN [...] tissue processing and slide [facility] [address] , [place] [address] MICROSCOPIC DESCRIPTION Microscopic examination is performed and the findings are incorporated into the finaldiagnosis. Please see diagnosis for findings. - Signed SIGNATURE ON FILE Jose Starkusha 01/03/23 160 END OF REPORT HCG SERUM [id number] 15:51:00* Test Item Value Reference Range Interpretation Comme nts HCG SERUM QUAL (test code = HCGQL) SERUM NEGATIVE SCREEN NEGATIVE CBC W/AUTO [id number] 22:53:00* Test Item Value Reference Range Interpretation [...] NRBC#) 0.0 K/mm3 0.0-0.1 N BASIC METABOLIC [id number] 14:09:00* Test Item Value Reference Range Interpretation [...] = CA) 8.9 MG/DL 8.5-10.1 N PROTHROMBIN [id number] 13:44:00* Test Item Value Reference Range Interpretation [...] prevent recurrent infarct). Comment: PRE PROCEDURETHROMBOPLASTIN TIME [id number] 13:44:00* Test Item Value Reference Range Interpretation Comme nts THROMBOPLASTIN TIME PARTIAL (test code = PTT) 31.3 SECONDS 26-35 N Comment: PRE PROCEDUREURINALYSIS [id number] 13:24:00* Test Item Value Reference Range Interpretation [...] A Urine Specimen Type: Clean CatchUR HCG [id number] 13:24:00* Test Item Value Reference Range Interpretation Comme nts UR HCG QUAL (test code = HCGQLU) NEGATIVE NEGATIVE Urine Specimen Type: Clean Catch Consult Notes Date/Time Note Provider Source 2023-11-26 12:52:38 Associated Order(s): IP CONSULT TO GASTROENTEROLOGY Gastroenterology Consult Chief Complaint: abdominal pain Referring Physician: Dr. Eldno Monzon Reason for Consult: intractable nausea and [...] patient was seen by Dr. Herbert in [place]. She reports having an upper endoscopy done [...] pleasure to participate in the care of Alfred Torres. GI ATTENDING NOTE: Patient seen and examined with the physician server service assistant, and confirmed the essential components of history, physical examination, diagnosis and treatment plan. I agree with the patient's care and plan as documented by the physician server service assistant. Gastroenterology Physician [facility] History and Physical Notes Date/Time Note Provider Source 2023-11-24 19:32:00 History Of Present Illness 28-year-old female with history of peptic ulcer disease presenting with complaints of lower abdominal pain/cramps since 11/20. She reports associated nausea, vomiting and diarrhea. She was admitted at [facility] on 11/21, diagnosed with colitis and started on Levaquin/Flagyl. She continued to have pain and went back to [place] [facility] where she was given analgesics and [...] Procedure Abnormality Status --------- ------ Complete Blood Count[[id number]] Normal Final result Automated Differential[[id number]] Abnormal Final result Please view results for [...] NPO Diet NPO except: Sips with meds [facility]
[2024-02-11] MEDS ORDERED: ONDANSETRON 4 MG/2 ML VIAL ONE (20:36)
[2024-02-11] MEDS ORDERED: KETOROLAC 30 MG/ML INJ ONE (20:36)
[2024-02-11] MEDS ORDERED: FAMOTIDINE 20 MG/2 ML VIAL IV ONE (20:37)
[2024-02-11] MEDS ORDERED: NA CHLORIDE 0.9% 2,000 ML ONE (20:37)
[2024-02-11 20:44] LABS: Absolute Eosinophils 0.1 K/uL (0-0.5); Absolute Lymphocytes (CBC) 1.6 K/uL (0.7-4.9); Absolute Monocytes 0.8 K/uL (0.1-1.3); Absolute Neutrophil 6.6 K/uL (1.8-8.0); Basophils % 0.4 % (0-1.3); Eosinophils % 0.7 % (0-4.4); Lymphocytes % 17.5 % (15.3-44.8); MCH 30.6 pg (27.0-35.0); MCHC 33.2 g/dL (32.0-36.0); Monocytes % 9.2 % (3.3-12.3); Neutrophils % 72.2 % (41.7-73.7); Platelets 283 thou/uL (152-406); RBC Red Blood Cell Count 4.56 M/uL (3.86-4.86); Red Cell Distribution Width 17.7 % (12.1-15.2)
[2024-02-11 20:48] LABS: PT Prothrombin Time 11.4 SECONDS (9.4-12.5); PTT, Activated Partial Thromb 30.3 SECONDS (24.3-36.9); Protime INR 1.02
[2024-02-11 21:09] LABS: Albumin 4.4 g/dL (3.4-5.0); Albumin/Globulin Ratio 1.3 (1.1-1.8); Anion Gap 9.9 mEq/L (5.0-15.0); Bilirubin Total 0.5 mg/dL (0.2-1.0); Globulin 3.3 g/dL (2.3-3.5); Potassium 2.9 mEq/L (3.5-5.1); Protein, Total 7.7 g/dL (6.4-8.2)
[2024-02-11 23:49] LABS: Sqamous Epithelial <5 /HPF (None Seen); Urine Bacteria None Seen /HPF (<20); Urine Bilirubin NEGATIVE (Negative); Urine Blood 1+ (Negative); Urine Clarity Turbid (Clear); Urine Color Light-Yellow (Yellow); Urine Culture Reflex Order NOT NEEDED; Urine Glucose NEGATIVE (Negative); Urine Ketones TRACE (Negative); Urine Microscopic Reflex YN ORDER UMIC; Urine Nitrite NEGATIVE (Negative); Urine Protein NEGATIVE (Negative); Urine RBC <5 /HPF (None Seen); Urine Urobilinogen Normal (Normal); Urine WBC <5 /HPF (<5)
[2024-02-12] MEDS ORDERED: POTASSIUM 25 MEQ EFFERV TAB ONE (00:21)
[2024-02-12] MEDS ORDERED: ONDANSETRON 4 MG/2 ML VIAL ONE (00:21)
[2024-02-12] MEDS ORDERED: DICYCLOMINE HCL 20 MG/2 ML AMP IM ONE (00:48)
--- NOTE | 2024-02-12 01:30 | EDPHYS ---
Physician Documentation [facility] Name: Aflred Steele Age: 29 yrs Sex: Female : 1995 Arrival Date: 02/11/2024 Time: 19:07 Bed 19 Private MD: ED Physician Landen Mejia HPI: 02/10 20:03 This 29 yrs old Female presents to ER via Ambulatory with complaints of kb Nausea/Vomiting, Abdominal Pain, Constipation. 20:03 Pt is a 29 year old female who presents for nausea, vomiting and upper abdominal pain kb that started 9 days ago. States she has been unable to tolerate anything by mouth since onset. Reports decreased urination. States she hasn't had a BM in a week. . 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 - Infectious Disease History:: Denies. - Social history:: Smoking status: Patient reports the use of cigarette tobacco products, smokes one pack cigarettes per day. ROS: 20:02 Constitutional: As per HPI kb Exam: 20:02 Constitutional: This is a well developed, well nourished patient who is awake, alert, kb and in no acute distress. Head/Face: Normocephalic, atraumatic. ENT: Moist Mucous membranes Respiratory: Respirations even and unlabored. No increased work of breathing. Talking in full sentences Skin: Warm, dry with normal turgor. Normal color. MS/ Extremity: Pulses equal, no cyanosis. Neurovascular intact. Full, normal range of motion. Neuro: Awake and alert, GCS 15, oriented to person, place, time, and situation. 20:02 Cardiovascular: Rate: tachycardic, Rhythm: regular, 20:02 ECG was reviewed by the Attending Physician. Vital Signs: 19:21 BP 126 / 109; Pulse 133; Resp 18; Temp 99.9(TE); Pulse Ox 100% ; Pain 8/10; hb 19:57 Weight 52.16 kg; me1 20:00 BP 129 / 101; Pulse 78; Resp 12; Pulse Ox 98% ; me1 21:00 BP 143 / 92; Pulse 74; Resp 16; Pulse Ox 96% ; me1 21:30 BP 126 / 82; Pulse 67; Resp 20; Pulse Ox 99% on R/A; mt4 21:31 Pain 6/10; me1 22:00 BP 123 / 109; Pulse 73; Temp 9; Pulse Ox 98% on R/A; mt4 02/11 00:05 BP 115 / 90; Pulse 72; Resp 20; Pulse Ox 98% on R/A; mt4 01:30 BP 137 / 106; Pulse 64; Resp 22; Pulse Ox 96% on R/A; mt4 02/10 19:21 Pain Scale: Adult hb 21:31 Pain Scale: Adult me1 Morrison Coma Score: 02/10 22:00 Eye Response: spontaneous(4). Motor Response: obeys commands(6). Verbal Response: mt4 oriented(5). Total: 15. MDM: 19:11 Medical Screening Exam initiated 02/11 01:28 Differential diagnosis: Nonspecific abd pain, viral gastroenteritis, constipation, kb bowel obstruction, colitis. Data reviewed: vital signs, nurses notes. Counseling: I had a detailed discussion with the patient and/or guardian regarding the historical points, exam findings, and any diagnostic results supporting the discharge/admit diagnosis, lab results, radiology results, the need for outpatient follow up, a family practitioner, to return to the emergency department if symptoms worsen or persist or if there are any questions or concerns that arise at home. ED course: Pt tolerating po intake after treatment. 02/10 19:19 Order name: CBC with Diff; Complete Time: 20:52 kb 02/10 19:19 Order name: CMP; Complete Time: 21:12 kb 02/10 19:19 Order name: Lipase; Complete Time: 21:12 kb 02/10 19:19 Order name: Test, Urine; Complete Time: 23:56 kb 02/10 19:19 Order name: Urinalysis w/ reflexes; Complete Time: 23:56 kb 02/10 19:24 Order name: Blood Culture Adult (2) 02/10 19:24 Order name: Lactate w/ 2H reflex if indic.; Complete Time: 21:05 kb 02/10 19:24 Order name: Protime (+inr); Complete Time: 20:52 kb 02/10 19:24 Order name: Ptt, Activated; Complete Time: 20:52 kb 02/10 23:33 Order name: Abdomen EDMS 02/10 19:19 Order name: IV Saline Lock; Complete Time: 20:34 kb 02/10 19:19 Order name: Labs collected and sent; Complete Time: 20:34 kb 02/10 19:24 Order name: Accucheck; Complete Time: 20:47 kb 02/10 19:24 Order name: Cardiac monitoring; Complete Time: 20:17 kb 02/10 19:24 Order name: EKG - Nurse/Tech; Complete Time: 20:17 kb 02/10 19:24 Order name: IV Saline Lock - Large Bore; Complete Time: 20:34 kb 02/10 19:24 Order name: O2 Per Protocol; Complete Time: 20:34 kb 02/10 19:24 Order name: O2 Sat Monitoring; Complete Time: 20:34 kb 02/10 19:24 Order name: Vital Signs; Complete Time: 20:17 kb EC/23 20:02 Rate is 82 beats/min. Rhythm is regular. QRS [place] is Normal. [place] interval is normal at kb 112 msec. QRS interval is normal at 84 msec. QT interval is normal at 439 msec. Administered Medications: 19:24 CANCELLED (Physician Discretion): ns 0.9% 1000 ml IV at 1 bolus Per protocol; to be kb given as a bolus over 60 minutes 20:46 Drug: NS 0.9% IV (30 ml/kg) 30 ml/kg IV at bolus once; Sepsis Protocol; to be given as me1 a bolus over 90 minutes Route: IV; Rate: bolus; Site: right antecubital; 02/11 00:26 Follow up: Response: No adverse reaction; IV Status: Completed infusion; IV Intake: mt4 1564ml 02/10 20:47 Drug: Famotidine IVP 20 mg IVP once; dilute with 10 mL 0.9% NaCl; give over 2 minutes me1 Route: IVP; Site: right antecubital; 21:31 Follow up: Response: No adverse reaction me1 20:47 Drug: Ondansetron IVP 4 mg IVP once; over 2 minutes Route: IVP; Site: right antecubital;me1 21:31 Follow up: Response: No adverse reaction; Nausea is decreased me1 20:47 Drug: Ketorolac IVP 15 mg IVP once Route: IVP; Site: right antecubital; me1 21:31 Follow up: Pain 6/10 Adult; Response: No adverse reaction; Pain is decreased me1 02/11 00:25 Drug: Ondansetron IVP 4 mg IVP once; over 2 minutes Route: IVP; Site: right antecubital;mt4 01:53 Follow up: Response: No adverse reaction mt4 00:45 Drug: Potassium PO Effervescent Tablet 50 mEq PO once; dissolve in 4 ounces of water or mt4 juice Route: PO; 01:53 Follow up: Response: No adverse reaction mt4 00:50 Drug: Dicyclomine IM 20 mg IM once Route: IM; Site: right deltoid; mt4 01:52 Follow up: Response: No adverse reaction mt4 01:40 Drug: Dulcolax WV Suppository 10 mg WV once Route: WV; mt4 01:52 Follow up: Response: No adverse reaction mt4 Disposition Summary: 02/12/24 01:29 Discharge Ordered Notes: Location: Home kb Condition: Stable kb Diagnosis - Constipation kb - Nausea with vomiting, unspecified kb - Hypokalemia kb Followup: kb - With: Emergency Department - When: As needed - Reason: Worsening of condition Followup: kb - With: Private Physician - When: 2 - 3 days - Reason: Recheck today's complaints, Continuance of care, Re-evaluation by your physician Discharge Instructions: - Discharge Summary Sheet kb - Constipation, Adult, [id number]-wf-[id number] kb - Nausea and Vomiting, Adult, [id number]-dk-[id number] kb - Hypokalemia kb Forms: - Medication Reconciliation Form kb - Antibiotic Education kb - Prescription Opioid Use kb - Patient Portal Instructions kb - Leadership Thank You Letter kb Prescriptions: - Zofran 4 mg Oral tablet - take 1 tablet ORAL route every 6 hours As needed; 20 tablet; Refills: 0, kb Product Selection Permitted - dicyclomine 20 mg Oral tablet - take 1 tablet ORAL route 4 times per day As needed; 20 tablet; Refills: 0, kb Product Selection Permitted Addendum: 02/14/2024 12:40 Co-signature as Attending Physician, Landen Mejia MD I agree with the assessment and c vasquez plan of care. Signatures: Dispatcher [employer] EDDanielle Aceves FNP-C CAR PUSHER-Ckb Landen Mejia MD MD cha Baxter, Heather, RN RN Dary Lyons, RN RN me1 Rodolfo Renee, RN RN mt4 Corrections: (The following items were deleted from the chart) 02/10 19:19 19:19 CBC+H.LAB.BRZ ordered. EDMS EDMS 19:19 19:19 COMPREHENSIVE METABOLIC PANEL+C.LAB.BRZ ordered. EDMS EDMS 19:19 19:19 LIPASE+C.LAB.BRZ ordered. EDMS EDMS 19:19 19:19 Test, Urine+UC.LAB.BRZ ordered. EDMS EDMS 19:19 19:19 Urinalysis+U.LAB.BRZ ordered. EDMS EDMS 19:24 19:19 NS 0.9% IV 1000 ml IV at 1 bolus Per protocol; to be given as a bolus over 60 kb minutes ordered. kb 19:24 19:24 BLOOD CULTURE*+BA.LAB.BRZ ordered. EDMS EDMS 19:24 19:24 LACTATE+C.LAB.BRZ ordered. EDMS EDMS 19:24 19:24 PROTIME (+INR)+COAG.LAB.BRZ ordered. EDMS EDMS 19:24 19:24 PTT, ACTIVATED+COAG.LAB.BRZ ordered. EDMS EDMS 23:33 19:24 Abdomen Pelvis W Con+CT.RAD.BRZ ordered. EDMS EDMS
--- NOTE | 2024-02-12 01:30 | ER ---
Nurse's Notes [facility] Name: Alfred Steele Age: 29 yrs Sex: Female : 1995 Arrival Date: 02/11/2024 Time: 19:07 Bed 19 Private MD: Diagnosis: Constipation;Nausea with vomiting, unspecified;Hypokalemia Presentation: 02/10 19:21 Chief complaint: N/V and upper abdominal pain x 9 days. Coronavirus screen: At this hb time, the client does not indicate any symptoms associated with coronavirus-19. Ebola Screen: No symptoms or risks identified at this time. Initial Sepsis Screen: Does the patient meet any 2 criteria? No. Patient's initial sepsis screen is negative. Does the patient have a suspected source of infection? No. Patient's initial sepsis screen is negative. Risk Assessment: Do you want to hurt yourself or someone else? Patient reports no desire to harm self or others. Onset of symptoms was February 02, 2024. 19:21 Method Of Arrival: Ambulatory hb 19:21 Acuity: GAURANG 2 hb CONFIGURATION ANALYST: 02/11 01:51 Verified mt4 Historical: - Allergies: 02/10 19:22 PENICILLINS; hb 19:22 SHELLFISH; hb - PMHx: 19:22 Anxiety; gastric ulcers; hb - PSHx: 19:22 abdominal surgery; breast; section; hb - Immunization history:: Adult Immunizations up to date. - Infectious Disease History:: Denies. - Social history:: Smoking status: Patient reports the use of cigarette tobacco products, smokes one pack cigarettes per day. Screenin:45 [facility] ED Fall Risk Assessment (Adult) History of falling in the last 3 months, me1 including since admission No falls in past 3 months (0 pts) Confusion or Disorientation No (0 pts) Intoxicated or Sedated No (0 pts) Impaired Gait No (0 pts) Mobility Assist Device Used No (0 pt) Altered Elimination No (0 pt) Score/Fall Risk Level 0 - 2 = Low Risk Maintained a safe environment, Provided non-skid footwear, Hourly rounding (assess needs \T\ fall precautionary measures) done. Abuse screen: Denies threats or abuse. Nutritional screening: No deficits noted. Tuberculosis screening: No symptoms or risk factors identified. Assessment: 19:45 General: Appears uncomfortable, ill, well groomed, well developed, well nourished, me1 Behavior is calm, cooperative, appropriate for age, Reports upper abdominal pain with n/v x 9 days. Pain: Complains of pain in epigastric area Pain does not radiate. Pain currently is 8 out of 10 on a pain scale. Quality of pain is described as stabbing, Pain began 9 days ago Is continuous. Neuro: Level of Consciousness is awake, alert, obeys commands, Oriented to person, place, time, situation, Appropriate for age. Cardiovascular: Patient's skin is warm and dry. Respiratory: Airway is patent Trachea midline Respiratory effort is even, unlabored, Respiratory pattern is regular, symmetrical. GI: Abdomen is flat, Reports upper abdominal pain, nausea, vomiting, since 9 days ago. : No signs and/or symptoms were reported regarding the genitourinary system. EENT: No signs and/or symptoms were reported regarding the EENT system. Derm: Skin is intact, is healthy with good turgor, Skin is pink, warm \T\ dry. Musculoskeletal: No signs and/or symptoms reported regarding the musculoskeletal system. 22:00 General: Appears uncomfortable, unkempt. Pain: Complains of pain in abdomen Pain mt4 radiates to abdomen Pain currently is 8 out of 10 on a pain scale. Quality of pain is described as sharp, stabbing, Is continuous. Neuro: Level of Consciousness is awake, alert, obeys commands, Oriented to person, place, time, situation, Die Try Out Worker Stamping are equal bilaterally Moves all extremities. Gait is steady, Speech is normal, Facial symmetry appears normal. Cardiovascular: Capillary refill < 3 seconds. Respiratory: Airway is patent Respiratory effort is even, unlabored, Respiratory pattern is regular, symmetrical. GI: Abdomen is flat, Reports upper abdominal pain, nausea, vomiting. : No signs and/or symptoms were reported regarding the genitourinary system. Musculoskeletal: Range of motion: intact in all extremities. Vital Signs: 19:21 BP 126 / 109; Pulse 133; Resp 18; Temp 99.9(TE); Pulse Ox 100% ; Pain 8/10; hb 19:57 Weight 52.16 kg; me1 20:00 BP 129 / 101; Pulse 78; Resp 12; Pulse Ox 98% ; me1 21:00 BP 143 / 92; Pulse 74; Resp 16; Pulse Ox 96% ; me1 21:30 BP 126 / 82; Pulse 67; Resp 20; Pulse Ox 99% on R/A; mt4 21:31 Pain 6/10; me1 22:00 BP 123 / 109; Pulse 73; Temp 9; Pulse Ox 98% on R/A; mt4 02/11 00:05 BP 115 / 90; Pulse 72; Resp 20; Pulse Ox 98% on R/A; mt4 01:30 BP 137 / 106; Pulse 64; Resp 22; Pulse Ox 96% on R/A; mt4 02/10 19:21 Pain Scale: Adult hb 21:31 Pain Scale: Adult me1 [place] Coma Score: 02/10 22:00 Eye Response: spontaneous(4). Motor Response: obeys commands(6). Verbal Response: mt4 oriented(5). Total: 15. ED Course: 19:09 Patient arrived in ED. [email or web address] 19:11 Daniel[facility]amor[facility]C [facility] kb 19:11 Landen Mejia MD is Attending Physician. kb 19:22 Triage completed. hb 19:22 Arm band placed on. hb 19:36 Dary Lyons, RN is Primary Nurse. me1 19:45 Patient has correct armband on for positive identification. Bed in low position. Call me1 light in reach. Side rails up X2. Provided Education on: POC. Verbalized understanding.. Client placed on continuous cardiac and pulse oximetry monitoring. NIBP monitoring applied. Pulse ox on. NIBP on. 19:45 No provider procedures requiring assistance completed. me1 20:31 Initial lab(s) drawn, by me, sent to lab. First set of blood cultures drawn by me. me1 20:33 Inserted saline lock: 22 gauge in right antecubital area, using aseptic technique. me1 20:34 Blood Culture Adult (2) Sent. me1 20:34 Lactate w/ 2H reflex if indic. Sent. me1 20:34 Protime (+inr) Sent. me1 20:34 Ptt, Activated Sent. me1 20:34 CBC with Diff Sent. me1 20:34 CMP Sent. me1 20:34 Lipase Sent. me1 20:44 EKG done, by clinical support tech. reviewed by Danielle Saturnino INTERIOR DESIGN FACULTY MEMBER-C. oh1 21:41 Radiology exam delayed due to test not completed at this time. az 22:00 Bed in low position. Call light in reach. Side rails up X 1. Client placed on mt4 continuous cardiac and pulse oximetry monitoring. NIBP monitoring applied. Door closed. Lights dimmed. Warm blanket given. Pillow given. Verbal reassurance given. Assisted to bathroom. 02/11 00:02 Abdomen In Process Unspecified. EDMS 01:50 IV discontinued, intact, bleeding controlled, No redness/swelling at site. Pressure mt4 dressing applied. Administered Medications: 02/10 19:24 CANCELLED (Physician Discretion): ns 0.9% 1000 ml IV at 1 bolus Per protocol; to be kb given as a bolus over 60 minutes 20:46 Drug: NS 0.9% IV (30 ml/kg) 30 ml/kg IV at bolus once; Sepsis Protocol; to be given as me1 a bolus over 90 minutes Route: IV; Rate: bolus; Site: right antecubital; 02/11 00:26 Follow up: Response: No adverse reaction; IV Status: Completed infusion; IV Intake: mt4 1564ml 02/10 20:47 Drug: Famotidine IVP 20 mg IVP once; dilute with 10 mL 0.9% NaCl; give over 2 minutes me1 Route: IVP; Site: right antecubital; 21:31 Follow up: Response: No adverse reaction me1 20:47 Drug: Ondansetron IVP 4 mg IVP once; over 2 minutes Route: IVP; Site: right antecubital;me1 21:31 Follow up: Response: No adverse reaction; Nausea is decreased me1 20:47 Drug: Ketorolac IVP 15 mg IVP once Route: IVP; Site: right antecubital; me1 21:31 Follow up: Pain 6/10 Adult; Response: No adverse reaction; Pain is decreased va1 02/11 00:25 Drug: Ondansetron IVP 4 mg IVP once; over 2 minutes Route: IVP; Site: right antecubital;mt4 01:53 Follow up: Response: No adverse reaction nh4 00:45 Drug: Potassium PO Effervescent Tablet 50 mEq PO once; dissolve in 4 ounces of water or mt4 juice Route: PO; 01:53 Follow up: Response: No adverse reaction mt4 00:50 Drug: Dicyclomine IM 20 mg IM once Route: IM; Site: right deltoid; mt4 01:52 Follow up: Response: No adverse reaction mt4 01:40 Drug: Dulcolax CT Suppository [address] once Route: CT; mt4 01:52 Follow up: Response: No adverse reaction mt4 Medication: 02/10 19:45 VIS not applicable for this client. me1 Intake: 02/11 00:26 IV: 1564ml; Total: 1564ml. mt4 Outcome: 01:29 Discharge ordered by . jacki 01:50 Discharged to home ambulatory, mt4 01:50 Condition: stable 01:50 Discharge instructions given to patient, significant other, Instructed on discharge instructions, follow up and referral plans. medication usage, Demonstrated understanding of instructions, follow-up care, medications, 01:50 Prescriptions given X 2, 01:52 Patient left the ED. mt4 Signatures: Dispatcher [employer] EDMS Dainelle Matamoros, XAVIER-C INTERIOR DESIGN FACULTY MEMBER-CkAny Cintron, MALIHA RN Jaren Hirsch Jennifer j6 Dary Lyons RN RN me1 Rodolfo Renee RN RN mt4 Xenia Avilez oh1 Corrections: (The following items were deleted from the chart) 02/10 19:23 19:21 BP 141 / 112; Pulse 133bpm; Resp 18bpm; Pulse Ox 100%; Temp 99.9F Temporal; Pain hb 8/10, Adult; hb 02/11 01:52 01:51 Verified mt4 mt4
--- NOTE | 2024-02-12 01:34 | RAD REPORT ---
PROCEDURE: CT Abdomen and Pelvis Without Intravenous Contrast CLINICAL INDICATION: The patient is 29 years old and is Female; ABD PAIN TECHNIQUE: Axial computed tomography images of the abdomen and pelvis without intravenous contrast. Sagittal a nd coronal reformatted images were created and reviewed. This CT exam was performed using one or more of the following dose reduction techniques: automated exposure control, adjustment of the mA a nd/or kV according to patient size, and/or use of iterative reconstruction technique. DLP: 354 mGy*cm COMPARISON: CT abdomen and pelvis dated 01/16/2024. FINDINGS: LUNG BASES: Unremarkable. No mass. No consolidation. ABDOMEN: LIVER: Unremarkable. GALLBLADDER AND BILE DUCTS: Unremarkable. No calcified stones. No ductal dilation. PANCREAS: Unremarkable. No ductal dilation. SPLEEN: Unremarkable. No splenomegaly. ADRENALS: Unremarkable. No mass. KIDNEYS AND URETERS: Unremarkable. No obstructing stones. No hydronephrosis. STOMACH AND BOWEL: Moderate to severe stool burden throughout the large bowel concerning for consti pation. No mucosal thickening. PELVIS: APPENDIX: The appendix is seen and is within normal limits. BLADDER: Bladder is decompressed. No stones. REPRODUCTIVE: Unremarkable as visualized. ABDOMEN and PELVIS: INTRAPERITONEAL SPACE: Unremarkable. No free air. No significant fluid collection. BONES/JOINTS: No acute fracture. No dislocation. SOFT TISSUES: Unremarkable. VASCULATURE: Unremarkable. No abdominal aortic aneurysm. LYMPH NODES: Unremarkable. No enlarged lymph nodes. IMPRESSION: Moderate to severe stool burden throughout the large bowel concerning for constipation. Electronically signed by: Michael Blanco DO 02/12/2024 01:20 AM [facility] 9 Due to temporary technical issues with the [employer] reporting system, reports are being iliana d by the in-house radiologist without review as a courtesy to ensure prompt reporting the interpreting radiologist is fully responsible for the content of the report. Transcribed Date/Time: 02/12/2024 1:34 AM
[2024-02-12] MEDS ORDERED: BISACODYL 10 MG RECTAL SUPP ONE (01:38)
[2024-02-12 02:05] VITALS: TEMP 9
[2024-02-12 02:08] VITALS: BP 137/106; O2SAT 96
--- NOTE | 2024-02-12 14:39 | EKG ---
Test Date: 2024-02-11 Test Time: 19:44:23 Web Coordinator: RYAN MEASUREMENT RESULTS: Intervals: Rate: 82 IA: 112 QRSD: 84 QT: 376 QTc: 439 [place]: P: 53 IA: 112 QRS: 81 T: 64 INTERPRETIVE STATEMENTS: Normal sinus rhythm Normal ECG Compared to ECG 01/16/2024 14:15:53 Sinus arrhythmia no longer present Prolonged QT interval no longer present Electronically Signed On 02-12-24 14:38:29 MEDICAID SERVICE COORDINATOR by Alberto Saenz
== END 2024-02-12 01:52 | disposition home or self-care (01) ==
LOC: ER 19:07
DX: R11.2 Nausea with vomiting, unspecified (principal); E87.6 Hypokalemia; K59.00 Constipation, unspecified; F17.210 Nicotine dependence, cigarettes, uncomplicated; Z88.0 Allergy status to penicillin; Z91.013 Allergy to seafood
CPT/HCPCS: 96365; 93005; 87040 ×2; 85025; 81001; 36415; 81025; 85610; 83605; 85730; 83690; 80053; 74176; 96375; 96372; 99285; 96366; J0500; J2405 ×2; J7030

== ENCOUNTER 2024-03-26 16:19 | Emergency (ER) | payer BC ==
--- OUTSIDE RECORDS SUMMARY | 2024-03-26 16:22 | XMS REPORT | Continuity of Care Document ---
Author Name Unknown Address [address] [facility] [address] [place] [address] [facility] thconnect Address [address] [facility] [address] [place] [address] Care Team Providers Care Marketing Communications Coordinator Name Role Phone No , Pcp Primary Care Physician UnavailSung Torres Attending Clinician Unavailable CHON WATT Attending Clinician UnavailDOMINGA George Attending Clinician Unavailable Keisha Manning MD Attending Clinicia n Halima Lizarraga DO Attending Clinician + Danita Akbar MD Attending Clinician [phone] Krish Terrell MD Attending Clinician [phone] Eldon Monzon MD Attending Clinician [phone] ELDON MNOZON Attending Clinician Unavailable CHRISTOPHER MART Attending Clinician Unavailable [email or web address]_Nolan Attending Clinician UnavailRosalva Fortune Attending Clinician UnavailBuster Doss MD Attending Clinician [phone] Achebe MD, Danita Admitting Clinician DANITA AKBAR Admitting Clinician Unavailable [email or web address]_S Admitting Clinician Unavaila ble KNOW, DOES_NOT Admitting Clinician Unavailable Payers Payer Name Policy Type Policy Number Effective Date Expirati on Date Source Blue Cross Blue Shield of [place] 6 [id number] 77 2023 00:00:00 [facility] [place] [id number] 2022 00:00:00 BCBS COMM [id number] 2022 00:00:00 [place] [id number] 77 2022 00:00:00 2023 00:00:00 Problems Condition [...] affecting Disease Active 2018-0 7-17 00:00: 00 [facility] Anemia of mother in , antepartum Anemia of mother in , antepartum Disease Active 7-06 00:00: 00 [facility] Sterilizat ion consult Sterilizat ion consult Disease Active 5-11 00:00: 00 [facility] Tobacco smoking affecting in second trimester Tobacco smoking affecting in second trimester Disease Active 05-31 00:00: 00 [facility] Medication exposure during first trimester of Medication exposure during first trimester of Disease Active 12 00:00: 00 [facility] Declines (vaginal after ) trial Declines (vaginal after ) trial Disease Active 05-31 00:00: 00 [facility] Previous delivery affecting , antepartum Previous delivery affecting , antepartum Disease Active 05-31 00:00: 00 [facility] Status post induction of labor Status post induction of labor Disease Active 08-20 00:00: 00 [facility] distress affecting management of mother, delivered distress affecting management of mother, delivered Disease Active 08-20 00:00: 00 [facility] Failed induction of labor, delivered Failed induction of labor, delivered Disease Active 08-20 00:00: 00 [facility] Fetopelvic disproport ion, delivered Fetopelvic disproport ion, delivered Disease Active 08-20 00:00: 00 Overview: ICD10 Diagnosis Term [employer] Utility [facility] Threatened premature labor, antepartum (644.03) Threatened premature labor, antepartum (644.03) Disease Active 18 00:00: 00 [facility] [id number] Mixed hyperlipid emia Problem [facility] [id number] Moderate episode of recurrent major depressive disorder Problem [facility] [id number] Constipati on, unspecifie d constipati on type Problem [facility] Allergies, Adverse Reactions, Alerts Allergy Name Allergy Type Status Severity Reaction(s) Onset Date Inactive Date Treating Clinician Comments Source Shellfis h-Derive d Products Drug Allergy Active Anaphylaxis 2023-02 0-06 00:00: 00 Nehal Clarke Epic Penicill ins Propensi ty to adverse reaction s Active Anaphylaxis 2023-02 0-05 00:00: 00 Nehal Clarke Epic Shellfis h-Derive d Products Allergy to substanc e Active Unknown 8-29 00:00: 00 [facility] Penicill ins DA Active SV ANAPHYLAXIS 2022-02 00:00: 00 [facility] shellfis h derived FA Active SV ANAPHYLAXIS 2022-02 00:00: 00 [facility] shellfis h derived FA Active SV ANAPHYLAXIS 2022-02 00:00: 00 [facility] Penicill ins DA Active SV ANAPHYLAXIS 2022-02 00:00: 00 [facility] Tegaderm Dressing Propensi ty to adverse reaction s Active Itching 09-11 00:00: 00 [facility] Penicill ins Propensi ty to adverse reaction s Active Anaphylaxis 08-20 00:00: 00 [facility] Penicill ins Allergy to substanc e Active Unknown 08-20 00:00: 00 [facility] PENICILL INS Allergy to substanc e Active Moderate severity Anaphylaxis [facility] SHELLFIS H DERIVED Allergy to substanc e Active Moderate severity Anaphylaxis [facility] Shellfis h (FN) Shellfis h (FN) Active Unknown [facility] [id number] Drug allergy Active Unknown [facility] Social History Social Habit Start Date Stop Date Quantity Comments Source History of tobacco use Cigarette Smoker [facility] Sexual orientation [facility] ASSERTION Not Nehal Isabel Gender identity Eric Isabel History of Social function 2023-11-26 00:00:00 2023-11-26 00:00:00 [facility] Tobacco use and exposure 2023-11-24 00:00:00 2023-11-24 00:00:00 Smokeless tobacco non-user [facility] Alcoholic beverage intake 2023-10-19 00:00:00 2023-10-19 00:00:00 Ex-drinker (finding) [facility] Cigarettes smoked current (pack per day) - Reported 2018-08-27 00:00:00 2018-08-27 00:00:00 [facility] Cigarette pack-years 2018-08-27 00:00:00 2018-08-27 00:00:00 [facility] Sex assigned at 1995 00:00:00 1995 00:00:00 [facility] Smoking Status Start Date Stop Date Source Heavy Tobacco Smoker [facility] Never Smoker [facility] Smokes tobacco daily 2023-10-18 00:00:00 [facility] Medications Ordered Medication Name Filled Medication Name Start Date Stop Date Current Medication? Ordering Clinician Indication Dosage Frequency Signature (SIG) Comments Components Source Omeprazole 40 MG Omeprazole 40 MG 2023-02 00:00: 00 No QD Omeprazole 40 MG LORazepam (Ativan) 0.5 MG tablet LORazepam (Ativan) [...] 2023-02 12:19: 24 12-01 12:18 :24 No [id number] 4mg Q.5D Deborah Isabel sucralfate (Carafate) suspension 1 g sucralfate (Carafate) suspension 1 g 2023-02 10:30: 00 Yes 1g Q.5D 1 g, Oral, 2 times daily, First dose on Sun11/27/23 at 1030 Nehal Isabel pantoprazol e (ProtoNix) 40 MG EC tablet pantoprazol e (ProtoNix) 40 MG EC tablet 2023-02 0-08 00:00: 00 12-26 23:59 :00 No 40mg Take 1 tablet by mouth in the morning. Take before meals. Do not crush, chew, or split. Nehal Isabel metroNIDAZO LE (Flagyl) 500 MG tablet metroNIDAZO LE (Flagyl) 500 MG tablet 2023-02 008 00:00: 00 11-30 23:59 :00 No 500mg [id number] 3D Take 1 tablet by mouth in the morning and 1 tablet at noon and 1 tablet in the evening. Do all this for 4 days. Nehal Isabel ciprofloxac in (Cipro) 500 MG tablet ciprofloxac in (Cipro) 500 MG tablet 2023-02 0-08 00:00: 00 11-30 23:59 :00 No 500mg [...] dextrose 5 % 50 mL IVPB 2023-02 0- 16:29: 33 11-29 16:28 :33 No 12.5mg [...] orally or via feeding tube >/= 14 [place], may dissolve each 20 mEq tablet in 4 oz of water. Allow about 2 minutes for the tablets to disintegra te. Stir before giving to prepare slurry and administer . Please exclude patient's with feeding tube less than 14 [place] (Dobhoff, J-tube, etc) and pediatric and patients Do not crush or chew. Nehal Isabel metroNIDAZO LE (Flagyl) IVPB 500 mg metroNIDAZO LE (Flagyl) IVPB 500 mg 2023-02 0-06 10:00: 00 12-01 09:59 :00 No 500mg Q8H 500 mg, Intravenou s, Administer over 30 Minutes, Every 8 hours, First dose on Sun11/25/23 at 1000, For 7 days, premix bag, Suspected Indication (Select all that apply): Intra-abdo antonio Infection Nehal Clarke Epic polyethylen e glycol (PEG) 3350 (Miralax) packet 17 g polyethylen e glycol (PEG) 3350 (Miralax) packet 17 g 2023-02 0-06 09:00: 00 Yes 17g QD Nehal Clarke Epic sodium chloride (PF) 0.9 [...] 07 Yes 2g Nehal Clarke Epic magnesium oxide (Mag-Ox) tablet 800 mg magnesium [...] mEq 2023-02 0-06 06:43: 07 Yes 40meq Memshaunna Clarke Epic potassium chloride CR (Klor-Con M20) ER tablet 20 mEq potassium chloride CR (Klor-Con M20) ER tablet 20 mEq 2023-02 0-06 06:43: 07 Yes 20meq Memshaunna pedro Clarke Epic traZODone (Desyrel) tablet 50 mg traZODone (Desyrel) tablet 50 mg 2023-02 0-06 06:43: 07 Yes 50mg QD 50 mg, Oral, Nightly PRN, sleep, Starting on 11/25/23 at 0643 Jessicashaunna pedro Clarke Epic diphenhydrA MINE (BENADryl) tablet 12.5 mg diphenhydrA MINE (BENADryl) tablet 12.5 mg 2023-02 0-06 06:43: 07 Yes 12.5mg Q6H Memshaunna pedro Clarke Epic bisacodyl (Dulcolax) suppository 10 mg bisacodyl (Dulcolax) suppository 10 mg 2023-02 0-06 06:43: 07 Yes 10mg Q24H Jessicashaunna pedro Clarke Epic glucagon injection 1 mg glucagon injection 1 mg 2023-02 0-06 06:43: 07 Yes 1mg Jessicashaunna pedro Clarke Epic dextrose 50 % solution 25 g dextrose 50 % solution 25 g 2023-02 0-06 06:43: 07 Yes 25g Nehal pedro Clarke Epic dextrose 50 % solution 12.5 g dextrose 50 % solution 12.5 g 2023-02 0-06 06:43: 07 Yes 12.5g Jessicashaunna pedro Clarke Epic naloxone (Narcan) injection 0.04 mg naloxone (Narcan) injection 0.04 mg 2023-02 0-06 06:43: 07 Yes .04mg Jessicashaunna pedro Clarke Epic acetaminoph en (Tylenol) tablet 650 mg acetaminoph en (Tylenol) tablet 650 mg 2023-02 0-06 06:43: 07 Yes 650mg Q6H Memshaunna pedro Clarke Epic sodium chloride (PF) 0.9 % injection 10 mL sodium chloride (PF) 0.9 % injection 10 mL 2023-02 0-06 06:43: 07 Yes 10mL Nehal Clarke Epic [...] s, Administer over 60 Minutes, Once, On 11/25/23 at 0135, For 1 dose, premix bag, Suspected Indication (Select all that apply): Intra-abdo antonio Infection Nehal Clarke Epic metroNIDAZO LE (Flagyl) IVPB 500 mg metroNIDAZO LE (Flagyl) IVPB 500 mg 2023-02 006 01:35: 00 11-24 02:38 :00 No 500mg [...] famotidine (PF) (Pepcid) injection 40 mg 2023-02 20:50: 00 11-23 21:11 :00 No 40mg 40 mg, Intravenou s, Administer over 2 Minutes, Once, On 11/24/23 at 2049, For 1 dose, Administer over at least 2 minutes Nehal Clarke Epic morphine injection 4 mg morphine injection 4 mg 2023-02 20:50: 00 11-23 21:09 :00 No 4mg 4 mg, Intravenou s, Once, On 11/24/23 at 2049, For 1 dose Nehal vasquez Vince Epic ondansetron (Zofran) injection 4 mg ondansetron (Zofran) injection 4 mg 2023-02 20:50: 00 11-23 21:08 :00 No 4mg 4 mg, Intravenou s, Once, On 11/24/23 at 2049, For 1 dose, Administer IVP. Neahl vasquez Vince Epic sodium chloride 0.9 % bolus 1,000 mL sodium chloride 0.9 % bolus 1,000 mL 2023-02 20:50: 00 11-23 23:27 :01 No 1000mL 1,000 mL, Intravenou s, at 1,000 mL/hr, Administer over 1 Hours, Once, On 11/24/23 at 2049, For 1 dose Nehal vasquez Vince Epic sodium chloride (PF) 0.9 % injection 10 mL sodium chloride (PF) 0.9 % injection 10 mL 2023-02 20:45: 40 Yes 10mL [Order 1 Start] Name: Insert peripheral IV Signed Summary: Once, On 11/24/23 at 2045, For 1 occurrence [Order 1 End] [Order 2 Start] Name: Saline lock IV Signed Summary: Once, On 11/24/23 at 2045, For 1 occurrence [Order 2 End] [Order 3 Start] Name: sodium chloride (PF) 0.9 % injection 10 mL Signed Summary: 10 mL, Intravenou s, As needed, line care, Starting on 11/24/23 at 2044 [Order 3 End] Nehal Isabel Rexulti 1 MG tablet 10-18 15:25: 42 Yes 1{tbl} QD Take 1 tablet by mouth 1 (one) time each day. [facility] sertraline (Zoloft) 100 MG tablet 10-18 15:25: 42 Yes 100mg QD Take 100 mg by mouth 1 (one) time each day. [facility] buPROPion XL (Wellbutrin XL) 150 MG 24 hr tablet 10-18 15:25: 42 Yes 150mg Take 150 mg by mouth every morning. [facility] gabapentin (Neurontin) 300 MG capsule 10-18 00:00: 00 11-18 04:59 :00 No [id number] 300mg Take 1 capsule (300 mg total) by mouth every night. [facility] Ondansetron HCl 4 MG Ondansetron HCl 4 MG 09-27 00:00: 00 No 1{table t} QD Ondansetro n HCl 4 MG eszopiclone (Lunesta) 2 MG tablet eszopiclone (Lunesta) 2 MG tablet 227 00:00: 00 Yes 2mg Take 2 mg by mouth at bedtime. Nehal Isabel topiramate 50 mg tablet 09-27 00:00: 00 Yes [id number] Take 100mg two times a day for 5 days, then take 150 mg in the am and 100 mg in the evening for 5 days, then take 150 mg two times a day there after. [facility] ZOLMitripta n 5 mg tablet 09-27 00:00: 00 Yes One tab at onset of headache, may repeat x one tab in 4 hours if headache persist. No more than two tabs in a 24 hour period [facility] Butalbital- Acetaminoph en-Caff (FIORICET) 50-300-40 mg per capsule 09-27 00:00: 00 Yes [id number] Use one every 6 hours as needed for head pain. [facility] Butalbital- Acetaminoph en-Caff (FIORICET) 50-300-40 mg per capsule 618 00:00: 00 09-27 00:00 :00 No [id number] Use one every 6 hours as needed for head pain. [facility] topiramate 50 mg tablet 06-21 00:00: 00 09-27 00:00 :00 No [id number] Use 2 in am, 1 in the evening for the headache. [facility] sumatriptan 100 mg tablet 06-21 00:00: 00 09-27 00:00 :00 No [id number] 100mg Take 1 tablet by mouth as needed for Migraine. Within 24 hours, may repeat times one in 2 hours as needed. [facility] VIT W-CA,FE,FA, <1 MG, ( #2 ORAL) 09-11 18:53: 24 Yes 1{tbl} Take 1 Tab by mouth. [facility] diphenhydrA MINE (BENADRYL ALLERGY) 25 mg tablet 09-11 18:53: 24 Yes 25mg Take 25 mg by mouth every 4 (four) hours as needed for Allergies. [facility] predniSONE 10 mg tablet 09-11 00:00: 00 Yes [id number] 10mg Take 1 tablet by mouth SEE-INSTRU CTIONS. [facility] naproxen 500 mg tablet 09-05 00:00: 00 Yes 500mg Take 1 tablet by mouth 2 (two) times daily with meals as needed for Pain (scale 1-3) or Pain (scale 4-6). [facility] vitamin w/FA tablet 09-05 00:00: 00 Yes 1{tbl} Take 1 tablet by mouth daily. [facility] docusate calcium 240 mg capsule 09-05 00:00: 00 Yes 240mg Take 1 capsule by mouth once daily as needed for Constipati on. [facility] ferrous sulfate 325 mg (65 mg iron) tablet 09-05 00:00: 00 Yes 325mg Take 1 tablet by mouth 2 (two) times daily. [facility] ferrous sulfate (IRON, FERROUS SULFATE,) 325 mg (65 mg iron) tablet 08-24 00:00: 00 Yes [id number] 325mg Take 1 tablet by mouth 2 (two) times daily with meals. [facility] Rexulti 0.5 MG Rexulti 0.5 MG No 1{table t} QD Rexulti 0.5 MG LORazepam LORazepam No LORazepam Sertraline HCl 50 MG Sertraline HCl 50 MG No 1{table t} QD Sertraline HCl 50 MG Ofloxacin 0.3 % Ofloxacin 0.3 % No Ofloxacin 0.3 % eszopiclone 3 mg tablet TAKE 1 TABLET BY MOUTH ONCE DAILY IMMEDIATLEY BEFORE BED eszopiclone 3 mg tablet TAKE 1 TABLET BY MOUTH ONCE DAILY IMMEDIATLEY BEFORE BED No eszopiclon e 3 mg tablet TAKE 1 TABLET BY MOUTH ONCE DAILY IMMEDIATLE Y BEFORE BED Roderickbannerrikki [facility] Vital Signs Vital Name Observation Time Observation Value Comments S melecioce height 2024-02-19 13:00:00 61 [in_i] [facility] weight 2024-02-19 13:00:00 120.4 [lb_av] Co mmon [facility] temperature 2024-02-19 13:00:00 97.3 [degF] Com mon [facility] bmi 2024-02-19 13:00:00 22.75 kg/m2 Comm on [facility] oximetry 2024-02-19 13:00:00 97 % [facility] blood pressure systolic 2024-02-19 13:00:00 98 mm[Hg] [facility] blood pressure diastolic 2024-02-19 13:00:00 62 mm[Hg] [facility] Heart rate 2023-11-27 12:20:42 55 /min [facility] Respiratory rate 2023-11-27 12:20:42 18 /min [facility] Oxygen saturation in Arterial blood by Pulse oximetry 2023-11-27 12:20:42 98 /min [facility] Systolic blood pressure 2023-11-27 12:20:34 99 mm[Hg[facility] Diastolic blood pressure 2023-11-27 12:20:34 60 mm[Hg] [facility] Body temperature 2023-11-27 12:19:33 36.72 Nuvia [facility] Body height 2023-11-26 13:35:00 154.9 cm [facility]ilyn [facility] Body weight 2023-11-26 13:35:00 50.803 kg [facility] [place] BMI 2023-11-26 13:35:00 21.16 kg/m2 [facility] [place] Heart rate 2023-11-27 12:20:42 55 /min [facility] antonio [facility] Respiratory rate 2023-11-27 12:20:42 18 /min [facility] Oxygen saturation in Arterial blood by Pulse oximetry 2023-11-27 12:20:42 98 /min [facility] Systolic blood pressure 2023-11-27 12:20:34 99 mm[Hg] [facility] Diastolic blood pressure 2023-11-27 12:20:34 60 mm[Hg] [facility] Body temperature 2023-11-27 12:19:33 36.72 [facility] Body height 2023-11-26 13:35:00 154.9 cm Ericjerilyn mcqueen [facility] Body weight 2023-11-26 13:35:00 50.803 kg Ericjerilyn mcqueen [facility] BMI 2023-11-26 13:35:00 21.16 kg/m2 Ericjerilyn mcqueen [facility] Systolic blood pressure 2023-10-19 20:26:00 96 mm[Hg] [facility] Diastolic blood pressure 2023-10-19 20:26:00 67 mm[Hg] [facility] Heart rate 2023-10-19 20:26:00 72 /min [facility] height 2023-10-19 20:26:00 154.9 cm [facility] weight 2023-10-19 20:26:00 [facility].256 [facility] BMI 2023-10-19 20:26:00 21.35 [facility] 2023-09-28 13:20:00 61 [in_i] [facility] weight 2023-09-28 13:20:00 109.8 [lb_av] [facility] temperature 2023-09-28 13:20:00 97.3 [degF] Com mon [facility] bmi 2023-09-28 13:20:00 20.74 kg/m2 Comm [facility] oximetry 2023-09-28 13:20:00 97 % [facility] respiratory rate 2023-09-28 13:20:00 16 /min [facility] blood pressure systolic 2023-09-28 13:20:00 101 mm[Hg] [facility] blood pressure diastolic 2023-09-28 13:20:00 68 mm[Hg] [facility] BP Diastolic 2023-08-16 00:00:00 71 mm[Hg] [facility] BP Systolic 2023-08-16 00:00:00 102 mm[Hg] [facility] Height 2023-08-16 00:00:00 61 [in_i] [facility] Body Weight 2023-08-16 00:00:00 107 [lb_av] [facility] BMI (Body Mass Index) 2023-08-16 00:00:00 20.2 kg/m2 [facility] height 2023-06-28 14:40:00 61 [in_i] Commo n [facility] weight 2023-06-28 14:40:00 109.8 [lb_av] Co mmon [facility] temperature 2023-06-28 14:40:00 97.3 [degF] Com mon [facility] bmi 2023-06-28 14:40:00 20.74 kg/m2 Comm on [facility] oximetry 2023-06-28 14:40:00 85 % Commo [facility] blood pressure systolic 2023-06-28 14:40:00 99 mm[Hg] [facility] blood pressure diastolic 2023-06-28 14:40:00 62 mm[Hg] [facility] Procedures Procedure Date / Time Performed Performing Clinician Source POC GLUCOSE UNSOLICITED RESULTS 2023-11-27 06:09:00 Joanne Eldon [facility] POC GLUCOSE UNSOLICITED RESULTS 2023-11-26 19:46:00 Joanne [facility] C DIFFICILE DNA WITH REFLEX TO TOXIN IF INDICATED 2023-11-26 18:22:00 Joanne [facility] ENTERIC PATHOGENS WITH CULTURE IF INDICATED 2023-11-26 18:22:00 Joanne [facility] POC GLUCOSE UNSOLICITED RESULTS 2023-11-26 17:12:00 Joanne [facility] EGD 2023-11-26 16:42:00 Clara Barnett [facility] POC GLUCOSE UNSOLICITED RESULTS 2023-11-26 06:29:00 Joanne [facility] BASIC METABOLIC PANEL 2023-11-26 03:22:00 Sotero Akbar ma [facility] MAGNESIUM LEVEL 2023-11-26 03:22:00 Eldon Monzon Eric [facility] PHOSPHORUS LEVEL 2023-11-26 03:22:00 Eldon Monzon Mem orial [facility] COMPLETE BLOOD COUNT W/DIFF AND PLATELET 2023-11-26 03:22:00 Danita Akbar [facility] CALCIUM LEVEL IONIZED WHOLE BLOOD 2023-11-26 03:22:00 Joanne Eldon [facility] COMPLETE BLOOD COUNT 2023-11-26 03:22:00 Stacey Akbar [facility] AUTOMATED DIFFERENTIAL 2023-11-26 03:22:00 Luisa Akbar [facility] Fecal Leukocytes 2023-11-26 00:00:00 Eric rial [facility] POC GLUCOSE UNSOLICITED RESULTS 2023-11-25 17:29:00 Eldon Monzon [facility] POC GLUCOSE UNSOLICITED RESULTS 2023-11-25 11:22:00 Joanne Eldon [facility] POC GLUCOSE UNSOLICITED RESULTS 2023-11-25 07:26:00 Joanne Eldon [facility] ECG 12-LEAD 2023-11-25 03:51:13 Danita Akbar [facility] Epic UA WITH CULTURE IF INDICATED 2023-11-25 00:47:00 GabiMarysen [facility] CT ABDOMEN PELVIS W IV CONTRAST 2023-11-25 00:46:11 GabiMarysen [facility] ECG 12 lead 2023-11-25 00:00:00 [facility] BASIC METABOLIC PANEL 2023-11-24 21:02:00 GabiElissan [facility] HEPATIC FUNCTION PANEL 2023-11-24 21:02:00 GabiHaleyn [facility] LIPASE LEVEL 2023-11-24 21:02:00 GabiMarysen [facility] HCG TOTAL (QUANTITATIVE) 2023-11-24 21:02:00 Maryse Ashley Mary [facility] COMPLETE BLOOD COUNT W/DIFF AND PLATELET 2023-11-24 21:02:00 GabiMarysen [facility] COMPLETE BLOOD COUNT 2023-11-24 21:02:00 Gabi James florian Mary [facility] AUTOMATED DIFFERENTIAL 2023-11-24 21:02:00 Gabi Haley timmy Pearsonn [facility] Delivery 2017-09-04 00:00:00 [facility] Tubal Ligation 2017-09-04 [facility]:00[facility] Delivery 2014-08-20 00:00:00 [facility] POCT Glucose [facility] Tissue Examination [facility] Encounters Start Date/Time End Date/Time Encounter Type Admission Type Attending [facility] Care Department Encounter ID Source 2024-02-25 11:14:01 Outpatient Sung Garcia [facility] [id number] [facility] 2024-02-19 07:38:00 Outpatient Sung Garcia [facility] [id number] [facility] 2024-01-04 10:37:01 Outpatient Sung Garcia [facility] [id number] [facility] 2023-09-26 08:07:00 Outpatient Sung Garcia [facility] [id number] [facility] 2023-09-26 07:30:00 Inpatient [facility] [id number] [facility] 2023-09-17 11:40:00 Outpatient [facility] [id number] [facility] 2023-06-26 08:49:01 [facility]patient [facility] [id number] [facility] 2023-05-29 13:25:00 Outpatient Sung Garcia [facility] STLC [id number] [facility] 2024-02-19 00:00:00 2024-02-19 00:00:00 OFFICE VISIT ESTAB PT LEVEL [id number] [facility] 2024-02-15 00:00:00 2024-02-15 00:00:00 (TEL) STLMLC STLMLC [id number] [facility] 2024-02-05 00:00:00 2024-02-05 00:00:00 (TEL) STLMLC STLMLC [id number] [facility] 2024-01-22 00:00:00 2024-01-22 00:00:00 (TEL) STLMLC STLMLC [id number] [facility] 2023-12-12 00:00:00 2023-12-12 00:00:00 (TEL) STLMLC STLMLC [id number] [facility] 2023-12-07 15:45:00 2023-12-07 15:45:00 Outpatient LANADOMINGA BAUTISTA [facility] [id number] [facility] 2023-11-24 20:26:00 2023-11-27 14:26:00 Emergency Adam aguilera, Keisha Lizarraga, Halima Akbar, Danita Terrell, Krish Monzon, [facility] [id number] Nehal vasquez [facility] 2023-11-24 20:26:00 2023-11-27 14:26:00 Emergency Urgent ELDON MONZON [facility] General Medicine [id number] [facility] 2023-10-19 16:00:00 2023-10-19 16:00:00 Office Visit Dominga Caraballo [facility] AND WOMENS [id number] [facility] 2023-10-18 14:00:00 2023-10-18 14:00:00 Outpatient MERARICARDO CHRISTOPHER [facility] [id number] [facility] 2023-09-28 00:00:00 2023-09-28 00:00:00 (ESTPT) Susan yo PT Women [facility] [id number] [facility] 2023-09-17 00:00:00 2023-09-17 00:00:00 OFFICE VISIT ESTAB PT LEVEL [id number] [facility] 2023-08-16 00:00:00 2023-08-16 00:00:00 Chon Watt MD: [address] [place] [address], [address], [place] [address] , Ph. [phone] [facility] [phone] 0627 [facility] 2023-06-28 00:00:00 2023-06-28 00:00:00 OFFICE VISIT ESTAB PT LEVEL [id number] [facility] 2023-03-22 00:00:00 2023-03-22 00:00:00 Outpatient GC_GCBZW_Ka diyala_S PRIV PRIV [id number] [facility] 2023-02-22 00:00:00 2023-02-22 00:00:00 Outpatient GC_GCBZW_Ka diyala_S PRIV PRIV [id number] [facility] 2023-01-25 00:00:00 2023-01-25 00:00:00 Outpatient GC_GCBZW_Ka diyala_S PRIV PRIV [id number] [facility] 2023-01-04 00:00:00 2023-01-04 00:00:00 Outpatient GC_GCBZW_Ka diyala_S PRIV PRIV [id number] [facility] 2023-01-01 13:09:00 2023-01-01 13:09:00 Outpatient Rosalva Christina [facility] [id number] [facility] 2022-12-28 00:00:00 2022-12-28 00:00:00 Outpatient GC_GCBZW_Ka diyala_S PRIV PRIV [id number] [facility] 2022-11-30 00:00:00 2022-11-30 00:00:00 Outpatient GC_GCBZW_Ka diyala_S PRIV PRIV [id number] [facility] 2022-11-30 00:00:00 2022-11-30 00:00:00 Outpatient GC_GCBZW_Ka diyala_S PRIV PRIV [id number] [facility] 2022-11-30 00:00:00 2022-11-30 00:00:00 Outpatient GC_GCBZW_Ka diyala_S PRIV PRIV [id number] [facility] 2022-11-30 00:00:00 2022-11-30 00:00:00 Outpatient GC_GCBZW_Ka diyala_S PRIV PRIV [id number] [facility] 2022-10-17 00:00:00 2022-10-17 00:00:00 Outpatient GC_GCBZW_Ka diyala_S PRIV PRIV [id number] [facility] 2022-10-17 00:00:00 2022-10-17 00:00:00 Outpatient GC_GCBZW_Ka diyala_S PRIV PRIV [id number] [facility] 2022-10-17 00:00:00 2022-10-17 00:00:00 Outpatient GC_GCBZW_Ka diyala_S PRIV PRIV [id number] [facility] 2022-10-17 00:00:00 2022-10-17 00:00:00 Outpatient GC_GCBZW_Ka diyala_S PRIV PRIV [id number] [facility] 2022-10-02 00:00:00 2022-10-02 00:00:00 Outpatient GC_GCBZW_Ka diyala_S PRIV PRIV [id number] [facility] 2022-10-02 00:00:00 2022-10-02 00:00:00 Outpatient GC_GCBZW_Ka diyala_S PRIV PRIV [id number] [facility] 2022-10-01 00:00:00 2022-10-01 00:00:00 Outpatient GC_GCBZW_Ka diyala_S PRIV PRIV [id number] [facility] 2018-09-26 00:00:00 2018-09-26 00:00:00 Telephone Buster Thorpe [facility] [id number] [facility] Results Test Description Test Time Test Comments Results Result Co mments Source [facility] [id number] 20:02:31* Test Item Value Reference Range Interpretation Comme nts POC Glu (test code = 8284317554) 81 mg/dL 70-99 POC Glu Comment 1 (test code = 5421522160) Notified RN/MD POC Performing Location (hood t code = 8561016014) [facility] [id number] 17:15:05* Test Item Value Reference Range Interpretation Comme nts POC Glu (test code = 8078223197) 79 mg/dL 70-99 POC Performing Location (hood t code = 0912606283) [facility] [id number] 06:40:28* Test Item Value Reference Range Interpretation Comme nts POC Glu (test code = 3301550412) 74 mg/dL 70-99 POC Performing Location (hood t code = 0317775819) [facility] [id number] 17:36:07* Test Item Value Reference Range Interpretation Comme nts POC Glu (test code = 2204980264) 93 mg/dL 70-99 POC Glu Comment 1 (test code = 0034229096) Notified RN/MD POC Performing Location (hood t code = 7649788900) [facility] [id number] 16:26:29* Test Item Value Reference Range Interpretation Comme nts Ventricular Rate (test code = 3864657749) BPM Atrial Rate (test code = 8375168559) BPM MS Interval (test code = 3880141042) 108 ms QRS Duration (test code = 1955857735) 90 ms QT/QTc (test code = 8379271592) 498 ms QTc Calculation (test code = 9436768614) 454 ms P-[place] (test code = 8918623461) degrees R-[place] (test code = 8484982922) degrees T-[place] (test code = 5975459316) degrees GEORGI (test code = GEORGI) PXN (test code = PXN) [facility] [id number] 11:38:14* Test Item Value Reference Range Interpretation Comme nts POC Glu (test code = 9890367540) 85 mg/dL 70-99 POC Performing Location (hood t code = 1092300718) [facility] Jwqifhm9244-72-77 07:36:31* Test Item Value Reference Range Interpretation Comme nts POC Glu (test code = 1460683196) 86 mg/dL 70-99 POC Performing Location (hood t code = 0552676017) [facility], [id number] 14:54:19* Test Item Value Reference Range Interpretation Comme nts Test (test code = Test) negative [facility] - [id number] 14:54:06* Test Item Value Reference Range Interpretation Comme nts Leukocytes (test code = Leukocytes) Negative Nitrite (test code = Nitrite) negative Urobilinogen (test code = Urobilinogen) .2 Protein (test code = Protein) Negative pH (test code = pH) 5.5 Blood (test code = Blood) Negative Specific [place] (test code = Specific [place]) 1.020 Ketone (test code = Ketone) Negative Bilirubin (test code = Bilirubin) Negative Glucose (test code = Glucose) Negative Appearance (test code = Appearance) Clear Color (test code = Color) Yellow [facility] 15:31:00* Test Item Value Reference Range Interpretation Comme nts SURGICAL (test code = SR) RUN DATE: 01/03/23 [facility] PAGE 1 RUN TIME: 1532 Specimen Inquiry RUN USER: INTERFACE PATIENT: ALFRED TORRES LOC: TIA U #: [id number] AGE/SX: 27/F ROOM: RE01/01/23REG DR: Rosalva Estes MD : 94 BED: DIS: STATUS: [facility] TLOC: SPEC #: [id number] RECD: 01/01/23 STATUS: NICOLÁS LIZAMA #: [id number] JOSSY: 01/01/[address] [facility] [address]: Rosalva Estes MD ENTERED: 01/01/23 SP TYPE: SURGICAL OTHR DR: ORDERED: [id number], ANATOMIC SPEC, SPECIMEN TRACK PROCEDURES: 93813 (01/03/23) SPECIMEN TRACK (01/01/23) TISSUES: A. FALLOPIAN [...] tissue processing and slide preparation performed at [employer],[place] [address] [place] [address] MICROSCOPIC DESCRIPTION Microscopic examination is performed and the findings are incorporated into the finaldiagnosis. Please see diagnosis for findings. - Signed SIGNATURE ON FILE Marj Stark 01/03/23 1531 END OF REPORT HCG SERUM [id number] 15:51:00* Test Item Value Reference Range Interpretation Comme nts HCG SERUM QUAL (test code = HCGQL) SERUM NEGATIVE SCREEN NEGATIVE CBC W/AUTO [id number] 22:53:00* Test Item Value Reference Range Interpretation [...] NRBC#) 0.0 K/mm3 0.0-0.1 N BASIC METABOLIC [id number] 14:09:00* Test Item Value Reference Range Interpretation [...] = CA) 8.9 MG/DL 8.5-10.1 N PROTHROMBIN [id number] 13:44:00* Test Item Value Reference Range Interpretation [...] prevent recurrent infarct). Comment: PRE PROCEDURETHROMBOPLASTIN TIME [id number] 13:44:00* Test Item Value Reference Range Interpretation Comme nts THROMBOPLASTIN TIME PARTIAL (test code = PTT) 31.3 SECONDS 26-35 N Comment: PRE PROCEDUREURINALYSIS [id number] 13:24:00* Test Item Value Reference Range Interpretation [...] A Urine Specimen Type: Clean CatchUR HCG [id number] 13:24:00* Test Item Value Reference Range Interpretation Comme nts UR HCG QUAL (test code = HCGQLU) NEGATIVE NEGATIVE Urine Specimen Type: Clean Catch Consult Notes Date/Time Note Provider Source 2023-11-26 12:52:38 Associated Order(s): IP CONSULT TO GASTROENTEROLOGY Gastroenterology Consult Chief Complaint: abdominal pain Referring Physician: Dr. Eldon Monzon Reason for Consult: intractable nausea and vomiting HPI Alfred Torres is 28 y.o. female who presents [...] patient was seen by Dr. Herbert in [place]. She reports having an upper endoscopy done [...] Patient seen and examined with the physician speech language pathologist assistant, and confirmed the essential components of history, physical examination, diagnosis and treatment plan. I agree with the patient's care and plan as documented by the physician speech language pathologist assistant. Gastroenterology Physician Lindsay Clarke History and Physical Notes Date/Time Note Provider Source 2023-11-24 19:32:00 History Of Present Illness 28-year-old female with history of peptic ulcer disease presenting with complaints of lower abdominal pain/cramps since 11/20. She reports associated nausea, vomiting and diarrhea. She was admitted at [facility] on 11/21, diagnosed with colitis and started on Levaquin/Flagyl. She continued to have pain and went back to [place] ER where she was given analgesics and [...] Procedure Abnormality Status --------- ------ Complete Blood Count[[id number]] Normal Final result Automated Differential[[id number]] Abnormal Final result Please view results for [...] NPO Diet NPO except: Sips with meds [facility]
[2024-03-26] MEDS ORDERED: NA CHLORIDE 0.9% 1,000 ML ONE (16:53)
[2024-03-26] MEDS ORDERED: ONDANSETRON 4 MG/2 ML VIAL ONE (16:53)
[2024-03-26] MEDS ORDERED: KETOROLAC 30 MG/ML INJ ONE (16:53)
[2024-03-26] MEDS ORDERED: DICYCLOMINE HCL 20 MG/2 ML AMP IM ONE (17:10)
[2024-03-26 17:11] LABS: Absolute Lymphocytes (CBC) 0.7 K/uL (0.7-4.9); Absolute Monocytes 0.4 K/uL (0.1-1.3); Absolute Neutrophil 11.2 K/uL (1.8-8.0); Basophils % 0.3 % (0-1.3); Hematocrit 42.1 % (36.0-45.0); Hemoglobin 14.4 g/dL (12.0-15.0); Lymphocytes % 5.6 % (15.3-44.8); MCH 30.4 pg (27.0-35.0); MCHC 34.1 g/dL (32.0-36.0); MCV 89.3 fL (80-100); MPV 8.7 fL (7.6-11.3); Monocytes % 3.1 % (3.3-12.3); Platelets 374 thou/uL (152-406); RBC Red Blood Cell Count 4.72 M/uL (3.86-4.86); Red Cell Distribution Width 16.2 % (12.1-15.2)
[2024-03-26] MEDS ORDERED: FAMOTIDINE 20 MG/2 ML VIAL IV ONE (17:11)
[2024-03-26 17:22] LABS: Albumin 4.3 g/dL (3.4-5.0); Anion Gap 13.7 mEq/L (5.0-15.0); Bilirubin Total 0.7 mg/dL (0.2-1.0); Globulin 4.4 g/dL (2.3-3.5); Potassium 3.7 mEq/L (3.5-5.1); Protein, Total 8.7 g/dL (6.4-8.2)
[2024-03-26 17:28] LABS: SARS-CoV-2 Antigen CONTROL BLUE LINE VIS/BG OK; SARS-CoV-2 Antigen Rapid Res Negative (Negative)
[2024-03-26] MEDS ORDERED: droPERidol 5 MG/2 ML VIAL ONE (18:08)
[2024-03-26 18:59] LABS: Band Neutrophils 4 % (0-1); Differential Total Cells Count 100; Lymphocytes 6 % (15-42); Monocytes 3 % (0-10); Reactive Lymphocytes 2 %; Segmented Neutrophils 85 % (40-80)
[2024-03-26 19:00] LABS: Blood Morphology Comment NOT SEEN (NOT SEEN); Platelet Estimate ADEQ
[2024-03-26 19:31] LABS: Specific Gravity > 1.030 (1.005-1.030); Sqamous Epithelial <5 /HPF (None Seen); Urine Bacteria None Seen /HPF (<20); Urine Bilirubin NEGATIVE (Negative); Urine Blood Negative (Negative); Urine Clarity Turbid (Clear); Urine Color Yellow (Yellow); Urine Crystals Unidentified Few /HPF (None Seen); Urine Culture Reflex Order NOT NEEDED; Urine Glucose NEGATIVE (Negative); Urine Ketones 4+ (Over) (Negative); Urine Microscopic Reflex YN ORDER UMIC; Urine Mucus 1+ /HPF (None Seen); Urine Nitrite NEGATIVE (Negative); Urine Protein 2+ (Negative); Urine RBC <5 /HPF (None Seen); Urine Urobilinogen 1+ (Normal); Urine WBC <5 /HPF (<5); Urine pH 6.5 (5.0-7.0)
--- NOTE | 2024-03-26 21:23 | RAD REPORT ---
EXAMINATION: CT Abdomen Pelvis Wo Contrast CLINICAL INDICATION: Female, 29 years old. ABD PAIN TECHNIQUE: CT abdomen and pelvis was performed, without IV contrast, as per department protocol. Axia l, sagittal and coronal reconstructions were obtained. One or more of the following dose reduction techniques were used: Automated exposure control, adjustment of the mA and kV according to the patien t size, and iterative reconstruction. Unless otherwise specified, incidental findings do not require dedicated imaging follow-up. COMPARISON: No prior exam. FINDINGS: The lack of intravenous contrast limits the sensitivity of this exam for evaluation of solid visceral organs, vascular structures, and retroperitoneum. LOWER CHEST: The visualized lung bases are clear. LIVER: Normal in size and contour. No focal lesion. BILIARY SYSTEM: Mild layering gallbladder sludge. No other suspicious abnormalities. SPLEEN: Normal size. No focal lesion. PANCREAS: No mass, ductal dilation, or hood-pancreatic fluid. ADRENALS: Normal; no mass. KIDNEYS AND URETERS: Normal size and contour. No hydronephrosis. URINARY BLADDER: Normal contour. GASTROINTESTINAL TRACT: No evidence of bowel obstruction, significant free fluid, free air or abscess . APPENDIX: Normal appendix. LYMPH NODES: No lymphadenopathy. MUSCULOSKELETAL: No acute or suspicious osseous abnormality. ADDITIONAL FINDINGS: None. IMPRESSION: No acute or concerning abnormalities in the abdomen or pelvis, with evaluation limited by lack of IV contrast.
--- NOTE | 2024-03-26 21:30 | ER ---
Nurse's Notes [facility] Name: Alfred Steele Age: 29 yrs Sex: Female : 1995 Arrival Date: 03/26/2024 Time: 16:19 Bed 9 Private MD: Diagnosis: Nausea with vomiting, unspecified;Diarrhea, unspecified;Abdominal pain, Generalized;Dehydration Presentation: 03/26 16:44 Chief complaint: Patient states: Nausea, vomiting, fever, abdominal pain onset last cm10 night. Coronavirus screen: Client denies travel out of the [place] in the last 14 days. Ebola Screen: Patient denies travel to an Ebola-affected area in the 21 days before illness onset. Initial Sepsis Screen: Does the patient meet any 2 criteria? RR > 20 per min. Does the patient have a suspected source of infection? No. Patient's initial sepsis screen is negative. Risk Assessment: Do you want to hurt yourself or someone else? Patient reports no desire to harm self or others. Onset of symptoms was March 26, 2024. 16:44 Method Of Arrival: Ambulatory cm10 16:44 Acuity: GAURANG 3 cm10 Triage Assessment: 16:45 General: Appears uncomfortable, Behavior is crying. Pain: Complains of pain in abdomen cm10 Pain currently is 8 out of 10 on a pain scale. Neuro: No deficits noted. Level of Consciousness is awake, alert, obeys commands, Oriented to person, place, time, situation, Appropriate for age. Respiratory: No deficits noted. Airway is patent Respiratory effort is even, unlabored, Respiratory pattern is regular, symmetrical. Historical: - Allergies: 16:30 PENICILLINS; kb 16:30 SHELLFISH; kb - PMHx: 16:30 Anxiety; gastric ulcers; kb - PSHx: 16:30 section; breast; abdominal surgery; kb - Immunization history:: Adult Immunizations unknown. - Infectious Disease History:: Denies. - Social history:: Smoking status: unknown. Screenin:06 [facility] ED Fall Risk Assessment (Adult) History of falling in the last 3 months, iw including since admission No falls in past 3 months (0 pts) Confusion or Disorientation No (0 pts) Intoxicated or Sedated No (0 pts) Impaired Gait No (0 pts) Mobility Assist Device Used No (0 pt) Altered Elimination No (0 pt) Score/Fall Risk Level 0 - 2 = Low Risk Oriented to surroundings, Maintained a safe environment. Abuse screen: Denies threats or abuse. Denies injuries from another. Nutritional screening: Has had N/V for 3 or more days. Tuberculosis screening: No symptoms or risk factors identified. Assessment: 17:15 General: Appears uncomfortable, ill, Behavior is cooperative. Pain: Complains of pain iw in abdomen. Neuro: Level of Consciousness is awake, alert, obeys commands, Oriented to person, place, time, situation, Moves all extremities. Full function. Cardiovascular: Patient's skin is warm and dry. GI: Abdomen is non-distended, Reports lower abdominal pain, upper abdominal pain, nausea, vomiting. Derm: Skin is intact, is healthy with good turgor. Musculoskeletal: Range of motion: intact in all extremities. 18:06 Reassessment: Patient states symptoms have not improved. iw 21:39 Reassessment: Patient appears in no apparent distress at this time. No changes from lg3 previously documented assessment. Patient and/or family updated on plan of care and expected duration. Pain level reassessed. Patient is alert, oriented x 3, equal unlabored respirations, skin warm/dry/pink. Vital Signs: 16:30 BP 125 / 96; Pulse 77; Resp 22; Temp 97.6; Pulse Ox 100% ; Weight 52.16 kg; Height 5 kb ft. 1 in. ; 16:44 Pain 8/10; cm10 18:05 BP 113 / 79; Pulse 75; Resp 18; Temp 98.4(O); Pulse Ox 96% on R/A; iw 21:49 BP 107 / 77; Pulse 71; Resp 17 S; Temp 97.8(O); Pulse Ox 98% on R/A; lg3 16:30 Body Mass Index 21.73 (52.16 kg, 154.94 cm) kb 16:44 Pain Scale: Adult cm10 ED Course: 16:22 Patient arrived in ED. al6 16:22 Danielle Matamoros FNP-C is [facility]. kb 16:22 Landen Mejia MD is Attending Physician. kb 16:44 Triage completed. cm10 16:44 Arm band placed on right wrist. Patient placed in waiting room. cm10 16:55 SARS-COV-2 Antigen Rapid Sent. bc6 16:55 Flu Sent. bc6 16:55 CBC with Diff Sent. bc6 16:55 CMP Sent. bc6 16:55 Lipase Sent. bc6 16:55 Initial lab(s) drawn, by me, sent to lab. COVID swab sent to lab. Flu and/or RSV swab bc6 sent to lab. Inserted saline lock: 20 gauge in left antecubital area, using aseptic technique. Blood collected. Flushed with 10 mL NS. 17:02 Ruth Bell, RN is Primary Nurse. iw 17:10 Patient has correct armband on for positive identification. Provided Education on: . iw 18:06 Radiology exam delayed due to test not completed at this time. nj 19:28 Primary Nurse role handed off by Ruth Bell RN rv1 20:49 CT Abd/Pelvis - Without Contrast In Process Unspecified. EDMS 21:49 No provider procedures requiring assistance completed. IV discontinued, intact, lg3 bleeding controlled, No redness/swelling at site. Pressure dressing applied. Administered Medications: 17:02 Drug: TORadol - Ketorolac IVP 15 mg IVP once Route: IVP; Site: left antecubital; iw 21:41 Follow up: Response: No adverse reaction lg3 17:02 Drug: Ondansetron IVP 4 mg IVP once; over 2 minutes Route: IVP; Site: left antecubital; iw 21:41 Follow up: Response: No adverse reaction; Marked relief of symptoms lg3 17:02 Drug: NS 0.9% IV 1000 ml IV at 1 bolus Per protocol; to be given as a bolus over 60 iw minutes Route: IV; Rate: 1 bolus; Site: left antecubital; 21:40 Follow up: Response: No adverse reaction; IV Status: Completed infusion; IV Intake: lg3 1000ml 17:17 Drug: Famotidine IVP 20 mg IVP once; dilute with 10 mL 0.9% NaCl; give over 2 minutes iw Route: IVP; Site: left antecubital; 21:39 Follow up: Response: No adverse reaction lg3 17:17 Drug: Dicyclomine IM 20 mg IM once Route: IM; Site: right ventrogluteal; iw 21:39 Follow up: Response: No adverse reaction lg3 18:15 Drug: Droperidol IVP 1.25 mg IVP once Route: IVP; Site: left antecubital; iw 21:39 Follow up: Response: No adverse reaction; Marked relief of symptoms lg3 Medication: 21:49 VIS not applicable for this client. lg3 Intake: 21:40 IV: 1000ml; Total: 1000ml. lg3 Outcome: 21:30 Discharge ordered by MD. echeverria 21:49 Discharged to home lg3 21:49 Condition: stable 21:49 Discharge instructions given to patient, Instructed on discharge instructions, follow up and referral plans. medication usage, Demonstrated understanding of instructions, follow-up care, medications, Prescriptions given X 2, 21:52 Patient left the ED. lg3 Signatures: Dispatcher [employer] EDMS Danielle Matamoros, BULL FIDDLE PLAYER-C BULL FIDDLE PLAYER-Ckb Ruth Bell, RN RN iw Jaren Hirsch Lacie RN RN lg3 Caroline Santana rv1 Laney Sr Clarissa, RN RN cm10 Iris Saldivar al6 Corrections: (The following items were deleted from the chart) 20:07 18:05 BP 113 / 79; Pulse 75bpm; Resp 18bpm; Pulse Ox 96% RA; iw iw
--- NOTE | 2024-03-26 21:30 | EDPHYS ---
Physician Documentation [facility] Name: Alfred Steele Age: 29 yrs Sex: Female : 1995 Arrival Date: 03/26/2024 Time: 16:19 Bed 9 Private MD: AURELIO Physician Landen Mejia HPI: 03/26 16:27 This 29 yrs old Female presents to ER via Unassigned with complaints of Vomiting, kb Fever, Abdominal Pain. 16:27 Pt is a 29 year old female who presents for nausea, vomiting, diarrhea, abd pain, fever kb and bodyaches that started last night. Unable to tolerate anything by mouth today. Reports decreased urination. . Historical: - Allergies: 16:30 PENICILLINS; kb 16:30 SHELLFISH; kb - PMHx: 16:30 Anxiety; gastric ulcers; kb - PSHx: 16:30 section; breast; abdominal surgery; kb - Immunization history:: Adult Immunizations unknown. - Infectious Disease History:: Denies. - Social history:: Smoking status: unknown. ROS: 16:27 Constitutional: As per HPI kb Exam: 16:27 Head/Face: Normocephalic, atraumatic. ENT: Moist Mucous membranes Cardiovascular: kb Regular rate Respiratory: Respirations even and unlabored. No increased work of breathing. Talking in full sentences Abdomen/GI: Soft, non-tender. No distention Skin: Warm, dry with normal turgor. Normal color. MS/ Extremity: Pulses equal, no cyanosis. Neurovascular intact. Full, normal range of motion. Neuro: Awake and alert, GCS 15, oriented to person, place, time, and situation. 16:34 Constitutional: The patient appears alert, awake, uncomfortable, kb Vital Signs: 16:30 BP 125 / 96; Pulse 77; Resp 22; Temp 97.6; Pulse Ox 100% ; Weight 52.16 kg; Height 5 kb ft. 1 in. ; 16:44 Pain 8/10; cm10 18:05 BP 113 / 79; Pulse 75; Resp 18; Temp 98.4(O); Pulse Ox 96% on R/A; iw 21:49 BP 107 / 77; Pulse 71; Resp 17 S; Temp 97.8(O); Pulse Ox 98% on R/A; lg3 16:30 Body Mass Index 21.73 (52.16 kg, 154.94 cm) kb 16:44 Pain Scale: Adult cm10 MDM: 16:23 Medical Screening Exam initiated kb 16:28 Data reviewed: vital signs, nurses notes. kb 21:29 Differential diagnosis: Nonspecific abd pain, gastritis, viral gastroenteritis, kb dehydration, abnormal electrolytes. Counseling: I had a detailed discussion with the patient and/or guardian regarding the historical points, exam findings, and any diagnostic results supporting the discharge/admit diagnosis, lab results, radiology results, the need for outpatient follow up, a family practitioner, a phosphorus processing supervisor, to return to the emergency department if symptoms worsen or persist or if there are any questions or concerns that arise at home. 03/26 16:29 Order name: CBC with Diff; Complete Time: 19:02 kb 03/26 16:29 Order name: CMP; Complete Time: 17:25 kb 03/26 16:29 Order name: Lipase; Complete Time: 17:25 kb 03/26 16:29 Order name: Test, Urine; Complete Time: 19:33 kb 03/26 16:29 Order name: Urinalysis w/ reflexes; Complete Time: 19:33 kb 03/26 16:29 Order name: Flu; Complete Time: 17:30 kb 03/26 16:29 Order name: SARS-COV-2 Antigen Rapid; Complete Time: 17:30 kb 03/26 18:58 Order name: Manual Differential; Complete Time: 19:02 EDMS 03/26 17:42 Order name: CT Abd/Pelvis - Without Contrast; Complete Time: 21:25 kb 03/26 16:29 Order name: IV Saline Lock; Complete Time: 16:55 kb 03/26 16:29 Order name: Labs collected and sent; Complete Time: 16:55 kb Administered Medications: 17:02 Drug: TORadol - Ketorolac IVP 15 mg IVP once Route: IVP; Site: left antecubital; iw 21:41 Follow up: Response: No adverse reaction lg3 17:02 Drug: Ondansetron IVP 4 mg IVP once; over 2 minutes Route: IVP; Site: left antecubital; iw 21:41 Follow up: Response: No adverse reaction; Marked relief of symptoms lg3 17:02 Drug: NS 0.9% IV 1000 ml IV at 1 bolus Per protocol; to be given as a bolus over 60 iw minutes Route: IV; Rate: 1 bolus; Site: left antecubital; 21:40 Follow up: Response: No adverse reaction; IV Status: Completed infusion; IV Intake: lg3 1000ml 17:17 Drug: Famotidine IVP 20 mg IVP once; dilute with 10 mL 0.9% NaCl; give over 2 minutes iw Route: IVP; Site: left antecubital; 21:39 Follow up: Response: No adverse reaction lg3 17:17 Drug: Dicyclomine IM 20 mg IM once Route: IM; Site: right ventrogluteal; iw 21:39 Follow up: Response: No adverse reaction lg3 18:15 Drug: Droperidol IVP 1.25 mg IVP once Route: IVP; Site: left antecubital; iw 21:39 Follow up: Response: No adverse reaction; Marked relief of symptoms lg3 Disposition Summary: 03/26/24 21:30 Discharge Ordered Notes: Location: Home kb Condition: Stable kb Diagnosis - Nausea with vomiting, unspecified kb - Diarrhea, unspecified kb - Abdominal pain, Generalized kb - Dehydration kb Followup: kb - With: Emergency Department - When: As needed - Reason: Worsening of condition Followup: kb - With: Private Physician - When: 2 - 3 days - Reason: Recheck today's complaints, Continuance of care, Re-evaluation by your physician Discharge Instructions: - Discharge Summary Sheet kb - Food Choices to Help Relieve Diarrhea, Adult kb - Dehydration, Adult kb - Nausea and Vomiting, Adult, [id number] kb - Abdominal Pain, Adult, [id number] kb - Diarrhea, Adult, [id number] kb Forms: - Medication Reconciliation Form kb - Antibiotic Education kb - Prescription Opioid Use kb - Patient Portal Instructions kb - Leadership Thank You Letter kb Prescriptions: - Zofran 4 mg Oral tablet - take 1 tablet ORAL route every 6 hours As needed; 12 tablet; Refills: 0, kb Product Selection Permitted - dicyclomine 20 mg Oral tablet - take 1 tablet ORAL route 4 times per day As needed; 20 tablet; Refills: 0, kb Product Selection Permitted Addendum: 03/28/2024 23:23 Co-signature as Attending Physician, Landen Mejia MD I agree with the assessment and c vasquez plan of care. Signatures: Dispatcher [employer] Danielle Chavez FNP-C XAVIER-CkLanden Sarah MD MD cha Williams, Irene, RN MALIHA iw Chitra West, MALIHA RN cm10 AbleJerilyn RN lg3 Corrections: (The following items were deleted from the chart) 03/26 16:29 16:29 CBC+H.LAB.BRZ ordered. EDMS EDMS 16:29 16:29 COMPREHENSIVE METABOLIC PANEL+C.LAB.BRZ ordered. EDMS EDMS 16:29 16:29 LIPASE+C.LAB.BRZ ordered. EDMS EDMS 16:29 16:29 Test, Urine+UC.LAB.BRZ ordered. EDMS EDMS 16:29 16:29 Urinalysis+U.LAB.BRZ ordered. EDMS EDMS 16:29 16:29 Influenza Screen (A \T\ B)+BA.LAB.BRZ ordered. EDMS EDMS 16:29 16:29 SARS-COV-2 Antigen Rapid+I.LAB.BRZ ordered. EDMS EDMS 16:35 16:27 Constitutional: This is a well developed, well nourished patient who is awake, kb alert, and in no acute distress. Head/Face: Normocephalic, atraumatic. ENT: Moist Mucous membranes Cardiovascular: Regular rate Respiratory: Respirations even and unlabored. No increased work of breathing. Talking in full sentences Skin: Warm, dry with normal turgor. Normal color. MS/ Extremity: Pulses equal, no cyanosis. Neurovascular intact. Full, normal range of motion. Neuro: Awake and alert, GCS 15, oriented to person, place, time, and situation. kb 18:03 17:42 Abdomen Pelvis W Con+CT.RAD.BRZ ordered. EDMS EDMS
[2024-03-26 22:25] VITALS: BP 107/77; TEMP 97.8; O2SAT 98
== END 2024-03-26 21:52 | disposition home or self-care (01) ==
LOC: ER 16:19
DX: E86.0 Dehydration (principal); R19.7 Diarrhea, unspecified; R10.84 Generalized abdominal pain; Z11.52 Encounter for screening for COVID-19
CPT/HCPCS: 96361; 85025; 81001; 36415; 81025; 83690; 80053; 87804 ×2; 74176; 96375; 96372; 96374; 99284; 87811; J0500; J2405; J1790; J7030

== ENCOUNTER 2024-05-06 07:53 | Emergency (ER) | payer BC ==
--- OUTSIDE RECORDS SUMMARY | 2024-05-06 07:58 | XMS REPORT | Continuity of Care Document ---
Author Name Unknown Address [address] [place] [address] [facility] Address [address] [place] [address] Care Team Providers Care Integration Project Manager Name Role Phone No , Pcp Primary Care Physician Unavailab Sung Snyder Attending Clinician Unavailable LUZ WATT Attending Clinician Unavailkerwin Casanova RN, Radha Najera Attending Clinician Un available Grey Palacios MA Attending Clinician Unavailable Bee Ruelas Attending Clinician Unavailab DOMINGA Herrera Attending Clinician Unavailable TEA MONZON Attending Clinician Unavailable Nigel HANLEY, Keisha Attending Clinicia n Halima Lizarraga DO Attending Clinician + Sheila Akbar MD Attending Clinician [phone] Krish Terrell MD Attending Clinician [phone] Na HANLEY, Tea Attending Clinician [phone] CHRISTOPHER MART Attending Clinician Unavailable [email or web address] Attending Clinician Rosalva Prajapati Attending Clinician Unavailghislaine Thorpe MD, Buster Lenz Attending Clinician [phone] NAOMIE, SHEILA Admitting Clinician Unavailable Naomie HANLEY, Sheila Admitting Clinician [phone] [email or web address] Admitting Clinician Unavailghislaine gautam KNOW, DOES_NOT Admitting Clinician Unavailable Payers Payer Name Policy Type Policy Number Effective Date Expirati on Date Source Blue Cross Blue [facility] [place] 6 [id number] 77 2023 00:00:00 [facility] [place] OUT [place] [id number] 2022 00:00:00 BCBS COMM [id number] 2022 00:00:[place] [id number] 2022 00:00:00 2023 00:00:00 Problems Condition Name Condition Details Condition Category Status Onset Date Resolution Date Last Treatment Date Treating Clinician Comments Source PUD (peptic ulcer disease) PUD (peptic ulcer disease) Disease Active 2023-02 0 00:00: 00 Nehal Isabel History of peptic ulcer disease History of peptic ulcer disease Disease Recurre nce 2023-02 0- 00:00: 00 Nehal Clarke Epic Intractabl e abdominal pain Intractabl e abdominal pain Disease Active 2023-02 0- 00:00: 00 Nehal Isabel Intractabl e nausea and vomiting Intractabl e nausea and vomiting Disease Active 2023-02 0- 00:00: 00 Nehal Isabel Colitis Colitis Disease Active 2023-02 0 00:00: 00 Nehal Isabel Hypokalemi a Hypokalemi a Disease Active 2023-02 0 00:00: 00 Nehal Isabel Primary dysmenorrh ea Primary Dysmenorrh ea Problem Active 08-15 00:00: 00 [facility] Chronic pelvic pain of female Chronic Pelvic Pain of Female Problem Active 08-15 00:00: 00 [facility] Menorrhagi a Menorrhagi a Problem Active 08-15 00:00: 00 [facility] Anemia of mother in , antepartum Anemia of mother in , antepartum Disease Active 08-24 00:00: 00 [facility] Anemia of mother in , antepartum Anemia of mother in , antepartum Disease Active 08-24 00:00: 00 [facility] Sterilizat ion consult Sterilizat ion consult Disease Active 06-29 00:00: 00 [facility] Tobacco smoking affecting in second trimester Tobacco smoking affecting in second trimester Disease Active 05-31 00:00: 00 [facility] Medication exposure during first trimester of Medication exposure during first trimester of Disease Active 05-31 00:00: 00 [facility] Declines (vaginal after ) trial Declines (vaginal after ) trial Disease Active 05-31 00:00: 00 [facility] Previous delivery affecting , antepartum Previous delivery affecting , antepartum Disease Active 05-31 00:00: 00 [facility] Status post induction of labor Status post induction of labor Disease Active 08-20 00:00: 00 [facility] distress affecting management of mother, delivered distress affecting management of mother, delivered Disease Active 08-20 00:00: 00 [facility] Failed induction of labor, delivered Failed induction of labor, delivered Disease Active 08-20 00:00: 00 [facility] Fetopelvic disproport ion, delivered Fetopelvic disproport ion, delivered Disease Active 08-20 00:00: 00 Overview: ICD10 Diagnosis Term [employer] [facility] Status post induction of labor Status post induction of labor Disease Active 08-20 00:00: 00 [facility] Threatened premature labor, antepartum (644.03) Threatened premature labor, antepartum (644.03) Disease Active 6-18 00:00: 00 [facility] [id number] Mixed hyperlipid emia Problem [facility] [id number] Moderate episode of recurrent major depressive disorder Problem [facility] [id number] Constipati on, unspecifie d constipati on type Problem [facility] Status post repeat low transverse section Status post repeat low transverse section Disease Resolve d 09-04 00:00: 00 2017-09-07 00:00:00 2017-09-07 12:31:50 [facility] Single liveborn, born in hospital, delivered by delivery Single liveborn, born in hospital, delivered by delivery Disease Resolve d 09-04 00:00: 00 2017-09-07 00:00:00 2017-09-07 12:31:50 [facility] 39 weeks gestation of 39 weeks gestation of Disease Resolve d 16 00:00: 00 2017-09-07 00:00:00 2017-09-07 12:31:50 [facility] Allergies, Adverse Reactions, Alerts [...] substanc e Active Unknown 8-29 00:00: 00 [facility] Penicill ins DA Active SV ANAPHYLAXIS 2022-02 00:00: 00 [facility] shellfis h derived FA Active SV ANAPHYLAXIS 2022-02 00:00: 00 [facility] shellfis h derived FA Active SV ANAPHYLAXIS 2022-02 00:00: 00 [facility] Penicill ins DA Active SV ANAPHYLAXIS 2022-02 00:00: 00 [facility] Tegaderm Dressing Propensi ty to adverse reaction s Active Itching 09-11 00:00: 00 [facility] Penicill ins Propensi ty to adverse reaction s Active Anaphylaxis 08-20 00:00: 00 [facility] Penicill ins Allergy to substanc e Active Unknown 08-20 00:00: 00 [facility] PENICILL INS Allergy to substanc e Active Moderate severity Anaphylaxis [facility] SHELLFIS H DERIVED Allergy to substanc e Active Moderate severity Anaphylaxis [facility] Shellfis h (FN) Shellfis h (FN) Active Unknown [facility] [id number] Drug allergy Active Unknown [facility] Social History Social Habit Start Date Stop Date Quantity Comments Source [facility] Gender identity Eric [facility] History of tobacco use Cigarette Smoker [facility] Tobacco use and exposure 2023-11-24 00:00:00 2023-11-24 00:00:00 Smokeless tobacco non-user [facility] History of Social function 2018-08-27 00:00:00 2018-08-27 00:00:00 [facility] Alcoholic beverage intake 2017-05-31 00:00:00 2017-05-31 00:00:00 Current non-drinker of alcohol (finding) [facility] Cigarettes smoked current (pack per day) - Reported 2017-05-31 00:00:00 2017-05-31 00:00:00 [facility] Cigarette pack-years 2017-05-31 00:00:00 2017-05-31 00:00:00 [facility] Sex assigned at 1995 00:00:00 1995 00:00:00 [facility] Smoking Status Start Date Stop Date Source Heavy Tobacco Smoker [facility] Never Smoker [facility] Smokes tobacco daily 2023-10-18 00:00:00 [facility] Medications Ordered Medication Name Filled Medication Name Start Date Stop Date Current Medication? Ordering Clinician Indication Dosage Frequency Signature (SIG) Comments Components Source Omeprazole 40 MG Omeprazole 40 MG 2023-02 00:00: 00 No QD Omeprazole 40 MG LORazepam (Ativan) 0.5 MG tablet LORazepam (Ativan) 0.5 MG tablet 2023-02 008 14:43: 10 Yes .5mg Q8H Take 0.5 mg by mouth every 8 hours if needed. Nehal Isabel buPROPion HCl (WELLBUTRIN PO) buPROPion HCl (WELLBUTRIN PO) 2023-02 0 14:43: 10 Yes 50mg QD Take 50 mg by mouth 1 time each day. Nehal Isabel Rexulti 1 MG tablet tablet Rexulti 1 MG tablet tablet 2023-02 14:43: 10 Yes 1{tbl} QD Take 1 tablet by mouth 1 time each day. Nehal Isabel ondansetron (Zofran) tablet 4 mg ondansetron (Zofran) tablet 4 mg 2023-02 12:19: 24 12-01 12:18 :24 No [id number] 4mg Q.5D Deborah Isabel sucralfate (Carafate) suspension [...] 00:00: 00 11-30 23:59 :00 No 500mg [id number] 3D Take 1 tablet by mouth in [...] First dose (after last modificati on) on Sun11/26/23 at 1630, Do not crush, chew, or [...] Daily, First dose on Sun11/25/23 at 1630 Nehla Isabel promethazin e (Phenergan) 12.5 mg in [...] in (Cipro) IVPB 400 mg 2023-02 0-06 15:00: 00 12-01 14:59 :00 No 400mg [...] orally or via feeding tube >/= 14 Green[place]ic, may dissolve each 20 mEq tablet in 4 oz of water. Allow about 2 minutes for the tablets to disintegra te. Stir before giving to prepare slurry and administer . Please exclude patient's with feeding tube less than 14 Greenlandic (Dobhoff, J-tube, etc) and pediatric and patients [...] (PF) 0.9 % injection 10 mL 2023-02 0 06:45: 00 Yes 10mL Q12H 10 mL, Intravenou s, Every 12 hours, First dose on Sun11/25/23 at 0645, Administer at least once every 12 hours Nehal Isabel ondansetron (Zofran) injection 4 mg ondansetron (Zofran) injection 4 mg 2023-02 0- 06:43: 07 Yes 4mg Q8H 4 mg, Intravenou s, Every 8 hours PRN, vomiting, nausea, Starting on 11/25/23 at 0643 Nehal Isabel calcium gluconate in NaCl 100mL IVPB 2 g calcium gluconate in NaCl 100mL IVPB 2 g 2023-02 0-06 06:43: 07 Yes 2g Nehal Isabel magnesium oxide (Mag-Ox) tablet 800 mg magnesium oxide (Mag-Ox) tablet 800 mg 2023-02 0-06 06:43: 07 Yes 800mg Nehal Isabel magnesium sulfate IVPB 4 g magnesium sulfate IVPB 4 g 2023-02 0-06 06:43: 07 Yes 4g Nehal Isabel magnesium sulfate IVPB 2 g magnesium sulfate IVPB 2 g 2023-02 0-06 06:43: 07 Yes 2g Nehal Isabel magnesium sulfate in D5W IVPB 1 g magnesium sulfate in D5W IVPB 1 g 2023-02 0-06 06:43: 07 Yes 1g Nehal Isabel potassium chloride IVPB 10 mEq potassium chloride IVPB 10 mEq 2023-02 0-06 06:43: 07 Yes 10meq Nehal Isabel Potassium chloride solution 20 mEq Potassium chloride [...] sleep, Starting on 11/25/23 at 0643 Nehal Clarke Epic diphenhydrA MINE (BENADryl) tablet 12.5 mg diphenhydrA MINE (BENADryl) tablet 12.5 mg 2023-02 0-06 06:43: 07 Yes 12.5mg Q6H Nehal Isabel bisacodyl (Dulcolax) suppository 10 mg bisacodyl (Dulcolax) suppository 10 mg 2023-02 0-06 06:43: 07 Yes 10mg Q24H Nehal Clarke Epic glucagon injection 1 mg glucagon injection 1 mg 2023-02 0-06 06:43: 07 Yes 1mg Nehal Clarke Epic dextrose 50 % solution 25 g dextrose 50 % solution 25 g 2023-02 0-06 06:43: 07 Yes 25g Nehal Clarke Epic dextrose 50 % solution 12.5 g dextrose 50 % solution 12.5 g 2023-02 006 06:43: 07 Yes 12.5g Nehal Isabel naloxone (Narcan) injection 0.04 mg naloxone (Narcan) injection 0.04 mg 2023-02 006 06:43: 07 Yes .04mg Nehal Isabel acetaminoph en (Tylenol) tablet 650 mg acetaminoph en (Tylenol) tablet 650 mg 2023-02 006 06:43: 07 Yes 650mg Q6H Nehal Clarke Epic sodium chloride (PF) 0.9 % injection 10 mL sodium chloride (PF) 0.9 % injection 10 mL 2023-02 0 06:43: 07 Yes 10mL Nehal Isabel morphine injection 4 mg morphine injection 4 mg 2023-02 0- 06:43: 07 11-29 06:42 :07 No 4mg Q4H 4 mg, Intravenou s, Every 4 hours PRN, severe pain (7-10), and NOT responding to oral therapy or unable to tolerate PO., Starting on Sun11/25/23 at 0643, For 5 days Nehal Isabel oxyCODONE (Roxicodone ) immediate release tablet 10 mg oxyCODONE (Roxicodone ) immediate release tablet 10 mg 2023-02 0 06:43: 07 11-29 06:42 :07 No 10mg Q4H 10 mg, Oral, Every 4 hours PRN, severe pain (7-10), Starting on 11/25/23 at 0643, For 5 days Nehal Isabel [...] lactated Ringer's infusion lactated Ringer's infusion 2023-02 0 03:30: 00 11-26 07:32 :58 No 100mL/h 100 mL/hr, Intravenou s, Continuous , Starting on Sun11/25/23 at 0330 Nehal Isabel sodium chloride 0.9 % infusion 1,000 mL sodium chloride 0.9 % infusion 1,000 mL 2023-02 006 01:35: 00 11-24 02:09 :00 No 1000mL 1,000 mL, Intravenou s, at 75 mL/hr, Once, On 11/25/23 at 0135, For 1 dose Nehal Isabel ciprofloxac in (Cipro) IVPB 400 mg ciprofloxac in (Cipro) IVPB 400 mg 2023-02 0-06 01:35: 00 11-24 03:48 :00 No 400mg 400 mg, Intravenou s, Administer over 60 Minutes, Once, On 11/25/23 at 0135, For 1 dose, premix bag, Suspected Indication (Select all that apply): Intra-abdo antonio Infection Nehal Isabel metroNIDAZO LE (Flagyl) IVPB 500 mg metroNIDAZO LE (Flagyl) IVPB 500 mg 2023-02 006 01:35: 00 11-24 02:38 :00 No 500mg 500 mg, Intravenou s, Administer over 30 Minutes, Once, On 11/25/23 at 0135, For 1 dose, premix bag, Suspected Indication (Select all that apply): Intra-abdo antonio Infection Memoria l Vince Epic morphine injection 4 mg morphine injection 4 mg 2023-02 006 00:55: 00 11-24 01:19 :00 No 4mg 4 mg, Intravenou s, Once, On 11/25/23 at 0055, For 1 dose Memoria pedro Clarke Epic metoclopram alfredo (Reglan) injection 10 mg metoclopram alfredo (Reglan) injection 10 mg 2023-02 0 00:55: 00 11-24 01:20 :00 No 10mg 10 mg, Intravenou s, Once, On 11/25/23 at 0055, For 1 dose Memoria pedro Clarke Epic iohexol (OMNIPaque) 350 MG/ML injection 65 mL iohexol (OMNIPaque) 350 MG/ML injection 65 mL 2023-02 00:50: 03 11-24 00:50 :00 No 65mL 65 mL, Intravenou s, Once in imaging, Starting on 11/25/23 at 0050, For 1 dose Jessicaoria pedro Clarke Epic Potassium chloride solution 20 mEq Potassium chloride solution 20 mEq 2023-02 22:35: 00 11-23 23:48 :00 No 20meq 20 mEq, Oral, Once, On 11/24/23 at 2235, For 1 dose, Mix with 4 oz (120ml) of water prior to administra tion Nehal Clarke Epic famotidine (PF) (Pepcid) injection 40 mg famotidine (PF) (Pepcid) injection 40 mg 2023-0205 20:50: 00 11-23 21:11 :00 No 40mg 40 mg, Intravenou s, Administer over 2 Minutes, Once, On 11/24/23 at 2050, For 1 dose, Administer over at least 2 minutes Memoria pedro Clarke Epic morphine injection 4 mg morphine injection 4 mg 2023-02 0-05 20:50: 00 11-23 21:09 :00 No 4mg 4 mg, Intravenou s, Once, On 11/24/23 at 2050, For 1 dose Memoria pedro Clarke Epic ondansetron (Zofran) injection 4 mg ondansetron (Zofran) injection 4 mg 2023-02 20:50: 00 11-23 21:08 :00 No 4mg 4 mg, Intravenou s, Once, On 11/24/23 at 2049, For 1 dose, Administer IVP. Jessicashaunna pedro Vince Chalo sodium chloride 0.9 % bolus 1,000 mL sodium chloride 0.9 % bolus 1,000 mL 2023-02 20:50: 00 11-23 23:27 :01 No 1000mL 1,000 mL, Intravenou s, at 1,000 mL/hr, Administer over 1 Hours, Once, On 11/24/23 at 2049, For 1 dose Nehal pedro Bradgate Chalo sodium chloride (PF) 0.9 % injection 10 [...] by mouth 1 (one) time each day. [facility] sertraline (Zoloft) 100 MG tablet 10-18 15:25: 42 Yes 100mg QD Take 100 mg by mouth 1 (one) time each day. [facility] buPROPion XL (Wellbutrin XL) 150 MG 24 hr tablet 10-18 15:25: 42 Yes 150mg Take 150 mg by mouth every morning. [facility] gabapentin (Neurontin) 300 MG capsule 10-18 00:00: 00 11-18 04:59 :00 No [id number] 300mg Take 1 capsule (300 mg total) by mouth every night. [facility] Ondansetron HCl 4 MG Ondansetron HCl 4 MG 09-27 00:00: 00 No 1{table t} QD Ondansetro n HCl 4 MG eszopiclone (Lunesta) 2 MG tablet eszopiclone (Lunesta) 2 MG tablet 04-17 00:00: 00 Yes 2mg Take 2 mg by mouth at bedtime. Nehal Isabel topiramate 50 mg tablet 09-27 00:00: 00 Yes [id number] Take 100mg two times a day for 5 days, then take 150 mg in the am and 100 mg in the evening for 5 days, then take 150 mg two times a day there after. [facility] ZOLMitripta n 5 mg tablet 09-27 00:00: 00 Yes One tab at onset of headache, may repeat x one tab in 4 hours if headache persist. No more than two tabs in a 24 hour period [facility] Butalbital- Acetaminoph en-Caff (FIORICET) 50-300-40 mg per capsule 09-27 00:00: 00 Yes [id number] Use one every 6 hours as needed for head pain. [facility] Butalbital- Acetaminoph en-Caff (FIORICET) 50-300-40 mg per capsule 18 00:00: 00 09-27 00:00 :00 No [id number] Use one every 6 hours as needed for head pain. [facility] topiramate 50 mg tablet 06-21 00:00: 00 09-27 00:00 :00 No [id number] Use 2 in am, 1 in the evening for the headache. [facility] sumatriptan 100 mg tablet 03 00:00: 00 09-27 00:00 :00 No [id number] 100mg Take 1 tablet by mouth as needed for Migraine. Within 24 hours, may repeat times one in 2 hours as needed. [facility] VIT W-CA,FE,FA, <1 MG, ( #2 ORAL) 724 18:53: 24 Yes 1{tbl} Take 1 Tab by mouth. [facility] diphenhydrA MINE (BENADRYL ALLERGY) 25 mg tablet 09-11 18:53: 24 Yes 25mg Take 25 mg by mouth every 4 (four) hours as needed for Allergies. [facility] VIT W-CA,FE,FA, <1 MG, ( #2 ORAL) 09-11 13:53: 24 Yes 1{tbl} Take 1 Tab by mouth. [facility] diphenhydrA MINE (BENADRYL ALLERGY) 25 mg tablet 09-11 13:53: 24 Yes 25mg Take 25 mg by mouth every 4 (four) hours as needed for Allergies. [facility] predniSONE 10 mg tablet 09-11 00:00: 00 Yes [id number] 10mg Take 1 tablet by mouth SEE-INSTRU CTIONS. [facility] naproxen 500 mg tablet 09-05 00:00: 00 Yes 500mg Take 1 tablet by mouth 2 (two) times daily with meals as needed for Pain (scale 1-3) or Pain (scale 4-6). [facility] vitamin w/FA tablet 09-05 00:00: 00 Yes 1{tbl} Take 1 tablet by mouth daily. [facility] docusate calcium 240 mg capsule 09-05 00:00: 00 Yes 240mg Take 1 capsule by mouth once daily as needed for Constipati on. [facility] ferrous sulfate 325 mg (65 mg iron) tablet 09-05 00:00: 00 Yes 325mg Take 1 tablet by mouth 2 (two) times daily. [facility] ferrous sulfate (IRON, FERROUS SULFATE,) 325 mg (65 mg iron) tablet 08-24 00:00: 00 Yes [id number] 325mg Take 1 tablet by mouth 2 (two) times daily with meals. [facility] eszopiclone 3 mg tablet TAKE 1 TABLET BY MOUTH ONCE DAILY IMMEDIATLEY BEFORE BED eszopiclone 3 mg tablet TAKE 1 TABLET BY MOUTH ONCE DAILY IMMEDIATLEY BEFORE BED No eszopiclon e 3 mg tablet TAKE 1 TABLET BY MOUTH ONCE DAILY IMMEDIATLE Y BEFORE BED [facility] Rexulti 0.5 MG Rexulti 0.5 MG No 1{table t} QD Rexulti 0.5 MG LORazepam LORazepam No LORazepam Sertraline HCl 50 MG Sertraline HCl 50 MG No 1{table t} QD Sertraline HCl 50 MG Ofloxacin 0.3 % Ofloxacin 0.3 % No Ofloxacin 0.3 % Immunizations Ordered Immunization Name Filled Immunization Name Date Status Comments Source Tdap 2017-06-29 00:00:00 Completed [facility] TDAP 2017-06-29 00:00:00 Completed Vital Signs Vital Name Observation Time Observation Value Comments S ource height 2024-02-19 13:00:00 61 [in_i] Commo n [facility] weight 2024-02-19 13:00:00 120.4 [lb_av] Co mmon [facility] temperature 2024-02-19 13:00:00 97.3 [degF] Com mon [facility] bmi 2024-02-19 13:00:00 22.75 kg/m2 Comm on [facility] oximetry 2024-02-19 13:00:00 97 % Commo n [facility] blood pressure systolic 2024-02-19 13:00:00 98 mm[Hg] [facility] blood pressure diastolic 2024-02-19 13:00:00 62 mm[Hg] [facility] Heart rate 2023-11-27 12:20:42 55 /min [facility] 2023-11-27 12:20:42 18 /min [facility] Oxygen saturation in Arterial blood by Pulse oximetry 2023-11-27 12:20:42 98 /min [facility] Systolic blood pressure 2023-11-27 12:20:34 99 mm[Hg] [facility] Diastolic blood pressure 2023-11-27 12:20:34 60 mm[Hg] [facility] Body temperature 2023-11-27 12:19:33 36.72 Nuvia [facility] Body height 2023-11-26 13:35:00 154.9 cm Eric [facility] Body weight 2023-11-26 13:35:00 50.803 [facility] 2023-11-26 13:35:00 21.16 kg/m2 [facility] Heart rate 2023-11-27 12:20:42 55 /min Gulshan alvarez [facility] Respiratory rate 2023-11-27 12:20:42 18 /min [facility] Oxygen saturation in Arterial blood by Pulse oximetry 2023-11-27 12:20:42 98 /min [facility] Systolic blood pressure 2023-11-27 12:20:34 99 mm[Hg] [facility] Diastolic blood pressure 2023-11-27 12:20:34 60 mm[Hg] [facility] Body temperature 2023-11-27 12:19:33 36.72 Nuvia [facility] Body height 2023-11-26 13:35:00 154.9 cm [facility] 2023-11-26 13:35:00 50.803 kg Ericjerilyn mcqueen [facility] BMI 2023-11-26 13:35:00 21.16 kg/m2 [facility] pressure 2023-10-19 20:26:00 96 mm[Hg] [facility] Diastolic blood pressure 2023-10-19 20:26:00 67 mm[Hg] [facility] Heart rate 2023-10-19 20:26:00 72 /min [facility] Body height 2023-10-19 20:26:00 154[facility]9 cm [facility] Body weight 2023-10-19 20:26:00 [facility]256 [facility] 2023-10-19 20:26:00 21.35 kg/m2 [facility] height 2023-09-28 13:20:00 61 [in_i] Commo n [facility] weight 2023-09-28 13:20:00 109.8 [lb_av] Co mmon [facility] temperature 2023-09-28 13:20:00 97.3 [degF] Com mon [facility] bmi 2023-09-28 13:20:00 20.74 kg/m2 Comm on [facility] oximetry 2023-09-28 13:20:00 97 % Commo n [facility] respiratory rate 2023-09-28 13:20:00 16 /min Common [facility] blood pressure systolic 2023-09-28 13:20:00 101 mm[Hg] Common [facility] blood pressure diastolic 2023-09-28 13:20:00 68 mm[Hg] Common [facility] BP Diastolic 2023-08-16 00:00:00 71 mm[Hg] [facility] BP Systolic 2023-08-16 00:00:00 102 mm[Hg] [facility] Height 2023-08-16 00:00:00 61 [in_i] [facility] Body Weight 2023-08-16 00:00:00 107 [lb_av] [facility] BMI (Body Mass Index) 2023-08-16 00:00:00 20.2 kg/m2 [facility] oximetry 2023-06-28 14:40:00 85 % Commo n [facility] blood pressure systolic 2023-06-28 14:40:00 99 mm[Hg] Common [facility] blood pressure diastolic 2023-06-28 14:40:00 62 mm[Hg] [facility] height 2023-06-28 14:40:00 61 [in_i] Commo n [facility] weight 2023-06-28 14:40:00 109.8 [lb_av] Co mmon [facility] temperature 2023-06-28 14:40:00 97.3 [degF] Com mon [facility] bmi 2023-06-28 14:40:00 20.74 kg/m2 Comm on [facility] Procedures Procedure Date / Time Performed Performing Clinician Source POC GLUCOSE UNSOLICITED RESULTS 2023-11-27 06:09:00 Tea Monzon [facility] POC GLUCOSE UNSOLICITED RESULTS 2023-11-26 19:46:00 [facility] DIFFICILE DNA WITH REFLEX TO TOXIN IF INDICATED 2023-11-26 18:22:00 [facility]N [facility] [facility] ENTERIC PATHOGENS WITH CULTURE IF INDICATED 2023-11-26 18:22:00 [facility] GLUCOSE UNSOLICITED RESULTS 2023-11-26 17:12:00 Na [facility] EGD 2023-11-26 16:42:00 Clara Barnett [facility] Epic POC GLUCOSE UNSOLICITED RESULTS 2023-11-26 06:29:00 Na Tea [facility] BASIC METABOLIC PANEL 2023-11-26 03:22:00 Acherudy Ifjosefina jamison [facility] MAGNESIUM LEVEL 2023-11-26 03:22:00 Na Tea Eric rial [facility] PHOSPHORUS LEVEL 2023-11-26 03:22:00 Na Tea [facility] orial [facility] COMPLETE BLOOD COUNT W/DIFF AND PLATELET 2023-11-26 03:22:00 Achebe, Sheila [facility] CALCIUM LEVEL IONIZED WHOLE BLOOD 2023-11-26 03:22:00 Na, Tea [facility] COMPLETE BLOOD COUNT 2023-11-26 03:22:00 Achebe, Ifsuzannaom a [facility] AUTOMATED DIFFERENTIAL 2023-11-26 03:22:00 AchebeLuisa oma [facility] Fecal Leukocytes 2023-11-26 00:00:00 Eric mcqueen [facility] POC GLUCOSE UNSOLICITED RESULTS 2023-11-25 17:29:00 Na Tea [facility] POC GLUCOSE UNSOLICITED RESULTS 2023-11-25 11:22:00 Na, Tea [facility] POC GLUCOSE UNSOLICITED RESULTS 2023-11-25 07:26:00 Na Tea [facility] ECG 12-LEAD 2023-11-25 03:51:13 Acherudy Sheilajean-pierre Cabrera [facility] Epic UA WITH CULTURE IF INDICATED 2023-11-25 00:47:00 Maryse Ashley [facility] CT ABDOMEN PELVIS W IV CONTRAST 2023-11-25 00:46:11 Maryse Ashley [facility] ECG 12 lead 2023-11-25 00:00:00 [facility] BASIC METABOLIC PANEL 2023-11-24 21:02:00 Elissa Ashley [facility] HEPATIC FUNCTION PANEL 2023-11-24 21:02:00 Haley Ashley [facility] Epic LIPASE LEVEL 2023-11-24 21:02:00 Maryse Ashley [facility] Epic HCG TOTAL (QUANTITATIVE) 2023-11-24 21:02:00 Maryse Ashley [facility] COMPLETE BLOOD COUNT W/DIFF AND PLATELET 2023-11-24 21:02:00 Maryse Ashley [facility] COMPLETE BLOOD COUNT 2023-11-24 21:02:00 James Ashley [facility] AUTOMATED DIFFERENTIAL 2023-11-24 21:02:00 Haley Ashley [facility] Delivery 2017-09-04 00:00:00 [facility] Tubal Ligation 2017-09-04 00:00:00 [facility] Delivery 2014-08-20 00:00:00 [facility] POCT Glucose [facility] Tissue Examination [facility] Encounters Start Date/Time End Date/Time Encounter Type Admission Type Attending Clinicians Care Facility Care Department Encounter ID Source 2024-02-25 11:14:01 Outpatient Sung Garcia [facility] [id number] [facility] 2024-02-19 07:38:00 Outpatient Sung Garcia [facility] [id number] [facility] 2024-01-04 10:37:01 Outpatient Sung Garcia [facility] [id number] [facility] 2023-09-26 08:07:00 Outpatient Sung Garcia [facility] [id number] [facility] 2023-09-26 07:30:00 Inpatient JOSE DAVIDLUZ RODRIGUEZ [facility] [id number] [facility] 2023-09-17 11:40:00 Outpatient Sung Garcia [facility] [id number] [facility] 2023-06-26 08:49:01 Outpatient Sung Garcia [facility] [id number] [facility] 2023-05-29 13:25:00 Outpatient Sung Garcia [facility] [id number] [facility] 2017-07-17 00:00:00 2024-04-05 03:17:27 Orders Only Radha Casanova Stephanie L [facility] [id number] [facility] 2017-08-10 00:00:00 2024-04-05 03:16:22 Orders Only Grey Palacios Toni D [facility] [id number] [id number] [facility] 2017-08-10 00:00:00 2024-04-05 03:16:22 Orders Only Bee Ruelas Gillian D [facility] [id number] [id number] [facility] 2024-04-02 00:00:00 2024-04-02 00:00:00 (TEL) STLMLC STLMLC [id number] [facility] 2024-02-19 00:00:00 2024-02-19 00:00:00 OFFICE VISIT ESTAB PT LEVEL 4 STLMLC STLMLC [id number] [facility] 2024-02-15 00:00:00 2024-02-15 00:00:00 (TEL) STLMLC STLMLC [id number] [facility] 2024-02-05 00:00:00 2024-02-05 00:00:00 (TEL) STLMLC STLC [id number] [facility] 2024-01-22 00:00:00 2024-01-22 00:00:00 (TEL) STLMLC STLC [id number] [facility] 2023-12-12 00:00:00 2023-12-12 00:00:00 (TEL) STLC STLC [id number] [facility] 2023-12-07 15:45:00 2023-12-07 15:45:00 Outpatient DOMINGA STEVENS [facility] [id number] [facility] 2023-11-24 20:26:00 2023-11-27 14:26:00 Emergency Urgent NA TEA [facility] General Medicine [id number] [facility] 2023-11-24 20:26:00 2023-11-27 14:26:00 Emergency AznauroRhett aguilera, Keisha Lizarraga, Halima Akbar, Sheila Terrell, Krish Monzon, [facility] [id number] [id number] [facility] 2023-10-19 16:00:00 2023-10-19 16:00:00 Office Visit Dominga Stevens [facility] [address] [facility] [id number] [facility] 2023-10-18 14:00:00 2023-10-18 14:00:00 Outpatient CHRISTOPHER MRAT [facility] [id number] [facility] 2023-09-28 00:00:00 2023-09-28 00:00:00 (ESTPTWM) [facility] [id number] 2023-09-17 00:00:00 2023-09-17 00:00:00 OFFICE VISIT ESTAB PT LEVEL 3 STLMLC STLMLC [id number] [facility] 2023-08-16 00:00:00 2023-08-16 00:00:00 Luz Watt MD: [address], [address], [place] [address] , Ph. [phone] [facility] [id number] [facility] 2023-06-28 00:00:00 2023-06-28 00:00:00 OFFICE VISIT ESTAB PT LEVEL 4 STLMLC STLMLC [id number] [facility] 2023-03-22 00:00:00 2023-03-22 00:00:00 Outpatient GC_GCBZW_Ka diyala_S PRIV PRIV [id number] [facility] 2023-02-22 00:00:00 2023-02-22 00:00:00 Outpatient GC_GCBZW_Ka diyala_S PRIV PRIV [id number] [facility] 2023-01-25 00:00:00 2023-01-25 00:00:00 Outpatient GC_GCBZW_Ka diyala_S PRIV PRIV [id number] [facility] 2023-01-04 00:00:00 2023-01-04 00:00:00 Outpatient GC_GCBZW_Ka diyala_S PRIV PRIV [id number] [facility] 2023-01-01 13:09:00 2023-01-01 13:09:00 Outpatient Rosalva Christina [facility] [id number] 2022-12-28 00:00:00 2022-12-28 00:00:00 Outpatient GC_GCBZW_Ka diyala_S PRIV PRIV [id number] [facility] 2022-11-30 00:00:00 2022-11-30 00:00:00 Outpatient GC_GCBZW_Ka diyala_S PRIV PRIV [id number] [facility] 2022-11-30 00:00:00 2022-11-30 00:00:00 Outpatient GC_GCBZW_Ka diyala_S PRIV PRIV [id number] [facility] 2022-11-30 00:00:00 2022-11-30 00:00:00 Outpatient GC_GCBZW_Ka diyala_S PRIV PRIV [id number] [facility] 2022-11-30 00:00:00 2022-11-30 00:00:00 Outpatient GC_GCBZW_Ka diyala_S PRIV PRIV [id number] [facility] 2022-10-17 00:00:00 2022-10-17 00:00:00 Outpatient GC_GCBZW_Ka diyala_S PRIV PRIV [id number] [facility] 2022-10-17 00:00:00 2022-10-17 00:00:00 Outpatient GC_GCBZW_Ka diyala_S PRIV PRIV [id number] [facility] 2022-10-17 00:00:00 2022-10-17 00:00:00 Outpatient GC_GCBZW_Ka diyala_S PRIV PRIV [id number] [facility] 2022-10-17 00:00:00 2022-10-17 00:00:00 Outpatient GC_GCBZW_Ka diyala_S PRIV PRIV [id number] [facility] 2022-10-02 00:00:00 2022-10-02 00:00:00 Outpatient GC_GCBZW_Ka diyala_S PRIV PRIV [id number] [facility] 2022-10-02 00:00:00 2022-10-02 00:00:00 Outpatient GC_GCBZW_Ka diyala_S PRIV PRIV [id number] [facility] 2022-10-01 00:00:00 2022-10-01 00:00:00 Outpatient GC_GCBZW_Ka aakash_Nolan [facility] [id number] [facility] 2018-09-26 00:00:00 2018-09-26 00:00:00 Telephone Buster Thorpe [facility] Lucie Sullivan [facility] [id number] [id number] [facility] Results Test Description Test Time Test Comments Results Result Co mments Source [facility] Lajwsfy3678-24-29 20:02:31* Test Item Value Reference Range Interpretation Comme nts POC Glu (test code = 3264275088) 81 mg/dL 70-99 POC Glu Comment 1 (test code = 3285961701) Notified RN/MD POC Performing Location (hood t code = 6054960052) [facility] Vudjjdz5756-80-19 17:15:05* Test Item Value Reference Range Interpretation Comme nts POC Glu (test code = 7702392272) 79 mg/dL 70-99 POC Performing Location (hood t code = 1302423457) [facility] Rvfaejl5539-99-17 06:40:28* Test Item Value Reference Range Interpretation Comme nts POC Glu (test code = 3798624766) 74 mg/dL 70-99 POC Performing Location (hood t code = 3096343317) [facility] Lfexeft3990-34-94 17:36:07* Test Item Value Reference Range Interpretation Comme nts POC Glu (test code = 2363363786) 93 mg/dL 70-99 POC Glu Comment 1 (test code = 4247273413) Notified RN/MD POC Performing Location (hood t code = 5560923621) [facility] 12 ihmw9300-97-80 16:26:29* Test Item Value Reference Range Interpretation Comme nts Ventricular Rate (test code = 8107370436) BPM Atrial Rate (test code = 2452029959) BPM CO Interval (test code = 9743367279) 108 ms QRS Duration (test code = 6734058524) 90 ms QT/QTc (test code = 0230064757) 498 ms QTc Calculation (test code = 8914753369) 454 ms [place] (test code = 6914565275) degrees R-[place] (test code = 3891958067) degrees T-[place] (test code = 6879363649) degrees GEORGI (test code = GEORGI) PXN (test code = PXN) [facility] Uakgabm0525-94-61 11:38:14* Test Item Value Reference Range Interpretation Comme [facility] POC Glu (test code = 9808361624) 85 mg/dL 70-99 POC Performing Location (hood t code = 5723682482) [facility] Yrtnkxj2095-17-87 07:36:31* Test Item Value Reference Range Interpretation Comme [facility] POC Glu (test code = 8745323437) 86 mg/dL 70-99 POC Performing Location (hood t code = 9813177145) [facility] erfjb9215-84-16 14:54:19* Test Item Value Reference Range Interpretation Comme [facility] Test (test code = Test) negative [facility]dipstick) panel - Buxdo4609-28-59 14:54:06* Test Item Value Reference Range Interpretation Comme [facility] Leukocytes (test code = Leukocytes) Negative Nitrite (test code = Nitrite) negative Urobilinogen (test code = Urobilinogen) .2 Protein (test code = Protein) Negative pH (test code = pH) 5.5 Blood (test code = Blood) Negative Specific [place] (test code = Specific [place]) 1.020 Ketone (test code = Ketone) Negative Bilirubin (test code = Bilirubin) Negative Glucose (test code = Glucose) Negative Appearance (test code = Appearance) Clear Color (test code = Color) [facility]* Test Item Value Reference Range Interpretation Comme [facility] SURGICAL (test code = SR) RUN DATE: 01/03/23 [facility] PAGE 1 RUN TIME: 1531 Specimen Inquiry RUN USER: INTERFACE PATIENT: ALCIDES TORRES LOC: TIA U #: [id number] AGE/SX: 27/F ROOM: RE01/01/23[facility] DR: Rosalva Estes MD : 94 BED: DIS: STATUS: [facility] TLOC: SPEC #: [id number] RECD: 01/01/23 STATUS: NICOLÁS ALDA #: [id number] JOSSY: 01/01/[address] [facility] DR: Rosalva Estes MD ENTERED: 01/01/23 SP TYPE: SURGICAL OT DR: ORDERED: [id number], ANATOMIC SPEC, SPECIMEN TRACK PROCEDURES: [id number] (01/03/23-1530) SPECIMEN TRACK (01/01/23) TISSUES: A. FALLOPIAN [...] tissue processing and slide preparation performed at [place] [address] , [place] [address] MICROSCOPIC DESCRIPTION Microscopic examination is performed and the findings are incorporated into the finaldiagnosis. Please see diagnosis for findings. Signed SIGNATURE ON FILE Marj Stark 01/03/23 1531 END OF REPORT HCG SERUM [id number] 15:51:00* Test Item Value Reference Range Interpretation Comme [facility] HCG SERUM QUAL (test code = HCGQL) SERUM NEGATIVE SCREEN NEGATIVE CBC W/AUTO [id number] 22:53:00* Test Item Value Reference Range Interpretation Comme [facility] WHITE BLOOD CELL (test code = WBC) [...] NRBC#) 0.0 K/mm3 0.0-0.1 N BASIC METABOLIC [id number] 14:09:00* Test Item Value Reference Range Interpretation [...] calculation forGFR is based on the CKD-EPI (202) calculation. This formulais race indifferent and is the recommended formula for GFRby the National Kidney Foundation for Adults.The GFR will not calculate if the sex is unknown or if thepatient's age is <18 years. CREATININE (test code = CREAT) 0.7 MG/DL 0.6-1.0 N CALCIUM (test code = CA) 8.9 MG/DL 8.5-10.1 N PROTHROMBIN [id number] 13:44:00* Test Item Value Reference Range Interpretation [...] prevent recurrent infarct). Comment: PRE PROCEDURETHROMBOPLASTIN TIME [id number] 13:44:00* Test Item Value Reference Range Interpretation Comme nts THROMBOPLASTIN TIME PARTIAL (test code = PTT) 31.3 SECONDS 26-35 N Comment: PRE PROCEDUREURINALYSIS [id number] 13:24:00* Test Item Value Reference Range Interpretation [...] A Urine Specimen Type: Clean CatchUR HCG [id number] 13:24:00* Test Item Value Reference Range Interpretation [...] patient was seen by Dr. Herbert in [place]. She reports having an upper endoscopy done [...] Patient seen and examined with the physician family service assistant, and confirmed the essential components of history, physical examination, diagnosis and treatment plan. I agree with the patient's care and plan as documented by the physician family service assistant. Gastroenterology Physician [facility] History and Physical Notes Date/Time Note Provider Source 2023-11-24 19:32:00 History Of Present Illness 28-year-old female with history of peptic ulcer disease presenting with complaints of lower abdominal pain/cramps since 11/20. She reports associated nausea, vomiting and diarrhea. She was admitted at [facility] on 11/21, diagnosed with colitis and started on Levaquin/Flagyl. She continued to have pain and went back to [place] [facility] where she was given analgesics and [...] Procedure Abnormality Status --------- ------ Complete Blood Count[[id number]] Normal Final result Automated Differential[[id number]] Abnormal Final result Please view results for [...] NPO Diet NPO except: Sips with meds [facility] Notes Date/Time Note Provider Source Referral ID Status Reason Start Date Expiration Date V isits Requested Visits Authorized [id number] Pending Review 11/27/2023 05/25/2024 1 1 [facility]Alucklv2506-82-04 14:43:15* [facility]jotryi3587-06-27 14:43:15* Audit- C Score Answer Date of Assessment Author 0 11/25/2023 4:29 AM CDT Umm Wheeler RN * Intimate Partner Violence Question Answer Date of Assessment Author Within the last year, have y ou been humiliated or emotionally abused in other ways by your partner or ex-partner? No 11/25/2023 7:54 AM Umm Gaytan RN Within the last year, have y ou been afraid of your partner or ex-partner? No 11/25/2023 7:54 AM Umm Gaytan RN Within the last year, have y ou been raped or forced to have any kind of sexual activity by your partner or ex-partner? No 11/25/2023 7:54 AM Umm Gaytan RN Within the last year, have y ou been kicked, hit, slapped, or otherwise physically hurt by your partner or ex-partner? No 11/25/2023 7:54 AM Umm Gaytan RN * * Calculated C-SSRS Risk Score (Lifetime/Recent) Answer Date of Assessment Author No Risk Indicated 11/25/2023 4:30 AM Umm Gaytan RN * [place] Suicide Severity Rating Scale (Screener/Recent Self-Report) Question Answer Date of Assessment Author 1. Wish to be (Past 1 Month) No 11/24/2023 11:21 PM CDT Keanu Brizuela RN 2. Non-Specific Active Suicidal Thoughts (Past 1 Month) No 11/25/2023 4:30 AM CDT Umm Wheeler RN 6. Suicidal Behavior (Lifetime) No 11/25/2023 4:30 AM CDT Umm Wheeler RN [facility]rrbykb6172-78-27 14:43:15* Tea Monzon MD - 11/26/2023 3:29 [...] Jon LCSW - 11/25/2023 1:15 PM CDT SW met with the Pt and her spouse bedside. The Pt currently is residing at [address] [place] [address]. No DME in the home and no barriers to discharge. Admit Location: [facility] Expected Discharge Date: 11/26/2023 Discharge Plan: * Emily Zambrano RN - 11/25/2023 12:39 PM CDT Outsole Cementer informed Dr. Tea Monzon of patient previous lab of potassium 2.6 and 20 Meq given. Requested recheck of lab, stated he would recheck with morning labs. [place] 28963-10-08 14:43:15Pending Results Scheduled Orders Name Type Priority [...] on patient's age to complete this topic [facility]vxyfcb1798-88-27 14:43:15 [place] [id number] 14:43:15 Diagnosis Intractable nausea and vomit ing [...] without mention of hemorrhage, perforation, or obstruction [facility]Qtjjush6888-84-80 14:43:15 [place] 858544-10-08 14:16:17 Discharge instructions, new prescriptions / home medication review, regular soft diet, and follow up appointment with Dr Michi LORA within 2 weeks discussed and explained to patient, stated understanding. No other concerns voiced. [facility] ClarkeUcypdpa3045-24-70 13:31:20 Images from the original note were not included. [id number] Ciprofloxacin Brand Name(s): Cipro? Oral Suspension, Cipro? [...] doctor or pharmacist will give you the four h [employer] agent's patient information sheet (Medication Guide) when you begin treatment with ciprofloxacin. Read the information carefully and ask your doctor or pharmacist if you have any questions. You can also visit the Food and Drug Administration (FDA) website (https://www.fda.gov/Drugs) or the four h club agent's website to obtain the Medication Guide. WHY [...] and out of their sight and reach. https://www.InvoiceSharing.org Unneeded medications should be disposed of in [...] be awakened, immediately call emergency services at 075. What OTHER INFORMATION should I know? Keep [...] of all of the prescription and nonprescription (rqnz-dzq-iihrrsv) medicines you are taking, as well as [...] or pharmacist about specific clinical use. The [place] [employer] represents that the information provided hereunder was formulated with a reasonable standard of care, and in conformity with professional standards in the field. The [place] [employer] makes no representations or warranties, express or implied, including, but not limited to, any implied warranty of merchantability and/or fitness for a particular purpose, with respect to such information and specifically disclaims all such warranties. Users are advised that decisions regarding drug therapy are complex medical decisions requiring the independent, informed decision of an appropriate health critical care nurse specialist, and the information is provided for informational purposes only. The entire monograph for a drug should be reviewed for a thorough understanding of the drug's actions, uses and side effects. The [place] [employer] does not endorse or recommend the use of any drug. The information is not a substitute for medical care. AHFS? Patient Medication Information?. ? Copyright, 2023. The [place] [employer]?, [address], [address], [place], [place]. All Rights Reserved. Duplication for commercial use must be authorized by [facility]. Selected Revisions: February 02, 2021. AHFS? Patient Medication Information?. ? Copyright, 2023 ashmi [facility] NorthwestVjyztvn7465-28-61 13:30:41 Images from the original note were not included. [id number] Pantoprazole Brand Name(s): Protonix?; also available generically [...] or doctor for a copy of the four h [employer] agent's information for the patient. Are there OTHER [...] and out of their sight and reach. https://www.upandaway.org Unneeded medications should be disposed of in [...] of all of the prescription and nonprescription (smsx-vai-ekgvciy) medicines you are taking, as well as [...] or pharmacist about specific clinical use. The [place] [employer] represents that the information provided hereunder was formulated with a reasonable standard of care, and in conformity with professional standards in the field. [employer] [place] [employer] makes no representations or warranties, express or implied, including, but not limited to, any implied warranty of merchantability and/or fitness for a particular purpose, with respect to such information and specifically disclaims all such warranties. Users are advised that decisions regarding drug therapy are complex medical decisions requiring the independent, informed decision of an appropriate health critical care nurse specialist, and the information is provided for informational purposes only. The entire monograph for a drug should be reviewed for a thorough understanding of the drug's actions, uses and side effects. The [place] [employer] does not endorse or recommend the use of any drug. The information is not a substitute for medical care. AHFS? Patient Medication Information?. ? Copyright, 2023. [employer] [place] [employer]?, [address], [address], [place], [place]. All Rights Reserved. Duplication for commercial use must be authorized by [facility]. Selected Revisions: January 03, 2023. AHFS? Patient Medication Information?. ? Copyright, 2023 [facility] Wlhubbr8494-17-65 13:26:34 Images from the original note were not included. [id number] Metronidazole Brand Name(s): Flagyl?, Flagyl? 375, Likmez; [...] or doctor for a copy of the four h club agent's information for the patient. Are there OTHER [...] and out of their sight and reach. https://www.InvoiceSharing.org Unneeded medications should be disposed of in [...] be awakened, immediately call emergency services at [phone]. Symptoms of overdose may include the following: [...] of all of the prescription and nonprescription (dnmh-hro-rnvpvga) medicines you are taking, as well as [...] or pharmacist about specific clinical use. [employer] [place] [employer] represents that the information provided hereunder was formulated with a reasonable standard of care, and in conformity with professional standards in the field. [employer] makes no representations or warranties, express or implied, including, but not limited to, any implied warranty of merchantability and/or fitness for a particular purpose, with respect to such information and specifically disclaims all such warranties. Users are advised that decisions regarding drug therapy are complex medical decisions requiring the independent, informed decision of an appropriate health critical care nurse specialist, and the information is provided for informational purposes only. The entire monograph for a drug should be reviewed for a thorough understanding of the drug's actions, uses and side effects. [employer] [place] [employer] does not endorse or recommend the use of any drug. The information is not a substitute for medical care. AHFS? Patient Medication Information?. ? Copyright, 2023. [employer]?, [address], [address], [place], [place]. All Rights Reserved. Duplication for commercial use must be authorized by [facility]. Selected Revisions: February 02, 2023. AHFS? Patient Medication Information?. ? Copyright, 2023 [facility]2024-10-08 13:26:07 Images from the original note were not included. [id number] Ciprofloxacin Ophthalmic Brand Name(s): Ciloxan?; also available [...] and out of their sight and reach. [email or web address].upandaway.org Unneeded medications should be disposed of in [...] of all of the prescription and nonprescription (kqum-fwa-rxattii) medicines you are taking, as well as [...] or pharmacist about specific clinical use. [employer] [place] [employer] represents that the information provided hereunder was formulated with a reasonable standard of care, and in conformity with professional standards in the field. [employer] [place] [employer] makes no representations or warranties, express or implied, including, but not limited to, any implied warranty of merchantability and/or fitness for a particular purpose, with respect to such information and specifically disclaims all such warranties. Users are advised that decisions regarding drug therapy are complex medical decisions requiring the independent, informed decision of an appropriate health critical care nurse specialist, and the information is provided for informational purposes only. The entire monograph for a drug should be reviewed for a thorough understanding of the drug's actions, uses and side effects. [employer] [place] [employer] does not endorse or recommend the use of any drug. The information is not a substitute for medical care. AHFS? Patient Medication Information?. ? Copyright, 2023. [employer]?, [address], [address], [place], [place]. All Rights Reserved. Duplication for commercial use must be authorized by [facility]. Selected Revisions: April 05, 2017. AHFS? Patient Medication Information?. ? Copyright, [address] [facility] HospitalGbselqk0827-33-38 13:25:00 Images from the original note were not included. Hydrocodone and Acetaminophen - Video Understand how Hydrocodone and Acetaminophen work to help you manage pain. Also, understand the possible side effects to be aware of and how to properly use and store these medications. To view the video go to this web address: [email or web address] Or, scan this QR code with your smart phone ? [facility] [id number] 13:24:52 Images from the original note were not included. 99638 Upper GI Endoscopy with Biopsy Upper GI [...] you are taking. This includes prescription and miuw-pvi-fmidhnm medicines, vitamins, herbs, and other supplements. You [...] disease Last Reviewed Date: 2021 00:00:00 ? 2136-9497 [employer]. All rights reserved. This information is not intended as a substitute for professional medical care. Always follow your healthcare professional's instructions. [facility]ai[facility]35[facility]-44 13:24:32 Images from the original note were not included. 10724 Dehydration The human body is comprised largely [...] fever. Last Reviewed Date: 2021 00:00:00 ? 5749-3740 [employer]. All rights reserved. This information is not intended as a substitute for professional medical care. Always follow your healthcare professional's instructions. [facility] NorthwestXuluynr1953-32-93 13:24:24 Images from the original note were not included. 09118 Duodenitis The duodenum is the first part [...] loss Last Reviewed Date: 2023 00:00:00 ? [id number] [employer]. All rights reserved. This information is not intended as a substitute for professional medical care. Always follow your healthcare professional's instructions. [facility]2024-10-08 10:36:05 The patient is Moderately Stable - [...] Recommendations to address these barriers include none. [facility]2024-10-08 05:40:36 The patient is alert and oriented [...] Oxycodone and x1 of IV Zofran overnight. [facility]2024-10-07 13:49:58 The patient is Moderately Unstable - [...] include frequent re-evaluation of pain medication effectiveness. [facility]2024-10-07 05:04:57 The patient is alert and oriented [...] phenergan overnight for nausea and pain control. [facility]2024-10-06 17:08:54 Outsole Cementer informed MD patient has not voimited today and request upgraded diet from NPO. New order received for Clear Liquid Diet. Patient spouse at bedside instructed how to order for patient. [facility]2024-10-06 16:54:14 Patient c/o nausea, zofran not due at this time. Outsole Cementer requested breakthrough nausea medication, orders received. [place] [id number] 12:01:35 The patient is Moderately Stable - Low risk of patient condition declining or worsening The patient's goals for the shift include pain control The clinical goals for the shift include Pain control [facility] [id number] 21:[id number] [facility] [address] [place] [address] PATIENT NAME: ALCIDES TORRES ADMIT DATE: 01/01/23 ACCOUNT NO: [id number] ROOM NO: AGE: 27 REPORT TYPE: OPERATIVE [...] the right side. SURGEON: Rosalva Estes MD. TRAFFIC CHIEF: Becca. ANESTHESIA: General endotracheal. FINDINGS: Bilateral tubo-ovarian [...] with 2 Allis clamps. Cervix dilated to 16-Greenlandic and diagnostic hysteroscope was passed through the [...] Dictated: 01/01/2023 21:42:30 Date Transcribed: 01/01/2023 22:48:23 SKK/MAN/DARIA Receipt ID: [id number] Authenticated by Rosalva Estes MD On 01/25/2023 11:42:29 AM at 1142 PATIENT NAME: ALCIDES TORRES 21:26:00 [facility] Brief Op Note REPORT#:[id number] REPORT STATUS: Signed REPORT INITIALIZATION DATE:01/01/23 TIME:2125 PATIENT: ALCIDES TORRES UNIT #: [id number] ROOM/BED: : 94 AGE: 27 SEX: F [...] abdominal wall on the right Primary Surgeon: harley Cco & President(s): becca Anesthesia: general anesthesia Findings: bilateral dense tubo-ovarian adhesions, right distal hydrosalpinx, right fundal uterine adhesions to anterior abdominal wall Complications: none Estimated blood loss in ml's: 25 Specimens removed/altered: right distal tube Fluids: 400 Urine output: 100 Approach: laparoscopic Wound class: clean Disposition: plan to D/C home Counts: Sponge count: correct Instrument count: correct Needle count: correct at 2130 RPT #: [id number] END OF REPORT HCAPM
[2024-05-06] MEDS ORDERED: ONDANSETRON 4 MG (ODT) TAB ONE (08:09)
[2024-05-06] MEDS ORDERED: MORPHINE 4 MG/ML SYR ONE (08:23)
[2024-05-06 08:29] LABS: Hematocrit 40.5 % (36.0-45.0); Hemoglobin 13.8 g/dL (12.0-15.0); MCV 90.5 fL (80-100); RBC Red Blood Cell Count 4.47 M/uL (3.86-4.86)
[2024-05-06 08:30] LABS: Absolute Eosinophils 0.1 K/uL (0-0.5); Absolute Lymphocytes (CBC) 2.4 K/uL (0.7-4.9); Absolute Monocytes 0.9 K/uL (0.1-1.3); Absolute Neutrophil 4.2 K/uL (1.8-8.0); Basophils % 0.5 % (0-1.3); Eosinophils % 1.6 % (0-4.4); Lymphocytes % 31.3 % (15.3-44.8); MCH 30.8 pg (27.0-35.0); MPV 7.9 fL (7.6-11.3); Monocytes % 11.6 % (3.3-12.3); Platelets 303 thou/uL (152-406); Red Cell Distribution Width 16.4 % (12.1-15.2)
[2024-05-06 08:45] LABS: Albumin/Globulin Ratio 1.1 (1.1-1.8); Alkaline Phosphatase 82 U/L (45-117); Anion Gap 12.7 mEq/L (5.0-15.0); BUN Blood Urea Nitrogen 5 mg/dL (7-18); Bicarbonate 24 mEq/L (21-32); Bilirubin Total 0.5 mg/dL (0.2-1.0); Globulin 3.6 g/dL (2.3-3.5); Glomerular Filtration Rate 76 ml/min (=/>90); Glucose Level 107 mg/dL (74-106); Lipase 35 U/L (13-75); Potassium 3.7 mEq/L (3.5-5.1); Protein, Total 7.6 g/dL (6.4-8.2); Sodium Level 141 mEq/L (136-145)
[2024-05-06 08:47] LABS: ALT/SGPT < 14 U/L (13-56); AST/SGOT < 10 U/L (15-37)
[2024-05-06] MEDS ORDERED: PROMETHAZINE INJ 25 MG/ML AMP ONE (09:14)
[2024-05-06] MEDS ORDERED: droPERidol 5 MG/2 ML VIAL ONE (09:54)
--- NOTE | 2024-05-06 12:13 | RAD REPORT ---
EXAMINATION: CT ABDOMEN AND PELVIS WITH CONTRAST CLINICAL INDICATION: Abdominal pain TECHNIQUE: CT abdomen and pelvis was performed, after the administration of 100 cc Isovue-300.. Sagit surya and coronal reconstructions were obtained. One or more of the following dose reduction techniques were used: Automated exposure control, adjustment of the mA and kV according to patient si ze, and iterative reconstruction. Unless otherwise specified, incidental findings do not require dedicated imaging follow-up. [id number]. Oral contrast was not given which limits evaluation of bowel and appendix. COMPARISON: .2023 FINDINGS: Liver, spleen, pancreas, adrenals and kidneys appear unremarkable No evidence of diverticulitis. The wall of the right colon appears mildly thickened. Normal appendix. No adnexal mass. Trace amount of free fluid : IMPRESSION: The wall of the right colon appears mildly thickened. This could indicate a mild colitis or be second [place] to incomplete distention.
--- NOTE | 2024-05-06 12:25 | ER ---
Nurse's Notes [facility] Name: Alfred Steele Age: 29 yrs Sex: Female : 1995 Arrival Date: 05/06/2024 Time: 07:53 Bed 13 Private MD: Diagnosis: Colitis;Abdominal pain, Generalized;Nausea with vomiting, unspecified Presentation: 05/06 08:04 Chief complaint: Upper abdominal pain and N/V since last night. Coronavirus screen: At this time, the client does not indicate any symptoms associated with coronavirus-19. Ebola Screen: No symptoms or risks identified at this time. Initial Sepsis Screen: Does the patient meet any 2 criteria? No. Patient's initial sepsis screen is negative. Does the patient have a suspected source of infection? No. Patient's initial sepsis screen is negative. Risk Assessment: Do you want to hurt yourself or someone else? Patient reports no desire to harm self or others. Onset of symptoms was May 05, 2024. 08:04 Method Of Arrival: Ambulatory hb 08:04 Acuity: GAURANG 3 hb Historical: - Allergies: 08:06 PENICILLINS; hb 08:06 SHELLFISH; hb - PMHx: 08:06 Anxiety; gastric ulcers; hb - PSHx: 08:06 abdominal surgery; breast; section; hb - Immunization history:: Adult Immunizations up to date. - Infectious Disease History:: Denies. - Social history:: Smoking status: Patient reports the use of cigarette tobacco products. Screenin:47 [facility] ED Fall Risk Assessment (Adult) History of falling in the last 3 months, kc6 including since admission No falls in past 3 months (0 pts) Confusion or Disorientation No (0 pts) Intoxicated or Sedated No (0 pts) Impaired Gait No (0 pts) Mobility Assist Device Used No (0 pt) Altered Elimination No (0 pt) Score/Fall Risk Level 0 - 2 = Low Risk Oriented to surroundings, Maintained a safe environment, Educated pt \T\ family on fall prevention, incl call for assistance when getting out of bed. Abuse screen: Denies threats or abuse. Denies injuries from another. Nutritional screening: No deficits noted. Tuberculosis screening: No symptoms or risk factors identified. Assessment: 08:47 General: Appears in no apparent distress. uncomfortable, well groomed, well developed, kc6 Behavior is cooperative, appropriate for age, restless. Pain: Complains of pain in epigastric area. Neuro: Level of Consciousness is awake, alert, obeys commands, Oriented to person, place, time, situation, Appropriate for age. Cardiovascular: Capillary refill < 3 seconds. Respiratory: Airway is patent Trachea midline Respiratory effort is even, unlabored, Respiratory pattern is regular, symmetrical. GI: Pt is actively vomiting clear fluid, Bowel sounds present X 4 quads. Abd is soft X 4 quads Abdomen is tender to palpation in epigastric area Reports upper abdominal pain, epigastric pain, nausea, vomiting, Patient currently denies diarrhea. : No signs and/or symptoms were reported regarding the genitourinary system. EENT: No signs and/or symptoms were reported regarding the EENT system. Derm: No signs and/or symptoms reported regarding the dermatologic system. Skin is intact, is healthy with good turgor, Skin is pink, warm \T\ dry. Musculoskeletal: No signs and/or symptoms reported regarding the musculoskeletal system. Circulation, motion, and sensation intact. Range of motion: intact in all extremities. 09:46 Reassessment: Patient appears in no apparent distress at this time. No changes from kc6 previously documented assessment. Patient and/or family updated on plan of care and expected duration. Pain level reassessed. Patient is alert, oriented x 3, equal unlabored respirations, skin warm/dry/pink. Patient states symptoms have not improved. 10:41 Reassessment: Patient appears in no apparent distress at this time. No changes from kc6 previously documented assessment. Patient and/or family updated on plan of care and expected duration. Pain level reassessed. Patient is alert, oriented x 3, equal unlabored respirations, skin warm/dry/pink. 11:24 Reassessment: Patient appears in no apparent distress at this time. No changes from kc6 previously documented assessment. Patient and/or family updated on plan of care and expected duration. Pain level reassessed. Patient is alert, oriented x 3, equal unlabored respirations, skin warm/dry/pink. Patient states feeling better. Patient states symptoms have improved. 12:46 Reassessment: Patient appears in no apparent distress at this time. No changes from kc6 previously documented assessment. Patient and/or family updated on plan of care and expected duration. Pain level reassessed. Patient is alert, oriented x 3, equal unlabored respirations, skin warm/dry/pink. Patient states feeling better. Patient states symptoms have improved. Vital Signs: 08:04 BP 140 / 90; Pulse 67; Resp 18; Temp 98.1(O); Pulse Ox 100% on R/A; Weight 52.16 kg; hb Height 5 ft. 1 in. ; Pain 8/10; 08:47 BP 105 / 71; Pulse 83; Resp 16 S; Pulse Ox 100% on R/A; kc6 12:46 BP 128 / 82; Pulse 55; Resp 18 S; Pulse Ox 99% on R/A; kc6 08:04 Body Mass Index 21.73 (52.16 kg, 154.94 cm) hb 08:04 Pain Scale: Adult hb ED Course: 07:56 Patient arrived in ED. cj3 08:01 Zack Dunne DO is Attending Physician. ms3 08:06 Triage completed. hb 08:06 Arm band placed on. hb 08:12 Tatum Lopez, RN is Primary Nurse. kc6 08:24 CBC with Diff Sent. kc6 08:24 CMP Sent. kc6 08:24 Lipase Sent. kc6 08:46 Patient has correct armband on for positive identification. Bed in low position. Call kc6 light in reach. Side rails up X2. Pulse ox on. NIBP on. Door closed. Noise minimized. Lights dimmed. Warm blanket given. Pillow given. Verbal reassurance given. 08:46 Inserted saline lock: 22 gauge in right antecubital area, using aseptic technique. kc6 Blood collected. Flushed with 10 mL NS. Patient maintains SpO2 saturation greater than 95% on room air. 10:47 CT Abd/Pelvis - IV Contrast Only In Process Unspecified. EDMS 12:24 Doyle Ibarra DO is Referral Physician. ms3 12:46 No provider procedures requiring assistance completed. IV discontinued, intact, kc6 bleeding controlled, No redness/swelling at site. Pressure dressing applied. Administered Medications: 08:19 Drug: Ondansetron PO 4 mg PO once Route: PO; kc6 09:20 Follow up: Response: No adverse reaction; Nausea unchanged; Vomiting unchanged kc6 08:28 Drug: morphine IVP or IV 4 mg IVP once over 4 mins Route: IVP; Infused Over: 4 mins; kc6 Site: right antecubital; 09:45 Follow up: Response: No adverse reaction; Pain is unchanged, physician notified; RASS: kc6 Restless (+1) 09:20 Drug: Promethazine IM 12.5 mg IM once Route: IM; Site: right deltoid; kc6 09:45 Follow up: Response: No adverse reaction; Nausea unchanged; Vomiting unchanged kc6 10:24 Drug: Droperidol IVP 1.25 mg IVP once Route: IVP; Site: right antecubital; kc6 11:23 Follow up: Response: No adverse reaction; Pain is decreased; Nausea is decreased; kc6 Vomiting decreased Medication: 12:46 VIS not applicable for this client. kc6 Outcome: 12:24 Discharge ordered by . ms3 12:46 Discharged to home via wheelchair, with family, kc6 12:46 Condition: improved 12:46 Discharge instructions given to patient, Instructed on discharge instructions, follow up and referral plans. no drinking with medication, no driving heavy equipment, medication usage, Demonstrated understanding of instructions, follow-up care, medications, Prescriptions given X 2, 12:46 Patient left the ED. kc6 Signatures: Dispatcher [employer] EDMS Any Garza RN RN hb Sims, Marcus, DO DO ms3 Tatum Lopez RN RN kc6 Leatha Mei cj3
--- NOTE | 2024-05-06 12:25 | EDPHYS ---
Physician Documentation [facility] Name: Alfred Steele Age: 29 yrs Sex: Female : 1995 Arrival Date: 05/06/2024 Time: 07:53 Bed 13 Private MD: ED Physician Zack Dunne HPI: 05/06 12:24 This 29 yrs old Female presents to ER via Ambulatory with complaints of Abdominal Pain, ms3 Nausea/Vomiting. 12:24 29-year-old female with past medical history of anxiety, peptic ulcer disease presents ms3 to the emergency department for abdominal pain that began last night. She states pain is a 7/10. She denies any alleviating or inciting factors. Patient states she has taken a hot bath and tried laying down without improvement in her symptoms. Historical: - Allergies: 08:06 PENICILLINS; hb 08:06 SHELLFISH; hb - PMHx: 08:06 Anxiety; gastric ulcers; hb - PSHx: 08:06 abdominal surgery; breast; section; hb - Immunization history:: Adult Immunizations up to date. - Infectious Disease History:: Denies. - Social history:: Smoking status: Patient reports the use of cigarette tobacco products. ROS: 12:24 Constitutional: Negative for fever, and chills. Cardiovascular: Negative for chest ms3 pain, and palpitations. Respiratory: Negative for shortness of breath, cough, wheezing, and pleuritic chest pain, 12:24 MS/Extremity: Negative for injury and deformity, Skin: Negative for injury, rash, and discoloration, 12:24 Abdomen/GI: Positive for abdominal pain, diarrhea, Negative for nausea and vomiting, Exam: 12:24 Constitutional: This is a well developed, well nourished patient who is awake, alert, ms3 and in no acute distress. Cardiovascular: Regular rate and rhythm with a normal S1 and S2. No gallops, murmurs, or rubs. Normal PMI, no JVD. No pulse deficits. Respiratory: Lungs have equal breath sounds bilaterally, clear to auscultation and percussion. No rales, rhonchi or wheezes noted. No increased work of breathing, no retractions or nasal flaring. Vital Signs: 08:04 BP 140 / 90; Pulse 67; Resp 18; Temp 98.1(O); Pulse Ox 100% on R/A; Weight 52.16 kg; hb Height 5 ft. 1 in. ; Pain 8/10; 08:47 BP 105 / 71; Pulse 83; Resp 16 S; Pulse Ox 100% on R/A; kc6 12:46 BP 128 / 82; Pulse 55; Resp 18 S; Pulse Ox 99% on R/A; kc6 08:04 Body Mass Index 21.73 (52.16 kg, 154.94 cm) hb 08:04 Pain Scale: Adult hb MDM: 08:12 Medical Screening Exam initiated ms3 18:49 Differential diagnosis: Nonspecific abd pain, gastritis, appendicitis, diverticulitis, ms3 viral gastroenteritis, gastroenteritis. Data reviewed: vital signs, nurses notes, lab test result(s), radiologic studies, and as a result, I will discharge patient. I considered the following discharge prescriptions or medication management in the emergency department Medications were administered in the Emergency Department. See MAR. Counseling: I had a detailed discussion with the patient and/or guardian regarding the historical points, exam findings, and any diagnostic results supporting the discharge/admit diagnosis, lab results, radiology results, the need for outpatient follow up, to return to the emergency department if symptoms worsen or persist or if there are any questions or concerns that arise at home. Special discussion: Based on the patient's Hx, exam, and Dx evaluation, there is no indication for emergent surgery or inpatient Tx. It is understood by the patient/guardian that if the Sx's persist or worsen they need to return immediately for re-evaluation. ED course: Labs reassuring with mild MARION. Patient with continued emesis and pain and CT was obtained showing right-sided colitis. Patient symptoms improved while in the emergency department, patient is alert and orient x 4, no apparent distress, nontoxic-appearing, speaking full sentences, tolerating p.o. in the emergency department. 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 Patient to follow-up with her primary care physician in 2 to 3 days. All questions were answered. Return precautions discussed include worsening symptoms, or any other concerns.. 05/06 08:02 Order name: CBC with Diff; Complete Time: 08:53 ms3 05/06 08:02 Order name: CMP; Complete Time: 08:53 ms3 05/06 08:02 Order name: Lipase; Complete Time: 08:53 ms3 05/06 09:44 Order name: CT Abd/Pelvis - IV Contrast Only; Complete Time: 12:19 ms3 05/06 08:02 Order name: IV Saline Lock; Complete Time: 08:24 ms3 05/06 08:02 Order name: Labs collected and sent; Complete Time: 08:24 ms3 Administered Medications: 08:19 Drug: Ondansetron PO 4 mg PO once Route: PO; kc6 09:20 Follow up: Response: No adverse reaction; Nausea unchanged; Vomiting unchanged kc6 08:28 Drug: morphine IVP or IV 4 mg IVP once over 4 mins Route: IVP; Infused Over: 4 mins; kc6 Site: right antecubital; 09:45 Follow up: Response: No adverse reaction; Pain is unchanged, physician notified; RASS: kc6 Restless (+1) 09:20 Drug: Promethazine IM 12.5 mg IM once Route: IM; Site: right deltoid; kc6 09:45 Follow up: Response: No adverse reaction; Nausea unchanged; Vomiting unchanged kc6 10:24 Drug: Droperidol IVP 1.25 mg IVP once Route: IVP; Site: right antecubital; kc6 11:23 Follow up: Response: No adverse reaction; Pain is decreased; Nausea is decreased; kc6 Vomiting decreased Disposition Summary: 05/06/24 12:24 Discharge Ordered Notes: Location: Home ms3 Condition: Stable ms3 Diagnosis - Colitis ms3 - Abdominal pain, Generalized ms3 - Nausea with vomiting, unspecified ms3 Followup: ms3 - With: Doyle Ibarra DO - When: 2 - 3 days - Reason: Recheck today's complaints Discharge Instructions: - Discharge Summary Sheet ms3 - Abdominal Pain, Adult ms3 - Nausea and Vomiting, Adult ms3 Forms: - Medication Reconciliation Form ms3 - Antibiotic Education ms3 - Prescription Opioid Use ms3 - Patient Portal Instructions ms3 - Leadership Thank You Letter ms3 Prescriptions: - Flagyl 500 mg Oral Tablet - take 1 tablet ORAL route every 8 hours for 10 days; 30 tablet; Refills: 0, ms3 Product Selection Permitted - Cipro 500 mg Oral Tablet - take 1 tablet ORAL route every 12 hours for 7 days; 14 tablet; Refills: 0, ms3 Product Selection Permitted Signatures: Dispatcher [employer] Any Franklin, RN RN hb Zack Dunne, DO SCHAEFER ms3 Tatum Lopez, RN RN kc6
[2024-05-06 14:51] VITALS: TEMP 98.1
[2024-05-06 14:54] VITALS: BP 128/82; O2SAT 99
== END 2024-05-06 12:46 | disposition home or self-care (01) ==
LOC: ER 07:53
DX: K52.9 Noninfective gastroenteritis and colitis, unspecified (principal); R11.2 Nausea with vomiting, unspecified; Z72.0 Tobacco use
CPT/HCPCS: 85025; 36415; 83690; 80053; 74177; Q9967; J2550; Q0162; J1790

== ENCOUNTER 2024-05-06 17:06 | Emergency (ER) | payer BC ==
--- OUTSIDE RECORDS SUMMARY | 2024-05-06 17:10 | XMS REPORT | Continuity of Care Document ---
Author Name Unknown Address [address] [place] [address] [facility] Address [address] [place] [address] Care Team Providers Care Online Marketing Strategist Name Role Phone No , Pcp Primary [...] Clinician + Sheila Akbar MD Attending Clinician [phone] Krish Terrell MD Attending Clinician [phone] Na HANLEY, Tea Attending Clinician [phone] CHRISTOPHER MART Attending Clinician Unavailable [email or web address]_S Attending Clinician Rosalva Prajapati Attending Clinician Unavailghislaine Thorpe MD, Buster Lenz Attending Clinician [phone] NAOMIE, SHEILA Admitting Clinician Unavailable Naomie HANLEY, Sheila Admitting Clinician [phone] [email or web address]_S Admitting Clinician Unavailghislaine gautam KNOW, DOES_NOT Admitting Clinician Unavailable Payers Payer Name Policy Type Policy Number Effective Date Expirati on Date Source Blue Cross Blue [facility] [place] 6 [id number] 77 2023 00:00:00 [facility] [place] OUT OF [place] [id number] 77 2022 00:00:00 BCBS COMM [id number] 77 2022 00:00:00 [place] [id number] 77 2022 00:00:00 2023 00:00:00 Problems Condition [...] antepartum Disease Active 08-24 00:00: 00 [facility] Anemia of mother in , antepartum Anemia of mother in , antepartum Disease Active 08-24 00:00: 00 [facility] Sterilizat ion consult Sterilizat ion consult Disease Active 06-29 00:00: 00 [facility] Tobacco smoking affecting in second trimester Tobacco smoking affecting in second trimester Disease Active 05-31 00:00: 00 [facility] Medication exposure during first trimester of Medication exposure during first trimester of Disease Active 05-31 00:00: 00 [facility] Declines (vaginal after ) trial Declines (vaginal after ) trial Disease Active 05-31 00:00: 00 [facility] Previous delivery affecting , antepartum Previous delivery affecting , antepartum Disease Active 05-31 00:00: 00 [facility] Status post induction of labor Status post induction of labor Disease Active 08-20 00:00: 00 [facility] distress affecting management of mother, delivered distress affecting management of mother, delivered Disease Active 08-20 00:00: 00 [facility] Failed induction of labor, delivered Failed induction of labor, delivered Disease Active 08-20 00:00: 00 [facility] Fetopelvic disproport ion, delivered Fetopelvic disproport ion, delivered Disease Active 08-20 00:00: 00 Overview: 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 [facility] Status post induction of labor Status post induction of labor Disease Active 08-20 00:00: 00 [facility] Threatened premature labor, antepartum (644.03) Threatened premature labor, antepartum (644.03) Disease Active 6-18 00:00: 00 [facility] [id number] Mixed hyperlipid emia Problem [facility] [id number] Moderate episode of recurrent major depressive disorder Problem [facility] [id number] Constipati on, unspecifie d constipati on type Problem [facility] Status post repeat low transverse section Status post repeat low transverse section Disease Resolve d 09-04 00:00: 00 2017-09-07 00:00:00 2017-09-07 12:31:50 [facility] Single liveborn, born in hospital, delivered by delivery Single liveborn, born in hospital, delivered by delivery Disease Resolve d 09-04 00:00: 00 2017-09-07 00:00:00 2017-09-07 12:31:50 [facility] 39 weeks gestation of 39 weeks gestation of Disease Resolve d 16 00:00: 00 2017-09-07 00:00:00 2017-09-07 12:31:50 [facility] Allergies, Adverse Reactions, Alerts Allergy Name [...] substanc e Active Unknown 8-29 00:00: [address] [facility] [place] [place] Penicill ins DA Active SV ANAPHYLAXIS 2022-02 00:00: 00 [facility] shellfis h derived FA Active SV ANAPHYLAXIS 2022-02 00:00: 00 [facility] shellfis h derived FA Active SV ANAPHYLAXIS 2022-02 00:00: 00 [facility] Penicill ins DA Active SV ANAPHYLAXIS 2022-02 00:00: 00 [facility] Tegaderm Dressing Propensi ty to adverse reaction s Active Itching 09-11 00:00: 00 [facility] Penicill ins Propensi ty to adverse reaction s Active Anaphylaxis 08-20 00:00: 00 [facility] Penicill ins Allergy to substanc e Active Unknown 08-20 00:00: [address] [facility] [place] [place] PENICILL INS Allergy to substanc e Active Moderate severity Anaphylaxis [facility] SHELLFIS H DERIVED Allergy to substanc e Active Moderate severity Anaphylaxis [facility] Shellfis h (FN) Shellfis h (FN) Active Unknown [facility] [id number] Drug allergy Active Unknown [facility] Social History Social Habit Start Date Stop Date Quantity Comments Source ASSERTION [facility] Alcohol intake [facility] Gender identity Eric [facility] History of tobacco use Cigarette Smoker [facility] [place] [place] Tobacco use and exposure 2023-11-24 00:00:00 2023-11-24 00:00:00 Smokeless tobacco non-user [facility] History of Social function 2018-08-27 00:00:00 2018-08-27 00:00:00 [facility] Alcoholic beverage intake 2017-05-31 00:00:00 2017-05-31 00:00:00 Current non-drinker of alcohol (finding) [facility] Cigarettes smoked current (pack per day) - Reported 2017-05-31 00:00:00 2017-05-31 00:00:00 [facility] Cigarette pack-years 2017-05-31 00:00:00 2017-05-31 00:00:00 [facility] Sex assigned at 1995 00:00:00 1995 00:00:[address] [facility] [place] [place] Smoking Status Start Date Stop Date Source Heavy Tobacco Smoker [facility] Never Smoker [facility] Smokes tobacco daily 2023-10-18 00:00:[address] [facility] [place] [place] Medications Ordered Medication Name Filled Medication Name [...] 2023-02 12:19: 24 12-01 12:18 :24 No [id number] 4mg Q.5D Deborah Isabel sucralfate (Carafate) suspension [...] Do not crush, chew, or split. Nehal Isbael metroNIDAZO LE (Flagyl) 500 MG tablet metroNIDAZO LE (Flagyl) 500 MG tablet 2023-02 008 00:00: 00 11-30 23:59 :00 No 500mg [id number] 3D Take 1 tablet by mouth in [...] orally or via feeding tube >/= 14 Canadian, may dissolve each 20 mEq tablet in 4 oz of water. Allow about 2 minutes for the tablets to disintegra te. Stir before giving to prepare slurry and administer . Please exclude patient's with feeding tube less than 14 Canadian (Dobhoff, J-tube, etc) and pediatric and patients [...] For 1 dose, Administer IVP. Jessicashaunna pedro Lutz Chalo sodium chloride 0.9 % bolus 1,000 mL sodium chloride 0.9 % bolus 1,000 mL 2023-02 20:50: 00 11-23 23:27 :01 No 1000mL 1,000 mL, Intravenou s, at 1,000 mL/hr, Administer over 1 Hours, Once, On 11/24/23 at 2049, For 1 dose Nehal pedro Vince Chalo sodium chloride (PF) 0.9 % injection [...] by mouth 1 (one) time each day. [facility] [place] [place] sertraline (Zoloft) 100 MG tablet 10-18 15:25: 42 Yes 100mg QD Take 100 mg by mouth 1 (one) time each day. [facility] [place] [place] buPROPion XL (Wellbutrin XL) 150 MG 24 hr tablet 10-18 15:25: 42 Yes 150mg Take 150 mg by mouth every morning. [facility] [place] [place] gabapentin (Neurontin) 300 MG capsule 10-18 00:00: 00 11-18 04:59 :00 No [id number] 300mg Take 1 capsule (300 mg total) by mouth every night. [facility] [place] [place] Ondansetron HCl 4 MG Ondansetron HCl 4 MG 09-27 00:00: 00 No 1{table t} QD Ondansetro n HCl 4 MG eszopiclone (Lunesta) 2 MG tablet eszopiclone (Lunesta) 2 MG tablet 04-17 00:00: 00 Yes 2mg Take 2 mg by mouth at bedtime. Nehal Isabel topiramate 50 mg tablet 09-27 00:00: 00 Yes [id number] Take 100mg two times a day for 5 days, then take 150 mg in the am and 100 mg in the evening for 5 days, then take 150 mg two times a day there after. [facility] ZOLMitripta n 5 mg tablet 09-27 00:00: 00 Yes One tab at onset of headache, may repeat x one tab in 4 hours if headache persist. No more than two tabs in a 24 hour period [facility] Butalbital- Acetaminoph en-Caff (FIORICET) 50-300-40 mg per capsule 09-27 00:00: 00 Yes [id number] Use one every 6 hours as needed for head pain. [facility] Butalbital- Acetaminoph en-Caff (FIORICET) 50-300-40 mg per capsule 18 00:00: 00 09-27 00:00 :00 No [id number] Use one every 6 hours as needed for head pain. [facility] topiramate 50 mg tablet 06-21 00:00: 00 09-27 00:00 :00 No [id number] Use 2 in am, 1 in the evening for the headache. [facility] sumatriptan 100 mg tablet 03 00:00: 00 09-27 00:00 :00 No [id number] 100mg Take 1 tablet by mouth as needed for Migraine. Within 24 hours, may repeat times one in 2 hours as needed. [facility] VIT W-CA,FE,FA, <1 MG, ( #2 ORAL) 724 18:53: 24 Yes 1{tbl} Take 1 Tab by mouth. [facility] diphenhydrA MINE (BENADRYL ALLERGY) 25 mg tablet 09-11 18:53: 24 Yes 25mg Take 25 mg by mouth every 4 (four) hours as needed for Allergies. [facility] VIT W-CA,FE,FA, <1 MG, ( #2 ORAL) 09-11 13:53: 24 Yes 1{tbl} Take 1 Tab by mouth. [facility] diphenhydrA MINE (BENADRYL ALLERGY) 25 mg tablet 09-11 13:53: 24 Yes 25mg Take 25 mg by mouth every 4 (four) hours as needed for Allergies. [facility] predniSONE 10 mg tablet 09-11 00:00: 00 Yes [id number] 10mg Take 1 tablet by mouth SEE-INSTRU CTIONS. [facility] naproxen 500 mg tablet 09-05 00:00: 00 Yes 500mg Take 1 tablet by mouth 2 (two) times daily with meals as needed for Pain (scale 1-3) or Pain (scale 4-6). [facility] vitamin w/FA tablet 09-05 00:00: 00 Yes 1{tbl} Take 1 tablet by mouth daily. [facility] docusate calcium 240 mg capsule 09-05 00:00: 00 Yes 240mg Take 1 capsule by mouth once daily as needed for Constipati on. [facility] ferrous sulfate 325 mg (65 mg iron) tablet 09-05 00:00: 00 Yes 325mg Take 1 tablet by mouth 2 (two) times daily. [facility] ferrous sulfate (IRON, FERROUS SULFATE,) 325 mg (65 mg iron) tablet 08-24 00:00: 00 Yes [id number] 325mg Take 1 tablet by mouth 2 (two) times daily with meals. [facility] eszopiclone 3 mg tablet TAKE 1 TABLET BY MOUTH ONCE DAILY IMMEDIATLEY BEFORE BED eszopiclone 3 mg tablet TAKE 1 TABLET BY MOUTH ONCE DAILY IMMEDIATLEY BEFORE BED No eszopiclon e 3 mg tablet TAKE 1 TABLET BY MOUTH ONCE DAILY IMMEDIATLE Y BEFORE BED [facility] Rexulti 0.5 MG Rexulti 0.5 MG No 1{table t} QD Rexulti 0.5 MG LORazepam LORazepam No LORazepam Sertraline HCl 50 MG Sertraline HCl 50 MG No 1{table t} QD Sertraline HCl 50 MG Ofloxacin 0.3 % Ofloxacin 0.3 % No Ofloxacin 0.3 % Immunizations Ordered Immunization Name Filled Immunization Name Date Status Comments Source Tdap 2017-06-29 00:00:00 Completed [facility] TDAP 2017-06-29 00:00:00 Completed Vital Signs Vital Name Observation Time Observation Value Comments S ource blood pressure diastolic 2024-02-19 13:00:00 62 mm[Hg] [facility] height 2024-02-19 13:00:00 61 [in_i] Commo n [facility] weight 2024-02-19 13:00:00 120.4 [lb_av] Co mmon [facility] temperature 2024-02-19 13:00:00 97.3 [degF] Com mon [facility] bmi 2024-02-19 13:00:00 22.75 kg/m2 Comm on [facility] oximetry 2024-02-19 13:00:00 97 % Commo n [facility] blood pressure systolic 2024-02-19 13:00:00 98 mm[Hg] [facility] Heart rate 2023-11-27 12:20:42 55 /[facility] Res[facility] rate 2023-11-27 12:20:42 18 /min [facility] Oxygen saturation in Arterial blood by Pulse oximetry 2023-11-27 12:20:42 98 /min [facility] Systolic blood pressure 2023-11-27 12:20:34 99 mm[Hg] [facility] Diastolic blood pressure 2023-11-27 12:20:34 60 mm[Hg] [facility] Body temperature 2023-11-27 12:19:33 36.72 Nuvia [facility] Body height 2023-11-26 13:35:00 154.9 cm Eric [facility] Body weight 2023-11-26 13:35:00 50.803 kg [facility]jerilyn [facility] BMI 2023-11-26 13:35:00 21.16 kg/m2 [facility]ilyn [facility] Heart rate 2023-11-27 12:20:42 55 /min Gulshan alavrez [facility] Respiratory rate 2023-11-27 12:20:42 18 /min [facility] Oxygen saturation in Arterial blood by Pulse oximetry 2023-11-27 12:20:42 98 /min [facility] Systolic blood pressure 2023-11-27 12:20:34 99 mm[Hg] [facility] Diastolic blood pressure 2023-11-27 12:20:34 60 mm[Hg] [facility] Body temperature 2023-11-27 12:19:33 36.72 Nuvia [facility] Body height 2023-11-26 13:35:00 154.9 cm Ericjerilyn cespedesTri[facility] Body weight 2023-11-26 13:35:00 50.803 kg Ericjerilyn mcqueen [facility] BMI 2023-11-26 13:35:00 21.16 kg/m2 [facility] Systolic blood pressure 2023-10-19 20:26:00 96 mm[Hg] [facility] Diastolic blood pressure 2023-10-19 20:26:00 67 mm[Hg] [facility] Heart rate 2023-10-19 20:26:00 72 /min [facility] Body height 2023-10-19 20:26:00 154.9 cm [facility] Body weight 2023-10-19 20:26:00 [facility] 2023-10-19 20:26:00 21.35 kg[facility]m2 [facility] 2023-09-28 13:20:00 61 [in_i] Commo n [facility] weight 2023-09-28 13:20:00 109.8 [lb_av] Co mmon [facility] temperature 2023-09-28 13:20:00 97.3 [degF] Com mon [facility] bmi 2023-09-28 13:20:00 20.74 kg/m2 Comm on [facility] oximetry 2023-09-28 13:20:00 97 % Commo n [facility] respiratory rate 2023-09-28 13:20:00 16 /min Common [facility] blood pressure systolic 2023-09-28 13:20:00 101 mm[Hg] Common [facility] blood pressure diastolic 2023-09-28 13:20:00 68 mm[Hg] [facility] BP Diastolic 2023-08-16 00:00:00 71 mm[Hg] [facility] BP Systolic 2023-08-16 00:00:00 102 mm[Hg] [facility] Height 2023-08-16 00:00:00 61 [in_i] [facility] Body Weight 2023-08-16 00:00:00 107 [lb_av] [facility] BMI (Body Mass Index) 2023-08-16 00:00:00 20.2 kg/m2 [facility] height 2023-06-28 14:40:00 61 [in_i] Commo n [facility] weight 2023-06-28 14:40:00 109.8 [lb_av] Co mmon [facility] temperature 2023-06-28 14:40:00 97.3 [degF] Com mon [facility] bmi 2023-06-28 14:40:00 20.74 kg/m2 Comm on [facility] oximetry 2023-06-28 14:40:00 85 % Commo n [facility] blood pressure systolic 2023-06-28 14:40:00 99 mm[Hg] Common [facility] blood pressure diastolic 2023-06-28 14:40:00 62 mm[Hg] [facility] Procedures Procedure Date / Time Performed Performing Clinician Source POC GLUCOSE UNSOLICITED RESULTS 2023-11-27 06:09:00 Tea Monzon [facility] POC GLUCOSE UNSOLICITED RESULTS 2023-11-26 19:46:00 [facility] DIFF[facility] DNA WITH REFLEX TO TOXIN IF INDICATED 2023-11-26 18:22:00 Na [facility] ENTERIC PATHOGENS WITH CULTURE IF INDICATED 2023-11-26 18:22:00 [facility] POC GLUCOSE UNSOLICITED RESULTS 2023-11-26 17:12:00 Na [facility] EGD 2023-11-26 16:42:00 Clara Barnett Lutz Epic POC GLUCOSE UNSOLICITED RESULTS 2023-11-26 06:29:00 Na Tea [facility] BASIC METABOLIC PANEL 2023-11-26 03:22:00 Acherudy Ifjosefina jamison [facility] MAGNESIUM LEVEL 2023-11-26 03:22:00 Na Tea Eric rial [facility] PHOSPHORUS LEVEL 2023-11-26 03:22:00 Na Tea [facility] orial [facility] COMPLETE BLOOD COUNT W/DIFF AND PLATELET 2023-11-26 03:22:00 Achebe, Sheila [facility] CALCIUM LEVEL IONIZED WHOLE BLOOD 2023-11-26 03:22:00 Na, Tea [facility] COMPLETE BLOOD COUNT 2023-11-26 03:22:00 Achebe, Ifsuzannaom a [facility] AUTOMATED DIFFERENTIAL 2023-11-26 03:22:00 AchebeLuisa oma [facility] Fecal Leukocytes 2023-11-26 00:00:00 Eric mcqueen [facility] POC GLUCOSE UNSOLICITED RESULTS 2023-11-25 17:29:00 Na Tea [facility] POC GLUCOSE UNSOLICITED RESULTS 2023-11-25 11:22:00 Na, Tea [facility] POC GLUCOSE UNSOLICITED RESULTS 2023-11-25 07:26:00 Na Tea [facility] ECG 12-LEAD 2023-11-25 03:51:13 Acherudy Sheilajean-pierre Cabrera [facility] Epic UA WITH CULTURE IF INDICATED 2023-11-25 00:47:00 Maryse Ashley [facility] CT ABDOMEN PELVIS W IV CONTRAST 2023-11-25 00:46:11 Maryse Ashley [facility] ECG 12 lead 2023-11-25 00:00:00 [facility] BASIC METABOLIC PANEL 2023-11-24 21:02:00 Elissa Ashley [facility] HEPATIC FUNCTION PANEL 2023-11-24 21:02:00 Haley Ashley [facility] Epic LIPASE LEVEL 2023-11-24 21:02:00 Maryse Ashley [facility] Epic HCG TOTAL (QUANTITATIVE) 2023-11-24 21:02:00 Maryse Ashley [facility] COMPLETE BLOOD COUNT W/DIFF AND PLATELET 2023-11-24 21:02:00 Maryse Ashley [facility] COMPLETE BLOOD COUNT 2023-11-24 21:02:00 James Ashley [facility] AUTOMATED DIFFERENTIAL 2023-11-24 21:02:00 Haley Ashley [facility] Delivery 2017-09-04 00:00:00 [facility] Tubal Ligation 2017-09-04 00:00:00 [facility] Delivery 2014-08-20 00:00:00 [facility] POCT Glucose [facility] Tissue Examination [facility] Encounters Start Date/Time End Date/Time Encounter Type Admission Type Attending Clinicians Care Facility Care Department Encounter ID Source 2024-02-25 11:14:01 Outpatient Sung Garcia [facility] [id number] [facility] 2024-02-19 07:38:00 Outpatient Sung Garcia [facility] [id number] [facility] 2024-01-04 10:37:01 Outpatient Sung Garcia [facility] [id number] [facility] 2023-09-26 08:07:00 Outpatient Sung Garcia [facility] [id number] [facility] 2023-09-26 07:30:00 Inpatient JOSE DAVIDLUZ RODRIGUEZ [facility] [id number] [facility] 2023-09-17 11:40:00 [facility] [id number] [facility] 2023-06-26 08:49:01 Outpatient Sung [facility] [id number] [facility] 2023-05-29 13:25:00 Outpatient Sung [facility] [id number] [facility] 2017-07-17 00:00:00 2024-04-05 03:17:27 Orders Only Radha Casanova Stephanie L [facility] [id number] [facility] 2017-08-10 00:00:00 2024-04-05 03:16:22 Orders Only Grey Palacios Toni D [facility] [id number] [facility] 2017-08-10 00:00:00 2024-04-05 03:16:22 Orders Only Bee Ruelas Gillian D [facility] [id number] [facility] 2024-04-02 00:00:00 2024-04-02 00:00:00 (TEL) STLMLC STLMLC [id number] [facility] 2024-02-19 00:00:00 2024-02-19 00:00:00 OFFICE VISIT ESTAB PT LEVEL 4 STLMLC STLMLC [id number] [facility] 2024-02-15 00:00:00 2024-02-15 00:00:00 (TEL) STLMLC STLMLC [id number] [facility] 2024-02-05 00:00:00 2024-02-05 00:00:00 (TEL) STLMLC STLC [id number] [facility] 2024-01-22 00:00:00 2024-01-22 00:00:00 (TEL) STLMLC STLC [id number] [facility] 2023-12-12 00:00:00 2023-12-12 00:00:00 (TEL) STLC STLC [id number] [facility] 2023-12-07 15:45:00 2023-12-07 15:45:00 Outpatient DOMINGA STEVENS [facility] [id number] [facility] [place] [place] 2023-11-24 20:26:00 2023-11-27 14:26:00 Emergency Urgent NA TEA [facility] General Medicine [id number] [facility] 2023-11-24 20:26:00 2023-11-27 14:26:00 Emergency AznauroRhett aguilera, Keisha Lizarraga, Halima Akbar, Sheila Terrell, Krish Monzon, [facility] [id number] [facility] 2023-10-19 16:00:00 2023-10-19 16:00:00 Office Visit Dominga Stevens [facility] AND WOMENS [id number] [facility] [place] [place] 2023-10-18 14:00:00 2023-10-18 14:00:00 Outpatient CHRISTOPHER MART [facility] [id number] [facility] [place] 2023-09-28 00:00:00 2023-09-28 00:00:00 (ESTPTWM) [facility] [id number] 2023-09-17 00:00:00 2023-09-17 00:00:00 OFFICE VISIT ESTAB PT LEVEL 3 STLMLC STLMLC [id number] [facility] 2023-08-16 00:00:00 2023-08-16 00:00:00 Luz Watt MD: [address], [address], [place] [address] , Ph. [phone] [facility] [id number] [facility] 2023-06-28 00:00:00 2023-06-28 00:00:00 OFFICE VISIT ESTAB PT LEVEL 4 STLMLC STLMLC [id number] [facility] 2023-03-22 00:00:00 2023-03-22 00:00:00 Outpatient GC_GCBZW_Ka diyala_S PRIV PRIV [id number] [facility] 2023-02-22 00:00:00 2023-02-22 00:00:00 Outpatient GC_GCBZW_Ka diyala_S PRIV PRIV [id number] [facility] 2023-01-25 00:00:00 2023-01-25 00:00:00 Outpatient GC_GCBZW_Ka diyala_S PRIV PRIV [id number] [facility] 2023-01-04 00:00:00 2023-01-04 00:00:00 Outpatient GC_GCBZW_Ka diyala_S PRIV PRIV [id number] [facility] 2023-01-01 13:09:00 2023-01-01 13:09:00 Outpatient Rosalva Christina [facility] [id number] 2022-12-28 00:00:00 2022-12-28 00:00:00 Outpatient GC_GCBZW_Ka diyala_S PRIV PRIV [id number] [facility] 2022-11-30 00:00:00 2022-11-30 00:00:00 Outpatient GC_GCBZW_Ka diyala_S PRIV PRIV [id number] [facility] 2022-11-30 00:00:00 2022-11-30 00:00:00 Outpatient GC_GCBZW_Ka diyala_S PRIV PRIV [id number] [facility] 2022-11-30 00:00:00 2022-11-30 00:00:00 Outpatient GC_GCBZW_Ka diyala_S PRIV PRIV [id number] [facility] 2022-11-30 00:00:00 2022-11-30 00:00:00 Outpatient GC_GCBZW_Ka diyala_S PRIV PRIV [id number] [facility] 2022-10-17 00:00:00 2022-10-17 00:00:00 Outpatient GC_GCBZW_Ka diyala_S PRIV PRIV [id number] [facility] 2022-10-17 00:00:00 2022-10-17 00:00:00 Outpatient GC_GCBZW_Ka diyala_S PRIV PRIV [id number] [facility] 2022-10-17 00:00:00 2022-10-17 00:00:00 Outpatient GC_GCBZW_Ka diyala_S PRIV PRIV [id number] [facility] 2022-10-17 00:00:00 2022-10-17 00:00:00 Outpatient GC_GCBZW_Ka diyala_S PRIV PRIV [id number] [facility] 2022-10-02 00:00:00 2022-10-02 00:00:00 Outpatient GC_GCBZW_Ka diyala_S PRIV PRIV [id number] [facility] 2022-10-02 00:00:00 2022-10-02 00:00:00 Outpatient GC_GCBZW_Ka diyala_S PRIV PRIV [id number] [facility] 2022-10-01 00:00:00 2022-10-01 00:00:00 Outpatient GC_GCBZW_Ka aakash_Nolan [facility] [id number] [facility] 2018-09-26 00:00:00 2018-09-26 00:00:00 Telephone Buster Thorpe [facility] Lucie Sullivan [facility]ly [facility] [id number] [facility] Results Test Description Test Time Test Comments Results Result Co mments Source [facility] Wdyzyie7175-73-49 20:02:31* Test Item Value Reference Range Interpretation Comme nts POC Glu (test code = 9344230770) 81 mg/dL 70-99 POC Glu Comment 1 (test code = 8399154150) Notified RN/MD POC Performing Location (hood t code = 0404354766) [facility] Dkzgcun1043-69-88 17:15:05* Test Item Value Reference Range Interpretation Comme nts POC Glu (test code = 2015303868) 79 mg/dL 70-99 POC Performing Location (hood t code = 1917707752) [facility] Cftagbv5520-74-33 06:40:28* Test Item Value Reference Range Interpretation Comme nts POC Glu (test code = 3600071898) 74 mg/dL 70-99 POC Performing Location (hood t code = 2609921525) [facility] Mazqgzp1529-76-98 17:36:07* Test Item Value Reference Range Interpretation Comme nts POC Glu (test code = 1703512972) 93 mg/dL 70-99 POC Glu Comment 1 (test code = 8751931493) Notified RN/MD POC Performing Location (hood t code = 3565739228) [facility] 12 pnyb5625-67-08 16:26:29* Test Item Value Reference Range Interpretation Comme nts Ventricular Rate (test code = 0205425410) BPM Atrial Rate (test code = 9980499865) BPM DE Interval (test code = 7987915245) 108 ms QRS Duration (test code = 5138771388) 90 ms QT/QTc (test code = 7001003429) 498 ms QTc Calculation (test code = 4157330309) 454 ms P-Arona (test code = 2280565323) degrees R-Arona (test code = 1033032800) degrees T-Arona (test code = 1455898849) degrees GEORGI (test code = GEORGI) PXN (test code = PXN) [facility] Jxowmbv7372-11-43 11:38:14* Test Item Value Reference Range Interpretation Comme [facility] POC Glu (test code = 3777525866) 85 mg/dL 70-99 POC Performing Location (hood t code = 2488471876) [facility] Dfgfrur9302-56-60 07:36:31* Test Item Value Reference Range Interpretation Comme [facility] POC Glu (test code = 1341942609) 86 mg/dL 70-99 POC Performing Location (hood t code = 5959961643) [facility] hkbki2422-07[facility]45 14:54:19* Test Item Value Reference Range Interpretation Comme [facility] Test (test code = Test) negative [facility] - Kxclm3382-40-78 14:54:06* Test Item Value Reference Range Interpretation Comme [facility] Leukocytes (test code = Leukocytes) Negative Nitrite (test code = Nitrite) negative Urobilinogen (test code = Urobilinogen) .2 Protein (test code = Protein) Negative pH (test code = pH) 5.5 Blood (test code = Blood) Negative Specific Agency (test code = Specific Agency) 1.020 Ketone (test code = Ketone) Negative Bilirubin (test code = Bilirubin) Negative Glucose (test code = Glucose) Negative Appearance (test code = Appearance) Clear Color (test code = Color) Yellow [facility] 15:31:00* Test Item Value Reference Range Interpretation Comme [facility] SURGICAL (test code = SR) RUN DATE: 01/03/23 [facility] PAGE 1 RUN TIME: 1531 Specimen Inquiry RUN USER: INTERFACE PATIENT: ALCIDES TORRES LOC: TIA U #: [id number] AGE/SX: 27/F ROOM: RE01/01/23[facility] DR: Rosalva Estes MD : 89 BED: DIS: STATUS: [facility] TLOC: SPEC #: [id number] RECD: 01/01/23 STATUS: NICOLÁS ALDA #: [id number] JOSSY: 01/01/[address] [facility] [address]: Rosalva Estes MD ENTERED: 01/01/23 SP TYPE: SURGICAL OT DR: ORDERED: [id number], ANATOMIC SPEC, SPECIMEN TRACK PROCEDURES: [id number] (01/03/23-1530) SPECIMEN TRACK (01/01/23) TISSUES: A. FALLOPIAN [...] tissue processing and slide preparation performed at [facility],[place] [address] , [place] [address] MICROSCOPIC DESCRIPTION Microscopic examination is performed and the findings are incorporated into the finaldiagnosis. Please see diagnosis for findings. Signed SIGNATURE ON FILE Marj Stark 01/03/23 1531 END OF REPORT HCG SERUM [id number] 15:51:00* Test Item Value Reference Range Interpretation Comme [facility] HCG SERUM QUAL (test code = HCGQL) SERUM NEGATIVE SCREEN NEGATIVE CBC W/AUTO RIET0950-32-55 22:53:00* Test Item Value Reference Range Interpretation [...] NRBC#) 0.0 K/mm3 0.0-0.1 N BASIC METABOLIC [id number] 14:09:00* Test Item Value Reference Range Interpretation [...] = CA) 8.9 MG/DL 8.5-10.1 N PROTHROMBIN RDCB2017-04-90 13:44:00* Test Item Value Reference Range Interpretation [...] prevent recurrent infarct). Comment: PRE PROCEDURETHROMBOPLASTIN TIME [id number] 13:44:00* Test Item Value Reference Range Interpretation Comme nts THROMBOPLASTIN TIME PARTIAL (test code = PTT) 31.3 SECONDS 26-35 N Comment: PRE PROCEDUREURINALYSIS [id number] 13:24:00* Test Item Value Reference Range Interpretation [...] A Urine Specimen Type: Clean CatchUR HCG [id number] 13:24:00* Test Item Value Reference Range Interpretation [...] patient was seen by Dr. Herbert in [place]. She reports having an upper endoscopy done [...] Patient seen and examined with the physician store assistant, and confirmed the essential components of history, physical examination, diagnosis and treatment plan. I agree with the patient's care and plan as documented by the physician store assistant. Gastroenterology Physician [facility] History and Physical Notes Date/Time Note Provider Source 2023-11-24 19:32:00 History Of Present Illness 28-year-old female with history of peptic ulcer disease presenting with complaints of lower abdominal pain/cramps since 11/20. She reports associated nausea, vomiting and diarrhea. She was admitted at [facility] on 11/21, diagnosed with colitis and started on Levaquin/Flagyl. She continued to have pain and went back to [place] ER where she was given analgesics and [...] Procedure Abnormality Status --------- ------ Complete Blood Count[[id number]] Normal Final result Automated Differential[[id number]] Abnormal Final result Please view results for [...] Sips with meds [facility] Notes Date/Time Note Provider Source Referral ID Status Reason Start Date Expiration Date V isits Requested Visits Authorized [id number] Pending Review 11/27/2023 05/25/2024 1 1 [facility] WorthNcirkmg0871-95-87 14:43:15* [facility] WorthDfydteg2293-96-15 14:43:15* Audit- C Score Answer Date of [...] 11/25/2023 4:30 AM Umm Gaytan RN * [place] Suicide Severity Rating Scale (Screener/Recent Self-Report) Question Answer Date of Assessment Author 1. Wish to be (Past 1 Month) No 11/24/2023 11:21 PM CDT Keanu Brizuela RN 2. Non-Specific Active Suicidal Thoughts (Past 1 Month) No 11/25/2023 4:30 AM CDT Umm Wheeler RN 6. Suicidal Behavior (Lifetime) No 11/25/2023 4:30 AM CDT Umm Wheeler RN [facility] WorthRtgkvun2471-75-91 14:43:15* Tea Monzon MD - 11/26/2023 3:29 [...] bedside. The Pt currently is residing at [address] [place] [address]. No DME in the home and no barriers to discharge. Admit Location: [facility] Expected Discharge Date: 11/26/2023 Discharge Plan: * Emily Zambrano RN - 11/25/2023 12:39 PM CDT Glued Wood Tester informed Dr. Tea Monzon of patient previous lab of potassium 2.6 and 20 Meq given. Requested recheck of lab, stated he would recheck with morning labs. [place] 78703-10-08 14:43:15Pending Results Scheduled Orders Name Type Priority [...] on patient's age to complete this topic [facility] WorthHvbdimu0017-94-06 14:43:15 [place] 643444-10-08 14:43:15 Diagnosis Intractable nausea and vomit ing [...] without mention of hemorrhage, perforation, or obstruction [facility] WorthJukmsvt6327-37-92 14:43:15 [place] 643444-10-08 14:16:17 Discharge instructions, new prescriptions / home medication review, regular soft diet, and follow up appointment with Dr Michi LORA within 2 weeks discussed and explained to patient, stated understanding. No other concerns voiced. [facility] Hospitalyeimy ClarkeXqiafrz5028-35-26 13:31:20 Images from the original note were not included. [id number] Ciprofloxacin Brand Name(s): Cipro? Oral Suspension, Cipro? [...] doctor or pharmacist will give you the it security project manager's patient information sheet (Medication Guide) when you begin treatment with ciprofloxacin. Read the information carefully and ask your doctor or pharmacist if you have any questions. You can also visit the Food and Drug Administration (FDA) website (https://www.fda.gov/Drugs) or the it security project manager's website to obtain the Medication Guide. WHY [...] and out of their sight and reach. https://www.[employer].org Unneeded medications should be disposed of in [...] be awakened, immediately call emergency services at 361. What OTHER INFORMATION should I know? Keep [...] of all of the prescription and nonprescription (xpky-uzd-bvyrzbm) medicines you are taking, as well as [...] or pharmacist about specific clinical use. The [employer] represents that the information provided hereunder was formulated with a reasonable standard of care, and in conformity with professional standards in the field. The [employer] [place] [employer] makes no representations or warranties, express or implied, including, but not limited to, any implied warranty of merchantability and/or fitness for a particular purpose, with respect to such information and specifically disclaims all such warranties. Users are advised that decisions regarding drug therapy are complex medical decisions requiring the independent, informed decision of an appropriate health healthcare consulting manager, and the information is provided for informational purposes only. The entire monograph for a drug should be reviewed for a thorough understanding of the drug's actions, uses and side effects. The [employer] does not endorse or recommend the use of any drug. The information is not a substitute for medical care. AHFS? Patient Medication Information?. ? Copyright, 2023. [employer]?, [address], [address], [place], [place]. All Rights Reserved. Duplication for commercial use must be authorized by [facility]. Selected Revisions: February 02, 2021. AHFS? Patient Medication Information?. ? Copyright, 2023 ashmi [facility] WorthVuksnja2937-32-52 13:30:41 Images from the original note were not included. [id number] Pantoprazole Brand Name(s): Protonix?; also available generically [...] or doctor for a copy of the it security project manager's information for the patient. Are there OTHER [...] of all of the prescription and nonprescription (gonk-zvx-sgcdqvr) medicines you are taking, as well as [...] or pharmacist about specific clinical use. [employer] [place] represents that the information provided hereunder was formulated with a reasonable standard of care, and in conformity with professional standards in the field. [employer] [place] makes no representations or warranties, express or implied, including, but not limited to, any implied warranty of merchantability and/or fitness for a particular purpose, with respect to such information and specifically disclaims all such warranties. Users are advised that decisions regarding drug therapy are complex medical decisions requiring the independent, informed decision of an appropriate health healthcare consulting manager, and the information is provided for informational purposes only. The entire monograph for a drug should be reviewed for a thorough understanding of the drug's actions, uses and side effects. The [employer] does not endorse or recommend the use of any drug. The information is not a substitute for medical care. AHFS? Patient Medication Information?. ? Copyright, 2023. [employer]?, [address], [address], [place], [place]. All Rights Reserved. Duplication for commercial use must be authorized by [facility]. Selected Revisions: January 03, 2023. AHFS? Patient Medication Information?. ? Copyright, 2023 [facility] Ixgqxtf9744-37-53 13:26:34 Images from the original note were not included. [id number] Metronidazole Brand Name(s): Flagyl?, Flagyl? 375, Likmez; [...] or doctor for a copy of the it security project manager's information for the patient. Are there OTHER [...] and out of their sight and reach. https://www.[employer].org Unneeded medications should be disposed of in [...] be awakened, immediately call emergency services at 970. Symptoms of overdose may include the following: [...] of all of the prescription and nonprescription (aebk-wpk-zwsehrp) medicines you are taking, as well as [...] or pharmacist about specific clinical use. [employer] represents that the information provided hereunder was formulated with a reasonable standard of care, and in conformity with professional standards in the field. [employer] makes no representations or warranties, express or implied, including, but not limited to, any implied warranty of merchantability and/or fitness for a particular purpose, with respect to such information and specifically disclaims all such warranties. Users are advised that decisions regarding drug therapy are complex medical decisions requiring the independent, informed decision of an appropriate health healthcare consulting manager, and the information is provided for informational purposes only. The entire monograph for a drug should be reviewed for a thorough understanding of the drug's actions, uses and side effects. The [employer] does not endorse or recommend the use of any drug. The information is not a substitute for medical care. AHFS? Patient Medication Information?. ? Copyright, 2023. [employer]?, [address], [address], [place], [place]. All Rights Reserved. Duplication for commercial use must be authorized by [facility]. Selected Revisions: February 02, 2023. AHFS? Patient Medication Information?. ? Copyright, 2023 [facility]2024-10-08 13:26:07 Images from the original note were not included. [id number] Ciprofloxacin Ophthalmic Brand Name(s): Ciloxan?; also available [...] of all of the prescription and nonprescription (gigi-gak-jayfhll) medicines you are taking, as well as [...] or pharmacist about specific clinical use. [employer] [place] [employer] represents that the information provided hereunder was formulated with a reasonable standard of care, and in conformity with professional standards in the field. The [employer] [place] makes no representations or warranties, express or implied, including, but not limited to, any implied warranty of merchantability and/or fitness for a particular purpose, with respect to such information and specifically disclaims all such warranties. Users are advised that decisions regarding drug therapy are complex medical decisions requiring the independent, informed decision of an appropriate health healthcare consulting manager, and the information is provided for informational purposes only. The entire monograph for a drug should be reviewed for a thorough understanding of the drug's actions, uses and side effects. The [employer] does not endorse or recommend the use of any drug. The information is not a substitute for medical care. AHFS? Patient Medication Information?. ? Copyright, 2023. [employer]?, [address], [address], [place], [place]. All Rights Reserved. Duplication for commercial use must be authorized by [facility]. Selected Revisions: April 05, 2017. AHFS? Patient Medication Information?. ? Copyright, 2023 Rashmi [facility] HospitalRimtexj6998-16-22 13:25:00 Images from the original note were not included. Hydrocodone and Acetaminophen - Video Understand how Hydrocodone and Acetaminophen work to help you manage pain. Also, understand the possible side effects to be aware of and how to properly use and store these medications. To view the video go to this web address: [email or web address] [email or web address] Or, scan this QR code with your smart phone ? [facility] Eibsugx6134-85-62 13:24:52 Images from the original note were not included. 42989 Upper GI Endoscopy with Biopsy Upper GI [...] you are taking. This includes prescription and jlkd-jnu-cexogeh medicines, vitamins, herbs, and other supplements. You [...] disease Last Reviewed Date: 2021 00:00:00 ? 3154-9951 [employer]. All rights reserved. This information is not intended as a substitute for professional medical care. Always follow your healthcare professional's instructions. [facility] WorthXbiaenl1447-52-52 13:24:32 Images from the original note were not included. 90731 Dehydration The human body is comprised largely [...] fever. Last Reviewed Date: 2021 00:00:00 ? 5434-2859 [employer]. All rights reserved. This information is not intended as a substitute for professional medical care. Always follow your healthcare professional's instructions. T [facility] WorthJzrxxpv6202-78-50 13:24:24 Images from the original note were not included. 61138 Duodenitis The duodenum is the first part [...] loss Last Reviewed Date: 2023 00:00:00 ? 0570-3066 [employer]. All rights reserved. This information is not intended as a substitute for professional medical care. Always follow your healthcare professional's instructions. [facility]2024-10-08 10:36:05 The patient is Moderately Stable - [...] Recommendations to address these barriers include none. [facility]2024-10-08 05:40:36 The patient is alert and oriented [...] Oxycodone and x1 of IV Zofran overnight. [facility] Internal [facility]2024-10-07 13:49:58 The patient is Moderately Unstable - [...] include frequent re-evaluation of pain medication effectiveness. [facility] Internal [facility]2024-10-07 05:04:57 The patient is alert and [...] phenergan overnight for nausea and pain control. [facility]2024-10-06 17:08:54 Glued Wood Tester informed MD patient has not voimited today and request upgraded diet from NPO. New order received for Clear Liquid Diet. Patient spouse at bedside instructed how to order for patient. [facility]2024-10-06 16:54:14 Patient c/o nausea, zofran not due at this time. Glued Wood Tester requested breakthrough nausea medication, orders received. [place] 303634-10-06 12:01:35 The patient is Moderately Stable - Low risk of patient condition declining or worsening The patient's goals for the shift include pain control The clinical goals for the shift include Pain control [facility] Sdmbrfa1340-03-09 21:42:474530-3749 [facility] [address] [place] [address] PATIENT NAME: ALCIDES TORRES ADMIT DATE: 01/01/23 ACCOUNT NO: [id number] ROOM NO: AGE: 27 REPORT TYPE: OPERATIVE [...] the right side. SURGEON: Rosalva Estes MD. GLOBAL PROCESS OWNER: Becca. ANESTHESIA: General endotracheal. FINDINGS: Bilateral tubo-ovarian [...] with 2 Allis clamps. Cervix dilated to 16-Canadian and diagnostic hysteroscope was passed through the [...] Date Transcribed: 01/01/2023 22:48:23 SKK/MAN/DARIA Receipt ID: [id number] Authenticated by Rosalva Estes MD On 01/25/2023 11:42:29 AM at 1142 PATIENT NAME: ALCIDES TORRES 21:26:00 [facility] Brief Op Note REPORT#:[id number] REPORT STATUS: Signed REPORT INITIALIZATION DATE:01/01/23 TIME:2125 PATIENT: ALCIDES TORRES UNIT #: [id number] ROOM/BED: : 94 AGE: 27 SEX: F [...] wall on the right Primary Surgeon: [employer] Supervisor(s): becca Anesthesia: general anesthesia Findings: bilateral dense tubo-ovarian adhesions, right distal hydrosalpinx, right fundal uterine adhesions to anterior abdominal wall Complications: none Estimated blood loss in ml's: 25 Specimens removed/altered: right distal tube Fluids: 400 Urine output: 100 Approach: laparoscopic Wound class: clean Disposition: plan to D/C home Counts: Sponge count: correct Instrument count: correct Needle count: correct at 2130 RPT #: [id number] END OF REPORT HCAPM
[2024-05-06] MEDS ORDERED: droPERidol 5 MG/2 ML VIAL ONE (18:32)
[2024-05-06] MEDS ORDERED: DIPHENHYDRAMINE 50 MG/ML VIAL ONE (18:32)
[2024-05-06] MEDS ORDERED: FAMOTIDINE 20 MG/2 ML VIAL IV ONE (18:32)
[2024-05-06] MEDS ORDERED: NA CHLORIDE 0.9% 1,000 ML ONE (18:32)
[2024-05-06 19:08] LABS: Absolute Lymphocytes (CBC) 0.5 K/uL (0.7-4.9); Absolute Monocytes 0.4 K/uL (0.1-1.3); Absolute Neutrophil 8.4 K/uL (1.8-8.0); Basophils % 0.1 % (0-1.3); Hematocrit 36.4 % (36.0-45.0); Hemoglobin 12.8 g/dL (12.0-15.0); Lymphocytes % 5.4 % (15.3-44.8); MCH 31.5 pg (27.0-35.0); MCHC 35.2 g/dL (32.0-36.0); MCV 89.3 fL (80-100); MPV 8.2 fL (7.6-11.3); Monocytes % 3.8 % (3.3-12.3); Neutrophils % 90.7 % (41.7-73.7); Platelets 287 thou/uL (152-406); RBC Red Blood Cell Count 4.07 M/uL (3.86-4.86); Red Cell Distribution Width 16.1 % (12.1-15.2)
[2024-05-06 19:16] LABS: ALT/SGPT < 14 U/L (13-56); AST/SGOT 13 U/L (15-37); Albumin 4.1 g/dL (3.4-5.0); Albumin/Globulin Ratio 1.1 (1.1-1.8); Alkaline Phosphatase 83 U/L (45-117); Anion Gap 12.4 mEq/L (5.0-15.0); BUN Blood Urea Nitrogen 7 mg/dL (7-18); Bicarbonate 22 mEq/L (21-32); Bilirubin Total 0.5 mg/dL (0.2-1.0); Globulin 3.7 g/dL (2.3-3.5); Glomerular Filtration Rate 78 ml/min (=/>90); Glucose Level 142 mg/dL (74-106); Lipase 17 U/L (13-75); Potassium 3.4 mEq/L (3.5-5.1); Protein, Total 7.8 g/dL (6.4-8.2); Sodium Level 138 mEq/L (136-145)
[2024-05-06 20:09] LABS: Blood Morphology Comment NOT SEEN (NOT SEEN); Platelet Estimate ADEQ; White Blood Cell Scan OK (OK)
[2024-05-06] MEDS ORDERED: PROMETHAZINE INJ 25 MG/ML AMP ONE (21:20)
[2024-05-06] MEDS ORDERED: KETOROLAC 30 MG/ML INJ ONE (21:20)
[2024-05-06 22:39] LABS: Specific Gravity > 1.030 (1.005-1.030)
[2024-05-06 22:41] LABS: Sqamous Epithelial <5 /HPF (None Seen); Urine Bacteria None Seen /HPF (<20); Urine Bilirubin NEGATIVE (Negative); Urine Blood Negative (Negative); Urine Clarity Clear (Clear); Urine Color Light-Yellow (Yellow); Urine Culture Reflex Order NOT NEEDED; Urine Glucose NEGATIVE (Negative); Urine Ketones 2+ (Negative); Urine Microscopic Reflex YN ORDER UMIC; Urine Mucus Slight /HPF (None Seen); Urine Nitrite NEGATIVE (Negative); Urine Protein TRACE (Negative); Urine RBC <5 /HPF (None Seen); Urine Urobilinogen Normal (Normal); Urine WBC <5 /HPF (<5); Urine pH 8.5 (5.0-7.0)
[2024-05-06 22:43] LABS: Specific Gravity > 1.030 (1.005-1.030)
[2024-05-06 22:53] LABS: Barbiturates NEGATIVE (NEGATIVE); Benzodiazepines NEGATIVE (NEGATIVE); Cocaine NEGATIVE (NEGATIVE); METHAMPHETAM NEGATIVE (NEGATIVE); Methadone NEGATIVE (NEGATIVE); Opiates POSITIVE (NEGATIVE); Phencyclidine NEGATIVE (NEGATIVE); THC Cannibis POSITIVE (NEGATIVE)
--- NOTE | 2024-05-06 23:04 | EDPHYS ---
Physician Documentation [facility] Name: Alfred Steele Age: 29 yrs Sex: Female : 1995 Arrival Date: 05/06/2024 Time: 17:06 Bed 19 Private MD: ED Physician Gaston Canchola HPI: 05/06 20:00 This 29 yrs old Female presents to ER via Wheelchair with complaints of Abdominal Pain, sb4 Vomiting, Chest Pain. 20:00 Patient reports abdominal pain x 24 hours. Reports a history of ulcers. States that she sb4 was seen here this morning, had a full workup done, was diagnosed with mild colitis, and discharged with oral antibiotics. States that she tried to go home and go to sleep but the pain persisted. LOOP CUTTER: 19:26 Not cp4 Historical: - Allergies: 17:39 PENICILLINS; iw 17:39 SHELLFISH; iw - PMHx: 17:39 Anxiety; gastric ulcers; iw - PSHx: 17:39 breast; abdominal surgery; section; iw - Immunization history:: Adult Immunizations up to date. - Infectious Disease History:: Denies. - Social history:: Smoking status: unknown. ROS: 20:00 Constitutional: Negative for fever, chills, and weight loss, sb4 20:00 Abdomen/GI: Positive for abdominal pain, nausea and vomiting, 20:00 All other systems are negative, Exam: 20:00 Head/Face: Normocephalic, atraumatic. Eyes: Extra-ocular motions intact. Periorbital sb4 areas with no swelling, redness, or edema. ENT: Mucous membranes moist. Cardiovascular: Regular rate and rhythm with a normal S1 and S2. Respiratory: No increased work of breathing, no retractions or nasal flaring. Abdomen/GI: Soft, non-tender, no distension. Skin: Warm, dry with normal turgor. Normal color with no rashes, no lesions, and no evidence of cellulitis. 20:00 Constitutional: The patient appears alert, awake, anxious, restless, uncomfortable, Vital Signs: 17:38 BP 136 / 87; Pulse 78; Resp 18; Pulse Ox 100% on R/A; Weight 52.16 kg; Height 5 ft. 1 iw in. ; Pain 8/10; 20:30 BP 141 / 75; Pulse 55; Resp 18; Pulse Ox 98% ; cp4 21:30 BP 126 / 83; Pulse 74; Resp 18; Pulse Ox 97% ; cp4 22:30 BP 135 / 84; Pulse 79; Resp 18; Pulse Ox 97% ; cp4 23:24 BP 129 / 84; Pulse 67; Resp 18; Pulse Ox 97% ; cp4 17:38 Body Mass Index 21.73 (52.16 kg, 154.94 cm) iw 17:38 Pain Scale: Adult iw MDM: 17:27 Medical Screening Exam initiated sb4 22:41 Data reviewed: vital signs, nurses notes, lab test result(s). Counseling: I had a sb4 detailed discussion with the patient and/or guardian regarding the historical points, exam findings, and any diagnostic results supporting the discharge/admit diagnosis, lab results, to return to the emergency department if symptoms worsen or persist or if there are any questions or concerns that arise at home. 05/06 18:12 Order name: CBC with Diff; Complete Time: 20:13 sb4 05/06 18:12 Order name: CMP; Complete Time: 19:17 sb4 05/06 18:12 Order name: Lipase; Complete Time: 19:17 sb4 05/06 18:12 Order name: Test, Urine; Complete Time: 22:39 sb4 05/06 18:12 Order name: Urinalysis w/ reflexes; Complete Time: 22:44 sb4 05/06 18:12 Order name: UDS; Complete Time: 22:54 sb4 05/06 20:09 Order name: CBC Smear Scan; Complete Time: 20:13 EDMS 05/06 18:12 Order name: IV Saline Lock; Complete Time: 18:51 sb4 05/06 18:12 Order name: Labs collected and sent; Complete Time: 18:51 sb4 05/06 20:46 Order name: PO challenge; Complete Time: 21:09 sb4 Administered Medications: 18:51 Drug: Famotidine IVP 20 mg IVP once; dilute with 10 mL 0.9% NaCl; give over 2 minutes bp Route: IVP; Site: right antecubital; 23:24 Follow up: Response: No adverse reaction 4 18:51 Drug: NS 0.9% IV 1000 ml IV at 1 bolus Per protocol; to be given as a bolus over 60 bp minutes Route: IV; Rate: 1 bolus; Site: right antecubital; 23:24 Follow up: IV Status: Completed infusion cp4 18:51 Drug: diphenhydrAMINE IVP 25 mg IVP once Route: IVP; Site: right antecubital; bp 23:24 Follow up: Response: No adverse reaction cp4 18:52 Drug: Droperidol IVP 2.5 mg IVP once Route: IVP; Site: right antecubital; bp 23:24 Follow up: Response: No adverse reaction cp4 21:24 Drug: Ketorolac IVP 15 mg IVP once Route: IVP; Site: right antecubital; cp4 23:23 Follow up: Response: No adverse reaction; Pain is decreased cp4 21:24 Drug: Promethazine IVP 12.5 mg IVP once Route: IVP; Site: right antecubital; cp4 23:24 Follow up: Response: No adverse reaction; Nausea is decreased cp4 Disposition Summary: 05/06/24 23:03 Discharge Ordered Notes: Location: Home sb4 Problem: an ongoing problem sb4 Symptoms: have improved sb4 Condition: Stable sb4 Diagnosis - Upper abdominal pain, unspecified sb4 - Nausea with vomiting, unspecified sb4 Followup: sb4 - With: Srinivas Herbert MD - When: 1 week - Reason: Further diagnostic work-up, Recheck today's complaints, Re-evaluation by your physician Discharge Instructions: - Discharge Summary Sheet sb4 - Abdominal Pain, Adult sb4 - Nausea and Vomiting, Adult sb4 Forms: - Patient Portal Instructions sb4 - Leadership Thank You Letter sb4 Prescriptions: - Protonix 40 mg Oral Tablet - take 1 tablet ORAL route once daily; 30 tablet; Refills: 0, Product Selection sb4 Permitted - promethazine 25 mg Oral Tablet - take 1 tablet ORAL route every 6 hours As needed; 20 tablet; Refills: 0, sb4 Product Selection Permitted - dicyclomine 20 mg Oral tablet - take 1 tablet ORAL route 3 times per day PRN abdominal pain; 20 tablet; sb4 Refills: 0, Product Selection Permitted Signatures: Dispatcher [employer] Ruth Campbell RN RN iw Peltier, Brian, RN RN bp Brown, Sophia, PA-C PA-C sbDyan [place] cp4 Corrections: (The following items were deleted from the chart) 18:13 18:12 CBC+H.LAB.BRZ ordered. EDMS EDMS 18:13 18:12 COMPREHENSIVE METABOLIC PANEL+C.LAB.BRZ ordered. EDMS EDMS 18:13 18:12 LIPASE+C.LAB.BRZ ordered. EDMS EDMS 18:13 18:12 Test, Urine+UC.LAB.BRZ ordered. EDMS EDMS 18: 18:12 Urinalysis+U.LAB.BRZ ordered. EDMS EDMS 18:13 18:12 URINE DRUG SCREEN+UC.LAB.BRZ ordered. EDMS EDMS
--- NOTE | 2024-05-06 23:04 | ER ---
Nurse's Notes [facility] Name: Alfred Steele Age: 29 yrs Sex: Female : 1995 Arrival Date: 05/06/2024 Time: 17:06 Bed 19 Private MD: Diagnosis: Upper abdominal pain, unspecified;Nausea with vomiting, unspecified Presentation: 05/06 17:38 Chief complaint: Patient states: abd pain, vomiting and upper chest pain, was seen here iw earlier today and discharged, I went hoe and tried to sleep but the symptoms got worse. Coronavirus screen: At this time, the client does not indicate any symptoms associated with coronavirus-19. Ebola Screen: No symptoms or risks identified at this time. Initial Sepsis Screen: Does the patient meet any 2 criteria? No. Patient's initial sepsis screen is negative. Does the patient have a suspected source of infection? No. Patient's initial sepsis screen is negative. Risk Assessment: Do you want to hurt yourself or someone else? Patient reports no desire to harm self or others. Onset of symptoms was May 06, 2024. 17:38 Method Of Arrival: Wheelchair iw 17:38 Acuity: GAURANG 3 iw Triage Assessment: 17:45 General: Appears distressed, uncomfortable, Behavior is cooperative, appropriate for bp age, agitated, anxious, crying. Pain: Complains of pain in abdomen. EENT: No deficits noted. Neuro: No deficits noted. Cardiovascular: No deficits noted. Respiratory: No deficits noted. GI: Abdomen is non-distended. : No signs and/or symptoms were reported regarding the genitourinary system. Derm: No deficits noted. Musculoskeletal: No deficits noted. 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 - Infectious Disease History:: Denies. - Social history:: Smoking status: unknown. Screenin:52 [facility] ED Fall Risk Assessment (Adult) History of falling in the last 3 months, bp including since admission No falls in past 3 months (0 pts) Confusion or Disorientation No (0 pts) Intoxicated or Sedated No (0 pts) Impaired Gait No (0 pts) Mobility Assist Device Used No (0 pt) Altered Elimination No (0 pt) Score/Fall Risk Level 0 - 2 = Low Risk Oriented to surroundings. Abuse screen: Denies threats or abuse. Denies injuries from another. Nutritional screening: No deficits noted. Tuberculosis screening: No symptoms or risk factors identified. Assessment: 17:45 General: Appears distressed, uncomfortable, Behavior is cooperative, appropriate for bp age, agitated, anxious, crying. 19:27 Reassessment: Patient appears in no apparent distress at this time. No changes from cp4 previously documented assessment. Patient and/or family updated on plan of care and expected duration. Pain level reassessed. Patient is alert, oriented x 3, equal unlabored respirations, skin warm/dry/pink. 23:26 GI: cp4 Vital Signs: 17:38 BP 136 / 87; Pulse 78; Resp 18; Pulse Ox 100% on R/A; Weight 52.16 kg; Height 5 ft. 1 iw in. ; Pain 8/10; 20:30 BP 141 / 75; Pulse 55; Resp 18; Pulse Ox 98% ; cp4 21:30 BP 126 / 83; Pulse 74; Resp 18; Pulse Ox 97% ; cp4 22:30 BP 135 / 84; Pulse 79; Resp 18; Pulse Ox 97% ; cp4 23:24 BP 129 / 84; Pulse 67; Resp 18; Pulse Ox 97% ; cp4 17:38 Body Mass Index 21.73 (52.16 kg, 154.94 cm) iw 17:38 Pain Scale: Adult iw ED Course: 17:07 Patient arrived in ED. cj3 17:23 Natali Carballo PA-C is PHCP. sb4 17:23 Gaston Canchola MD is Attending Physician. sb4 17:39 Triage completed. iw 17:39 Arm band placed on. iw 18:01 Allan Rucker, RN is Primary Nurse. bp 18:52 Patient has correct armband on for positive identification. bp 18:52 Initial lab(s) drawn, by me, sent to lab. Inserted saline lock: 22 gauge in right bp antecubital area, using aseptic technique. Blood collected. Flushed with 10 mL NS. 23:03 Srinivas Herbert MD is Referral Physician. sb4 23:26 Provided Education on: abdominal pain, nausea and vomiting.. cp4 23:26 No provider procedures requiring assistance completed. intact, bleeding controlled, No cp4 redness/swelling at site. Pressure dressing applied. Administered Medications: 18:51 Drug: Famotidine IVP 20 mg IVP once; dilute with 10 mL 0.9% NaCl; give over 2 minutes bp Route: IVP; Site: right antecubital; 23:24 Follow up: Response: No adverse reaction cp4 18:51 Drug: NS 0.9% IV 1000 ml IV at 1 bolus Per protocol; to be given as a bolus over 60 bp minutes Route: IV; Rate: 1 bolus; Site: right antecubital; 23:24 Follow up: IV Status: Completed infusion cp4 18:51 Drug: diphenhydrAMINE IVP 25 mg IVP once Route: IVP; Site: right antecubital; bp 23:24 Follow up: Response: No adverse reaction cp4 18:52 Drug: Droperidol IVP 2.5 mg IVP once Route: IVP; Site: right antecubital; bp 23:24 Follow up: Response: No adverse reaction cp4 21:24 Drug: Ketorolac IVP 15 mg IVP once Route: IVP; Site: right antecubital; cp4 23:23 Follow up: Response: No adverse reaction; Pain is decreased cp4 21:24 Drug: Promethazine IVP 12.5 mg IVP once Route: IVP; Site: right antecubital; cp4 23:24 Follow up: Response: No adverse reaction; Nausea is decreased cp4 Medication: 17:45 VIS not applicable for this client. bp Outcome: 23:03 Discharge ordered by . sb4 23:26 Discharged to home ambulatory, cp4 23:26 Condition: stable 23:26 Discharge instructions given to patient, family, Instructed on discharge instructions, follow up and referral plans. medication usage, Demonstrated understanding of instructions, follow-up care, medications, Prescriptions given X 3, 23:27 Patient left the ED. cp4 Signatures: Ruth Bell RN RN iw Allan Rucker RN RN Natali Morales, PA-C PA-C sb4 Dyan Alarcon cp4 Leatha Mei 3
[2024-05-07 05:52] VITALS: O2SAT 97
[2024-05-07 05:54] VITALS: BP 129/84
== END 2024-05-06 23:27 | disposition home or self-care (01) ==
LOC: ER 17:06
DX: R10.10 Upper abdominal pain, unspecified (principal); R11.2 Nausea with vomiting, unspecified; R07.9 Chest pain, unspecified
CPT/HCPCS: 85025; 81001; 36415; 81025; 83690; 80053; 80307; J2550; J1200; J1790; J7030

== ENCOUNTER 2024-05-08 13:53 | Emergency (ER) | payer BC ==
--- OUTSIDE RECORDS SUMMARY | 2024-05-08 13:58 | XMS REPORT | Continuity of Care Document ---
Author Name Unknown Address [address] [place] [address] [facility] Address [address] [facility] [place] [address] Care Team Providers Care Press Offbearer Name Role Phone Wallace Bravo Primary Care Physician [phone] Sung Garcia Attending Clinician Unavailable LUZ WATT Attending Clinician Unavailkerwin Casanova RN, Radha Najera Attending Clinician Un available Grey Palacios MA Attending Clinician Unavailable Bee Ruelas Attending Clinician UnavailDOMINGA Longoria Attending Clinician Unavailable TEA MONZON Attending Clinician Unavailable Keisha Manning MD Attending Clinicia n Halima Lizarraga DO Attending Clinician + Sheila Akbar MD Attending Clinician Krish Terrell MD Attending Clinician [phone] Tea Monzon MD Attending Clinician [phone] CHRISTOPHER MART Attending Clinician Unavailable [email or web address] Attending Clinician UnavailRosalva Fortune Attending Clinician UnavailBuster Doss MD Attending Clinician [phone] SHEILA AKBAR Admitting Clinician Unavailable Naomie HANLEY, Sheila Admitting Clinician [phone] [email or web address] Admitting Clinician Unavailghislaine gautam KNOW, DOES_NOT Admitting Clinician Unavailable Payers Payer Name Policy Type Policy Number Effective Date Expirati on Date Source Blue Cross [place] [employer] of [place] 6 [id number] 77 2023 00:00:00 [facility] [place] OUT OF [place] [id number] 2022 00:00:00 BCBS COMM [id number] 2022 00:00:00 [place] [id number] 2022 00:00:00 2023 00:00:00 Problems Condition Name Condition Details Condition Category Status Onset Date Resolution Date Last Treatment Date Treating Clinician Comments Source PUD (peptic ulcer disease) PUD (peptic ulcer disease) Disease Active 2023-02 0 00:00: 00 Nehal Isabel History of peptic ulcer disease History of peptic ulcer disease Disease Recurre vte 2023-02 0- 00:00: 00 Nehal Isabel Intractabl e abdominal pain Intractabl e abdominal pain Disease Active 2023-02 0- 00:00: 00 Nehal Isabel Intractabl e nausea and vomiting Intractabl e nausea and vomiting Disease Active 2023-02 0- 00:00: 00 Nehal Isabel Colitis Colitis Disease Active 2023-02 0- 00:00: 00 Nehal Isabel Hypokalemi a Hypokalemi a Disease Active 2023-02 0 00:00: 00 Memoria l Tate Epic Primary dysmenorrh ea Primary Dysmenorrh ea Problem Active 08-15 00:00: 00 [facility] Chronic pelvic pain of female Chronic Pelvic Pain of Female Problem Active 08-15 00:00: 00 [facility] Menorrhagi a Menorrhagi a Problem Active 08-15 00:00: 00 [facility] Anemia of mother in , antepartum Anemia of mother in , antepartum Disease Active 08-24 00:00: 00 [facility] Anemia of mother in , antepartum Anemia of mother in , antepartum Disease Active 08-24 00:00: 00 [facility] Sterilizat ion consult Sterilizat ion consult Disease Active 06-29 00:00: 00 [facility] Tobacco smoking affecting in second trimester Tobacco smoking affecting in second trimester Disease Active 05-31 00:00: 00 [facility] Medication exposure during first trimester of Medication exposure during first trimester of Disease Active 05-31 00:00: 00 [facility] Declines (vaginal after ) trial Declines (vaginal after ) trial Disease Active 05-31 00:00: 00 [facility] Previous delivery affecting , antepartum Previous delivery affecting , antepartum Disease Active 05-31 00:00: 00 [facility] Status post induction of labor Status post induction of labor Disease Active 08-20 00:00: 00 [facility] distress affecting management of mother, delivered distress affecting management of mother, delivered Disease Active 08-20 00:00: 00 [facility] Failed induction of labor, delivered Failed induction of labor, delivered Disease Active 08-20 00:00: 00 [facility] Fetopelvic disproport ion, delivered Fetopelvic disproport ion, delivered Disease Active 08-20 00:00: 00 Overview: ICD10 Diagnosis Term Multiple Coil [employer] [facility] Status post induction of labor Status post induction of labor Disease Active 08-20 00:00: 00 [facility] Threatened premature labor, antepartum (644.03) Threatened premature labor, antepartum (644.03) Disease Active 18 00:00: 00 [facility] [id number] Mixed hyperlipid emia Problem Common [facility] [id number] Moderate episode of recurrent major depressive disorder Problem Common [facility] [id number] Constipati on, unspecifie d constipati on type Problem Common [facility] Status post repeat low transverse section Status post repeat low transverse section Disease Resolve d 09-04 00:00: 00 2017-09-07 00:00:00 2017-09-07 12:31:50 [facility] Single liveborn, born in hospital, delivered by delivery Single liveborn, born in hospital, delivered by delivery Disease Resolve d 17 00:00: 00 2017-09-07 00:00:00 2017-09-07 12:31:50 [facility] 39 weeks gestation of 39 weeks gestation of Disease Resolve d 16 00:00: 00 2017-09-07 00:00:00 2017-09-07 12:31:50 [facility] Allergies, Adverse Reactions, Alerts Allergy [...] DA Active SV ANAPHYLAXIS 2022-02 00:00: 00 [facility] [place] shellfis h derived FA Active SV ANAPHYLAXIS 2022-02 00:00: 00 [facility] [place] shellfis h derived FA Active SV ANAPHYLAXIS 2022-02 00:00: 00 [facility] [place] Penicill ins DA Active SV ANAPHYLAXIS 2022-02 00:00: 00 [facility] [place] Tegaderm Dressing Propensi ty to adverse reaction s Active Itching 09-11 00:00: 00 [facility] Penicill ins Allergy to substanc e Active Unknown 08-20 00:00: [address] [facility] [place] [place] Penicill ins Propensi ty to adverse reaction s Active Anaphylaxis 08-20 00:00: 00 [facility] PENICILL INS Allergy to substanc e Active Moderate severity Anaphylaxis [facility] SHELLFIS H DERIVED Allergy to substanc e Active Moderate severity Anaphylaxis [facility] Shellfis h (FN) Shellfis h (FN) Active Unknown [facility] [id number] Drug allergy Active Unknown [facility] Social History Social Habit Start Date Stop Date Quantity Comments Source ASSERTION [facility] intake [facility] History of tobacco use Cigarette Smoker [facility] [place] Gender identity Eric richar [facility] Tobacco use and exposure 2023-11-24 00:00:00 2023-11-24 00:00:00 Smokeless tobacco non-user [facility] History of Social function 2018-08-27 00:00:00 2018-08-27 00:00:00 [facility] Alcoholic beverage intake 2017-05-31 00:00:00 2017-05-31 00:00:00 Current non-drinker of alcohol (finding) [facility] Cigarettes smoked current (pack per day) - Reported 2017-05-31 00:00:00 2017-05-31 00:00:00 [facility] Cigarette pack-years 2017-05-31 00:00:00 2017-05-31 00:00:00 [facility] Sex assigned at 1995 00:00:00 1995 00:00:[address] [facility] [place] [place] Smoking Status Start Date Stop Date Source Heavy Tobacco Smoker [facility] Never Smoker [facility] Smokes tobacco daily 2023-10-18 00:00:[address] [facility] [place] Medications Ordered Medication Name Filled Medication Name Start Date Stop Date Current Medication? Ordering Clinician Indication Dosage Frequency Signature (SIG) Comments Components Source Omeprazole 40 MG Omeprazole 40 MG 2023-02 2- 00:00: 00 No QD Omeprazole 40 MG [...] tablet Rexulti 1 MG tablet tablet 2023-02 0 14:43: 10 Yes 1{tbl} QD Take 1 tablet by mouth 1 time each day. Nehal Isabel ondansetron (Zofran) tablet 4 mg ondansetron (Zofran) tablet 4 mg 2023-02 12:19: 24 12-01 12:18 :24 No [id number] 4mg Q.5D Deborah Isabel sucralfate (Carafate) suspension 1 g sucralfate (Carafate) suspension 1 g 2023-02 0 10:30: 00 Yes 1g Q.5D 1 g, [...] 00:00: 00 11-30 23:59 :00 No 500mg [id number] 3D Take 1 tablet by mouth in [...] (Klor-Con M20) ER tablet 40 mEq 2023-02 0- 12:45: 00 11-24 13:14 :00 No 40meq 40 mEq, Oral, Once, On Sun11/25/23 at 1245, For 1 dose, For patients able to take medication s orally or via feeding tube >/= 14 Persian, may dissolve each 20 mEq tablet in 4 oz of water. Allow about 2 minutes for the tablets to disintegra te. Stir before giving to prepare slurry and administer . Please exclude patient's with feeding tube less than 14 Persian (Dobhoff, J-tube, etc) and pediatric and patients [...] (PF) 0.9 % injection 10 mL 2023-02 0- 06:45: 00 Yes 10mL Q12H 10 mL, [...] sleep, Starting on 11/25/23 at 0643 Nehal Nielsenann Epic diphenhydrA MINE (BENADryl) tablet 12.5 mg diphenhydrA MINE (BENADryl) tablet 12.5 mg 2023-02 0-06 06:43: 07 Yes 12.5mg Q6H Nehal Clarke Epic bisacodyl (Dulcolax) suppository 10 mg bisacodyl (Dulcolax) suppository 10 mg 2023-02 0-06 06:43: 07 Yes 10mg Q24H Nehal Clarke Epic glucagon injection 1 mg glucagon injection 1 mg 2023-02 006 06:43: 07 Yes 1mg Nehal Clarke Epic dextrose 50 % solution 25 g dextrose 50 % solution 25 g 2023-02 006 06:43: 07 Yes 25g Nehal Clarke Epic dextrose 50 % solution 12.5 g dextrose 50 % solution 12.5 g 2023-02 006 06:43: 07 Yes 12.5g Nehal Clarke Epic naloxone (Narcan) injection 0.04 mg naloxone (Narcan) injection 0.04 mg 2023-02 0 06:43: 07 Yes .04mg Nehal Isabel acetaminoph en (Tylenol) tablet 650 mg acetaminoph en (Tylenol) tablet 650 mg 2023-02 0 06:43: 07 Yes 650mg Q6H Nehal Clarke Epic sodium chloride (PF) 0.9 % injection 10 mL sodium chloride (PF) 0.9 % injection 10 mL 2023-02 0 06:43: 07 Yes 10mL Nehal Clarke Epic morphine injection 4 mg morphine injection 4 mg 2023-02 0 06:43: 07 11-29 06:42 :07 No 4mg Q4H 4 mg, Intravenou s, Every 4 hours PRN, severe pain (7-10), and NOT responding to oral therapy or unable to tolerate PO., Starting on 11/25/23 at 0643, For 5 [...] mL/hr, Intravenou s, Continuous , Starting on 11/25/23 at 0330 Nehal Isabel sodium chloride 0.9 [...] (Select all that apply): Intra-abdo antonio Infection Jessicaoria pedro Clarke Epic morphine injection 4 mg morphine injection 4 mg 2023-02 006 00:55: 00 11-24 01:19 :00 No 4mg 4 mg, Intravenou s, Once, On 11/25/23 at 0055, For 1 dose Memoria pedro NielsenTate Epic metoclopram alfredo (Reglan) injection 10 mg [...] mEq Potassium chloride solution 20 mEq 2023-02 0 22:35: 00 11-23 23:48 :00 No 20meq [...] over at least 2 minutes Memoria pedro NielsenTate Epic morphine injection 4 mg morphine injection 4 mg 2023-02 0-05 20:50: 00 11-23 21:09 :00 No 4mg 4 mg, Intravenou s, Once, On 11/24/23 at 2050, For 1 dose Memoria pdero NielsenVince Epic ondansetron (Zofran) injection 4 mg ondansetron [...] 10-18 00:00: 00 11-18 04:59 :00 No [id number] 300mg Take 1 capsule (300 mg total) [...] mg by mouth at bedtime. Nehal Clarke [facility] topiramate 50 mg tablet 09-27 00:00: 00 Yes [id number] Take 100mg two times a day for 5 days, then take 150 mg in the am and 100 mg in the evening for 5 days, then take 150 mg two times a day there after. [facility] ZOLMitripta n 5 mg tablet 09-27 00:00: 00 Yes One tab at onset of headache, may repeat x one tab in 4 hours if headache persist. No more than two tabs in a 24 hour period [facility] Butalbital- Acetaminoph en-Caff (FIORICET) 50-300-40 mg per capsule 09-27 00:00: 00 Yes [id number] Use one every 6 hours as needed for head pain. [facility] Butalbital- Acetaminoph en-Caff (FIORICET) 50-300-40 mg per capsule 08-06 00:00: 00 09-27 00:00 :00 No [id number] Use one every 6 hours as needed for head pain. [facility] topiramate 50 mg tablet 06-21 00:00: 00 09-27 00:00 :00 No [id number] Use 2 in am, 1 in the evening for the headache. [facility] sumatriptan 100 mg tablet 06-21 00:00: 00 09-27 00:00 :00 No [id number] 100mg Take 1 tablet by mouth as needed for Migraine. Within 24 hours, may repeat times one in 2 hours as needed. [facility] VIT W-CA,FE,FA, <1 MG, ( #2 ORAL) 24 18:53: 24 Yes 1{tbl} Take 1 Tab by mouth. [facility] diphenhydrA MINE (BENADRYL ALLERGY) 25 mg tablet 09-11 18:53: 24 Yes 25mg Take 25 mg by mouth every 4 (four) hours as needed for Allergies. [facility] VIT W-CA,FE,FA, <1 MG, ( #2 ORAL) 09-11 13:53: 24 Yes 1{tbl} Take 1 Tab by mouth. [facility] diphenhydrA MINE (BENADRYL ALLERGY) 25 mg tablet 09-11 13:53: 24 Yes 25mg Take 25 mg by mouth every 4 (four) hours as needed for Allergies. [facility] predniSONE 10 mg tablet 09-11 00:00: 00 Yes [id number] 10mg Take 1 tablet by mouth SEE-INSTRU CTIONS. [facility] naproxen 500 mg tablet 09-05 00:00: 00 Yes 500mg Take 1 tablet by mouth 2 (two) times daily with meals as needed for Pain (scale 1-3) or Pain (scale 4-6). [facility] vitamin w/FA tablet 09-05 00:00: 00 Yes 1{tbl} Take 1 tablet by mouth daily. [facility] docusate calcium 240 mg capsule 09-05 00:00: 00 Yes 240mg Take 1 capsule by mouth once daily as needed for Constipati on. [facility] ferrous sulfate 325 mg (65 mg iron) tablet 09-05 00:00: 00 Yes 325mg Take 1 tablet by mouth 2 (two) times daily. [facility] ferrous sulfate (IRON, FERROUS SULFATE,) 325 mg (65 mg iron) tablet 08-24 00:00: 00 Yes [id number] 325mg Take 1 tablet by mouth 2 (two) times daily with meals. [facility] eszopiclone 3 mg tablet TAKE 1 TABLET BY MOUTH ONCE DAILY IMMEDIATLEY BEFORE BED eszopiclone 3 mg tablet TAKE 1 TABLET BY MOUTH ONCE DAILY IMMEDIATLEY BEFORE BED No eszopiclon e 3 mg tablet TAKE 1 TABLET BY MOUTH ONCE DAILY IMMEDIATLE Y BEFORE BED [facility] Rexulti 0.5 MG Rexulti 0.5 MG No 1{table t} QD Rexulti 0.5 MG LORazepam LORazepam No LORazepam Sertraline HCl 50 MG Sertraline HCl 50 MG No 1{table t} QD Sertraline HCl 50 MG Ofloxacin 0.3 % Ofloxacin 0.3 % No Ofloxacin 0.3 % Immunizations Ordered Immunization Name Filled Immunization Name Date Status Comments Source Tdap 2017-06-29 00:00:00 Completed [facility] TD 2017-06-29 00:00:00 Completed Vital Signs Vital Name Observation Time Observation Value Comments S ource height 2024-02-19 13:00:00 61 [in_i] Commo n [facility] weight 2024-02-19 13:00:00 120.4 [lb_av] Co mmon [facility] temperature 2024-02-19 13:00:00 97.3 [degF] Com mon [facility] bmi 2024-02-19 13:00:00 22.75 kg/m2 Comm on [facility] oximetry 2024-02-19 13:00:00 97 % Commo n [facility] blood pressure systolic 2024-02-19 13:00:00 98 mm[Hg] [facility] blood pressure diastolic 2024-02-19 13:00:00 62 mm[Hg] [facility] Heart rate 2023-11-27 12:20:42 55 /min [facility] Respiratory rate 2023-11-27 12:20:42 18 /min [facility] Oxygen saturation in Arterial blood by Pulse oximetry 2023-11-27 12:20:42 98 /min [facility] Systolic blood pressure 2023-11-27 12:20:34 99 mm[Hg] [facility] Diastolic blood pressure 2023-11-27 12:20:34 60 mm[Hg] [facility] Body temperature 2023-11-27 12:19:33 36.72 Nuvia [facility] Body height 2023-11-26 13:35:00 154.9 cm [facility] 2023-11-26 13:35:00 50.803 [facility] BMI 2023-11-26 13:35:00 21.16 kg/m2 Eric Nielsenann [facility] Heart rate 2023-11-27 12:20:42 55 /min [facility] Respiratory rate 2023-11-27 12:20:42 18 /min [facility] Oxygen saturation in Arterial blood by Pulse oximetry 2023-11-27 12:20:42 98 /min [facility] Systolic blood pressure 2023-11-27 12:20:34 99 mm[Hg] [facility] Diastolic blood pressure 2023-11-27 12:20:34 60 mm[Hg] [facility] Body temperature 2023-11-27 12:19:33 36.72 Nuvia [facility] Body height 2023-11-26 13:35:00 154.9 cm Ericjerilyn mcqueen [facility] Body weight 2023-11-26 13:35:00 50.803 kg Ericjerilyn mcqueen [facility] BMI 2023-11-26 13:35:00 21.16 kg/m2 [facility] Systolic blood pressure 2023-10-19 20:26:00 96 mm[Hg] [facility] Diastolic blood pressure 2023-10-19 20:26:00 67 mm[Hg] [facility] Heart rate 2023-10-19 20:26:00 72 /min [facility] Body height 2023-10-19 20:26:00 [facility]9 [facility] 2023-10-19 20:26:00 [facility]256 [facility] BMI 2023-10-19 20:26:00 21.35 kg[facility]m2 [facility] height 2023-09-28 13:20:00 61 [in_i] Commo n [facility] weight 2023-09-28 13:20:00 109.8 [lb_av] Co mmon [facility] temperature 2023-09-28 13:20:00 97.3 [degF] Com mon [facility] bmi 2023-09-28 13:20:00 20.74 kg/m2 Comm on [facility] oximetry 2023-09-28 13:20:00 97 % Commo n [facility] respiratory rate 2023-09-28 13:20:00 16 /min Common [facility] blood pressure systolic 2023-09-28 13:20:00 101 mm[Hg] Common [facility] blood pressure diastolic 2023-09-28 13:20:00 68 mm[Hg] [facility] BP Diastolic 2023-08-16 00:00:00 71 mm[Hg] [facility] BP Systolic 2023-08-16 00:00:00 102 mm[Hg] [facility] Height 2023-08-16 00:00:00 61 [in_i] [facility] Body Weight 2023-08-16 00:00:00 107 [lb_av] [facility] BMI (Body Mass Index) 2023-08-16 00:00:00 20.2 kg/m2 [facility] height 2023-06-28 14:40:00 61 [in_i] Commo n [facility] weight 2023-06-28 14:40:00 109.8 [lb_av] Co mmon [facility] temperature 2023-06-28 14:40:00 97.3 [degF] Com mon [facility] bmi 2023-06-28 14:40:00 20.74 kg/m2 Comm on [facility] oximetry 2023-06-28 14:40:00 85 % Commo n [facility] blood pressure systolic 2023-06-28 14:40:00 99 mm[Hg] Common [facility] blood pressure diastolic 2023-06-28 14:40:00 62 mm[Hg] [facility] Procedures Procedure Date / Time Performed Performing Clinician Source POC GLUCOSE UNSOLICITED RESULTS 2023-11-27 06:09:00 [facility] POC GLUCOSE UNSOLICITED RESULTS 2023-11-26 19:46:00 [facility] WITH REFLEX TO TOXIN IF INDICATED 2023-11-26 18:22:00 Na [facility] ENTERIC PATHOGENS WITH CULTURE IF INDICATED 2023-11-26 18:22:00 Na [facility] POC GLUCOSE UNSOLICITED RESULTS 2023-11-26 17:12:00 Na [facility] EGD 2023-11-26 16:42:00 Clara Barnett Tate Epic POC GLUCOSE UNSOLICITED RESULTS 2023-11-26 06:29:00 Na, [facility] BASIC METABOLIC PANEL 2023-11-26 03:22:00 AcheSotero grant ma [facility] MAGNESIUM LEVEL 2023-11-26 03:22:00 Na Tea Eric rial [facility] PHOSPHORUS LEVEL 2023-11-26 03:22:00 Na Tea [facility] orial [facility] COMPLETE BLOOD COUNT W/DIFF AND PLATELET 2023-11-26 03:22:00 Achebe, Sheila [facility] CALCIUM LEVEL IONIZED WHOLE BLOOD 2023-11-26 03:22:00 Na, [facility] COMPLETE BLOOD COUNT 2023-11-26 03:22:00 Achebe, Ifeom a [facility] AUTOMATED DIFFERENTIAL 2023-11-26 03:22:00 Achebe Luisa arabella [facility] Fecal Leukocytes 2023-11-26 00:00:00 Eric mcqueen [facility] POC GLUCOSE UNSOLICITED RESULTS 2023-11-25 17:29:00 Na Tea [facility] POC GLUCOSE UNSOLICITED RESULTS 2023-11-25 11:22:00 Na, [facility] POC GLUCOSE UNSOLICITED RESULTS 2023-11-25 07:26:00 Na [facility] ECG 12-LEAD 2023-11-25 03:51:13 Achebe, Sheila Jessicaori [facility] UA WITH CULTURE IF INDICATED 2023-11-25 00:47:00 Maryse Ashley [facility] CT ABDOMEN PELVIS W IV CONTRAST 2023-11-25 00:46:11 Maryse Ashley [facility] ECG 12 lead 2023-11-25 00:00:00 [facility] BASIC METABOLIC PANEL 2023-11-24 21:02:00 Elissa Ashley [facility] HEPATIC FUNCTION PANEL 2023-11-24 21:02:00 Haley Ashley [facility] Epic LIPASE LEVEL 2023-11-24 21:02:00 Maryse Ashleyn [facility] Epic HCG TOTAL (QUANTITATIVE) 2023-11-24 21:02:00 Maryse Ashleyn [facility] COMPLETE BLOOD COUNT W/DIFF AND PLATELET 2023-11-24 21:02:00 Maryse Ashleyn [facility] COMPLETE BLOOD COUNT 2023-11-24 21:02:00 James Ashley [facility] AUTOMATED DIFFERENTIAL 2023-11-24 21:02:00 Haley Ashley [facility] Delivery 2017-09-04 00:00:00 [facility] Tubal Ligation 2017-09-04 00:00:00 [facility] Delivery 2014-08-20 00:00:00 [facility] POCT Glucose [facility] Tissue Examination [facility] Encounters Start Date/Time End Date/Time Encounter Type Admission Type Attending [facility] Care Facility Care Department Encounter ID Source 2024-02-25 11:14:01 Outpatient Sung Garcia [facility] [id number] [facility] 2024-02-19 07:38:00 Outpatient Sung Garcia [facility] [id number] [facility] 2024-01-04 10:37:01 Outpatient Sung Garcia [facility] [id number] [facility] 2023-09-26 08:07:00 Outpatient Sung Garcia [facility] [id number] [facility] 2023-09-26 07:30:00 Inpatient [facility]Z [facility] [id number] [facility] 2023-09-17 11:40:00 Outpatient Sung Garcia [facility] [id number] [facility] 2023-06-26 08:49:01 Outpatient Sung Garcia [facility] [id number] [facility] 2023-05-29 13:25:00 Outpatient Sung Garcia [facility] [id number] [facility] 2017-07-17 00:00:00 2024-04-05 03:17:27 Orders Only Radha Casanova Stephanie L [facility] [id number] [facility] 2017-08-10 00:00:00 2024-04-05 03:16:22 Orders Only Grey Palacios Toni D [facility] [facility] [id number] 350.1.13.10 [id number] [id number] [facility] 2017-08-10 00:00:00 2024-04-05 03:16:22 Orders Only Bee Ruelas Gillian D [facility] [id number] 350.1.13.10 4.2.7.2.686 [id number] [facility] 2024-04-02 00:00:00 2024-04-02 00:00:00 (TEL) STLMLC STLMLC [id number] [facility] 2024-02-19 00:00:00 2024-02-19 00:00:00 OFFICE VISIT ESTAB PT LEVEL 4 STLMLC STLMLC [id number] [facility] 2024-02-15 00:00:00 2024-02-15 00:00:00 (TEL) STLMLC STLMLC [id number] [facility] 2024-02-05 00:00:00 2024-02-05 00:00:00 (TEL) STLMLC STLMLC [id number] [facility] 2024-01-22 00:00:00 2024-01-22 00:00:00 (TEL) STLMLC STLMLC [id number] [facility] 2023-12-12 00:00:00 2023-12-12 00:00:00 (TEL) STLMLC STLMLC [id number] [facility] 2023-12-07 15:45:00 2023-12-07 15:45:00 Outpatient DOMINGA STEVENS [facility] [id number] [facility] [place] [place] 2023-11-24 20:26:00 2023-11-27 14:26:00 Emergency Urgent NA [facility] General Medicine [id number] 2023-11-24 20:26:00 2023-11-27 14:26:00 Emergency Adam aguilera, Keisha Lizarraga, Halima Akbar, Sheila Terrell, Krish Monzon, [facility] 1.2.840.114 350.1.13.70 [id number] [id number] [facility] 2023-10-19 16:00:00 2023-10-19 16:00:00 Office Visit Dominga Stevens [facility] AND WOMENS 1.2.840.114 350.1.13.58 9.2.7.2.[id number] [facility] [place] [place] 2023-10-18 14:00:00 2023-10-18 14:00:00 Outpatient CHRISTOPHER MART [facility] [id number] [facility] [place] [place] 2023-09-28 00:00:00 2023-09-28 00:00:00 (ESTPTWM) Establishe sanaz PT Women STLMLC STLC [id number] [facility] 2023-09-17 00:00:00 2023-09-17 00:00:00 OFFICE VISIT ESTAB PT LEVEL 3 STLMLC STLMLC [id number] [facility] 2023-08-16 00:00:00 2023-08-16 00:00:00 Luz Watt MD: [address], [address], [place] [address] , Ph. [phone] [facility] [id number] [facility] 2023-06-28 00:00:00 2023-06-28 00:00:00 OFFICE VISIT ESTAB PT LEVEL 4 STLMLC STLMLC [id number] [facility] 2023-03-22 00:00:00 2023-03-22 00:00:00 Outpatient GC_GCBZW_Ka diyala_S PRIV PRIV [id number] [facility] 2023-02-22 00:00:00 2023-02-22 00:00:00 Outpatient GC_GCBZW_Ka diyala_S PRIV PRIV [id number] [facility] 2023-01-25 00:00:00 2023-01-25 00:00:00 Outpatient GC_GCBZW_Ka diyala_S PRIV PRIV [id number] [facility] 2023-01-04 00:00:00 2023-01-04 00:00:00 Outpatient GC_GCBZW_Ka diyala_S PRIV PRIV [id number] [facility] 2023-01-01 13:09:00 2023-01-01 13:09:00 Outpatient Rosalva Christina [facility] [id number] [facility] [place] 2022-12-28 00:00:00 2022-12-28 00:00:00 Outpatient GC_GCBZW_Ka diyala_S PRIV PRIV [id number] [facility] 2022-11-30 00:00:2022-11-30 00:00:00 Outpatient GC_GCBZW_Ka diyala_S PRIV PRIV [id number] [facility] 2022-11-30 00:00:00 2022-11-30 00:00:00 Outpatient GC_GCBZW_Ka diyala_S PRIV PRIV [id number] [facility] 2022-11-30 00:00:00 2022-11-30 00:00:00 Outpatient GC_GCBZW_Ka diyala_S PRIV PRIV [id number] [facility] 2022-11-30 00:00:00 2022-11-30 00:00:00 Outpatient GC_GCBZW_Ka diyala_S PRIV PRIV [id number] [facility] 2022-10-17 00:00:00 2022-10-17 00:00:00 Outpatient GC_GCBZW_Ka diyala_S PRIV PRIV [id number] [facility] 2022-10-17 00:00:00 2022-10-17 00:00:00 Outpatient GC_GCBZW_Ka diyala_S PRIV PRIV [id number] [facility] 2022-10-17 00:00:00 2022-10-17 00:00:00 Outpatient GC_GCBZW_Ka diyala_S PRIV PRIV [id number] [facility] 2022-10-17 00:00:00 2022-10-17 00:00:00 Outpatient GC_GCBZW_Ka diyala_S PRIV PRIV [id number] [facility] 2022-10-02 00:00:00 2022-10-02 00:00:00 Outpatient GC_GCBZW_Ka diyala_S PRIV PRIV [id number] [facility] 2022-10-02 00:00:00 2022-10-02 00:00:00 Outpatient GC_GCBZW_Ka diyala_S PRIV PRIV [id number] [facility] 2022-10-01 00:00:2022-10-01 00:00:00 Outpatient GC_GCBZW_Ka dibette_S [facility] [id number] [facility] 2018-09-26 00:00:00 2018-09-26 00:00:00 Telephone Buster Thorpe [facility] Lucie Sullivan [facility] [id number] [id number] [id number] [id number] [facility] Results Test Description Test Time Test Comments Results Result Co mments Source [facility] Jltafih3010-50-50 20:02:31* Test Item Value Reference Range Interpretation Comme nts POC Glu (test code = 2934547390) 81 mg/dL 70-99 POC Glu Comment 1 (test code = 5057233477) Notified RN/MD POC Performing Location (hood t code = 3762212169) [facility] Fheoblg7220-92-09 17:15:05* Test Item Value Reference Range Interpretation Comme nts POC Glu (test code = 2584841618) 79 mg/dL 70-99 POC Performing Location (hood t code = 0979390647) [facility] Iwjqlhy5999-33-48 06:40:28* Test Item Value Reference Range Interpretation Comme nts POC Glu (test code = 2182631115) 74 mg/dL 70-99 POC Performing Location (hood t code = 2562280708) [facility] Ethujuy1792-66-21 17:36:07* Test Item Value Reference Range Interpretation Comme nts POC Glu (test code = 1698178275) 93 mg/dL 70-99 POC Glu Comment 1 (test code = 5133312674) Notified RN/MD POC Performing Location (hood t code = 4935406544) [facility] 12 payg8356-43-14 16:26:29* Test Item Value Reference Range Interpretation Comme nts Ventricular Rate (test code = 2652277210) BPM Atrial Rate (test code = 5453970246) BPM VA Interval (test code = 9170150951) 108 ms QRS Duration (test code = 7655231272) 90 ms QT/QTc (test code = 6903000967) 498 ms QTc Calculation (test code = 7705010628) 454 ms P-[place] (test code = 5964815927) degrees R-[place] (test code = 0890936175) degrees T-[place] (test code = 1969551143) degrees GEORGI (test code = GEORGI) PXN (test code = PXN) [facility] Bxhmfby3774-30-53 11:38:14* Test Item Value Reference Range Interpretation Comme [facility] POC Glu (test code = 8914695327) 85 mg/dL 70-99 POC Performing Location (hood t code = 1045998512) [facility] Ldzliam7847-74-87 07:36:31* Test Item Value Reference Range Interpretation Comme [facility] POC Glu (test code = 7029211267) 86 mg/dL 70-99 POC Performing Location (hood t code = 1868143653) [facility] iwtla4881-00-24 14:54:19* Test Item Value Reference Range Interpretation Comme [facility] Test (test code = Test) negative [facility] - Jaolo6620-94-43 14:54:06* Test Item Value Reference Range Interpretation Comme [facility] Leukocytes (test code = Leukocytes) Negative Nitrite (test code = Nitrite) negative Urobilinogen (test code = Urobilinogen) .2 Protein (test code = Protein) Negative pH (test code = pH) 5.5 Blood (test code = Blood) Negative Specific [place] (test code = Specific [place]) 1.020 Ketone (test code = Ketone) Negative Bilirubin (test code = Bilirubin) Negative Glucose (test code = Glucose) Negative Appearance (test code = Appearance) Clear Color (test code = Color) [facility] 15:31[facility]00* Test Item Value Reference Range Interpretation Comme [facility] SURGICAL (test code = SR) RUN DATE: 01/03/23 [facility] PAGE 1 RUN TIME: 1531 Specimen Inquiry RUN USER: INTERFACE DYLAN ENT: ALCIDES TORRES LOC: U #: [id number] AGE/SX: 27/ ROOM: RE01/01/23[facility] DR: Rosalva Estes MD : 94 BED: DIS: STATUS: [facility] TLOC: SPEC #: [id number] RECD: 01/01/23 STATUS: NICOLÁS CAGLE #: [id number] JOSSY: 01/01/[address] [facility] [address]: Rosalva Estes MD ENTERED: 01/01/23 SP TYPE: SURGICAL OTHR DR: ORDERED: [id number], ANATOMIC SPEC, SPECIMEN TRACK PROCEDURES: [id number] (01/03/23-1530) SPECIMEN TRACK (01/01/23) TISSUES: A. FALLOPIAN [...] tissue processing and slide preparation performed [facility],[address], [place] [address] MICROSCOPIC DESCRIPTION Microscopic examination is performed and the findings are incorporated into the finaldiagnosis. Please see diagnosis for findings. ----- Signed SIGNATURE ON FILE Marj Stark 01/03/23 1531 END OF REPORT HCG SERUM CLFK6311-25-25 15:51:00* Test Item Value Reference Range Interpretation Comme nts HCG SERUM QUAL (test code = HCGQL) SERUM NEGATIVE SCREEN NEGATIVE CBC W/AUTO [id number] 22:53:00* Test Item Value Reference Range Interpretation [...] NRBC#) 0.0 K/mm3 0.0-0.1 N BASIC METABOLIC DRHTX3812-02-13 14:09:00* Test Item Value Reference Range Interpretation [...] = CA) 8.9 MG/DL 8.5-10.1 N PROTHROMBIN STSU3957-73-03 13:44:00* Test Item Value Reference Range Interpretation [...] prevent recurrent infarct). Comment: PRE PROCEDURETHROMBOPLASTIN TIME PQOPAOE1521-17-83 13:44:00* Test Item Value Reference Range Interpretation Comme nts THROMBOPLASTIN TIME PARTIAL (test code = PTT) 31.3 SECONDS 26-35 N Comment: PRE PROCEDUREURINALYSIS [id number] 13:24:00* Test Item Value Reference Range Interpretation [...] A Urine Specimen Type: Clean CatchUR HCG [id number] 13:24:00* Test Item Value Reference Range Interpretation [...] patient was seen by Dr. Herbert in [place]. She reports having an upper endoscopy done [...] Patient seen and examined with the physician patient observation assistant, and confirmed the essential components of history, physical examination, diagnosis and treatment plan. I agree with the patient's care and plan as documented by the physician patient observation assistant. Gastroenterology Physician [facility] Physical Notes Date/Time Note Provider Source 2023-11-24 19:32:00 History Of Present Illness 28-year-old female with history of peptic ulcer disease presenting with complaints of lower abdominal pain/cramps since 11/20. She reports associated nausea, vomiting and diarrhea. She was admitted at [facility] on 11/21, diagnosed with colitis and started on Levaquin/Flagyl. She continued to have pain and went back to [place] ER where she was given analgesics and [...] Procedure Abnormality Status --------- ------ Complete Blood Count[[id number]] Normal Final result Automated Differential[[id number]] Abnormal Final result Please view results for [...] NPO Diet NPO except: Sips with meds [facility] Notes Date/Time Note Provider Source Referral ID Status Reason Start Date Expiration Date V isits Requested Visits Authorized [id number] Pending Review 11/27/2023 05/25/2024 1 1 [facility]Ofmt[facility]q7981-50-02 14:43:15* [facility] CenterEvcwbcz4209-73-32 14:43:15* Audit- C Score Answer Date of [...] 11/25/2023 4:30 AM Umm Gaytan RN * [place] Suicide Severity Rating Scale (Screener/Recent Self-Report) Question Answer Date of Assessment Author 1. Wish to be (Past 1 Month) No 11/24/2023 11:21 PM CDT Keanu Brizuela RN 2. Non-Specific Active Suicidal Thoughts (Past 1 Month) No 11/25/2023 4:30 AM CDT Umm Wheeler RN 6. Suicidal Behavior (Lifetime) No 11/25/2023 4:30 AM CDT Umm Wheeler RN [place] 898104-10-08 14:43:15* Tea Monzon MD - 11/26/2023 3:29 [...] bedside. The Pt currently is residing at [address] [place] [address]. No DME in the home and no barriers to discharge. Admit Location: [facility] Expected Discharge Date: 11/26/2023 Discharge Plan: * Emily Zambrano RN - 11/25/2023 12:39 PM CDT Image Editor informed Dr. Tea Monzon of patient previous lab of potassium 2.6 and 20 Meq given. Requested recheck of lab, stated he would recheck with morning labs. [place] [address]-10-08 14:43:15Pending Results Scheduled Orders Name Type Priority [...] on patient's age to complete this topic [facility] CenterBewsgqk7354-17-97 14:43:15 [facility] CenterZkgnzxb1972-82-93 14:43:15 Diagnosis Intractable nausea and vomit ing [...] without mention of hemorrhage, perforation, or obstruction [facility] CenterViahwiu9566-84-22 14:43:[address]10-08 14:16:17 Discharge instructions, new prescriptions / home medication review, regular soft diet, and follow up appointment with Dr Michi LORA within 2 weeks discussed and explained to patient, stated understanding. No other concerns voiced. [facility] MedicineNorth [facility] CenterOwcusls1861-25-79 13:31:20 Images from the original note were not included. [id number] Ciprofloxacin Brand Name(s): Cipro? Oral Suspension, Cipro? [...] doctor or pharmacist will give you the senior android developer's patient information sheet (Medication Guide) when you begin treatment with ciprofloxacin. Read the information carefully and ask your doctor or pharmacist if you have any questions. You can also visit the Food and Drug Administration (FDA) website (https://www.fda.gov/Drugs) or the senior android developer's website to obtain the Medication Guide. WHY [...] and out of their sight and reach. https://www.[employer]and[employer]el[employer].org Unneeded medications should be disposed of in [...] be awakened, immediately call emergency services at 235. What OTHER INFORMATION should I know? Keep [...] of all of the prescription and nonprescription (boyp-ubm-bjaqitm) medicines you are taking, as well as [...] or pharmacist about specific clinical use. The [place] [employer] represents that the information provided hereunder was formulated with a reasonable standard of care, and in conformity with professional standards in the field. The [place] [employer] makes no representations or warranties, express or implied, including, but not limited to, any implied warranty of merchantability and/or fitness for a particular purpose, with respect to such information and specifically disclaims all such warranties. Users are advised that decisions regarding drug therapy are complex medical decisions requiring the independent, informed decision of an appropriate health inspector health care facilities, and the information is provided for informational purposes only. The entire monograph for a drug should be reviewed for a thorough understanding of the drug's actions, uses and side effects. The [place] [employer] does not endorse or recommend the use of any drug. The information is not a substitute for medical care. AHFS? Patient Medication Information?. ? Copyright, 2023. The [place] [employer]?, [address], [address], [place], [place]. All Rights Reserved. Duplication for commercial use must be authorized by [facility]. Selected Revisions: February 02, 2021. AHFS? Patient Medication Information?. ? Copyright, 2023 Rashmi [facility] CenterCzyyzhn4398-59-86 13:30:41 Images from the original note were not included. [id number] Pantoprazole Brand Name(s): Protonix?; also available generically [...] stomach produces too much acid, such as Traic-Devlin syndrome in adults. Pantoprazole is in a [...] or doctor for a copy of the senior android developer's information for the patient. Are there OTHER [...] be awakened, immediately call emergency services at 231. What OTHER INFORMATION should I know? Keep [...] of all of the prescription and nonprescription (fxnk-zwe-slaadej) medicines you are taking, as well as [...] or pharmacist about specific clinical use. [employer] [place] [employer] represents that the information provided hereunder was formulated with a reasonable standard of care, and in conformity with professional standards in the field. [employer] [place] [employer] makes no representations or warranties, express or implied, including, but not limited to, any implied warranty of merchantability and/or fitness for a particular purpose, with respect to such information and specifically disclaims all such warranties. Users are advised that decisions regarding drug therapy are complex medical decisions requiring the independent, informed decision of an appropriate health inspector health care facilities, and the information is provided for informational purposes only. The entire monograph for a drug should be reviewed for a thorough understanding of the drug's actions, uses and side effects. The [place] [employer] does not endorse or recommend the use of any drug. The information is not a substitute for medical care. AHFS? Patient Medication Information?. ? Copyright, 2023. [employer] [place] [employer]?, [address], [address], [place], [place]. All Rights Reserved. Duplication for commercial use must be authorized by [facility]. Selected Revisions: January 03, 2023. AHFS? Patient Medication Information?. ? Copyright, 2023 [facility]2024-10-08 13:26:34 Images from the original note were not included. [id number] Metronidazole Brand Name(s): Flagyl?, Flagyl? 375, Likmez; [...] or doctor for a copy of the senior android developer's information for the patient. Are there OTHER [...] and out of their sight and reach. https://www.[employer] Dogsnd[employer]el[employer].org Unneeded medications should be disposed of in [...] be awakened, immediately call emergency services at 811. Symptoms of overdose may include the following: [...] of all of the prescription and nonprescription (wjfr-idq-wgkzgxy) medicines you are taking, as well as [...] or pharmacist about specific clinical use. The [place] [employer] represents that the information provided hereunder was formulated with a reasonable standard of care, and in conformity with professional standards in the field. [employer] [place] [employer] makes no representations or warranties, express or implied, including, but not limited to, any implied warranty of merchantability and/or fitness for a particular purpose, with respect to such information and specifically disclaims all such warranties. Users are advised that decisions regarding drug therapy are complex medical decisions requiring the independent, informed decision of an appropriate health inspector health care facilities, and the information is provided for informational purposes only. The entire monograph for a drug should be reviewed for a thorough understanding of the drug's actions, uses and side effects. The [place] [employer] does not endorse or recommend the use of any drug. The information is not a substitute for medical care. AHFS? Patient Medication Information?. ? Copyright, 2023. [employer] [place] [employer]?, [address], [address], [place], [place]. All Rights Reserved. Duplication for commercial use must be authorized by [facility]. Selected Revisions: February 02, 2023. AHFS? Patient Medication Information?. ? Copyright, 2023 Rashmi [facility] CenterWfnrgmi6630-36-72 13:26:07 Images from the original note were not included. [id number] Ciprofloxacin Ophthalmic Brand Name(s): Ciloxan?; also available [...] of all of the prescription and nonprescription (tjwa-blh-nkzqhbv) medicines you are taking, as well as [...] or pharmacist about specific clinical use. The [place] [employer] represents that the information provided hereunder was formulated with a reasonable standard of care, and in conformity with professional standards in the field. The [place] [employer] makes no representations or warranties, express or implied, including, but not limited to, any implied warranty of merchantability and/or fitness for a particular purpose, with respect to such information and specifically disclaims all such warranties. Users are advised that decisions regarding drug therapy are complex medical decisions requiring the independent, informed decision of an appropriate health inspector health care facilities, and the information is provided for informational purposes only. The entire monograph for a drug should be reviewed for a thorough understanding of the drug's actions, uses and side effects. The [place] [employer] does not endorse or recommend the use of any drug. The information is not a substitute for medical care. AHFS? Patient Medication Information?. ? Copyright, 2023. The [place] [employer]?, [address], [address], [place], [place]. All Rights Reserved. Duplication for commercial use must be authorized by [facility]. Selected Revisions: April 05, 2017. AHFS? Patient Medication Information?. ? Copyright, 2023 [facility] 13:25:00 Images from the original note were not included. Hydrocodone and Acetaminophen - Video Understand how Hydrocodone and Acetaminophen work to help you manage pain. Also, understand the possible side effects to be aware of and how to properly use and store these medications. To view the video go to this web address: [email or web address].[email or web address] Or, scan this QR code with your smart phone ? [employer] [facility] CenterNuernao1583-43-66 13:24:52 Images from the original note were not included. 04619 Upper GI Endoscopy with Biopsy Upper GI [...] you are taking. This includes prescription and yrvf-jgf-gtpcgec medicines, vitamins, herbs, and other supplements. You [...] disease Last Reviewed Date: 2021 00:00:00 ? [id number] [employer]. All rights reserved. This information is not intended as a substitute for professional medical care. Always follow your healthcare professional's instructions. [facility] CenterVlirfza7608-56-21 13:24:32 Images from the original note were not included. 93898 Dehydration The human body is comprised largely [...] fever. Last Reviewed Date: 2021 00:00:00 ? 2555-6502 [employer]. All rights reserved. This information is not intended as a substitute for professional medical care. Always follow your healthcare professional's instructions. [facility]2024-10-08 13:24:24 Images from the original note were not included. 69463 Duodenitis The duodenum is the first part [...] loss Last Reviewed Date: 2023 00:00:00 ? 4279-9643 [employer]. All rights reserved. This information is not intended as a substitute for professional medical care. Always follow your healthcare professional's instructions. [facility]2024-[facility] 10:36:05 The patient is Moderately Stable - [...] Recommendations to address these barriers include none. [facility] Uagnnfc5590-89-45 05:40:36 The patient is alert and oriented [...] Oxycodone and x1 of IV Zofran overnight. [facility]2024-10-07 13:49:58 The patient is Moderately Unstable [...] include frequent re-evaluation of pain medication effectiveness. [facility]2024-10-07 05:04:57 The patient is alert and [...] phenergan overnight for nausea and pain control. [facility]2024-10-06 17:08:54 Image Editor informed MD patient has not voimited today and request upgraded diet from NPO. New order received for Clear Liquid Diet. Patient spouse at bedside instructed how to order for patient. [place] [id number] 16:54:14 Patient c/o nausea, zofran not due at this time. Image Editor requested breakthrough nausea medication, orders received. [facility]2024-10-06 12:01:35 The patient is Moderately Stable - Low risk of patient condition declining or worsening The patient's goals for the shift include pain control The clinical goals for the shift include Pain control [facility]2023-11-13 21:[id number] [facility] [address] [place] [address] PATIENT NAME: ALCIDES TORRES ADMIT DATE: 01/01/23 ACCOUNT NO: [id number] ROOM NO: AGE: 27 REPORT TYPE: OPERATIVE [...] the right side. SURGEON: Rosalva Estes MD. THERAPEUTIC RECREATION SPECIALIST: Becca. ANESTHESIA: General endotracheal. FINDINGS: Bilateral [...] with 2 Allis clamps. Cervix dilated to 16-Persian and diagnostic hysteroscope was passed through the [...] Dictated: 01/01/2023 21:42:30 Date Transcribed: 01/01/2023 22:48:23 SKK/SHAAN/DARIA Receipt ID: [id number] Authenticated by Rosalva Estes MD On 01/25/2023 11:42:29 AM at 1142 PATIENT NAME: ALCIDES TORRES 21:26:00 [facility] Brief Op Note REPORT#:[id number] REPORT STATUS: Signed REPORT INITIALIZATION DATE:01/01/23 TIME:2125 PATIENT: ALCIDES TORRES UNIT #: [id number] ROOM/BED: : 94 AGE: 27 SEX: F [...] wall on the right Primary Surgeon: harley Guest Relation Officer(s): becca Anesthesia: general anesthesia Findings: bilateral dense tubo-ovarian adhesions, right distal hydrosalpinx, right fundal uterine adhesions to anterior abdominal wall Complications: none Estimated blood loss in ml's: 25 Specimens removed/altered: right distal tube Fluids: 400 Urine output: 100 Approach: laparoscopic Wound class: clean Disposition: plan to D/C home Counts: Sponge count: correct Instrument count: correct Needle count: correct at 2130 RPT #: [id number] END OF REPORT HCAPM
[2024-05-08] MEDS ORDERED: PANTOPRAZOLE 40 MG INJ ONE (15:58)
[2024-05-08] MEDS ORDERED: METOCLOPRAMIDE 10 MG/2mL INJ ONE (15:58)
[2024-05-08] MEDS ORDERED: DIPHENHYDRAMINE 50 MG/ML VIAL ONE (15:58)
[2024-05-08] MEDS ORDERED: NA CHLORIDE 0.9% 1,000 ML ONE (15:58)
[2024-05-08 16:03] LABS: Absolute Lymphocytes (CBC) 1.5 K/uL (0.7-4.9); Absolute Monocytes 1.2 K/uL (0.1-1.3); Absolute Neutrophil 11.5 K/uL (1.8-8.0); Basophils % 0.1 % (0-1.3); Hematocrit 39.1 % (36.0-45.0); Lymphocytes % 10.6 % (15.3-44.8); MCH 29.9 pg (27.0-35.0); MCHC 33.3 g/dL (32.0-36.0); MCV 89.8 fL (80-100); MPV 8.1 fL (7.6-11.3); Monocytes % 8.7 % (3.3-12.3); Neutrophils % 80.6 % (41.7-73.7); Platelets 297 thou/uL (152-406); RBC Red Blood Cell Count 4.35 M/uL (3.86-4.86)
[2024-05-08 16:22] LABS: Albumin/Globulin Ratio 1.1 (1.1-1.8); Anion Gap 13.9 mEq/L (5.0-15.0); Bilirubin Total 0.9 mg/dL (0.2-1.0); Globulin 3.6 g/dL (2.3-3.5); Potassium 2.9 mEq/L (3.5-5.1); Protein, Total 7.6 g/dL (6.4-8.2)
[2024-05-08] MEDS ORDERED: DICYCLOMINE HCL 20 MG/2 ML AMP IM ONE (17:06)
[2024-05-08] MEDS ORDERED: POTASSIUM 25 MEQ EFFERV TAB ONE (17:06)
[2024-05-08] MEDS ORDERED: KETOROLAC 30 MG/ML INJ ONE (17:06)
[2024-05-08] MEDS ORDERED: HYDROCOD 2.5mg-ACETAMIN 108mg/5mL Soln ONE (18:12)
--- NOTE | 2024-05-08 18:37 | EDPHYS ---
Physician Documentation [facility] Name: Alfred Steele Age: 29 yrs Sex: Female : 1995 Arrival Date: 05/08/2024 Time: 13:53 Bed DX1 Private MD: ED Physician Shahram Campa HPI: 05/08 14:40 This 29 yrs old Female presents to ER via Ambulatory with complaints of Abdominal Pain, cp Vomiting. 14:40 The patient presents with abdominal pain. cp 14:40 Onset: The symptoms/episode began/occurred 2 day(s) ago. cp 14:40 The symptoms do not radiate. Associated signs and symptoms: Pertinent negatives: chest cp pain, constipation, diarrhea, actively vomiting. The patient has been recently seen at the [facility] Emergency Department, this week, for similar complaints labs were performed, CT scan was performed. Patient reports having colonoscopy done today by DR Lei with polyp removal. reports noticing blood in vomitus . Historical: - Allergies: 14:28 PENICILLINS; iw 14:28 SHELLFISH; iw - PMHx: 14:28 Anxiety; gastric ulcers; iw - PSHx: 14:28 abdominal surgery; breast; section; iw 15:55 tubal ligation; aa5 - Infectious Disease History:: Denies. - Social history:: Smoking status: Patient reports the use of cigarette tobacco products, smokes one-half pack cigarettes per day. ROS: 14:45 Constitutional: Negative for body aches, chills, fever, cp 14:45 Eyes: Negative for injury, pain, redness, and discharge, cp 14:45 ENT: Negative for drainage from ear(s), ear pain, sore throat, difficulty swallowing, difficulty handling secretions, 14:45 Cardiovascular: Negative for chest pain, palpitations, 14:45 Respiratory: Negative for cough, shortness of breath, wheezing, 14:45 Abdomen/GI: Positive for abdominal pain, nausea and vomiting, hematemesis, Negative for diarrhea, constipation, black/tarry stool, rectal bleeding, 14:45 Neuro: Negative for altered mental status, dizziness, weakness, 14:45 All other systems are negative, Exam: 14:50 Constitutional: The patient appears in no acute distress, alert, awake, cp non-diaphoretic, non-toxic, well developed, well nourished, 14:50 Head/Face: Normocephalic, atraumatic. cp 14:50 Eyes: Periorbital structures: appear normal, Conjunctiva: normal, no exudate, no injection, Sclera: no appreciated abnormality, Lids and lashes: appear normal, bilaterally, 14:50 ENT: External ear(s): are unremarkable, Nose: is normal, Mouth: Lips: moist, Oral mucosa: moist, Posterior pharynx: Airway: no evidence of obstruction, patent, 14:50 Chest/axilla: Inspection: normal, 14:50 Cardiovascular: Rate: normal, 14:50 Respiratory: the patient does not display signs of respiratory distress, Respirations: normal, no use of accessory muscles, no retractions, labored breathing, is not present, Breath sounds: are clear throughout, no decreased breath sounds, no stridor, no wheezing, 14:50 Abdomen/GI: Inspection: abdomen appears normal, Bowel sounds: active, all quadrants, Palpation: soft, in all quadrants, moderate abdominal tenderness, in all quadrants, rebound tenderness, is not appreciated, 14:50 Back: CVA tenderness, is absent, 14:50 Neuro: Orientation: to person, place \T\ time. Mentation: is normal, Motor: moves all fours, strength is normal, Sensation: no obvious gross deficits, Vital Signs: 14:26 BP 142 / 116; Pulse 72; Resp 16; Temp 97; Pulse Ox 100% on R/A; Weight 52.16 kg; Height iw 5 ft. 1 in. ; Pain 8/10; 14:26 Body Mass Index 21.73 (52.16 kg, 154.94 cm) iw 14:26 Pain Scale: Adult iw MDM: 14:25 Medical Screening Exam initiated cp 18:36 Data reviewed: vital signs, nurses notes, lab test result(s), I have discussed the cp patient's presentation/case with the attending Emergency Department Physician; and as a result, I will discharge patient. 18:36 Differential diagnosis: non-specific abd pain, pancreatitis, Peptic Ulcer Disease, cp Perf. Duodenal Ulcer, Perf. Gastric Ulcer, Ureterolithiasis, urinary tract infection. I considered the following discharge prescriptions or medication management in the emergency department Medications were administered in the Emergency Department. See MAR. Special discussion: Based on the patient's Hx, exam, and Dx evaluation, there is no indication for emergent surgery or inpatient Tx. It is understood by the patient/guardian that if the Sx's persist or worsen they need to return immediately for re-evaluation. ED course: VSS. No active vomiting observed while monitoring patient in ED. Mild improvement in pain with non-narcotic therapies. Will discharge to home for continued monitoring. 05/08 14:32 Order name: CBC with Diff; Complete Time: 16:14 cp 05/08 16:14 Interpretation: Reviewed. cp 05/08 14:32 Order name: CMP; Complete Time: 16:47 cp 05/08 16:47 Interpretation: Normal except: NA 135; K 2.9; CO2 20; BUN 5; AST 14; GLOB 3.6. cp 05/08 14:32 Order name: Lipase; Complete Time: 16:47 cp 05/08 14:32 Order name: IV Saline Lock; Complete Time: 15:56 cp 05/08 14:32 Order name: Labs collected and sent; Complete Time: 15:56 cp 05/08 17:39 Order name: PO challenge; Complete Time: 18:20 cp Administered Medications: 16:03 Drug: NS 0.9% IV 1000 ml IV at 1 bolus Per protocol; to be given as a bolus over 60 aa5 minutes Route: IV; Rate: 1 bolus; Site: left antecubital; 19:15 Follow up: Response: No adverse reaction; IV Status: Completed infusion; IV Intake: db 1000ml 16:03 Drug: metoCLOPramide IVP 10 mg IVP once; over 1 to 2 minutes Route: IVP; Site: left aa5 antecubital; 19:16 Follow up: Response: No adverse reaction db 16:03 Drug: diphenhydrAMINE IVP 25 mg IVP once Route: IVP; Site: left antecubital; aa5 19:16 Follow up: Response: No adverse reaction db 16:03 Drug: Pantoprazole IVP 40 mg IVP once Route: IVP; Site: left antecubital; aa5 19:15 Follow up: Response: No adverse reaction db 17:13 Drug: Ketorolac IVP 15 mg IVP once Route: IVP; Site: left antecubital; aa5 19:16 Follow up: Response: No adverse reaction db 17:13 Not Given (Patient Refused): [id number] mg IM once aa5 17:13 Drug: Potassium PO Effervescent Tablet 50 mEq PO once; dissolve in 4 ounces of water or aa5 juice Route: PO; 19:15 Follow up: Response: No adverse reaction db 18:20 Drug: Lortab PO Liquid 15 ml PO once Route: PO; db 19:15 Follow up: Response: No adverse reaction db Disposition Summary: 05/08/24 18:37 Discharge Ordered Notes: Location: Home cp Problem: an ongoing problem cp Symptoms: have improved cp Condition: Stable cp Diagnosis - Abdominal pain, unspecified cp - Nausea with vomiting, unspecified cp - Hypokalemia cp Followup: cp - With: Private Physician - When: 2 - 3 days - Reason: Recheck today's complaints Discharge Instructions: - Discharge Summary Sheet cp - Abdominal Pain, Adult cp - Potassium Content of Foods cp - Nausea and Vomiting, Adult cp - Hypokalemia cp Forms: - Medication Reconciliation Form cp - Antibiotic Education cp - Prescription Opioid Use cp - Patient Portal Instructions cp - Leadership Thank You Letter cp Signatures: Dispatcher [employer] Ruth Campbell, RN RN Ericka Duff RN RN aa5 Landen Stroud PA PA cp Jodi Dunne RN RN ld1 Lauren Cardoso RN RN db
--- NOTE | 2024-05-08 18:37 | ER ---
Nurse's Notes [facility] Name: Alfred Steele Age: 29 yrs Sex: Female : 1995 Arrival Date: 05/08/2024 Time: 13:53 Bed DX1 Private MD: Diagnosis: Abdominal pain, unspecified;Nausea with vomiting, unspecified;Hypokalemia Presentation: 05/08 14:26 Chief complaint: Patient states: just got done with my colonoscopy and my pain is iw really bad, and i'm puking and there was blood in it. Coronavirus screen: At this time, the client does not indicate any symptoms associated with coronavirus-19. Ebola Screen: No symptoms or risks identified at this time. Initial Sepsis Screen: Does the patient meet any 2 criteria? No. Patient's initial sepsis screen is negative. Does the patient have a suspected source of infection? No. Patient's initial sepsis screen is negative. Risk Assessment: Do you want to hurt yourself or someone else? Patient reports no desire to harm self or others. Onset of symptoms was May 08, 2024. 14:26 Method Of Arrival: Ambulatory iw 14:26 Acuity: GAURANG 3 iw Historical: - Allergies: 14:28 PENICILLINS; iw 14:28 SHELLFISH; iw - PMHx: 14:28 Anxiety; gastric ulcers; iw - PSHx: 14:28 abdominal surgery; breast; section; iw 15:55 tubal ligation; aa5 - Infectious Disease History:: Denies. - Social history:: Smoking status: Patient reports the use of cigarette tobacco products, smokes one-half pack cigarettes per day. Screenin:14 [facility] ED Fall Risk Assessment (Adult) History of falling in the last 3 months, db including since admission No falls in past 3 months (0 pts) Confusion or Disorientation No (0 pts) Intoxicated or Sedated No (0 pts) Impaired Gait No (0 pts) Mobility Assist Device Used No (0 pt) Altered Elimination No (0 pt) Score/Fall Risk Level 0 - 2 = Low Risk Oriented to surroundings, Maintained a safe environment. Abuse screen: Denies threats or abuse. Denies injuries from another. Nutritional screening: No deficits noted. Tuberculosis screening: No symptoms or risk factors identified. Assessment: 15:55 Reassessment: Patient is alert, oriented x 3, equal unlabored respirations, skin aa5 warm/dry/pink. Pain: Complains of pain in abdomen Pain currently is 8 out of 10 on a pain scale. Noted to be guarding. 17:12 Reassessment: Patient is alert, oriented x 3, equal unlabored respirations, skin aa5 warm/dry/pink. Patient states symptoms have not improved. Pt reports she remains unable to provide urine specimen. . 19:14 Reassessment: Patient appears in no apparent distress at this time. Patient states db feeling better. Patient states symptoms have improved. Vital Signs: 14:26 BP 142 / 116; Pulse 72; Resp 16; Temp 97; Pulse Ox 100% on R/A; Weight 52.16 kg; Height iw 5 ft. 1 in. ; Pain 8/10; 14:26 Body Mass Index 21.73 (52.16 kg, 154.94 cm) iw 14:26 Pain Scale: Adult iw ED Course: 13:55 Patient arrived in ED. mr 14:08 Landen Stroud PA is PHCP. cp 14:08 Shahram Campa MD is Attending Physician. cp 14:27 Triage completed. iw 15:55 Initial lab(s) drawn, by me, sent to lab. Inserted saline lock: 22 gauge in left aa5 antecubital area, using aseptic technique. Blood collected. Flushed with 10 mL NS. 19:14 No provider procedures requiring assistance completed. IV discontinued, intact, db bleeding controlled, No redness/swelling at site. 19:14 Patient has correct armband on for positive identification. Provided Education on: db DISCHARGE AND FOLLOWUP. Administered Medications: 16:03 Drug: NS 0.9% IV 1000 ml IV at 1 bolus Per protocol; to be given as a bolus over 60 aa5 minutes Route: IV; Rate: 1 bolus; Site: left antecubital; 19:15 Follow up: Response: No adverse reaction; IV Status: Completed infusion; IV Intake: db 1000ml 16:03 Drug: metoCLOPramide IVP 10 mg IVP once; over 1 to 2 minutes Route: IVP; Site: left aa5 antecubital; 19:16 Follow up: Response: No adverse reaction db 16:03 Drug: diphenhydrAMINE IVP 25 mg IVP once Route: IVP; Site: left antecubital; aa5 19:16 Follow up: Response: No adverse reaction db 16:03 Drug: Pantoprazole IVP 40 mg IVP once Route: IVP; Site: left antecubital; aa5 19:15 Follow up: Response: No adverse reaction db 17:13 Drug: Ketorolac IVP 15 mg IVP once Route: IVP; Site: left antecubital; aa5 19:16 Follow up: Response: No adverse reaction db 17:13 Not Given (Patient Refused): [id number] mg IM once aa5 17:13 Drug: Potassium PO Effervescent Tablet 50 mEq PO once; dissolve in 4 ounces of water or aa5 juice Route: PO; 19:15 Follow up: Response: No adverse reaction db 18:20 Drug: Lortab PO Liquid 15 ml PO once Route: PO; db 19:15 Follow up: Response: No adverse reaction db Medication: 19:14 VIS not applicable for this client. db Intake: 19:15 IV: 1000ml; Total: 1000ml. db Outcome: 18:37 Discharge ordered by . cp 19:14 Discharged to home ambulatory, db 19:14 Condition: stable 19:14 Discharge instructions given to patient, Instructed on discharge instructions, follow up and referral plans. 19:16 Patient left the ED. db Signatures: Mackenzie Couch, Arie Reg mr Ruth Bell, RN MALIHA iw Ericka Duff RN RN aa5 Landen Stroud PA PA Lauren Sharif RN RN db
[2024-05-08] MEDS ORDERED: HYDROCOD 2.5mg-ACETAMIN 108mg/5mL Soln PO ONE (19:00)
[2024-05-08 19:53] VITALS: BP 142/116; TEMP 97; O2SAT 100
== END 2024-05-08 19:16 | disposition home or self-care (01) ==
LOC: ER 13:53
DX: E87.6 Hypokalemia (principal); R11.2 Nausea with vomiting, unspecified; F17.210 Nicotine dependence, cigarettes, uncomplicated
CPT/HCPCS: 96361; 85025; 36415; 83690; 80053; 96375; 96374; 99284; J2765; J1200; J2470; J7030; J0500

== ENCOUNTER 2024-05-25 16:25 | Emergency (ER) | payer BC ==
--- OUTSIDE RECORDS SUMMARY | 2024-05-25 16:30 | XMS REPORT | Continuity of Care Document ---
Author Name Unknown Address [address] [place] [address] [facility] Address [address] [place] [address] Care Team Providers Care Repair Service Clerk Name Role Phone No , Pcp Primary [...] Clinician + Sheila Akbar MD Attending Clinician [phone] Krish Terrell MD Attending Clinician [phone] Na HANLEY, Tea Attending Clinician [phone] CHRISTOPHER MART Attending Clinician Unavailable [email or web address] Attending Clinician UnavailRosalva Fortune Attending Clinician Unavailghislaine Thorpe MD, Buster Lenz Attending Clinician [phone] NAOMIE, SHEILA Admitting Clinician Unavailable Naomie HANLEY, Sheila Admitting Clinician [phone] [email or web address] Admitting Clinician Unavailghislaine gautam KNOW, DOES_NOT Admitting Clinician Unavailable Payers Payer Name Policy Type Policy Number Effective Date Expirati on Date Source Blue Cross Blue [facility] [place] 6 [id number] 77 2023 00:00:00 [facility] [place] OUT OF [place] [id number] 2022 00:00:00 BCBS COMM [id number] 2022 00:00:00 [place] [id number] 77 2022 00:00:00 2023 00:00:00 Problems Condition Name Condition Details Condition Category Status Onset Date Resolution Date Last Treatment Date Treating Clinician Comments Source PUD (peptic ulcer disease) PUD (peptic ulcer disease) Disease Active 2023-02 00:00: 00 Nehal Isabel History of peptic ulcer disease History of peptic ulcer disease Disease Recurre nce 2023-02 0 00:00: 00 Nehal Isabel Intractabl e abdominal pain Intractabl e abdominal pain Disease Active 2023-02 0 00:00: 00 Nehal Isabel Intractabl e nausea and vomiting Intractabl e nausea and vomiting Disease Active 2023-02 0 00:00: 00 Nehal Isabel Colitis Colitis Disease Active 2023-02 0 00:00: 00 Nehal Isabel Hypokalemi a Hypokalemi a Disease Active 2023-02 0 00:00: 00 Nehal Isabel Primary dysmenorrh ea Primary Dysmenorrh ea Problem Active 08-15 00:00: 00 [facility] Chronic pelvic pain of female Chronic Pelvic Pain of Female Problem Active 08-15 00:00: 00 [facility] Menorrhagi a Menorrhagi a Problem Active 08-15 00:00: 00 [facility] Anemia of mother in , antepartum Anemia of mother in , antepartum Disease Active 08-24 00:00: 00 [facility] Anemia of mother in , antepartum Anemia of mother in , antepartum Disease Active 08-24 00:00: 00 [facility] Sterilizat ion consult Sterilizat ion consult Disease Active 06-29 00:00: 00 [facility] Tobacco smoking affecting in second trimester Tobacco smoking affecting in second trimester Disease Active 05-31 00:00: 00 [facility] Medication exposure during first trimester of Medication exposure during first trimester of Disease Active 05-31 00:00: 00 [facility] Declines (vaginal after ) trial Declines (vaginal after ) trial Disease Active 05-31 00:00: 00 [facility] Previous delivery affecting , antepartum Previous delivery affecting , antepartum Disease Active 05-31 00:00: 00 [facility] Status post induction of labor Status post induction of labor Disease Active 08-20 00:00: 00 [facility] distress affecting management of mother, delivered distress affecting management of mother, delivered Disease Active 08-20 00:00: 00 [facility] Failed induction of labor, delivered Failed induction of labor, delivered Disease Active 08-20 00:00: 00 [facility] Fetopelvic disproport ion, delivered Fetopelvic disproport ion, delivered Disease Active 08-20 00:00: 00 Overview: ICD10 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 [facility] Status post induction of labor Status post induction of labor Disease Active 08-20 00:00: 00 [facility] Threatened premature labor, antepartum (644.03) Threatened premature labor, antepartum (644.03) Disease Active 618 00:00: 00 [facility] [id number] Mixed hyperlipid emia Problem [facility] [id number] Moderate episode of recurrent major depressive disorder Problem [facility] [id number] Constipati on, unspecifie d constipati on type Problem [facility] Status post repeat low transverse section Status post repeat low transverse section Disease Resolve d 09-04 00:00: 00 2017-09-07 00:00:00 2017-09-07 12:31:50 [facility] Single liveborn, born in hospital, delivered by delivery Single liveborn, born in hospital, delivered by delivery Disease Resolve d 09-04 00:00: 00 2017-09-07 00:00:00 2017-09-07 12:31:50 [facility] 39 weeks gestation of 39 weeks gestation of Disease Resolve d 16 00:00: 00 2017-09-07 00:00:00 2017-09-07 12:31:50 [facility] Allergies, Adverse Reactions, Alerts Allergy Name [...] substanc e Active Unknown 8-29 00:00: 00 [facility] Penicill ins DA Active SV ANAPHYLAXIS 2022-02 00:00: 00 [facility] shellfis h derived FA Active SV ANAPHYLAXIS 2022-02 00:00: 00 [facility] shellfis h derived FA Active SV ANAPHYLAXIS 2022-02 00:00: 00 [facility] Penicill ins DA Active SV ANAPHYLAXIS 2022-02 00:00: 00 [facility] Tegaderm Dressing Propensi ty to adverse reaction s Active Itching 09-11 00:00: 00 [facility] Penicill ins Propensi ty to adverse reaction s Active Anaphylaxis 08-20 00:00: 00 [facility] Penicill ins Allergy to substanc e Active Unknown 08-20 00:00: 00 [facility] PENICILL INS Allergy to substanc e Active Moderate severity Anaphylaxis [facility] SHELLFIS H DERIVED Allergy to substanc e Active Moderate severity Anaphylaxis [facility] Shellfis h (FN) Shellfis h (FN) Active Unknown [facility] [id number] Drug allergy Active Unknown [facility] Social History Social Habit Start Date Stop Date Quantity Comments Source ASSERTION [facility] History of tobacco use Cigarette Smoker [facility] Gender identity [facility] Tobacco use and exposure 2023-11-24 00:00:00 2023-11-24 00:00:00 Smokeless tobacco non-user [facility] History of Social function 2018-08-27 00:00:00 2018-08-27 00:00:00 [facility] Alcoholic beverage intake 2017-05-31 00:00:00 2017-05-31 00:00:00 Current non-drinker of alcohol (finding) [facility] Cigarettes smoked current (pack per day) - Reported 2017-05-31 00:00:00 2017-05-31 00:00:00 [facility] Cigarette pack-years 2017-05-31 00:00:00 2017-05-31 00:00:00 [facility] Sex assigned at 1995 00:00:00 1995 00:00:00 [facility] Smoking Status Start Date Stop Date Source Heavy Tobacco Smoker [facility] Never Smoker [facility] Smokes tobacco daily 2023-10-18 00:00:00 [facility] Medications Ordered Medication Name Filled Medication Name [...] 2023-02 12:19: 24 12-01 12:18 :24 No [id number] 4mg Q.5D Deborah Isabel sucralfate (Carafate) suspension [...] 00:00: 00 11-30 23:59 :00 No 500mg [id number] 3D Take 1 tablet by mouth in [...] 2023-02 0-06 06:43: 07 Yes 12.5mg Q6H Memoria l Sc[facility] Epic bisacodyl (Dulcolax) suppository 10 mg bisacodyl (Dulcolax) suppository 10 mg 2023-02 006 06:43: 07 Yes 10mg Q24H Nehal Clarke Epic glucagon injection 1 mg glucagon injection 1 mg 2023-02 0-06 06:43: 07 Yes 1mg Nehal Clarke Epic dextrose 50 % solution 25 g dextrose 50 % solution 25 g 2023-02 006 06:43: 07 Yes 25g Jessicashaunna pedro Clarke Epic dextrose 50 % [...] injection 4 mg morphine injection 4 mg 2023-0205 20:50: 00 11-23 21:09 :00 No 4mg 4 mg, Intravenou s, Once, On 11/24/23 at 2050, For 1 dose Memoria pedro Clarke Epic ondansetron (Zofran) injection 4 mg ondansetron (Zofran) injection 4 mg 2023-02 20:50: 00 11-23 21:08 :00 No 4mg 4 mg, Intravenou s, Once, On 11/24/23 at 2049, For 1 dose, Administer IVP. Jessicashaunna pedro Scobey Chalo sodium chloride 0.9 % bolus 1,000 mL sodium chloride 0.9 % bolus 1,000 mL 2023-02 20:50: 00 11-23 23:27 :01 No 1000mL 1,000 mL, Intravenou s, at 1,000 mL/hr, Administer over 1 Hours, Once, On 11/24/23 at 2049, For 1 dose Jessicashanuna pedro Vince Chalo sodium chloride (PF) 0.9 [...] by mouth 1 (one) time each day. [facility] sertraline (Zoloft) 100 MG tablet 10-18 15:25: 42 Yes 100mg QD Take 100 mg by mouth 1 (one) time each day. [facility] buPROPion XL (Wellbutrin XL) 150 MG 24 hr tablet 10-18 15:25: 42 Yes 150mg Take 150 mg by mouth every morning. [facility] gabapentin (Neurontin) 300 MG capsule 10-18 00:00: 00 11-18 04:59 :00 No [id number] 300mg Take 1 capsule (300 mg total) by mouth every night. [facility] Ondansetron HCl 4 MG Ondansetron HCl 4 MG 09-27 00:00: 00 No 1{table t} QD Ondansetro n HCl 4 MG eszopiclone (Lunesta) 2 MG tablet eszopiclone (Lunesta) 2 MG tablet 04-17 00:00: 00 Yes 2mg Take 2 mg by mouth at bedtime. Nehal Clarke [facility] topiramate 50 mg tablet 09-27 00:00: 00 Yes [id number] Take 100mg two times a day for 5 days, then take 150 mg in the am and 100 mg in the evening for 5 days, then take 150 mg two times a day there after. [facility] ZOLMitripta n 5 mg tablet 09-27 00:00: 00 Yes One tab at onset of headache, may repeat x one tab in 4 hours if headache persist. No more than two tabs in a 24 hour period [facility] Butalbital- Acetaminoph en-Caff (FIORICET) 50-300-40 mg per capsule 09-27 00:00: 00 Yes [id number] Use one every 6 hours as needed for head pain. [facility] Butalbital- Acetaminoph en-Caff (FIORICET) 50-300-40 mg per capsule 08-06 00:00: 00 09-27 00:00 :00 No [id number] Use one every 6 hours as needed for head pain. [facility] topiramate 50 mg tablet 06-21 00:00: 00 09-27 00:00 :00 No [id number] Use 2 in am, 1 in the evening for the headache. [facility] sumatriptan 100 mg tablet 06-21 00:00: 00 09-27 00:00 :00 No [id number] 100mg Take 1 tablet by mouth as needed for Migraine. Within 24 hours, may repeat times one in 2 hours as needed. [facility] VIT W-CA,FE,FA, <1 MG, ( #2 ORAL) 724 18:53: 24 Yes 1{tbl} Take 1 Tab by mouth. [facility] diphenhydrA MINE (BENADRYL ALLERGY) 25 mg tablet 09-11 18:53: 24 Yes 25mg Take 25 mg by mouth every 4 (four) hours as needed for Allergies. [facility] VIT W-CA,FE,FA, <1 MG, ( #2 ORAL) 09-11 13:53: 24 Yes 1{tbl} Take 1 Tab by mouth. [facility] diphenhydrA MINE (BENADRYL ALLERGY) 25 mg tablet 09-11 13:53: 24 Yes 25mg Take 25 mg by mouth every 4 (four) hours as needed for Allergies. [facility] predniSONE 10 mg tablet 09-11 00:00: 00 Yes [id number] 10mg Take 1 tablet by mouth SEE-INSTRU CTIONS. [facility] naproxen 500 mg tablet 09-05 00:00: 00 Yes 500mg Take 1 tablet by mouth 2 (two) times daily with meals as needed for Pain (scale 1-3) or Pain (scale 4-6). [facility] vitamin w/FA tablet 09-05 00:00: 00 Yes 1{tbl} Take 1 tablet by mouth daily. [facility] docusate calcium 240 mg capsule 09-05 00:00: 00 Yes 240mg Take 1 capsule by mouth once daily as needed for Constipati on. [facility] ferrous sulfate 325 mg (65 mg iron) tablet 09-05 00:00: 00 Yes 325mg Take 1 tablet by mouth 2 (two) times daily. [facility] ferrous sulfate (IRON, FERROUS SULFATE,) 325 mg (65 mg iron) tablet 08-24 00:00: 00 Yes [id number] 325mg Take 1 tablet by mouth 2 (two) times daily with meals. [facility] Rexulti 0.5 MG Rexulti 0.5 MG [...] ONCE DAILY IMMEDIATLE Y BEFORE BED [facility] Immunizations Ordered Immunization Name Filled Immunization Name Date Status Comments Source Tdap 2017-06-29 00:00:00 Completed [facility] TDAP 2017-06-29 00:00:00 Completed Vital Signs Vital Name Observation Time Observation Value Comments S melecioce height 2024-02-19 13:00:00 61 [in_i] Commo n [facility] weight 2024-02-19 13:00:00 120.4 [lb_av] Co mmon [facility] temperature 2024-02-19 13:00:00 97.3 [degF] Com mon [facility] bmi 2024-02-19 13:00:00 22.75 kg/m2 Comm on [facility] oximetry 2024-02-19 13:00:00 97 % Commo n [facility] blood pressure systolic 2024-02-19 13:00:00 98 mm[Hg] [facility] blood pressure diastolic 2024-02-19 13:00:00 62 mm[Hg] [facility] Heart rate 2023-11-27 12:20:42 55 /min [facility] Respiratory rate 2023-11-27 12:20:42 18 /min [facility] Oxygen saturation in Arterial blood by Pulse oximetry 2023-11-27 12:20:42 98 /min [facility] Systolic blood pressure 2023-11-27 12:20:34 99 mm[Hg] [facility] Diastolic blood pressure 2023-11-27 12:20:34 60 mm[Hg] [facility] Body temperature 2023-11-27 12:19:[address] [facility] Body height 2023-11-26 13:35:00 154.9 cm [facility] weight 2023-11-26 13:35:00 50.803 [facility] 2023-11-26 13:35:00 21.16 kg/m2 [facility] Heart rate 2023-11-27 12:20:42 55 /min [facility] Respiratory rate 2023-11-27 12:20:42 18 /min [facility] Oxygen saturation in Arterial blood by Pulse oximetry 2023-11-27 12:20:42 98 /min [facility] Systolic blood pressure 2023-11-27 12:20:34 99 mm[Hg] [facility] Diastolic blood pressure 2023-11-27 12:20:34 60 mm[Hg] [facility] Body temperature 2023-11-27 12:19:[address] [facility] Body height 2023-11-26 13:35:00 154.9 cm [facility]ilyn [facility] Body weight 2023-11-26 13:35:00 50.803 kg Ericjerilyn mcqueen [facility] BMI 2023-11-26 13:35:00 21.16 kg/m2 [facility] Systolic blood pressure 2023-10-19 20:26:00 96 mm[Hg] [facility] Diastolic blood pressure 2023-10-19 20:26:00 67 mm[Hg] [facility] Heart rate 2023-10-19 20:26:00 72 /min [facility] Body height 2023-10-19 20:26:00 154.9 cm [facility] Body weight 2023-10-19 20:26:00 51.256 kg [facility] BMI 2023-10-19 20:26:00 21.35 kg/m2 [facility] height 2023-09-28 13:20:00 61 [in_i] Commo n [facility] weight 2023-09-28 13:20:00 109.8 [lb_av] Co mmon [facility] temperature 2023-09-28 13:20:00 97.3 [degF] Com mon [facility] bmi 2023-09-28 13:20:00 20.74 kg/m2 Comm on [facility] oximetry 2023-09-28 13:20:00 97 % Commo n [facility] respiratory rate 2023-09-28 13:20:00 16 /min Common [facility] blood pressure systolic 2023-09-28 13:20:00 101 mm[Hg] [facility] blood pressure diastolic 2023-09-28 13:20:00 68 mm[Hg] [facility] BP Diastolic 2023-08-16 00:00:00 71 mm[Hg] [facility] BP Systolic 2023-08-16 00:00:00 102 mm[Hg] [facility] Height 2023-08-16 00:00:00 61 [in_i] [facility] Body Weight 2023-08-16 00:00:00 107 [lb_av] [facility] BMI (Body Mass Index) 2023-08-16 00:00:00 20.2 kg/m2 [facility] height 2023-06-28 14:40:00 61 [in_i] Commo n [facility] weight 2023-06-28 14:40:00 109.8 [lb_av] Co mmon [facility] temperature 2023-06-28 14:40:00 97.3 [degF] Com mon [facility] bmi 2023-06-28 14:40:00 20.74 kg/m2 Comm on [facility] oximetry 2023-06-28 14:40:00 85 % Commo n [facility] blood pressure systolic 2023-06-28 14:40:00 99 mm[Hg] [facility] blood pressure diastolic 2023-06-28 14:40:00 62 mm[Hg] [facility] Procedures Procedure Date / Time Performed Performing Clinician Source POC GLUCOSE UNSOLICITED RESULTS 2023-11-27 06:09:[address] [facility] POC GLUCOSE UNSOLICITED RESULTS 2023-11-26 19:46:00 [facility] WITH REFLEX TO TOXIN IF INDICATED 2023-11-26 18:22:00 Na [facility] ENTERIC PATHOGENS WITH CULTURE IF INDICATED 2023-11-26 18:22:00 [facility] P[facility] GLUCOSE UNSOLICITED RESULTS 2023-11-26 17:12:00 Na [facility] EGD 2023-11-26 16:42:00 Clara Barnett [facility] POC GLUCOSE UNSOLICITED RESULTS 2023-11-26 06:29:[address] [facility] BASIC METABOLIC PANEL 2023-11-26 03:22:[address] [facility] MAGNESIUM LEVEL 2023-11-26 03:22:00 Na Tea Eric rial [facility] PHOSPHORUS LEVEL 2023-11-26 03:22:00 Na, Tea [facility] orial [facility] COMPLETE BLOOD COUNT W/DIFF AND PLATELET 2023-11-26 03:22:00 Achebe, Sheila [facility] CALCIUM LEVEL IONIZED WHOLE BLOOD 2023-11-26 03:22:00 Na, [facility] COMPLETE BLOOD COUNT 2023-11-26 03:22:00 Achebe, Ifsuzannaom a [facility] AUTOMATED DIFFERENTIAL 2023-11-26 03:22:[address] [facility] Fecal Leukocytes 2023-11-26 00:00:00 Eric mcqueen [facility] POC GLUCOSE UNSOLICITED RESULTS 2023-11-25 17:29:[address] [facility] POC GLUCOSE UNSOLICITED RESULTS 2023-11-25 11:22:00 Na, Tea [facility] POC GLUCOSE UNSOLICITED RESULTS 2023-11-25 07:26:00 Na [facility] ECG 12-LEAD 2023-11-25 03:51:13 Achebe Sheilajean-pierre Cabrera [facility] Epic UA WITH CULTURE IF INDICATED 2023-11-25 00:47:[address] [facility] CT ABDOMEN PELVIS W IV CONTRAST 2023-11-25 00:46:[address] [facility] ECG 12 lead 2023-11-25 00:00:00 [facility] BASIC METABOLIC PANEL 2023-11-24 21:02:[address] [facility] HEPATIC FUNCTION PANEL 2023-11-24 21:02:00 Haley Ashley [facility] Epic LIPASE LEVEL 2023-11-24 21:02:00 Maryse Ashley [facility] Epic HCG TOTAL (QUANTITATIVE) 2023-11-24 21:02:[address] [facility] COMPLETE BLOOD COUNT W/DIFF AND PLATELET 2023-11-24 21:02:[address] [facility] COMPLETE BLOOD COUNT 2023-11-24 21:02:[address] [facility] AUTOMATED DIFFERENTIAL 2023-11-24 21:02:[address] [facility] Delivery 2017-09-04 00:00:00 [facility] Tubal Ligation 2017-09-04 00:00:00 [facility] Delivery 2014-08-20 00:00:00 [facility] POCT Glucose [facility] Tissue Examination [facility] Encounters Start Date/Time End Date/Time Encounter Type Admission Type Attending [facility] Care Facility Care Department Encounter ID Source 2024-02-25 11:14:01 Outpatient Sung Garcia [facility] [id number] [facility] 2024-02-19 07:38:00 Outpatient Sung Garcia [facility] [id number] [facility] 2024-01-04 10:37:01 Outpatient Sung Garcia [facility] [id number] [facility] 2023-09-26 08:07:00 Outpatient Sung Garcia [facility] [id number] [facility] 2023-09-26 07:30:00 Inpatient LUZ MUHAMMAD [facility] [id number] [facility] 2023-09-17 11:40:00 Out[facility] [id number] [facility] 2023-06-26 08:49:01 Out[facility] [id number] [facility] 2023-05-29 13:25:00 Outpatient Sung [facility] [id number] [facility] 2017-07-17 00:00:00 2024-04-05 03:17:27 Orders Only Radha Casanova Stephanie L [facility] [id number] [facility] 2017-08-10 00:00:00 2024-04-05 03:16:22 Orders Only Grey Palacios Toni D [facility] [id number] [facility] 2017-08-10 00:00:00 2024-04-05 03:16:22 Orders Only Bee Ruelas Gillian D [facility] [id number] [facility] 2024-04-02 00:00:00 2024-04-02 00:00:00 (TEL) STLMLC STLMLC [id number] [facility] 2024-02-19 00:00:00 2024-02-19 00:00:00 OFFICE VISIT ESTAB PT LEVEL 4 STLMLC STLMLC [id number] [facility] 2024-02-15 00:00:00 2024-02-15 00:00:00 (TEL) STLMLC STLMLC [id number] [facility] 2024-02-05 00:00:00 2024-02-05 00:00:00 (TEL) STLMLC STLC [id number] [facility] 2024-01-22 00:00:00 2024-01-22 00:00:00 (TEL) STLMLC STLC [id number] [facility] 2023-12-12 00:00:00 2023-12-12 00:00:00 (TEL) STLC STLC [id number] [facility] 2023-12-07 15:45:00 2023-12-07 15:45:00 Outpatient DOMINGA STEVENS [facility] [id number] [facility] 2023-11-24 20:26:00 2023-11-27 14:26:00 Emergency Urgent NA TEA [facility] General Medicine [id number] [facility] 2023-11-24 20:26:00 2023-11-27 14:26:00 Emergency AznauroRhett aguilera, Keisha Lizarraga, Halima Akbar, Sheila Terrell, Krish Monzon, [facility] [id number] [facility] 2023-10-19 16:00:00 2023-10-19 16:00:00 Office Visit Dominga Stevens [facility] [id number] [facility] 2023-10-18 14:00:00 2023-10-18 14:00:00 Outpatient CHRISTOPHER MART [facility] [id number] [facility] 2023-09-28 00:00:00 2023-09-28 00:00:00 (ESTPTWM) [facility]ishe d [facility] [id number] [facility] 2023-09-17 00:00:00 2023-09-17 00:00:00 OFFICE VISIT ESTAB PT LEVEL 3 STLMLC STLMLC [id number] [facility] 2023-08-16 00:00:00 2023-08-16 00:00:00 Luz Watt MD: [address], [address], [place], [place] [id number] , Ph. [phone] [facility] [id number] 0627 [facility] 2023-06-28 00:00:00 2023-06-28 00:00:00 OFFICE VISIT ESTAB PT LEVEL 4 STLMLC STLMLC [id number] [facility] 2023-03-22 00:00:00 2023-03-22 00:00:00 Outpatient GC_GCBZW_Ka diyala_S PRIV PRIV [id number] [facility] 2023-02-22 00:00:00 2023-02-22 00:00:00 Outpatient GC_GCBZW_Ka diyala_S PRIV PRIV [id number] [facility] 2023-01-25 00:00:00 2023-01-25 00:00:00 Outpatient GC_GCBZW_Ka diyala_S PRIV PRIV [id number] [facility] 2023-01-04 00:00:00 2023-01-04 00:00:00 Outpatient GC_GCBZW_Ka diyala_S PRIV PRIV [id number] [facility] 2023-01-01 13:09:00 2023-01-01 13:09:00 Outpatient Rosalva Christina [facility] [id number] [facility] 2022-12-28 00:00:00 2022-12-28 00:00:00 Outpatient GC_GCBZW_Ka diyala_S PRIV PRIV [id number] [facility] 2022-11-30 00:00:00 2022-11-30 00:00:00 Outpatient GC_GCBZW_Ka diyala_S PRIV PRIV [id number] [facility] 2022-11-30 00:00:00 2022-11-30 00:00:00 Outpatient GC_GCBZW_Ka diyala_S PRIV PRIV [id number] [facility] 2022-11-30 00:00:00 2022-11-30 00:00:00 Outpatient GC_GCBZW_Ka diyala_S PRIV PRIV [id number] [facility] 2022-11-30 00:00:00 2022-11-30 00:00:00 Outpatient GC_GCBZW_Ka diyala_S PRIV PRIV [id number] [facility] 2022-10-17 00:00:00 2022-10-17 00:00:00 Outpatient GC_GCBZW_Ka diyala_S PRIV PRIV [id number] [facility] 2022-10-17 00:00:00 2022-10-17 00:00:00 Outpatient GC_GCBZW_Ka diyala_S PRIV PRIV [id number] [facility] 2022-10-17 00:00:00 2022-10-17 00:00:00 Outpatient GC_GCBZW_Ka diyala_S PRIV PRIV [id number] [facility] 2022-10-17 00:00:00 2022-10-17 00:00:00 Outpatient GC_GCBZW_Ka diyala_S PRIV PRIV [id number] [facility] 2022-10-02 00:00:00 2022-10-02 00:00:00 Outpatient GC_GCBZW_Ka diyala_S PRIV PRIV [id number] [facility] 2022-10-02 00:00:00 2022-10-02 00:00:00 Outpatient GC_GCBZW_Ka diyala_S PRIV PRIV [id number] [facility] 2022-10-01 00:00:00 2022-10-01 00:00:00 Outpatient GC_GCBZW_Ka aakash_Nloan [facility] [id number] [facility] 2018-09-26 00:00:00 2018-09-26 00:00:00 Telephone Buster Thorpe [facility] Lucie Sullivan [facility] [id number] [facility] Results Test Description Test Time Test Comments Results Result Co mments Source [facility] [id number] 20:02:31* Test Item Value Reference Range Interpretation Comme nts POC Glu (test code = 4923454770) 81 mg/dL 70-99 POC Glu Comment 1 (test code = 7727964656) Notified RN/MD POC Performing Location (hood t code = 0201706304) [facility] Fafgrzp9912-69-42 17:15:05* Test Item Value Reference Range Interpretation Comme nts POC Glu (test code = 5454692152) 79 mg/dL 70-99 POC Performing Location (hood t code = 8002327618) [facility] Kzjuuzg9324-38-55 06:40:28* Test Item Value Reference Range Interpretation Comme nts POC Glu (test code = 1585310619) 74 mg/dL 70-99 POC Performing Location (hood t code = 0742844953) [facility] Bxtzsgx3753-80-49 17:36:07* Test Item Value Reference Range Interpretation Comme nts POC Glu (test code = 7114004558) 93 mg/dL 70-99 POC Glu Comment 1 (test code = 3585030816) Notified RN/MD POC Performing Location (hood t code = 8693016069) [facility] 12 kxoo2459-94-47 16:26:29* Test Item Value Reference Range Interpretation Comme nts Ventricular Rate (test code = 6981048411) BPM Atrial Rate (test code = 5469019773) BPM VA Interval (test code = 4159935818) 108 ms QRS Duration (test code = 0140641559) 90 ms QT/QTc (test code = 1757877014) 498 ms QTc Calculation (test code = 1547661101) 454 ms P-[place] (test code = 8156332123) degrees R-[place] (test code = 7427086686) degrees T-[place] (test code = 3465868879) degrees GEORGI (test code = GEORGI) PXN (test code = PXN) [facility] Rehhmge2605-13-16 11:38:14* Test Item Value Reference Range Interpretation Comme [facility] POC Glu (test code = 8866685722) 85 mg/dL 70-99 POC Performing Location (hood t code = 9984657647) [facility] Jraleal0394-91-83 07:36:31* Test Item Value Reference Range Interpretation Comme [facility] POC Glu (test code = 5009877106) 86 mg/dL 70-99 POC Performing Location (hood t code = 1962479069) [facility] puhdu4597-39-74 14:54:19* Test Item Value Reference Range Interpretation Comme [facility] Test (test code = Test) negative [facility] (dipstick) panel - Ynsvc1679-77-20 14:54:06* Test Item Value Reference Range Interpretation Comme [facility] Leukocytes (test code = Leukocytes) Negative Nitrite (test code = Nitrite) negative Urobilinogen (test code = Urobilinogen) .2 Protein (test code = Protein) Negative pH (test code = pH) 5.5 Blood (test code = Blood) Negative Specific [place] (test code = Specific [place]) 1.020 Ketone (test code = Ketone) Negative Bilirubin (test code = Bilirubin) Negative Glucose (test code = Glucose) Negative Appearance (test code = Appearance) Clear Color (test code = Color) Yellow [facility] 15:31:00* Test Item Value Reference Range Interpretation Comme [facility] SURGICAL (test code = SR) RUN DATE: 01/03/23 [facility] PAGE 1 RUN TIME: 1531 Specimen Inquiry RUN USER: INTERFACE PATIENT: ALCIDES TORRES LOC: TIA U #: [id number] AGE/SX: 27/F ROOM: RE01/01/23[facility]: Rosalva Estes MD : 94 BED: DIS: STATUS: [facility] TLOC: SPEC #: [id number] RECD: 01/01/23 STATUS: NICOLÁS ALDA #: [id number] JOSSY: 01/01/[address] [facility] [address]: Rosalva Estes MD ENTERED: 01/01/23 SP TYPE: SURGICAL OTHR DR: ORDERED: [id number], ANATOMIC SPEC, SPECIMEN TRACK PROCEDURES: [id number] (01/03/23-1530) SPECIMEN TRACK (01/01/23) TISSUES: A. FALLOPIAN [...] tissue processing and slide preparation performed at [facility] [address] , [place] [address] MICROSCOPIC DESCRIPTION Microscopic examination is performed and the findings are incorporated into the finaldiagnosis. Please see diagnosis for findings. Signed SIGNATURE ON FILE Marj Stark 01/03/23 1531 END OF REPORT HCG SERUM [id number] 15:51:00* Test Item Value Reference Range Interpretation Comme [facility] HCG SERUM QUAL (test code = HCGQL) SERUM NEGATIVE SCREEN NEGATIVE CBC W/AUTO [id number] 22:53:00* Test Item Value Reference Range Interpretation Comme [facility] WHITE BLOOD CELL (test code = [...] NRBC#) 0.0 K/mm3 0.0-0.1 N BASIC METABOLIC [id number] 14:09:00* Test Item Value Reference Range Interpretation [...] = CA) 8.9 MG/DL 8.5-10.1 N PROTHROMBIN [id number] 13:44:00* Test Item Value Reference Range Interpretation [...] prevent recurrent infarct). Comment: PRE PROCEDURETHROMBOPLASTIN TIME [id number] 13:44:00* Test Item Value Reference Range Interpretation Comme nts THROMBOPLASTIN TIME PARTIAL (test code = PTT) 31.3 SECONDS 26-35 N Comment: PRE PROCEDUREURINALYSIS [id number] 13:24:00* Test Item Value Reference Range Interpretation [...] A Urine Specimen Type: Clean CatchUR HCG [id number] 13:24:00* Test Item Value Reference Range Interpretation [...] patient was seen by Dr. Herbert in [place]. She reports having an upper endoscopy done [...] Patient seen and examined with the physician field research assistant, and confirmed the essential components of history, physical examination, diagnosis and treatment plan. I agree with the patient's care and plan as documented by the physician field research assistant. Gastroenterology Physician [facility] History and Physical Notes Date/Time Note Provider Source 2023-11-24 19:32:00 History Of Present Illness 28-year-old female with history of peptic ulcer disease presenting with complaints of lower abdominal pain/cramps since 11/20. She reports associated nausea, vomiting and diarrhea. She was admitted at [facility] on 11/21, diagnosed with colitis and started on Levaquin/Flagyl. She continued to have pain and went back to [place] [facility] where she was given analgesics and [...] Procedure Abnormality Status --------- ------ Complete Blood Count[[id number]] Normal Final result Automated Differential[[id number]] Abnormal Final result Please view results for [...] NPO Diet NPO except: Sips with meds [facility] Notes Date/Time Note Provider Source Referral ID Status Reason Start Date Expiration Date V isits Requested Visits Authorized [id number] Pending Review 11/27/2023 05/25/2024 1 1 [facility]3677-[facility]-36 14:43:15* [facility]Gqjgmpg8052-46-27 14:43:15* Audit- C Score Answer Date of [...] 11/25/2023 4:30 AM Umm Gaytan RN * [place] Suicide Severity Rating Scale (Screener/Recent Self-Report) Question Answer Date of Assessment Author 1. Wish to be (Past 1 Month) No 11/24/2023 11:21 PM CDT Keanu Brizuela RN 2. Non-Specific Active Suicidal Thoughts (Past 1 Month) No 11/25/2023 4:30 AM CDT Umm Wheeler RN 6. Suicidal Behavior (Lifetime) No 11/25/2023 4:30 AM CDT Umm Wheeler RN [facility]tkprg6587-66-61 14:43:15* Tea Monzon MD - 11/26/2023 3:29 [...] bedside. The Pt currently is residing at [address] [place] [address]. No DME in the home and no barriers to discharge. Admit Location: [facility] Expected Discharge Date: 11/26/2023 Discharge Plan: * Emily Zambrano RN - 11/25/2023 12:39 PM CDT Emergency Department informed Dr. Tea Monzon of patient previous lab of potassium 2.6 and 20 Meq given. Requested recheck of lab, stated he would recheck with morning labs. [place] [address]-10-08 14:43:15Pending Results Scheduled Orders Name Type Priority [...] on patient's age to complete this topic [facility]Erubdwy1734-82-04 14:43:15 [facility] TexasWixexmz7038-23-97 14:43:15 Diagnosis Intractable nausea and vomit ing [...] without mention of hemorrhage, perforation, or obstruction [facility] TexasJmcmdmh6396-47-59 14:43:15 [place] 227044-10-08 14:16:17 Discharge instructions, new prescriptions / home medication review, regular soft diet, and follow up appointment with Dr Michi LORA within 2 weeks discussed and explained to patient, stated understanding. No other concerns voiced. [facility] MedicineJ.[facility] Hospitalyeimy ClarkeMpliniy9660-48-08 13:31:20 Images from the original note were not included. [id number] Ciprofloxacin Brand Name(s): Cipro? Oral Suspension, Cipro? [...] doctor or pharmacist will give you the director metabolism's patient information sheet (Medication Guide) when you begin treatment with ciprofloxacin. Read the information carefully and ask your doctor or pharmacist if you have any questions. You can also visit the Food and Drug Administration (FDA) website (https://www.fda.gov/Drugs) or the director metabolism's website to obtain the Medication Guide. WHY [...] and out of their sight and reach. [email or web address]://www.[email or web address] Unneeded medications should be disposed of in [...] be awakened, immediately call emergency services at [phone]. What OTHER INFORMATION should I know? Keep [...] of all of the prescription and nonprescription (grss-ogp-zhjtaue) medicines you are taking, as well as [...] or pharmacist about specific clinical use. The [employer] represents that the information provided hereunder was formulated with a reasonable standard of care, and in conformity with professional standards in the field. The [place] makes no representations or warranties, express or implied, including, but not limited to, any implied warranty of merchantability and/or fitness for a particular purpose, with respect to such information and specifically disclaims all such warranties. Users are advised that decisions regarding drug therapy are complex medical decisions requiring the independent, informed decision of an appropriate health career development coordinator/teacher, and the information is provided for informational purposes only. The entire monograph for a drug should be reviewed for a thorough understanding of the drug's actions, uses and side effects. The [employer] does not endorse or recommend the use of any drug. The information is not a substitute for medical care. AHFS? Patient Medication Information?. ? Copyright, 2023. The [employer]?, [address], [address], [place], [place]. All Rights Reserved. Duplication for commercial use must be authorized by [facility]. Selected Revisions: February 02, 2021. AHFS? Patient Medication Information?. ? Copyright, 2023 ashmi [facility] TexasIogttsj2798-31-30 13:30:41 Images from the original note were not included. [id number] Pantoprazole Brand Name(s): Protonix?; also available generically [...] or doctor for a copy of the director metabolism's information for the patient. Are there OTHER [...] be awakened, immediately call emergency services at 601. What OTHER INFORMATION should I know? Keep [...] of all of the prescription and nonprescription (idae-fno-qpjhzya) medicines you are taking, as well as [...] or pharmacist about specific clinical use. The [employer] represents that the information provided hereunder was formulated with a reasonable standard of care, and in conformity with professional standards in the field. The [employer] makes no representations or warranties, express or implied, including, but not limited to, any implied warranty of merchantability and/or fitness for a particular purpose, with respect to such information and specifically disclaims all such warranties. Users are advised that decisions regarding drug therapy are complex medical decisions requiring the independent, informed decision of an appropriate health career development coordinator/teacher, and the information is provided for informational purposes only. The entire monograph for a drug should be reviewed for a thorough understanding of the drug's actions, uses and side effects. The [employer] does not endorse or recommend the use of any drug. The information is not a substitute for medical care. AHFS? Patient Medication Information?. ? Copyright, 2023. The [employer]?, [address], [place], [place]. All Rights Reserved. Duplication for commercial use must be authorized by [facility]. Selected Revisions: January 03, 2023. AHFS? Patient Medication Information?. ? Copyright, 2023 [facility] Qxjvrtc2366-64-05 13:26:34 Images from the original note were not included. [id number] Metronidazole Brand Name(s): Flagyl?, Flagyl? 375, Likmez; [...] or doctor for a copy of the director metabolism's information for the patient. Are there OTHER [...] and out of their sight and reach. [email or web address].[email or web address] Unneeded medications should be disposed of in [...] be awakened, immediately call emergency services at [phone]. Symptoms of overdose may include the following: [...] of all of the prescription and nonprescription (yfhh-lwt-iptjtwy) medicines you are taking, as well as [...] or pharmacist about specific clinical use. The [employer] represents that the information provided hereunder was formulated with a reasonable standard of care, and in conformity with professional standards in the field. The [employer] makes no representations or warranties, express or implied, including, but not limited to, any implied warranty of merchantability and/or fitness for a particular purpose, with respect to such information and specifically disclaims all such warranties. Users are advised that decisions regarding drug therapy are complex medical decisions requiring the independent, informed decision of an appropriate health career development coordinator/teacher, and the information is provided for informational purposes only. The entire monograph for a drug should be reviewed for a thorough understanding of the drug's actions, uses and side effects. The [employer] does not endorse or recommend the use of any drug. The information is not a substitute for medical care. AHFS? Patient Medication Information?. ? Copyright, 2023. The [employer]?, [address], [address], [place], [place]. All Rights Reserved. Duplication for commercial use must be authorized by [facility]. Selected Revisions: February 02, 2023. AHFS? Patient Medication Information?. ? Copyright, 2023 [facility]2024-10-08 13:26:07 Images from the original note were not included. [id number] Ciprofloxacin Ophthalmic Brand Name(s): Ciloxan?; also available [...] of all of the prescription and nonprescription (mlth-vfn-fudvwyj) medicines you are taking, as well as [...] or pharmacist about specific clinical use. The [employer] represents that the information provided hereunder was formulated with a reasonable standard of care, and in conformity with professional standards in the field. The [employer] makes no representations or warranties, express or implied, including, but not limited to, any implied warranty of merchantability and/or fitness for a particular purpose, with respect to such information and specifically disclaims all such warranties. Users are advised that decisions regarding drug therapy are complex medical decisions requiring the independent, informed decision of an appropriate health career development coordinator/teacher, and the information is provided for informational purposes only. The entire monograph for a drug should be reviewed for a thorough understanding of the drug's actions, uses and side effects. The [employer] does not endorse or recommend the use of any drug. The information is not a substitute for medical care. AHFS? Patient Medication Information?. ? Copyright, 2023. The [employer]?, [address], [address], [place], [place]. All Rights Reserved. Duplication for commercial use must be authorized by [facility]. Selected Revisions: April 05, 2017. AHFS? Patient Medication Information?. ? Copyright, 2023 [facility]2024-10-08 13:25:00 Images from the original note were not included. Hydrocodone and Acetaminophen - Video Understand how Hydrocodone and Acetaminophen work to help you manage pain. Also, understand the possible side effects to be aware of and how to properly use and store these medications. To view the video go to this web address: [email or web address] Or, scan this QR code with your smart phone ? [facility] [facility] Wjevxrl6527-20-89 13:24:52 Images from the original note were not included. [address] Upper GI Endoscopy with Biopsy Upper GI [...] you are taking. This includes prescription and llkj-tsw-hjcpyqb medicines, vitamins, herbs, and other supplements. You [...] disease Last Reviewed Date: 2021 00:00:00 ? 7220-2973 [employer]. All rights reserved. This information is not intended as a substitute for professional medical care. Always follow your healthcare professional's instructions. [facility]Poflbyk3756-17-89 13:24:32 Images from the original note were not included. 84507 Dehydration The human body is comprised largely [...] fever. Last Reviewed Date: 2021 00:00:00 ? 4357-8799 [employer]. All rights reserved. This information is not intended as a substitute for professional medical care. Always follow your healthcare professional's instructions. Rashmi [facility] TexasBwtapwb8960-15-15 13:24:24 Images from the original note were not included. 09649 Duodenitis The duodenum is the first part [...] loss Last Reviewed Date: 2023 00:00:00 ? 4923-3885 [employer]. All rights reserved. This information is not intended as a substitute for professional medical care. Always follow your healthcare professional's instructions. [facility]2024-10-08 10:36:05 The patient is Moderately Stable - [...] Recommendations to address these barriers include none. [facility]2024-10-08 05:40:36 The patient is alert and oriented [...] Oxycodone and x1 of IV Zofran overnight. IN [facility] Internal [facility]2024-10-07 13:49:58 The patient is Moderately Unstable [...] include frequent re-evaluation of pain medication effectiveness. IN [facility] Internal [facility]2024-10-07 05:04:57 The patient is alert and [...] phenergan overnight for nausea and pain control. [facility]2024-10-06 17:08:54 Emergency Department informed MD patient has not voimited today and request upgraded diet from NPO. New order received for Clear Liquid Diet. Patient spouse at bedside instructed how to order for patient. [facility]2024-10-06 16:54:14 Patient c/o nausea, zofran not due at this time. Emergency Department requested breakthrough nausea medication, orders received. [place] [address]-10-06 12:01:35 The patient is Moderately Stable - Low risk of patient condition declining or worsening The patient's goals for the shift include pain control The clinical goals for the shift include Pain control [facility]2023-11-13 21:42:432914-9078 [facility] [address] [place] [id number] PATIENT NAME: ALCIDES TORRES ADMIT DATE: 01/01/23 ACCOUNT NO: [id number] ROOM NO: AGE: 27 REPORT TYPE: OPERATIVE [...] the right side. SURGEON: Rosalva Estes MD. AGENCY RECRUITER: Becca. ANESTHESIA: General endotracheal. FINDINGS: Bilateral tubo-ovarian [...] Date Transcribed: 01/01/2023 22:48:23 SKK/MAN/DARIA Receipt ID: [id number] Authenticated by Rosalva Estes MD On 01/25/2023 11:42:29 AM at 1142 PATIENT NAME: ALCIDES TORRES 21:26:00 [facility] Brief Op Note REPORT#:[id number] REPORT STATUS: Signed REPORT INITIALIZATION DATE:01/01/23 TIME:2125 PATIENT: ALCIDES TORRES UNIT #: [id number] ROOM/BED: : 94 AGE: 27 SEX: F [...] wall on the right Primary Surgeon: harley Billing Collections Specialist(s): becca Anesthesia: general anesthesia Findings: bilateral dense tubo-ovarian adhesions, right distal hydrosalpinx, right fundal uterine adhesions to anterior abdominal wall Complications: none Estimated blood loss in ml's: 25 Specimens removed/altered: right distal tube Fluids: 400 Urine output: 100 Approach: laparoscopic Wound class: clean Disposition: plan to D/C home Counts: Sponge count: correct Instrument count: correct Needle count: correct at 2130 RPT #: [id number] END OF REPORT HCAPM
[2024-05-25] MEDS ORDERED: PROMETHAZINE INJ 25 MG/ML AMP ONE (17:12)
--- NOTE | 2024-05-25 17:16 | EDPHYS ---
Physician Documentation [facility] Name: Alfred Steele Age: 29 yrs Sex: Female : 1995 Arrival Date: 05/25/2024 Time: 16:25 Bed 6 Private MD: ED Physician Sd Ibarra HPI: 05/25 17:11 This 29 yrs old Female presents to ER via Ambulatory with complaints of Abdominal Pain, sp3 Vomiting. 17:11 29-year-old female with history of chronic abdominal pain, gastric ulcers, anxiety, sp3 with multiple ER visits including being seen this morning at [facility] and multiple visits over the last several days also an ER visit in [facility] over the weekend now presents for continued vomiting and abdominal cramping. She states she has pain medicine at home but is unable to take it due to vomiting. This has been a chronic issue for her. Review of systems negative for fever, headache, chest pain, shortness of breath, diarrhea, or any other signs or symptoms on ROS at this time.. 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 - Infectious Disease History:: Denies. - Social history:: Smoking status: Patient reports the use of cigarette tobacco products, Patient uses quit marijuana 2 weeks ago , Patient/guardian denies using alcohol. ROS: 17:12 Constitutional: Negative for fever, chills, and weight loss, Eyes: Negative for injury, sp3 pain, redness, and discharge, ENT: Negative for injury, pain, and discharge, Neck: Negative for injury, pain, and swelling, Cardiovascular: Negative for chest pain, palpitations, and edema, Respiratory: Negative for shortness of breath, cough, wheezing, and pleuritic chest pain, Back: Negative for injury and pain, MS/Extremity: Negative for injury and deformity, Skin: Negative for injury, rash, and discoloration, Neuro: Negative for headache, weakness, numbness, tingling, and seizure, Psych: Negative for depression, anxiety, suicide ideation, homicidal ideation, and hallucinations, Allergy/Immunology: Negative for hives, rash, and allergies, Endocrine: Negative for neck swelling, polydipsia, polyuria, polyphagia, and marked weight changes, Hematologic/Lymphatic: Negative for swollen nodes, abnormal bleeding, and unusual bruising, 17:12 All other systems are negative, Exam: 17:13 Constitutional: This is a well developed, well nourished patient who is awake, alert, sp3 and in no acute distress. Head/Face: Normocephalic, atraumatic. Eyes: Pupils equal round and reactive to light, extra-ocular motions intact. Lids and lashes normal. Conjunctiva and sclera are non-icteric and not injected. Cornea within normal limits. Periorbital areas with no swelling, redness, or edema. Neck: Trachea midline, no thyromegaly or masses palpated, and no cervical lymphadenopathy. Supple, full range of motion without nuchal rigidity, or vertebral point tenderness. No Meningismus. Chest/axilla: Normal chest wall appearance and motion. Nontender with no deformity. No lesions are appreciated. Cardiovascular: Regular rate and rhythm with a normal S1 and S2. No gallops, murmurs, or rubs. Normal PMI, no JVD. No pulse deficits. Respiratory: Lungs have equal breath sounds bilaterally, clear to auscultation and percussion. No rales, rhonchi or wheezes noted. No increased work of breathing, no retractions or nasal flaring. Back: No spinal tenderness. No costovertebral tenderness. Full range of motion. Skin: Warm, dry with normal turgor. Normal color with no rashes, no lesions, and no evidence of cellulitis. MS/ Extremity: Pulses equal, no cyanosis. Neurovascular intact. Full, normal range of motion. Neuro: Awake and alert, GCS 15, oriented to person, place, time, and situation. Cranial nerves II-XII grossly intact. Motor strength 5/5 in all extremities. Sensory grossly intact. Cerebellar exam normal. Normal gait. Psych: Awake, alert, with orientation to person, place and time. Behavior, mood, and affect are within normal limits. 17:13 Abdomen/GI: Abdomen soft with no peritoneal signs, rebound or guarding. Nonsurgical abdomen. Patient complains of cramping when palpated., Vital Signs: 16:43 BP 136 / 98; Pulse 109; Resp 19; Temp 98.6; Pulse Ox 100% on R/A; Weight 48.99 kg; iw Height 5 ft. 1 in. ; Pain 8/10; 16:43 Body Mass Index 20.41 (48.99 kg, 154.94 cm) iw 16:43 Pain Scale: Adult iw MDM: 16:43 Medical Screening Exam initiated sp3 17:13 Data reviewed: vital signs, nurses notes, old medical records. ED course: Patient's sp3 heart rate now in the low 90s. Patient very anxious. We will administer Phenergan 25 mg IM and safely discharge patient home to continued outpatient management and follow-up.. Administered Medications: 17:26 Drug: Promethazine IM 25 mg IM once Route: IM; Site: right deltoid; hb Disposition Summary: 05/25/24 17:16 Discharge Ordered Notes: Location: Home sp3 Condition: Stable sp3 Diagnosis - Vomiting, chronic abdominal pain sp3 Followup: sp3 - With: Private Physician - When: Upon discharge from the Emergency Department - Reason: Recheck today's complaints, Continuance of care Discharge Instructions: - Discharge Summary Sheet sp3 - Vomiting, Adult sp3 Forms: - Medication Reconciliation Form sp3 - Antibiotic Education sp3 - Prescription Opioid Use sp3 - Patient Portal Instructions sp3 - Leadership Thank You Letter sp3 Signatures: Ruth Bell, RN RN Any Garza RN RN Sd Ibarra MD MD sp3
--- NOTE | 2024-05-25 17:16 | ER ---
Nurse's Notes [facility] Name: Alfred Steele Age: 29 yrs Sex: Female : 1995 Arrival Date: 05/25/2024 Time: 16:25 Bed 6 Private MD: Diagnosis: Vomiting, chronic abdominal pain Presentation: 05/25 16:43 Chief complaint: Patient states: abd pain and vomiting since Sunday, was in the ER in [facility] and they said it was colitis , started puking and having abd pain again today, was seen at [place] this morning and was given Zofran, Phenergan and tramadol there. Coronavirus screen: At this time, the client does not indicate any symptoms associated with coronavirus-19. Ebola Screen: No symptoms or risks identified at this time. Initial Sepsis Screen: Does the patient meet any 2 criteria? No. Patient's initial sepsis screen is negative. Does the patient have a suspected source of infection? No. Patient's initial sepsis screen is negative. Risk Assessment: Do you want to hurt yourself or someone else? Patient reports no desire to harm self or others. Onset of symptoms was May 25, 2024. 16:43 Method Of Arrival: Ambulatory 16:43 Acuity: GAURANG 3 iw [employer]: 16:45 LMP 05/23/2024, unknown iw Historical: - Allergies: 16:44 PENICILLINS; iw 16:44 SHELLFISH; iw - PMHx: 16:44 gastric ulcers; Anxiety; iw - PSHx: 16:44 abdominal surgery; breast; section; tubal ligation; iw - Immunization history:: Adult Immunizations not up to date. - Infectious Disease History:: Denies. - Social history:: Smoking status: Patient reports the use of cigarette tobacco products, Patient uses quit marijuana 2 weeks ago , Patient/guardian denies using alcohol. Vital Signs: 16:43 BP 136 / 98; Pulse 109; Resp 19; Temp 98.6; Pulse Ox 100% on R/A; Weight 48.99 kg; iw Height 5 ft. 1 in. ; Pain 8/10; 16:43 Body Mass Index 20.41 (48.99 kg, 154.94 cm) iw 16:43 Pain Scale: Adult ED Course: 16:27 Patient arrived in ED. mr 16:27 Sd Ibarra MD is Attending Physician. sp3 16:44 Triage completed. iw 16:54 Arm band placed on. iw 17:06 Mateo Parry, RN is Primary Nurse. jb4 Administered Medications: 17:26 Drug: Promethazine IM 25 mg IM once Route: IM; Site: right deltoid; hb Outcome: 17:16 Discharge ordered by . sp3 17:26 Patient left the ED. hb Signatures: Mackenzie Couch, Reg Reg mr Ruth Bell RN RN Any Garza RN RN Mateo Parry, RN RN jb4 Sd Ibarra MD MD sp3 Corrections: (The following items were deleted from the chart) 16:45 16:43 BP 136 / 98; Pulse 109bpm; Resp 19bpm; Pulse Ox 100% RA; Temp 98.6F; Pain 8/10, iw Adult; iw
[2024-05-25 17:31] VITALS: BP 136/98; TEMP 98.6; O2SAT 100
== END 2024-05-25 17:26 | disposition home or self-care (01) ==
LOC: ER 16:25
DX: R11.10 Vomiting, unspecified (principal); R10.9 Unspecified abdominal pain; F41.9 Anxiety disorder, unspecified; Z72.0 Tobacco use
CPT/HCPCS: 96372; 99283; J2550